=== PATIENT | male | born 1940 | race Caucasian/White ===

== ENCOUNTER 2021-06-03 12:07 | Outpatient (CLI) | payer OTHER, SELFPAY ==
--- NOTE | ~2021-06-03 | XR_ITS ---
XR chest 2V 06/03/2021 12:38 Indication: Cough with chest pain Procedure: 2 view chest Comparison: Comparison to multiple prior studies sequentially, with oldest reviewed study dated 11/28. Findings: There is left lower lobe airspace disease, compatible with pneumonia. There is atherosclero sis and ectasia of the aorta. Right lung clear. Heart size normal. Impression: 1: Left lower lobe pneumonia. Reviewed, dictated and finalized at location A. Impression: 1: Left lower lobe pneumonia.
== END 2021-06-03 12:08 | disposition home or self-care (01) ==
LOC: ANHIMG 12:16
PROVIDERS: PCP Family Medicine; Visit Provider Nurse Practitioner Family
DX: R05 Cough (principal); R06.02 Shortness of breath; J18.9 Pneumonia, unspecified organism
CPT/HCPCS: 71046

== ENCOUNTER 2022-09-21 13:14 | Outpatient (CLI) | payer OTHER, SELFPAY ==
[2022-09-21 14:03] LABS: Anion Gap 10 mmol/L (8-16); Blood Urea Nitrogen 25 mg/dL (9-20); Calcium 9.3 mg/dL (8.4-10.2); Carbon Dioxide 23 mmol/L (22-30); Chloride 107 mmol/L (98-107); Estimated Glomerular Filt Rate 49; Glucose 124 mg/dL (65-110); Potassium 3.8 mmol/L (3.4-5.0); Sodium 140 mmol/L (137-145)
[2022-09-21 14:13] LABS: INR 1.1; Prothrombin Time 14.1 Seconds (11.1-14.7)
[2022-09-21 14:15] LABS: Partial Thromboplastin Time 39.4 SECONDS (22.3-36.8)
== END 2022-09-21 13:15 | disposition home or self-care (01) ==
PROVIDERS: Anesthesiology; PCP Family Medicine; Visit Provider Surgery
DX: E11.9 Type 2 diabetes mellitus without complications (principal); Z01.818 Encounter for other preprocedural examination; N18.30 Chronic kidney disease, stage 3 unspecified
CPT/HCPCS: 36415; 80048; 85610; 85730

== ENCOUNTER 2022-09-24 17:56 | Observation (INO) | payer OTHER, SELFPAY ==
[2022-09-18 09:33] VITALS: BMI 28.8
--- NOTE | 2022-09-18 10:00 | PC.NURSE ---
Report to the Outpatient Waiting Room, entrance under the green pavilion located off [facility], at time _1100_ on date _09/24/22_. Planned Procedure Time: _1 PM_. Time changes happen often and if your time is changed the preop area will call you the afternoon before. - You and your visitor will be asked to self-screen and do not enter if you have any COVID symptoms. - Only one visitor is requested with a max of two and NO children visitors are allowed at this time. - The patient visitor may be requested to leave or wait in car when not with patient due to distancing restrictions. - A mask is optional within the hospital. Patients may have clear liquids (water, carbonated beverages, clear teas, apple juice) until 3 hours prior to surgery (1000 AM) with a maximum of 20 ounces. - No food from midnight until time of surgery Take the following medications with a SIP of water the morning of surgery: _AMLODIPINE, METOPROLOL_ Medications to discontinue _ELIQUIS PER DR. PEARSON'S INSTRUCTIONS_ Please no make-up, nail frisian, hairspray, perfume, deodorant, or body powder the day of surgery. No jewelry (including any body piercings) or valuables the day of surgery, leave them at home. Please take a shower or bath the night before, or the morning of, surgery with an antibacterial soap. Wear comfortable, loose fitting clothing. Children are encouraged to wear pajamas. - Jewelry must be removed prior to entering the operating room. Rings and piercings that are not removed may be cut off. - The hospital will not accept responsibility for valuables. - Please leave all valuables, including medications, at home the day of surgery. If you are going home after surgery, a licensed professional driver must drive you home. - NO public transportation without another adult if you receive anesthesia. - We recommend that an adult stay with you for 24 hours following discharge. - We also recommend that you do not drive, make important decision, drink alcoholic beverages, or take any drugs that were not prescribed by your health care provider for at least 24 hours after your discharge time. Follow any additional instructions given to you from your surgeon. HIBICLENS SHOWER AM OF SURGERY If you or anyone in your household have experienced Covid symptoms in the past week, please notify your surgeon or the nurse liaison at the phone number below for possible testing. Telephone instructions given to ___PT and asked if any additional questions and then verbalized understanding. Patient advised to call surgeon office or pre surgery nurse liaison [phone] if any additional questions.
--- NOTE | 2022-09-23 10:57 | WPDANESEPPF ---
Anes - Initial Pre Proc Eval Procedure: Operation Date: 09/24/22 13:00 Proposed Procedures p Open Periumbilical Incisional Hernia Repair with Mesh - David Bedoya MD Date/Time: 09/23/22 10:57 Surgeon: David Bedoya MD Pre Op Diagnosis: incisional hernia Patient Data Age: 82 Gender: M Height: 1.8 m Weight: 93.63 kg Allergies Allergy/AdvReac Type Severity Reaction Status Date / Time No Known Allergies Allergy Unknown Verified 09/18/22 09:31 Home Medications Medication Instructions Recorded Confirmed Type metformin 500 mg tablet,extended See Rx Instructions .Route 02/23/22 09/19/22 Rx release 24 hr .COMPLEX #360 tabs valsartan 320 1 tablet PO DAILY #90 tabs 04/24/22 09/19/22 Rx mg-hydrochlorothiazide 25 mg tablet (Diovan HCT) apixaban 5 mg tablet (Eliquis) See Rx Instructions .Route 04/30/22 09/19/22 Rx .COMPLEX #60 tabs amlodipine 10 mg tablet 10 mg PO DAILY #90 tabs 05/11/22 09/19/22 Rx clotrimazole-betamethasone 1 1 applic topical BID #45 grams 06/02/22 09/19/22 Rx %-0.05 % topical cream metoprolol succinate 25 mg See Rx Instructions .Route 08/07/22 09/19/22 Rx tablet,extended release 24 hr .COMPLEX #45 tabs dulaglutide 1.5 mg/0.5 mL 1.5 mg (0.5 mL) subcut WEEKLY #2 mL 09/08/22 09/19/22 Rx subcutaneous pen injector (Trulicity) Patient hx anesthesia problems: none Family hx anesthesia problems: none Results Review: All pre-operative results and documents have been reviewed as part of the pre-operative evaluation. [facility] Past Medical History Medical History (Updated 09/17/22 @ 09:33 by Maeve Mohr [facility]) CAD (coronary artery disease) Chronic a-fib Chronic kidney disease, stage 3 unspecified CKD (chronic kidney disease) stage 3, GFR 30-59 ml/min DM renal manif type II HLD (hyperlipidemia) Hy ht/kd NOS I-IV w/o hf Type 2 diabetes mellitus without complications Surgical History Surgical History (Updated 12/07/22 @ 10:58 by Warren Coffey DO) History of prostatectomy History of PTCA stent 2006 Family History Family History Mother Family history of coronary artery disease Social History Social History (Updated 09/18/22 @ 10:28 by Maya Chaney RN) Social History: Single Smoking status: Never smoker Tobacco type: cigarettes Second hand tobacco smoke exposure: No Alcohol intake: current Alcohol use details: STATES MAYBE 12-15 DRINKS A YEAR Substance use: never Substance use type: does not use Living arrangements: with family Gender identity (if verbalized by the patient): Male Sexual Orientation (if Verbalized by the Patient): Straight or Heterosexual Spiritual care concerns: No Anes - Eval Final PreProcedure Day of Procedure 09/23/22 10:57 Patient weight: overweight Heart: regular rate and rhythm Lungs: clear to auscultation Airway: Mallampati scale class II Neurological: alert and oriented Last oral intake: >/= 8 hours ASA classification: III Emergent: no Anesthetic plan: proceed Anesthesia type and monitoring: general GIVS and standard monitoring Results Review: All pre-operative results and documents have been reviewed as part of the pre-operative evaluation. Informed Consent: The patient's anesthetic plan and its attendant risks and benefits were discussed with the patient/family/POA. Questions were solicited and answers provided to the satisfaction of the patient/family/POA.
[2022-09-24] VITALS (15 sets, daily range): BP systolic 110–170; BP diastolic 55–73; PULSE 34–50; RESP 16–18; TEMP 36.4–36.6; O2SAT 91–98; BMI 31.4
[2022-09-24] MEDS: ACETAMINOPHEN 500 MG TABLET 1000 MG PO (11:00)
[2022-09-24] MEDS: KETOROLAC 15 MG/ML VIAL (*BKC) IV PUSH (11:00)
[2022-09-24] MEDS: LACTATED RINGERS 1,000 ML 30 ML IV CONT (11:00)
[2022-09-24 11:38] LABS: Partial Thromboplastin Time 36.6 SECONDS (22.3-36.8)
--- NOTE | 2022-09-24 11:46 | WPDHPUPDATE1 ---
History and Physical Update Update Date/Time: 09/24/22 11:46 History and Physical has been reviewed, including an updated exam of the patient. There are NO changes in the patient's condition. Risks, benefits, and alternatives have been discussed and questions answered. Patient agrees to proceed with procedure.
[2022-09-24 11:48] LABS: Glucose Point of Care 151 mg/dl (65-105)
[2022-09-24] MEDS: ceFAZolin 2 GM/D5W 50 ML 2 GM/50 ML BAG IVPB (11:57)
--- NOTE | 2022-09-24 13:30 | ECG_ITS ---
Measurements Intervals [place] Rate: 41 P: ID: 0 QRS: -16 QRSD: 91 T: 25 QT: 449 QTc: 374 Interpretive Statements ATRIAL FLUTTER/TACHYCARDIA WITH SLOW VENTRICULAR RESPONSE INFERIOR MYOCARDIAL INFARCTION , PROBABLY OLD [40+ ms Q WAVE AND/OR ST/T ABNORMALITY IN II/aVF] NO PREVIOUS ECG AVAILABLE FOR COMPARISON Electronically Signed On 09-25-2022 7:38:20 DICER OPERATOR by Shon Prieto M.D.
[2022-09-24 13:39] LABS: Glucose Point of Care 137 mg/dl (65-105)
--- NOTE | 2022-09-24 13:40 | P.OP_ITS ---
Procedure Note - Detailed Date of Procedure 09/24/22 Pre-op Diagnosis incisional hernia Post-op Diagnosis Same Procedure Performed Repair periumbilical incisional hernia with 6.[address] underlay mesh Surgeon David Bedoya MD Business Asst Ilda DELACRUZ Anesthesia General (G IV S) and Local (1% lidocaine with epinephrine) Indications Patient had laparoscopic prostatectomy over 10 years ago. One of his trocars was placed in the upper umbilicus. He noticed a knot there after the surgery. Recently this has gotten bigger and more painful. He was seen in the office and found to have a periumbilical incisional hernia. He is taken to surgery now for repair Findings Showed a 1-1/2 x 0.7 cm defect. Description of Procedure Patient was taken to surgery and anesthesia was administered. The abdomen is prepped and draped. The proposed incision along the upper margin of the umbilicus was marked on the skin. Local was infiltrated into the skin and the deeper subcutaneous tissues. Incision was made dissection was carried down through the subcutaneous. We encountered the hernia sac which was sizable. I dissected the umbilical skin off the hernia sac and then dissected around the hernia sac circumferentially. I opened the sac at its neck and then excised it. There was omentum in the hernia defect. A small amount of omentum was removed. The rest was reduced. I put a finger inside the hernia defect found no adhesions or other defects in the area. A 6.[address] patch was chosen. It was placed in the defect in position symmetrically. Cranial and caudal transfascial sutures were then placed. When each of these sutures was tied, it had the effect of drawing the edges of the hernia defect closer to 1 another. I then cut the straps to the Ventralex patch. Right and left lateral transfascial sutures were then placed also with 0 Ethibond. The defect was then closed with [id number] mattress suture of 0 Ethibond. This suture also in cord perforated bit of mesh. More local was infiltrated all around the area of the repair. I then sutured the umbilical skin to the fascia with 3-0 Vicryl. Some subcutaneous 3-0 Vicryl were placed. The skin was loosely approximated with subcuticular interrupted 3-0 and 4-0 Vicryl suture. The skin was finally closed with a running 4-0 Monocryl skin suture. The wound was dressed with Exofin rosalind gical adhesive. The patient was awakened and taken to outpatient surgery in good condition. Sponge and needle counts were correct x2. Estimated Blood Loss -5 Drains No Packing No Pathology None sent Complications No immediate complications Condition Stable Disposition Same day [facility] Billing Surgery - Charge Forward: Surgery Billing (Repair incisional hernia with mesh)
--- NOTE | 2022-09-24 13:53 | SUR.PHASEII ---
1325 per UROLOGY PHYSICIAN Babita need EKG prior to discharge order placed by Dr Coffey 1335 Dr Reynolds bedside talking to patient patient awake alert no complaints of any type 1350 tech bedside to obtain EKG 1400 Dr Coffey informed EKG complete and Dr Bedoya given update of needed EKG
--- NOTE | 2022-09-24 14:13 | SUR.PHASEII ---
1410 Dr Coffey bedside
--- NOTE | 2022-09-24 14:23 | SUR.PHASEII ---
[address] Coffey bedside talking to patient states he and Dr Bedoya spoke and would like hospitalist to consult and admit for observation
--- NOTE | 2022-09-24 15:11 | PM.IMHP ---
H&P: HPI History of Present Illness Date/Time: 09/24/22 15:11 Chief Complaint: Bradycardia with atrial flutter Narrative: Patient is an 82-year-old man with diabetes, coronary artery disease with previous stenting, hypertension who came to the hospital today for outpatient surgery regarding an enlarging periumbilical incisional hernia. At the time of surgery he was noted to have asymptomatic bradycardia. His surgery was performed under sedation and local anesthesia. Following surgery was noted to have persistent bradycardia with atrial flutter. He has placed in observation in intermediate care unit. Consultation with the hospitalist as well as Cardiology is requested. 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 Review of Systems Review of Systems: All systems reviewed & are unremarkable except as noted in HPI and below (HPI and those items noted below) Constitutional: Constitutional: Denies chills and Denies fever(s) Cardiovascular: Cardiovascular: Denies chest pain, Denies diaphoresis, Denies dyspnea and Denies paroxysmal nocturnal dyspnea Respiratory: Respiratory: Denies chest congestion, Denies cough and Denies dyspnea Integumentary/Breasts: Skin/Breast: Denies lesions and Denies rash [facility] Past Medical History Medical History CAD (coronary artery disease) Chronic a-fib Chronic kidney disease, stage 3 unspecified CKD (chronic kidney disease) stage 3, GFR 30-59 ml/min DM renal manif type II HLD (hyperlipidemia) Hy ht/kd NOS I-IV w/o hf Type 2 diabetes mellitus without complications Surgical History Surgical History History of prostatectomy History of PTCA stent 2006 Family History Family History Mother Family history of coronary artery disease Social History Social History Social History: Single Smoking status: Never smoker Tobacco type: cigarettes Second hand tobacco smoke exposure: No Alcohol intake: current Alcohol use details: STATES MAYBE 12-15 DRINKS A YEAR Substance use: never Substance use type: does not use Living arrangements: with family Gender identity (if verbalized by the patient): Male Sexual Orientation (if Verbalized by the Patient): Straight or Heterosexual Spiritual care concerns: No Meds Home Medications and Allergies Home Medications Medication Instructions Recorded Confirmed Type metformin 500 mg tablet,extended See Rx Instructions .Route 02/23/22 09/24/22 Rx release 24 hr .COMPLEX #360 tabs valsartan 320 1 tablet PO DAILY #90 tabs 04/24/22 09/24/22 Rx mg-hydrochlorothiazide 25 mg tablet (Diovan HCT) apixaban 5 mg tablet (Eliquis) See Rx Instructions .Route 04/30/22 09/24/22 Rx .COMPLEX #60 tabs amlodipine 10 mg tablet 10 mg PO DAILY #90 tabs 05/11/22 09/24/22 Rx clotrimazole-betamethasone 1 1 applic topical BID #45 grams 06/02/22 09/24/22 Rx %-0.05 % topical cream metoprolol succinate 25 mg See Rx Instructions .Route 08/07/22 09/24/22 Rx tablet,extended release 24 hr .COMPLEX #45 tabs dulaglutide 1.5 mg/0.5 mL 1.5 mg (0.5 mL) subcut WEEKLY #2 mL 09/08/22 09/24/22 Rx subcutaneous pen injector (TrLife is Tech) hydrocodone 5 mg-acetaminophen 325 1 - 2 tablet PO Q6H PRN pain #15 09/24/22 Rx mg tablet tabs Allergies Allergy/AdvReac Type Severity Reaction Status Date / Time No Known Allergies Allergy Unknown Verified 09/24/22 12:14 Vital Signs Vital Signs - 24 hr 09/24/22 11:30 09/24/22 13:25 09/24/22 13:30 Temperature 36.4 C Pulse Rate 41 L 50 L 42 L Respiratory Rate 18 16 16 Blood Pressure 146/68 H 114/55 L 116/57 L Pulse Oximetry 98 91 92 Oxygen Delivery Room Air Room Air Room Air 09/24/22 13:50 09/24/22 14:00 09/24/22 14:15 Temperature Pulse Rate 40 L 42 L 34 L Respiratory Rat
--- NOTE | 2022-09-24 15:17 | SUR.PHASEII ---
1515 This RN spoke to Sherri Page about entering consult order, Patient states no happy has to stay is talking to him about how it is needed, patient and informed awaiting a bed, offered a menu at this time.
--- NOTE | 2022-09-24 15:56 | SUR.PHASEII ---
Dr. Bedoya at bedside talking to patient and spouse now.
--- NOTE | 2022-09-24 16:18 | SUR.PHASEII ---
Patient met criteria for the floor at 1545. No beds available at this time so patient is being boarded in outpatient until a bed becomes available. Spouse is in the room with the patient at this time.
[2022-09-24 16:36] LABS: Glucose Point of Care 127 mg/dl (65-105)
[2022-09-24] MEDS: IBUPROFEN IV 800 MG/200 ML 800 MG/200 ML BAG 400 MG IVPB (17:12)
--- NOTE | 2022-09-24 17:51 | SUR.PHASEII ---
Nata left the hospital for the evening. RN called and told her room 213. This RN let CRYSTAL Mcfarlane know that Nata would be notified of room number and that she had the number to the nurse's station from [place] before she left the hospital.
--- NOTE | 2022-09-24 18:30 | ADMGEN ---
This patient, Shon German, was admitted to IMU Room 213-01. Patient/family oriented to hospital policies and general routines including ID bracelet, bed and alarms, visiting hours, pain management, procedures, bathroom and other care routines, personal items, smoking policy, room service/diet, and visiting hours. Information on how to activate the Rapid Response Team has been discussed. Patient/Family are encouraged to report perceived risks to care and to ask questions if they do not understand what they are told or what they should do.
[2022-09-24] MEDS: LACTATED RINGERS 1,000 ML 80 ML IV CONT (18:46)
[2022-09-24] MEDS: FAMOTIDINE 20 MG TABLET PO (21:00)
[2022-09-24] MEDS: HYDROcodone/acetaminophen (*CRX) 7.5-325 MG TABLET 1 TAB PO (22:42)
[2022-09-25] VITALS (8 sets, daily range): BP systolic 147–159; BP diastolic 60–69; PULSE 39–48; RESP 15–20; TEMP 36.1–36.5; O2SAT 91–96; BMI 30.7
[2022-09-25 01:10] LABS: Glucose Point of Care 128 mg/dl (65-105)
[2022-09-25 05:11] LABS: Hematocrit 40.4 % (42.0-52.0); Hemoglobin 13.1 g/dL (14.0-18.0); Mean Corpuscular HGB Conc 32.4 g/dl (32-36); Mean Corpuscular Hemoglobin 32.4 pg (26-34); Mean Platelet Volume 10.1 fl (7.4-10.4); Platelet Count Result 255 k/mm3 (150-375); Red Blood Count 4.04 M/mm3 (4.6-6.20); Red Cell Distribution Width 14.4 % (11.5-14.5); White Blood Count 9.9 K/mm3 (4.5-10.0)
[2022-09-25 05:26] LABS: Anion Gap 4 mmol/L (8-16); Blood Urea Nitrogen 21 mg/dL (9-20); Calcium 8.7 mg/dL (8.4-10.2); Carbon Dioxide 27 mmol/L (22-30); Chloride 107 mmol/L (98-107); Estimated CRCL calculation 44 ml/min; Estimated Glomerular Filt Rate 49; Glucose 132 mg/dL (65-110); Potassium 3.8 mmol/L (3.4-5.0); Sodium 138 mmol/L (137-145)
--- NOTE | 2022-09-25 06:28 | PM.IMCN ---
Assessment and Plan Assessment and plan (1) Atrial flutter by electrocardiogram: Code(s): I48.92 - Unspecified atrial flutter Status: Acute (2) Bradycardia: Code(s): R00.1 - Bradycardia, unspecified Status: Acute (3) Chronic a-fib: Code(s): I48.20 - Chronic atrial fibrillation, unspecified Status: Chronic (4) Type 2 diabetes mellitus: Code(s): E11.9 - Type 2 diabetes mellitus without complications Status: Acute Plan The patient's metoprolol is already on hold for the patient's asymptomatic bradycardia with a flutter. Cardiology was consulted by the primary service. Will defer further management of this issue to Cardiology Service. The patient's glucoses are stable with his diabetic regimen. Will change the patient's sliding scale insulin a.c. HS Accu-Cheks as the patient is on a consistent carbohydrate diet. Otherwise the patient's glucoses are stable Accu-Cheks and hypoglycemia protocol are in place. The patient's diabetes is stable. Will hold the patient's Trulicity as this is non formulary medication and is only given weekly. If okay with surgical service medical service is okay with patient being discharged. Medicine service will sign off. HPI Data of Consult Consult date: 09/25/22 Requesting Physician: David Bedoya MD Primary Care Provider: Fantasma Jett MD Consult Narrative Narrative: Shon German is a 82 year old maleWith past medical history of coronary artery disease,chronic atrial fibrillation, type 2 diabetes mellitus and hypertension who presented to the hospital for elective repair periumbilical incisional hernia. On presentation to the hospital patient had bradycardia. He was asymptomatic from bradycardia. EKG demonstrated AFib with slowed ventricular response. On review the patient's chart from prior hospitalizations the patient does seem to have an intermittent history of bradycardia in the past. He reports that when he was initially on Toprol-XL many years ago at a higher dose his heart rate were down in the 40s. His doctor cut his metoprolol back by half a dose and he has been on the his current dose for several years. Patient is asymptomatic with his bradycardia. He is on Toprol-XL at home which he took on the morning of the procedure. He also has type 2 diabetes but his glucoses have been well controlled since admission. Patient's heart rate is ranging in the 40s and 50s but is otherwise asymptomatic. He is doing well postop and denies shortness of breath. His heart rate is been as low as 39 but this morning his heart rate is up to 51. On telemetry heart rate now appear to be consistent with sinus bradycardia. His blood pressures have been stable. He reports a moderate to significant amount of abdominal pain and is incision site. He is passing gas. Review of Systems Review of Systems: 12 systems were reviewed with pertinent positives and negatives per HPI. Except as documented in the HPI, all other systems were reviewed and are negative. [facility] Past Medical History Medical History (Updated 09/25/22 @ 06:39 by Zehra Cuevas DO) CAD (coronary artery disease) Chronic a-fib CKD (chronic kidney disease) stage 3, GFR 30-59 ml/min DM renal manif type II HLD (hyperlipidemia) Hy ht/kd NOS I-IV w/o hf Surgical History Surgical History History of prostatectomy History of PTCA stent 2005 Family History Family History Mother Family history of coronary artery disease Grandparent Congestive heart failure Hypertension Social History Social History Social History: Single Smoking status: Never smoker Tobacco type: cigarettes Second hand tobacco smoke exposure: No Alcohol intake: former Alcohol use details: STATES MAYBE 12-15 DRINKS A YEAR Substance
[2022-09-25] MEDS: ENOXAPARIN 40 MG/0.4 ML SYRINGE SUB-Q (08:32)
[2022-09-25] MEDS: metFORMIN HCL XR 500 MG TAB.SR.24H 2000 MG BY MOUTH (08:32)
[2022-09-25] MEDS: VALSARTAN 160 MG TABLET 320 MG PO (08:32)
[2022-09-25] MEDS: amLODIPine BESYLATE 5 MG TABLET 10 MG PO (08:33)
[2022-09-25] MEDS: FAMOTIDINE 20 MG TABLET PO (08:33)
[2022-09-25] MEDS: hydroCHLOROthiazide 25 MG TABLET PO (08:33)
[2022-09-25] MEDS: BETAMETHASONE/CLOTRIMAZOLE CR 15 GM TUBE 1 APPLIC TOPICAL (08:33)
[2022-09-25] MEDS: HYDROcodone/acetaminophen (*CRX) 7.5-325 MG TABLET 1 TAB PO (08:38)
[2022-09-25 08:55] LABS: Glucose Point of Care 156 mg/dl (65-105)
--- NOTE | 2022-09-25 09:17 | PM.CNCAR ---
Assessment and Plan Assessment and plan (1) Bradycardia: Code(s): R00.1 - Bradycardia, unspecified Status: Acute (2) Atrial flutter by electrocardiogram: Code(s): I48.92 - Unspecified atrial flutter Status: Acute Plan This is an 82-year-old man with chronic stable coronary artery disease remote history of PCI done elsewhere. He also has chronic AFib/flutter and a slow ventricular response. He these are not new findings or concerns. He is on a very small dose metoprolol which should be stopped. He has no cardiac symptoms that require ongoing hospitalization here at [place] [facility]. Otherwise he would be ready to go home after his hernia operation yesterday. He show should follow-up with his established fur trimmer at [facility]. Out of courtesy I will give them a call and let them know about this today. Shon Prieto MD [facility] History of Present Illness History of Present Illness Consult date/time: 09/25/22 09:17 Reason For Visit: incisional hernia Narrative: This is a very pleasant 82-year-old man I am seeing at the request of the hospitalist and Surgical team because of bradycardia. He is unknown to me prior to this consultation. He is feeling well this morning and does not have any cardiovascular complaints. He is admitted [facility] yesterday as an outpatient for repair of a umbilical hernia. He underwent herniorrhaphy uneventfully and was noted to be bradycardic prompting a consultation. The patient does have a history of coronary artery disease as well as chronic atrial fib/flutter with slow ventricular response. He is managed by our cardiology colleague over at [facility] for many years. He states that he underwent a percutaneous angioplasty procedure with the remote past and has done well without any recurrent stenosis or ischemic problems in many years. He also is known to have chronic atrial fibrillation with a slow ventricular response. His fur trimmer has been reducing the dose of his metoprolol because of this a gradually over the last couple of years. He is currently on a very small dose of metoprolol at 12.5 mg daily. He does not have any history of any syncopal episodes or near syncopal events. 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 His electrocardiogram demonstrates atrial flutter with slow ventricular response a narrow QRS and nonspecific T-wave changes. Review of Systems Constitutional: Constitutional: Reports no additional constitutional complaints Eyes: Eyes: Reports no additional eye complaints ENT: Reports system reviewed and no additional complaints, except as documented Cardiovascular: Cardiovascular: Reports no additional cardiovascular complaints Respiratory: Respiratory: Reports no additional respiratory complaints Gastrointestinal: Gastrointestinal: Reports no additional gastrointestinal complaints Musculoskeletal: Musculoskeletal: Reports no additional musculoskeletal complaints Integumentary/Breasts: Skin/Breast: Reports system reviewed and no additional complaints, except as docu Neurologic: Reports system reviewed and no additional complaints, except as documented Hematologic/Lymphatic: Hematologic/Lymphatic: Reports no additional hematologic/lymphatic complaints Allergic/Immunologic: Allergic/Immunologic: Reports no additional allergic/immunologic complaints [facility] Past Medical History Medical History (Updated 09/25/22 @ 06:39 by Zehra Cuevas DO) CAD (coronary artery disease) Chronic a-fib CKD (chronic kidney disease) stage 3, GFR 30-59 ml/min DM renal manif type II HLD (hyperlipidemia) Hy ht/kd NOS I-IV w/o hf Surgical History Surgical History History of prostatectomy His
--- NOTE | 2022-09-25 10:47 | P.PNAN_ITS ---
Anes - Prog Note Post-Op Date/Time: 09/25/22 09:30 Cardiovascular status: other (pt seen by institutional nutrition consultant, pacer discussed. scheduled to follow up with primary institutional nutrition consultant next week. ) Respiratory status: normal Airway patency: baseline Mental status: baseline Post-Op hydration status: normal Vital Signs: Last Vital Signs Temp 97.3 F L 09/25/22 08:00 Pulse 48 L 09/25/22 08:00 Resp 20 09/25/22 08:00 BP 147/60 H 09/25/22 08:00 Pulse Ox 91 09/25/22 08:00 O2 Del Method Room Air 09/25/22 04:00 Pain Score (VAS): 2 I/O: Intake & Output 09/24/22 09/25/22 09/25/22 23:59 07:59 15:59 Intake Total 1200 Balance 1200 Laboratory Tests 09/25/22 04:56 09/25/22 04:56 09/24/22 09/24/22 09/24/22 11:09 11:19 13:35 WBC RBC Hgb Hct MCV MCH MCHC RDW Plt Count MPV APTT 36.6 Sodium Potassium Chloride Carbon Dioxide Anion Gap BUN Creatinine Estim Creat Clear Calc Estimated GFR Glucose POC Capillary Glucose 151 H 137 H Calcium 09/24/22 09/25/22 09/25/22 16:31 01:04 04:56 WBC 9.9 RBC 4.04 L Hgb 13.1 L Hct 40.4 L MCV 100.0 MCH 32.4 MCHC 32.4 RDW 14.4 Plt Count 255 MPV 10.1 APTT Sodium Potassium Chloride Carbon Dioxide Anion Gap BUN Creatinine Estim Creat Clear Calc Estimated GFR Glucose POC Capillary Glucose 127 H 128 H Calcium 09/25/22 09/25/22 04:56 08:32 WBC RBC Hgb Hct MCV MCH MCHC RDW Plt Count MPV APTT Sodium 138 Potassium 3.8 Chloride 107 Carbon Dioxide 27 Anion Gap 4 L BUN 21 H Creatinine 1.40 H Estim Creat Clear Calc 44 Estimated GFR 49 L Glucose 132 H POC Capillary Glucose 156 H Calcium 8.7 Post-procedural complaints: none Patient Feedback: Patient satisfied with anesthetic care.
[2022-09-25 12:11] LABS: Glucose Point of Care 160 mg/dl (65-105)
--- NOTE | 2022-09-25 14:34 | PM.DS ---
DS: Admitting Diagnosis Discharge Date 09/25/2022 Admitting Diagnosis Incisional hernia Bradycardia with atrial flutter-asymptomatic DS: Discharge Diagnosis Discharge Diagnosis (1) Atrial flutter by electrocardiogram: Code(s): I48.92 - Unspecified atrial flutter Status: Acute (2) Bradycardia: Code(s): R00.1 - Bradycardia, unspecified Status: Acute Assessment and Plan: Patient noted to have bradycardia with heart rates in the 30s at the time of surgery. This was asymptomatic. It appeared to be atrial flutter in an EKG after surgery. Patient was admitted to the IMU for observation. Hospitalist saw the patient in consultation as did Dr. Prieto from cardiology. 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 (3) Incisional hernia: Qualifiers: Obstruction and gangrene presence: without obstruction or gangrene Qualified Code(s): K43.2 - Incisional hernia without obstruction or gangrene Code(s): K43.2 - Incisional hernia without obstruction or gangrene Status: Chronic Assessment and Plan: Patient underwent repair of periumbilical incisional hernia with underlay mesh on 09/24/2022. (4) Chronic anticoagulation: Code(s): Z79.01 - USP (current) use of anticoagulants Status: Chronic Assessment and Plan: Apixaban on hold until Wednesday DS: Summary Hospital Course Hospital Course: Patient underwent periumbilical incisional hernia repair with Ventralex ST underlay mesh as scheduled as an outpatient. He did however have asymptomatic bradycardia which was noted after surgery to be atrial flutter. His heart rates were in the 30s. He was observed in the intermediate care unit. He was seen by hospitalist service as well as Cardiology. His heart rates were more in the 40s on 09/25. Both the hospitalist service and Dr. Prieto from cardiology felt the patient was satisfactory for discharge on 09/25/2022 to follow up with his regular locomotive firer/fireman as an outpatient. Status at Discharge Functional status at discharge: independent ambulation Overall status at discharge: patient is progressing back to baseline Time Spent with Patient Time attestation: Total time spent providing and/or coordinating discharge services: DS: Data Data Completed and Pending Labs on day of discharge: Labs from last 24 hours 09/25/22 09/25/22 09/25/22 11:31 08:32 04:56 WBC RBC Hgb Hct MCV MCH MCHC RDW Plt Count MPV Sodium 138 Potassium 3.8 Chloride 107 Carbon Dioxide 27 Anion Gap 4 L BUN 21 H Creatinine 1.40 H Estim Creat Clear Calc 44 Estimated GFR 49 L Glucose 132 H POC Capillary Glucose 160 H 156 H Calcium 8.7 09/25/22 09/25/22 09/24/22 04:56 01:04 16:31 WBC 9.9 RBC 4.04 L Hgb 13.1 L Hct 40.4 L MCV 100.0 MCH 32.4 MCHC 32.4 RDW 14.4 Plt Count 255 MPV 10.1 Sodium Potassium Chloride Carbon Dioxide Anion Gap BUN Creatinine Estim Creat Clear Calc Estimated GFR Glucose POC Capillary Glucose 128 H 127 H Calcium Discharge Plan Discharge Attending physician on discharge: David Bedoya Consulting providers: Davon Johns ; Sherri Page ; Cecilio Alvarez Discharging Clinician: David Bedoya Anticipated Discharge Date/Time: 09/25/22 14:32 Patient Disposition: Home, Self-Care Activity: may shower, no straining and as tolerated Diet: as tolerated and diabetic Wound Care Instructions: incision open to air Discharge Instructions: 1. May shower the day after surgery over incision. 2. Call office for: -Wound increasingly painful or bleeding -Vomiting -Fever of greater than 101 degrees 3. Expect some blood on dressing or on skin. 4. If no bowel movement for th
== END 2022-09-25 15:19 | disposition home or self-care (01) ==
LOC: ANHSURGERY 17:57 → ANHIMU 18:03
PROVIDERS: Anesthesiology; Admitting Provider Surgery; PCP Family Medicine; Visit Provider Surgery
PROC: 0WQF0ZZ Repair Abdominal Wall, Open Approach (ICD-10-PCS; CPT 49560; principal; 2022-09-24 13:00)
DX: K43.2 Incisional hernia without obstruction or gangrene (principal); I48.92 Unspecified atrial flutter; R00.1 Bradycardia, unspecified; R94.31 Abnormal electrocardiogram [ECG] [EKG]; R00.0 Tachycardia, unspecified; E11.22 Type 2 diabetes mellitus with diabetic chronic kidney disease; I12.9 Hypertensive chronic kidney disease with stage 1 through stage 4 chronic kidney disease, or unspecified chronic kidney disease; N18.30 Chronic kidney disease, stage 3 unspecified; I25.10 Atherosclerotic heart disease of native coronary artery without angina pectoris; Z95.5 Presence of coronary angioplasty implant and graft; E78.5 Hyperlipidemia, unspecified; F10.90 Alcohol use, unspecified, uncomplicated; E66.3 Overweight; Z68.30 Body mass index [BMI] 30.0-30.9, adult; Z79.01 Long term (current) use of anticoagulants; Z79.84 Long term (current) use of oral hypoglycemic drugs; Z79.891 Long term (current) use of opiate analgesic; Z79.899 Other long term (current) drug therapy; Z82.49 Family history of ischemic heart disease and other diseases of the circulatory system
CPT/HCPCS: 49560; 49568; 36415; 80048; 82948; 85027; 85610; 85730; 93005; 99215; A9270; C1781; G0378; G0463; J0690; J1650; J1741; J1885; J2704; J3010; J7120

== ENCOUNTER 2022-12-22 11:14 | Outpatient (CLI) | payer OTHER, SELFPAY ==
--- NOTE | ~2022-12-22 | XR_ITS ---
XR chest 2V DATE: 12/22/2022 11:27 INDICATION: Cough for 4 days. Low-grade fever. TECHNIQUE: PA and lateral views COMPARISON: 06/03/2021 2 view chest FINDINGS: Electronic monitor device overlies the lower left anterior chest cavity. Normal heart size. Aortic calcification and unfolding. No hilar or mediastinal enlargement. No pulmonary infiltrate or consolidation, pleural effusion or pulmonary vascular congestion or pneumo thorax. Degenerative spurring of the thoracic spine. IMPRESSION: No active cardiopulmonary disease Reviewed, dictated and finalized at location L. [facility]
== END 2022-12-22 11:15 | disposition home or self-care (01) ==
PROVIDERS: PCP Family Medicine; Visit Provider Family Medicine
DX: R05.9 Cough, unspecified (principal)
CPT/HCPCS: 71046

== ENCOUNTER 2024-03-08 07:41 | Outpatient (CLI) | payer OTHER, SELFPAY ==
--- NOTE | ~2024-03-08 | CT_ITS ---
EXAMINATION: CT soft tissue neck wo con DATE: 03/08/2024 08:00 INDICATION: Localized swelling, mass and lump, neck. TECHNIQUE: Computed tomography (CT) of the neck was performed with 75 mL Omnipaque-350 intravenous co ntrast. Automated exposure control and iterative reconstruction technique were employed. The dose-june gth product was 577.02 mGy-cm. COMPARISON: None FINDINGS: There is an enlarged high right internal jugular chain lymph node measuring 2.0 x 1.5 cm. T here is an enlarged right mid internal jugular chain node measuring 10 x 10 mm. In the supraglottic l arynx on the right, there is a 2.1 x 1.0 cm mucosal mass. There is mucosal thickening in the paranasa l sinuses. There is a trace left mastoid effusion. There is severe cervical spondylosis. IMPRESSION: 1. 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 2. Right internal jugular chain lymphadenopathy, consistent with metastatic disease. Ultrasound-guide d core needle biopsy is recommended. Reviewed, dictated and finalized at location A. IMPRESSION: 1. Mass in the supraglottic larynx on the right suspicious for squamous cell ca rcinoma. 2. Right internal jugular chain lymphadenopathy, consistent with metastatic dis ease. Ultrasound-guided core needle biopsy is recommended.
== END 2024-03-08 07:42 | disposition home or self-care (01) ==
PROVIDERS: PCP Family Medicine; Visit Provider Family Medicine
DX: R22.1 Localized swelling, mass and lump, neck (principal); I12.9 Hypertensive chronic kidney disease with stage 1 through stage 4 chronic kidney disease, or unspecified chronic kidney disease; N18.30 Chronic kidney disease, stage 3 unspecified
CPT/HCPCS: 70490

== ENCOUNTER 2024-09-19 14:31 | Inpatient (IN) | payer OTHER, SELFPAY ==
[2024-09-19] VITALS (8 sets, daily range): BP systolic 112–131; BP diastolic 50–69; PULSE 62–70; RESP 13–22; TEMP 36.2–36.7; O2SAT 94–98
--- NOTE | ~2024-09-19 | XR_ITS ---
EXAMINATION: XR chest 1V portable DATE: 09/26/2024 14:46 INDICATION: Cough and shortness of breath TECHNIQUE: frontal view of the chest was obtained. COMPARISON: Chest radiograph dated 09/24/2024 FINDINGS: Gradient of basilar predominant hazy airspace opacities in the bilateral mid to lower lung zones with blunting at costophrenic angles consistent with small lateral posterior layering pleural effusions. More dense opacities on the right lung base and in the retrocardiac left lower lung zone which could represent associated atelectasis or pneumonia. No pulmonary edema or pneumothorax. Cardiomegaly. Left pectoral implantable site monitor. IMPRESSION: 1. Small bilateral pleural effusions and associated bibasilar atelectasis and/or pneumonia. 2. Cardiomegaly. Reviewed, dictated and finalized at location A. T CLEANING MACHINE OPERATOR IMPRESSION: 1. Small bilateral pleural effusions and associated bibasilar atelectasis and/o r pneumonia. 2. Cardiomegaly.
--- NOTE | ~2024-09-19 | XR_ITS ---
XR chest 1V portable DATE: 09/24/2024 22:00 INDICATION: Shortness of breath and wheezing TECHNIQUE: Portable upright AP chest on 09/24/2024 at 2155 hours COMPARISON: 09/24/2024 portable AP chest at 0823 hours FINDINGS: Cardiomegaly. Aortic calcification. There is mild patchy infiltrate in the right mid and both lower lung zones, left greater than right. Pulmonary vascularity is within normal range. No pleural effusion or pneumothorax is noted. IMPRESSION: Right mid and bilateral lower lung infiltrate and/or atelectasis, most prominent in the l eft lower lobe Cardiomegaly, aortic calcification Reviewed, dictated and finalized at location A. NCE SEAL DELIVERY SYSTEM MAINTAINER IMPRESSION: Right mid and bilateral lower lung infiltrate and/or atelectasis, m ost prominent in the left lower lobe Cardiomegaly, aortic calcification
--- NOTE | ~2024-09-19 | XR_ITS ---
Portable chest x-ray Comparison: 09/26/2024 Clinical History: Shortness of breath Findings: Small bilateral pleural effusions are present. There is mild pulmonary edema pattern. Car diomediastinal silhouette is stable, with loop recorder. Bones and soft tissues are unremarkable. Impression: Small bilateral pleural effusions with mild pulmonary edema. Reviewed, dictated and finalized at [facility]. TED CIRCUIT LAYOUT TAPER Impression: Small bilateral pleural effusions with mild pulmonary edema.
--- NOTE | ~2024-09-19 | XR_ITS ---
EXAMINATION: [id number]_[id number]_CR DATE: 09/28/2024 15:02 INDICATION: Thoracentesis TECHNIQUE: frontal view of the chest was obtained. COMPARISON: Chest radiograph and CT dated 09/27/2024 FINDINGS: Changed basilar predominant hazy opacities in the right mid to lower lung zone consistent with small posterior layering pleural effusion. The hazy opacities throughout the left lung have resolved consis tent with interval thoracentesis with no appreciable residual left pleural effusion. Opacities at the bilateral lung bases which could represent atelectasis or pneumonia. No pneumothorax. Cardiomegaly. Left pectoral implant couple shelter monitor. IMPRESSION: 1. No pneumothorax or evident residual left pleural effusion post left thoracentesis. 2. Unchanged small right pleural effusion. 3. Persistent bibasilar opacities which could represent atelectasis or pneumonia. Reviewed, dictated and finalized at location A. DEVELOPMENT SPECIALIST IMPRESSION: 1. No pneumothorax or evident residual left pleural effusion post left thoracen tesis. 2. Unchanged small right pleural effusion. 3. Persistent bibasilar opacities which could represent atelectasis or pneumoni a.
--- NOTE | ~2024-09-19 | XR_ITS ---
EXAMINATION: XR chest 1V portable DATE: 09/24/2024 08:32 INDICATION: Fever. Altered mental status. TECHNIQUE: A single frontal view of the chest was obtained. COMPARISON: Chest 2 views 09/19/2024 FINDINGS: The lung volumes are small. There are airspace opacities in the lower lung zones. No pleura l effusion or pneumothorax. The heart size is normal. There is an electronic implant in the heart. IMPRESSION: 1. Small lung volumes with worsened airspace opacities in the lower lung zones, consistent with atele ctasis versus pneumonia. Reviewed, dictated and finalized at location A. PROFIT JOB TITLES IMPRESSION: 1. Small lung volumes with worsened airspace opacities in the lower lung zones, consistent with atelectasis versus pneumonia.
--- NOTE | ~2024-09-19 | US_ITS ---
EXAMINATION: US thoracentesis DATE: 09/28/2024 15:10 INDICATION: Moderate-sized bilateral pleural effusions TECHNIQUE: The procedure and its risks and benefits were discussed with the patient. Potential risks discussed included bleeding, infection, and pneumothorax. The patient understood the risks and agreed to proceed. The skin was prepped and draped in sterile fashion. 1% lidocaine was used for local anes thesia. Under ultrasound guidance, a 5 Fr catheter with trochar was advanced into the left pleural ef fusion. Fluid was aspirated. The catheter was removed, and a dressing was applied. There were no imme diate complications. FINDINGS: Ultrasound images demonstrate a small left pleural effusion and the catheter within the fluid. IMPRESSION: 1. Successful ultrasound-guided thoracentesis yielding 650 mL of dark reddish colored fluid. Reviewed, dictated and finalized at location A. ER OPERATOR
--- NOTE | ~2024-09-19 | XR_ITS ---
MODIFIED ESOPHAGRAM HISTORY: Dysphagia with coughing during bedside swallow exam TECHNIQUE: Modified barium esophagram was performed on 09/25/2024. I administered fluoroscopy and perf ormed the exam with speech pathologist. Patient was seated for lateral fluoroscopic imaging for jerry stion of thin liquids, pudding, solids and quantified amounts, followed by thin liquids in uncontroll ed amounts. This was recorded on tape. A single fluoroscopic spot image was also recorded. The DAP fo r this procedure was 3.298 Gycm2. The amount of fluoroscopy time used during this procedure was 5.1 m inutes. FINDINGS: Oral stage: Adequate function. Pharyngeal stage: Reduced laryngeal and adduction and tongue base retraction. Reduced pharyngeal sque elias and absent epiglottic inversion. There is moderate to large amount of vallecular residue and smal l to moderate amount of residue in the piriform sinus. Trace pharyngeal wall residue. There was laryn geal penetration both during and after the swallow. There is subsequent silent aspiration of a small amount of contrast following the swallow. There is irregular mucosal contour projecting over the phar ynx which raises concern for malignancy. Cervical/esophageal stage: Adequate function. IMPRESSION: 1. Pharyngeal dysphagia with laryngeal penetration both during and after the swallow and small amount of silent aspiration following the swallow. Please correlate with speech pathologist findings and s pecific feeding recommendations. 2. Irregular mucosal contour at the pharynx raises concern for malignancy. Reviewed, dictated and finalized at location A. CTOR OF EXHIBIT DEVELOPMENT IMPRESSION: 1. Pharyngeal dysphagia with laryngeal penetration both during and after the sw allow and small amount of silent aspiration following the swallow. Please nathanael elate with speech pathologist findings and specific feeding recommendations. 2. Irregular mucosal contour at the pharynx raises concern for malignancy.
--- NOTE | ~2024-09-19 | CT_ITS ---
CTA chest PE protocol Ordering provider: Gillian Palomino PA-C History: 84 years Male with . SOB; new O2 requirement . Comparison: None. Technique: CT angiogram chest was performed following timed intravenous injection of contrast. Thin s lice axial images and reformatted coronal images were obtained. Three dimensional reformatted images of the chest were also obtained using a [employer] workstation. . Automated exposure control and iterati ve reconstruction technique were employed. The dose-length product was 844.21 mGy-cm. 100 mL Omnipaqu e 350 was given IV. Findings: PULMONARY ARTERIES: No pulmonary embolus. VISUALIZED THORACIC INLET: Possibility of soft tissue density in the area of the right false vocal co rd is not excluded. Clinical evaluation advised. MEDIASTINUM: Aorta/coronary arteries: Mild atheromatous disease. Ascending aorta measures 3.3 cm. Heart/other: The heart is slightly enlarged. Lymph nodes: No mediastinal or hilar adenopathy. LUNGS: No pulmonary nodules or masses. Bilateral moderate pleural effusion with adjacent atelectasis versus pneumonia. Clinical correlation advised. No pneumothorax. VISUALIZED UPPER ABDOMEN: Soft tissue density in the left kidney medially most likely cyst. Ultrasoun d evaluation advised. Otherwise, , the visualized upper abdomen is normal. MUSCULOSKELETAL: Soft tissues: The superficial soft tissues are normal. Bones: Age appropriate degenerative changes of the spine. IMPRESSION: 1. No pulmonary embolism. 2. Bilateral moderate pleural effusion with adjacent atelectasis versus pneumonia. 3. Possible soft tissue density in the right false vocal cord area. Clinical evaluation advised. Reviewed, dictated and finalized at location A. PSYCHOLOGIST IMPRESSION: 1. No pulmonary embolism. 2. Bilateral moderate pleural effusion with adjacent atelectasis versus pneumo griselda. 3. Possible soft tissue density in the right false vocal cord area. Clinical e valuation advised.
--- NOTE | ~2024-09-19 | XR_ITS ---
EXAMINATION: XR chest 2V DATE: 09/19/2024 15:49 INDICATION: Pneumonia. TECHNIQUE: Frontal and lateral views of the chest were obtained. COMPARISON: Chest 2 views 12/22/2022 FINDINGS: There is mild atelectasis at left lung base. No pleural effusion or pneumothorax. The heart size is normal. An electronic implant overlies the heart. IMPRESSION: 1. Mild atelectasis at left lung base. Reviewed, dictated and finalized at location A. W MACHINE OPERATOR SINGLE SPINDLE
--- NOTE | ~2024-09-19 | CT_ITS ---
EXAMINATION: CT brain wo con DATE: 09/24/2024 14:26 INDICATION: Altered mental status TECHNIQUE: Computed tomography (CT) of the head was performed without intravenous contrast. The mA wa s adjusted according to patient size. Iterative reconstruction technique was employed. Exam dose: 60 5.33 mGy-cm total exam DLP. COMPARISON: 04/14/2016 CT brain FINDINGS: Stable chronic left cerebellar hemispheric infarct. Moderate cerebellar and cerebral volume loss. Prominent bilateral vertebral artery and carotid siphon internal carotid artery calcifications. There is nonspecific diminished attenuation of the cerebral white matter, likely due to chronic small vess el ischemic changes. No intracranial mass lesion or hemorrhage or cerebrovascular accident is evident. No subdural or epidural hematoma is detected. No fracture or bone destruction of the cranial vault. There is [id number] patchy soft tissue thickening of the ethmoid air cells, mild mucoperiosteal thickening of the sphenoid sinuses. The mastoid air cells are well-developed and aerated. No fracture or bone destruction of the cranial vault. 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 Reviewed, dictated and finalized at location A. 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
--- NOTE | 2024-09-19 08:57 | ECG_ITS ---
Test Date: 2024-09-21 09:19:38 Measurements Intervals [place] Rate: 60 P: 0 UT: 0 QRS: -72 QRSD: 201 T: 109 QT: 518 QTc: 518 Interpretive Statements ELECTRONIC VENTRICULAR PACEMAKER ABNORMAL RHYTHM ECG No previous ECG available for comparison Electronically Signed On 09-21-2024 09:57:07 CLINICAL LABORATORY SCIENTIST by Yaya Lu M.D.
[2024-09-19 15:02] LABS: Basophils Absolute Auto 0.1 K/mm3 (0.0-0.1); Basophils Percent Auto 0.9 % (0.2-1.2); Eosinophils Absolute Auto 1.8 K/mm3 (0-0.3); Eosinophils Percent Auto 18.6 % (0-4.4); Hematocrit 36.1 % (42.0-52.0); Hemoglobin 12.9 g/dL (14.0-18.0); Immature Granulocyte Absolute 0.06 K/mm3 (0.00-0.031); Immature Granulocyte Percent A 0.6 % (0-0.5); Lymphocytes Absolute Auto 0.94 K/mm3 (0.9-3.2); Lymphocytes Percent Auto 9.5 % (18.3-44.2); Mean Corpuscular HGB Conc 35.7 g/dl (32-36); Mean Corpuscular Hemoglobin 31.3 pg (26-34); Mean Corpuscular Volume 87.6 fl (80-100); Mean Platelet Volume 9.8 fl (7.4-10.4); Monocytes Absolute Auto 1.2 K/mm3 (0.1-0.6); Monocytes Percent Auto 11.7 % (2.6-8.5); Neutrophils Absolute Auto 5.8 K/mm3 (1.3-6.7); Neutrophils Percent Auto 58.7 % (45.5-73.1); Platelet Count Result 258 k/mm3 (150-375); Red Blood Count 4.12 M/mm3 (4.6-6.20); Red Cell Distribution Width 12.2 % (11.5-14.5); White Blood Count 9.9 K/mm3 (4.5-10.0)
[2024-09-19 15:24] LABS: INR 1.2; Prothrombin Time 15.8 Seconds (11.1-14.7); Troponin I < 0.012 ng/mL (0.000-0.034)
[2024-09-19 15:25] LABS: Partial Thromboplastin Time 46.7 Seconds (22.3-36.8)
[2024-09-19 15:39] LABS: Influenza A QL RT-PCR Negative (Negative); Influenza B QL RT-PCR Negative (Negative); RSV RNA, RT-PCR Negative (Negative); SARS-CoV-2 RNA PCR Negative (Negative)
[2024-09-19 16:13] LABS: Anion Gap 7 mmol/L (4-12); Blood Urea Nitrogen 11 mg/dL (9-20); Carbon Dioxide 25 mmol/L (22-30); Chloride 83 mmol/L (98-107); Estimated CRCL calculation 37 ml/min; Estimated Glomerular Filt Rate 48; Glucose 170 mg/dL (65-110); Potassium 3.4 mmol/L (3.4-5.0); Sodium 115 mmol/L (137-145)
[2024-09-19 16:14] LABS: Alanine Aminotransferase 20 U/L (6-50); Albumin Level 3.8 g/dL (3.5-5.1); Alkaline Phosphatase 74 U/L (38-126); Aspartate Amino Transferase 35 U/L (17-59); Bilirubin,Total 0.6 mg/dL (0.2-1.3); Calcium 8.7 mg/dL (8.4-10.2); Total Protein 6.9 g/dL (6.3-8.2)
[2024-09-19 16:27] LABS: Magnesium 1.4 mg/dL (1.6-2.3)
[2024-09-19] MEDS: SODIUM CHLORIDE 0.9% IV 1,000 ML 999 ML IV CONT (16:34)
[2024-09-19 16:47] LABS: Sodium 115 mmol/L (137-145)
--- NOTE | 2024-09-19 16:51 | ED.GENADULT ---
HPI - General Adult General Chief complaint: Dizziness Stated complaint: lightheaded x1w Time Seen by Provider: 09/19/24 16:17 History of Present Illness HPI narrative: 84-year-old male currently being treated for throat cancer had to [facility] presented emergency department for evaluation for worsening generalized weakness. Patient states he had his last chemotherapy treatment approximately 2 weeks ago and has since been feeling increasingly weak. Patient states he has been drinking water but does report decreased food intake. Related Data Home Medications Medication Instructions Recorded Confirmed amlodipine 10 mg tablet 10 mg PO DAILY 09/19/24 09/19/24 apixaban 5 mg tablet (Eliquis) 5 mg PO BID 09/19/24 09/19/24 valsartan 320 1 tablet PO DAILY 09/19/24 09/19/24 mg-hydrochlorothiazide 25 mg tablet Allergies Allergy/AdvReac Type Severity Reaction Status Date / Time No Known Allergies Allergy Unknown Verified 09/19/24 16:27 Review of Systems Review of Systems: All systems reviewed & are unremarkable except as noted in HPI and below PMFSH Past Medical History Medical History (Updated 09/19/24 @ 22:28 by Keturah Kerr APRN) CAD (coronary artery disease) Chronic a-fib CKD (chronic kidney disease) stage 3, GFR 30-59 ml/min DM renal manif type II History of prostate cancer HLD (hyperlipidemia) HTN (hypertension) Hy ht/kd NOS I-IV w/o hf Incisional hernia Throat cancer Surgical History Surgical History History of incisional hernia repair 09/24/22 Repair periumbilical incisional hernia with 6.[address] underlay mesh History of prostatectomy History of PTCA stent 2005 Family History Family History Mother Family history of coronary artery disease Grandparent Congestive heart failure Hypertension Social History Social History Social History: Single Smoking status: Never smoker Second hand tobacco smoke exposure: No Alcohol intake: former Alcohol use details: STATES MAYBE 12-15 DRINKS A YEAR Substance use: never Substance use type: does not use Do You Feel Safe in your Home?: Yes Lack of Transportation: No Lack of Food: Never True Current Housing: I Have Housing Concerned About Future Housing: No Difficulty Paying Gas/Electric Bills: No Difficulty Paying for Meds: No Currently Unemployed: No Education: Bachelor's Degree Difficulty w/ Childcare or Family Care: No Living arrangements: with family Occupation/Education: retired Gender identity (if verbalized by the patient): Male Sexual Orientation (if Verbalized by the Patient): Straight or Heterosexual Spiritual care concerns: No Exam Narrative: APPEARANCE: Ill-appearing HEAD: normocephalic, atraumatic. EYES: PERRLA/EOMI, conjunctivae clear. NOSE: Normal no drainage EARS:TMS clear with good light reflex. THROAT: Pharynx clear, no exudate. NECK: Supple. No adenopathy, no masses. RESPIRATORY: Airway patent, respirations nonlabored. Clear to auscultation bilaterally, no rales, rhonchi, wheezing. CARDIOVASCULAR: Regular rate and rhythm without murmurs rubs or gallops. ABDOMINAL: Soft, nontender, nondistended, normal bowel sounds MUSCULOSKELETAL: Moves all extremities. Strength/ROM intact, No edema, No calf tenderness. NEURO: Alert. Cranial nerves II through XII intact. Grossly intact SKIN: Warm, dry. Normal Color Course Vital Signs Vital signs: Vital Signs Temperature 97.2 F L 09/19/24 14:36 Pulse Rate 65 09/19/24 14:36 Respiratory Rate 16 09/19/24 14:36 Blood Pressure 129/54 L 09/19/24 14:36 Pulse Oximetry 98 09/19/24 14:36 Oxygen Delivery Room Air 09/19/24 14:36 Temperature 97.5 F L 09/20/24 11:23 Pulse Rate 65 09/20/24 12:32 Respiratory Rate 16 09/20/24 11:34 Blood Pressure 134/67 09/20/24 11:23 Pulse Oximetry 94 09/20/24 11:34 Oxygen Delivery Room Air 09/20/24 11:34 Fraction of Inspired Oxygen 21 09/20/24 11:34 Medical Decision Making MDM Narrative Medical decision making narrative: 84-year-old male presenting to the emergency department for evaluation for increased dizziness and lightheadedness. Patient is afebrile with no leukocytosis and hemoglobin of 12.9 patient does have a low sodium of 115 and a low magnesium of 1.4 patient's troponin was negative patient was negative for influenza RSV and for COVID. Due to patient's excessive weakness he will be admitted for his hyponatremia and hypomagnesemia. Patient was treated with a L of IV fluid emergency department and patient magnesium replacement was also started emergency department. Differential Diagnosis Differential Diagnosis: Dehydration, hyponatremia high bowel magnesemia, orthostatic hypotension, COVID, RSV, influenza, pneumonia Vital Signs Vital Signs: Vital Signs Temperature 97.2 F L 09/19/24 14:36 Pulse Rate 65 09/19/24 14:36 Respiratory Rate 16 09/19/24 14:36 Blood Pressure 129/54 L 09/19/24 14:36 Pulse Oximetry 98 09/19/24 14:36 Oxygen Delivery Room Air 09/19/24 14:36 Temperature 97.5 F L 09/20/24 11:23 Pulse Rate 65 09/20/24 12:32 Respiratory Rate 16 09/20/24 11:34 Blood Pressure 134/67 09/20/24 11:23 Pulse Oximetry 94 09/20/24 11:34 Oxygen Delivery Room Air 09/20/24 11:34 Fraction of Inspired Oxygen 21 09/20/24 11:34 Lab Data Lab results reviewed: Yes I reviewed the patient's lab results. 09/20/24 03:23 09/20/24 11:01 Labs: Lab Results 09/19/24 09/19/24 09/19/24 Range/Units 14:46 16:24 19:09 WBC 9.9 (4.5-10.0) K/mm3 RBC 4.12 L (4.6-6.20) M/mm3 Hgb 12.9 L (14.0-18.0) g/dL Hct 36.1 L (42.0-52.0) % MCV 87.6 (80-100) fl MCH 31.3 (26-34) pg MCHC 35.7 (32-36) g/dl RDW 12.2 (11.5-14.5) % Plt Count 258 (150-375) k/mm3 MPV 9.8 (7.4-10.4) fl Immature Gran % (Auto) 0.6 H (0-0.5) % Neut % (Auto) 58.7 (45.5-73.1) % Lymph % (Auto) 9.5 L (18.3-44.2) % [place] % (Auto) 11.7 H (2.6-8.5) % Eos % (Auto) 18.6 H (0-4.4) % Baso % (Auto) 0.9 (0.2-1.2) % Lymph # (Auto) 0.94 (0.9-3.2) K/mm3 [place] # (Auto) 1.2 H (0.1-0.6) K/mm3 Eos # (Auto) 1.8 H (0-0.3) K/mm3 Baso # (Auto) 0.1 (0.0-0.1) K/mm3 Abs Immat Gran (auto) 0.06 H (0.00-0.031) K/mm3 Absolute Neuts (auto) 5.8 (1.3-6.7) K/mm3 Absolute Nucleated RBC 0.000 (0.0-0.012) K/mm3 Nucleated RBC % 0.0 (0.0-0.2) % PT 15.8 H (11.1-14.7) Seconds INR 1.2 APTT 46.7 H (22.3-36.8) Seconds Sodium 115 L* 115 L* (137-145) mmol/L Potassium 3.4 (3.4-5.0) mmol/L Chloride 83 L (98-107) mmol/L Carbon Dioxide 25 (22-30) mmol/L Anion Gap 7 (4-12) mmol/L BUN 11 D (9-20) mg/dL Creatinine 1.40 H (0.7-1.3) mg/dL Estim Creat Clear Calc 37 ml/min Estimated GFR 48 L (59 - ) Glucose 170 H (65-110) mg/dL POC Capillary Glucose (65-105) mg/dl Serum Osmolality Calcium 8.7 (8.4-10.2) mg/dL Magnesium 1.4 L (1.6-2.3) mg/dL Total Bilirubin 0.6 (0.2-1.3) mg/dL AST 35 (17-59) U/L ALT 20 (6-50) U/L Alkaline Phosphatase 74 (38-126) U/L Troponin I < 0.012 (0.000-0.034) ng/mL Total Protein 6.9 (6.3-8.2) g/dL Albumin 3.8 (3.5-5.1) g/dL Urine Color (Yellow) Urine Appearance (Clear) Urine pH (5.0-9.0) Ur Specific [place] (1.001-1.035) Urine Protein (Negative) mg/dL Urine Glucose (UA) (Negative) mg/dL Urine Ketones (Negative) mg/dL Ur Blood (Man) (Negative) Urine Nitrate (Negative) Urine Bilirubin (Negative) Urine Urobilinogen (<2.0) mg/dL Leukocyte Esterase Rfl (Negative) GOLDY/UL Urine Osmolality Pending U Random Total Protein mg/dL Ur Random Sodium meq/L Urine Creatinine mg/dL Protein/Creat Ratio 2 (0-0.20) mg/mg Influenza A (RT-PCR) Negative (Negative) Influenza B (RT-PCR) Negative (Negative) RSV (RT-PCR) Negative (Negative) SARS-CoV-2 RNA (RT-PCR) Negative (Negative) 09/19/24 09/19/24 09/19/24 Range/Units 19:10 19:11 19:11 WBC (4.5-10.0) K/mm3 RBC (4.6-6.20) M/mm3 Hgb (14.0-18.0) g/dL Hct (42.0-52.0) % MCV (80-100) fl MCH (26-34) pg MCHC (32-36) g/dl RDW (11.5-14.5) % Plt Count (150-375) k/mm3 MPV (7.4-10.4) fl Immature Gran % (Auto) (0-0.5) % Neut % (Auto) (45.5-73.1) % Lymph % (Auto) (18.3-44.2) % Ma[place] % (Auto) (2.6-8.5) % Eos % (Auto) (0-4.4) % Baso % (Auto) (0.2-1.2) % Lymph # (Auto) (0.9-3.2) K/mm3 [place] # (Auto) (0.1-0.6) K/mm3 Eos # (Auto) (0-0.3) K/mm3 Baso # (Auto) (0.0-0.1) K/mm3 Abs Immat Gran (auto) (0.00-0.031) K/mm3 Absolute Neuts (auto) (1.3-6.7) K/mm3 Absolute Nucleated RBC (0.0-0.012) K/mm3 Nucleated RBC % (0.0-0.2) % PT (11.1-14.7) Seconds INR APTT (22.3-36.8) Seconds Sodium (137-145) mmol/L Potassium (3.4-5.0) mmol/L Chloride (98-107) mmol/L Carbon Dioxide (22-30) mmol/L Anion Gap (4-12) mmol/L BUN (9-20) mg/dL Creatinine (0.7-1.3) mg/dL Estim Creat Clear Calc ml/min Estimated GFR (59 - ) Glucose (65-110) mg/dL POC Capillary Glucose (65-105) mg/dl Serum Osmolality Pending Calcium (8.4-10.2) mg/dL Magnesium (1.6-2.3) mg/dL Total Bilirubin (0.2-1.3) mg/dL AST (17-59) U/L ALT (6-50) U/L Alkaline Phosphatase (38-126) U/L Troponin I (0.000-0.034) ng/mL Total Protein (6.3-8.2) g/dL Albumin (3.5-5.1) g/dL Urine Color Yellow (Yellow) Urine Appearance Clear (Clear) Urine pH 5.5 (5.0-9.0) Ur Specific [place] 1.009 (1.001-1.035) Urine Protein Negative (Negative) mg/dL Urine Glucose (UA) Negative (Negative) mg/dL Urine Ketones Negative (Negative) mg/dL Ur Blood (Man) Negative (Negative) Urine Nitrate Negative (Negative) Urine Bilirubin Negative (Negative) Urine Urobilinogen 0.2 (<2.0) mg/dL Leukocyte Esterase Rfl Negative (Negative) GOLDY/UL Urine Osmolality U Random Total Protein 10 mg/dL Ur Random Sodium 85 meq/L Urine Creatinine 70.6 72.1 mg/dL Protein/Creat Ratio 2 0.14 (0-0.20) mg/mg Influenza A (RT-PCR) (Negative) Influenza B (RT-PCR) (Negative) RSV (RT-PCR) (Negative) SARS-CoV-2 RNA (RT-PCR) (Negative) 09/19/24 09/19/24 09/19/24 Range/Units 20:07 22:35 23:47 WBC (4.5-10.0) K/mm3 RBC (4.6-6.20) M/mm3 Hgb (14.0-18.0) g/dL Hct (42.0-52.0) % MCV (80-100) fl MCH (26-34) pg MCHC (32-36) g/dl RDW (11.5-14.5) % Plt Count (150-375) k/mm3 MPV (7.4-10.4) fl Immature Gran % (Auto) (0-0.5) % Neut % (Auto) (45.5-73.1) % Lymph % (Auto) (18.3-44.2) % [place] % (Auto) (2.6-8.5) % Eos % (Auto) (0-4.4) % Baso % (Auto) (0.2-1.2) % Lymph # (Auto) (0.9-3.2) K/mm3 [place] # (Auto) (0.1-0.6) K/mm3 Eos # (Auto) (0-0.3) K/mm3 Baso # (Auto) (0.0-0.1) K/mm3 Abs Immat Gran (auto) (0.00-0.031) K/mm3 Absolute Neuts (auto) (1.3-6.7) K/mm3 Absolute Nucleated RBC (0.0-0.012) K/mm3 Nucleated RBC % (0.0-0.2) % PT (11.1-14.7) Seconds INR APTT (22.3-36.8) Seconds Sodium 116 L* 115 L* (137-145) mmol/L Potassium 3.0 L 3.2 L (3.4-5.0) mmol/L Chloride 84 L 85 L (98-107) mmol/L Carbon Dioxide 27 28 (22-30) mmol/L Anion Gap 5 2 L (4-12) mmol/L BUN 12 10 (9-20) mg/dL Creatinine 1.30 1.30 (0.7-1.3) mg/dL Estim Creat Clear Calc 40 45 ml/min Estimated GFR 53 L 53 L (59 - ) Glucose 104 108 (65-110) mg/dL POC Capillary Glucose 121 H (65-105) mg/dl Serum Osmolality Calcium 8.3 L 8.2 L (8.4-10.2) mg/dL Magnesium (1.6-2.3) mg/dL Total Bilirubin (0.2-1.3) mg/dL AST (17-59) U/L ALT (6-50) U/L Alkaline Phosphatase (38-126) U/L Troponin I (0.000-0.034) ng/mL Total Protein (6.3-8.2) g/dL Albumin (3.5-5.1) g/dL Urine Color (Yellow) Urine Appearance (Clear) Urine pH (5.0-9.0) Ur Specific [place] (1.001-1.035) Urine Protein (Negative) mg/dL Urine Glucose (UA) (Negative) mg/dL Urine Ketones (Negative) mg/dL Ur Blood (Man) (Negative) Urine Nitrate (Negative) Urine Bilirubin (Negative) Urine Urobilinogen (<2.0) mg/dL Leukocyte Esterase Rfl (Negative) GOLDY/UL Urine Osmolality U Random Total Protein mg/dL Ur Random Sodium meq/L Urine Creatinine mg/dL Protein/Creat Ratio 2 (0-0.20) mg/mg Influenza A (RT-PCR) (Negative) Influenza B (RT-PCR) (Negative) RSV (RT-PCR) (Negative) SARS-CoV-2 RNA (RT-PCR) (Negative) 09/20/24 Range/Units 03:23 WBC 8.0 (4.5-10.0) K/mm3 RBC 3.78 L (4.6-6.20) M/mm3 Hgb 12.0 L (14.0-18.0) g/dL Hct 33.1 L (42.0-52.0) % MCV 87.6 (80-100) fl MCH 31.7 (26-34) pg MCHC 36.3 H (32-36) g/dl RDW 12.5 (11.5-14.5) % Plt Count 225 (150-375) k/mm3 MPV 9.5 (7.4-10.4) fl Immature Gran % (Auto) 0.6 H (0-0.5) % Neut % (Auto) 53.1 (45.5-73.1) % Lymph % (Auto) 8.9 L (18.3-44.2) % [place] % (Auto) 13.4 H (2.6-8.5) % Eos % (Auto) 23.0 H (0-4.4) % Baso % (Auto) 1.0 (0.2-1.2) % Lymph # (Auto) 0.71 L (0.9-3.2) K/mm3 [place] # (Auto) 1.1 H (0.1-0.6) K/mm3 Eos # (Auto) 1.8 H (0-0.3) K/mm3 Baso # (Auto) 0.1 (0.0-0.1) K/mm3 Abs Immat Gran (auto) 0.05 H (0.00-0.031) K/mm3 Absolute Neuts (auto) 4.2 (1.3-6.7) K/mm3 Absolute Nucleated RBC 0.000 (0.0-0.012) K/mm3 Nucleated RBC % 0.0 (0.0-0.2) % PT (11.1-14.7) Seconds INR APTT (22.3-36.8) Seconds Sodium 117 L* (137-145) mmol/L Potassium 3.4 (3.4-5.0) mmol/L Chloride 86 L (98-107) mmol/L Carbon Dioxide 27 (22-30) mmol/L Anion Gap 4 (4-12) mmol/L BUN 9 (9-20) mg/dL Creatinine 1.30 (0.7-1.3) mg/dL Estim Creat Clear Calc 45 ml/min Estimated GFR 53 L (59 - ) Glucose 106 (65-110) mg/dL POC Capillary Glucose (65-105) mg/dl Serum Osmolality Calcium 8.3 L (8.4-10.2) mg/dL Magnesium 1.7 (1.6-2.3) mg/dL Total Bilirubin (0.2-1.3) mg/dL AST (17-59) U/L ALT (6-50) U/L Alkaline Phosphatase (38-126) U/L Troponin I (0.000-0.034) ng/mL Total Protein (6.3-8.2) g/dL Albumin (3.5-5.1) g/dL Urine Color (Yellow) Urine Appearance (Clear) Urine pH (5.0-9.0) Ur Specific [place] (1.001-1.035) Urine Protein (Negative) mg/dL Urine Glucose (UA) (Negative) mg/dL Urine Ketones (Negative) mg/dL Ur Blood (Man) (Negative) Urine Nitrate (Negative) Urine Bilirubin (Negative) Urine Urobilinogen (<2.0) mg/dL Leukocyte Esterase Rfl (Negative) GOLDY/UL Urine Osmolality U Random Total Protein mg/dL Ur Random Sodium meq/L Urine Creatinine mg/dL Protein/Creat Ratio 2 (0-0.20) mg/mg Influenza A (RT-PCR) (Negative) Influenza B (RT-PCR) (Negative) RSV (RT-PCR) (Negative) SARS-CoV-2 RNA (RT-PCR) (Negative) Imaging Data Radiologist's impression: Impressions Chest X-Ray 09/19/24 15:50 IMPRESSION: 1. Mild atelectasis at left lung base. Discharge Plan Discharge Clinical Impression: Acute hyponatremia, Hypomagnesemia, Throat cancer Patient Disposition: Still a Patient Condition: Serious
[2024-09-19] MEDS: MAGNESIUM SULF 1 GM/D5W 100 ML 1 GM/100 ML BAG IVPB (17:38)
--- NOTE | 2024-09-19 18:04 | P.HP_ITS ---
H&P: HPI History of Present Illness Date/Time: 09/19/24 18:04 Chief Complaint: Dizziness and Generalized Weakness Narrative: 84 y/o M presents here with with dizziness and generalized weakness with PMH of CAD, chronic AFib, CKD, diabetes, hyperlipidemia, and throat cancer. The patient presents here from home for further evaluation of generalized weakness and dizziness. Symptoms have been ongoing for the past 2 weeks and have been progressively worsening. The patient is currently undergoing treatment for throat cancer at [facility]. Has not underwent radiation or surgery. Last chemotherapy treatment was approximately 2 weeks ago which precipitated patient's symptoms. Patient's appetite has been reduced resulting in decreased food intake, has been able to drink (plain) water. Has been drinking 3 16 oz bottles of water. Patient also reports reduced urine output. Patient denies hx of low sodium levels. Denies fever, chills, body aches, or diarrhea. Initial VS at presentation: 97.2? F, HR 65, RR 16, 129/54, and 98% on RA. ED workup showed: No leukocytosis, hemoglobin 12.9 (previously 14.0 in 2022), INR 1.2, sodium 115 (repeat 115), creatinine 1.4 and GFR 48 (previously 1.73 and 39 on 01/17/2024), magnesium 1.4, and initial troponin negative. Viral PCR negative. CXR showed mild atelectasis at the left lung base. Review of Systems Review of Systems: All systems reviewed & are unremarkable except as noted in HPI and below PMFSH Past Medical History Medical History (Updated 09/19/24 @ 22:28 by Keturah Kerr APRN) CAD (coronary artery disease) Chronic a-fib CKD (chronic kidney disease) stage 3, GFR 30-59 ml/min DM renal manif type II History of prostate cancer HLD (hyperlipidemia) HTN (hypertension) Hy ht/kd NOS I-IV w/o hf Incisional hernia Throat cancer Surgical History Surgical History History of incisional hernia repair 09/24/22 Repair periumbilical incisional hernia with 6.[address] underlay mesh History of prostatectomy History of PTCA stent 2005 Family History Family History Mother Family history of coronary artery disease Grandparent Congestive heart failure Hypertension Social History Social History Social History: Single Smoking status: Never smoker Second hand tobacco smoke exposure: No Alcohol intake: former Alcohol use details: STATES MAYBE 12-15 DRINKS A YEAR Substance use: never Substance use type: does not use Do You Feel Safe in your Home?: Yes Lack of Transportation: No Lack of Food: Never True Current Housing: I Have Housing Concerned About Future Housing: No Difficulty Paying Gas/Electric Bills: No Difficulty Paying for Meds: No Currently Unemployed: No Education: Bachelor's Degree Difficulty w/ Childcare or Family Care: No Living arrangements: with family Occupation/Education: retired Gender identity (if verbalized by the patient): Male Sexual Orientation (if Verbalized by the Patient): Straight or Heterosexual Spiritual care concerns: No Meds Home Medications and Allergies Home Medications Medication Instructions Recorded Confirmed Type blood sugar diagnostic (Contour #100 ea 11/23/22 09/19/24 Rx Next Test Strips) metformin 500 mg tablet,extended See Rx Instructions .Route 08/04/23 09/19/24 Rx release 24 hr .COMPLEX #360 tabs dulaglutide 1.5 mg/0.5 mL 1.5 mg (0.5 mL) subcut WEEKLY #2 mL 05/09/24 09/19/24 Rx subcutaneous pen injector (Trulicity) levothyroxine 75 mcg tablet 75 mcg PO DAILY #30 tabs 06/27/24 09/19/24 Rx clotrimazole-betamethasone 1 1 applic topical BID #45 grams 08/23/24 09/19/24 Rx %-0.05 % topical cream amlodipine 10 mg tablet 10 mg PO DAILY 09/19/24 09/19/24 History apixaban 5 mg tablet (Eliquis) 5 mg PO BID 09/19/24 09/19/24 History valsartan 320 1 tablet PO DAILY 09/19/24 09/19/24 History mg-hydrochlorothiazide 25 mg tablet Allergies Allergy/AdvReac Type Severity Reaction Status Date / Time No Known Allergies Allergy Unknown Verified 09/19/24 16:27 Vital Signs Vital Signs - 24 hr 09/19/24 14:36 09/19/24 16:28 09/19/24 17:43 Temperature 97.2 F L 97.5 F L Pulse Rate 65 66 62 Respiratory Rate 16 15 22 H Blood Pressure 129/54 L 131/69 123/66 Pulse Oximetry 98 98 97 Oxygen Delivery Room Air Exam Const: General: comfortable and no acute distress Other: , male, nontoxic appearance HENMT: Face/Nose/Sinus: Normal nares present Mouth: Yes moist mucous membranes Eyes: General: appearance normal, both eyes and all related structures Sclera: sclerae normal Pupils: Equal, round and reactive pupils present EOM: EOMs intact bilaterally Resp: Effort & Inspection: normal respiratory effort Auscultation: clear to auscultation bilaterally Cardio: Rate: regular rate Rhythm: regular rhythm Other: S1-S2 present without murmur, rub, ectopy GI: Other: Abdomen soft, nondistended, nontender. Normoactive bowel sounds all quadrants. Skin: General skin exam: normal color and no rashes or lesions noted Wounds: no wounds Neuro: Speech: normal speech Motor exam (neuro): 5/5 motor strength present throughout Sensory Exam: normal sensation Other: A&O x4 Extrem: General: normal to inspection Psych: Mental Status: mental status grossly normal Affect: normal affect Other: Good insight and judgment, pleasant H&P: Results Labs Labs: Short CBC 09/19/24 Range/Units 14:46 WBC 9.9 (4.5-10.0) K/mm3 Hgb 12.9 L (14.0-18.0) g/dL Hct 36.1 L (42.0-52.0) % Plt Count 258 (150-375) k/mm3 [facility] 09/19/24 09/19/24 14:46 16:24 Sodium 115 L* 115 L* Potassium 3.4 Chloride 83 L Carbon Dioxide 25 BUN 11 D Creatinine 1.40 H Glucose 170 H Calcium 8.7 Cardiac Enzymes 09/19/24 Range/Units 14:46 Troponin I < 0.012 (0.000-0.034) ng/mL Liver Function 09/19/24 Range/Units 14:46 Total Bilirubin 0.6 (0.2-1.3) mg/dL AST 35 (17-59) U/L ALT 20 (6-50) U/L Alkaline Phosphatase 74 (38-126) U/L Albumin 3.8 (3.5-5.1) g/dL Assessment and Plan Assessment and plan (1) Acute hyponatremia: Code(s): E87.1 - Hypo-osmolality and hyponatremia Status: Acute Assessment and Plan: - Na 115 (repeat 115) -> 116 - add serum osmolality, urine osmolality, urine sodium, protein to creatinine r atio, urine creatinine - nephrology consulted - started on IV fluids: 1L bolus, 100 mL/hr x1L - trend sodium - neurological checks Q6H (2) Hypokalemia: Code(s): E87.6 - Hypokalemia Status: Acute Assessment and Plan: - K 3.4 -> 3.0 - replete with 40 p.o., recheck with next sodium - monitor (3) Hypomagnesemia: Code(s): E83.42 - Hypomagnesemia Status: Acute Assessment and Plan: - Mag 1.4 - initial repletion with 1G IVPB - trend (4) Generalized weakness: Code(s): R53.1 - Weakness Status: Acute Assessment and Plan: - viral PCR and UA pending - suspect generalized weakness is multifactorial including dehydration, hypomagnesemia and hyponatremia. Plan for electrolyte correction and IV fluids. (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, unspecified Status: Acute Assessment and Plan: - currently undergoing chemo at [facility] - poor PO intake secondary to chemotherapy - antiemetics p.r.n. - field radio technician consulted (6) Type 2 diabetes mellitus: Qualifiers: Diabetes mellitus watcher automat long goods insulin use: without watcher automat long goods use Diabetes mellitus complication status: without complication Qualified Code(s): E11.9 - Type 2 diabetes mellitus without complications Code(s): E11.9 - Type 2 diabetes mellitus without complications Status: Acute Assessment and Plan: - hypoglycemia protocol - POC blood glucose q.6 hour until p.o. intake improved - home medication: Hold Trulicity (NF), continue metformin XR 2g daily - correct regimen ordered - low dose TIDWM - A1C 6.7% on 01/17/2024 (7) CKD (chronic kidney disease) stage 3, GFR 30-59 ml/min: Qualifiers: Chronic kidney disease stage 3 subtype: unspecified whether 3a or 3b Qualified Code(s): N18.30 - Chronic kidney disease, stage 3 unspecified Code(s): N18.3 - Chronic kidney disease, stage 3 (moderate) Status: Acute Assessment and Plan: - creatinine 1.4 and GFR 48, previously 1.73 and GFR 39 on 01/17/2024 - trend renal function - trend electrolytes, correct as needed (8) HTN (hypertension): Qualifiers: Hypertension type: primary hypertension Qualified Code(s): I10 - Essential (primary) hypertension Code(s): I10 - Essential (primary) hypertension Status: Acute Assessment and Plan: - chronic, currently 112/62 - continue home medications: Amlodipine 10 mg daily, valsartan- hydrochlorothiazide 320-25 mg daily - monitor Plan Diet: Regular GI Prophylaxis: Not currently indicated DVT Prophylaxis: Continue home apixaban Lines: Peripheral Code Status: Full code Quality VTE Prophylaxis VTE prophylaxis: pharmacologic ordered Hospitalist MIPS Advance Care Plan I have confirmed that the patient's Advanced Care Plan is present, code status is documented, or surrogate decision maker is listed in patient medical record.: Yes Medication Reconciliation I have utilized all available resources to obtain, update and review the patients current medications (includes all prescriptions, OTC, herbals, c annabis, and nutritional supplements).: Yes
[2024-09-19] MEDS: SODIUM CHLORIDE 0.9% IV 1,000 ML 100 ML IV CONT (19:07)
--- NOTE | 2024-09-19 19:12 | PC.NURSE ---
assumed care of pt from nidia mcdonnell at this time.
--- NOTE | 2024-09-19 19:19 | PC.NURSE ---
Report given to Yuri ROJAS, all questions answered
[2024-09-19 19:25] LABS: Creatinine Urine 72.1 mg/dL; Sodium Urine Random 85 meq/L
[2024-09-19 19:34] LABS: Creatinine Urine 70.6 mg/dL; Total Protein Urine Random 10 mg/dL; Ur Ttl Prot Creatinine Ratio 0.14 mg/mg (0-0.20)
[2024-09-19 19:42] LABS: Add Urine Microscopic? NO; Appearance Urine Clear (Clear); Bilirubin Urine Negative (Negative); Blood Urine Negative (Negative); Color Urine Yellow (Yellow); Glucose Urine UA Negative (Negative); Ketones Urine Negative (Negative); Leukocyte Esterase Ur Negative LEU/UL (Negative); Nitrate Urine Negative (Negative); Protein Urine Negative (Negative); Specific Grav Ur 1.009 (1.001-1.035); Urobilinogen Urine 0.2 mg/dL (<2.0); pH Urine 5.5 (5.0-9.0)
[2024-09-19 20:26] LABS: Anion Gap 5 mmol/L (4-12); Blood Urea Nitrogen 12 mg/dL (9-20); Calcium 8.3 mg/dL (8.4-10.2); Carbon Dioxide 27 mmol/L (22-30); Chloride 84 mmol/L (98-107); Estimated CRCL calculation 40 ml/min; Estimated Glomerular Filt Rate 53; Glucose 104 mg/dL (65-110); Sodium 116 mmol/L (137-145)
--- NOTE | 2024-09-19 21:15 | ADMGEN ---
This patient, Shon German, was admitted to IMU Room 206-01. Patient/family oriented to hospital policies and general routines including ID bracelet, bed and alarms, visiting hours, pain management, procedures, bathroom and other care routines, personal items, smoking policy, room service/diet, and visiting hours. Information on how to activate the Rapid Response Team has been discussed. Patient/Family are encouraged to report perceived risks to care and to ask questions if they do not understand what they are told or what they should do.
[2024-09-19 23:02] LABS: Anion Gap 2 mmol/L (4-12); Blood Urea Nitrogen 10 mg/dL (9-20); Calcium 8.2 mg/dL (8.4-10.2); Carbon Dioxide 28 mmol/L (22-30); Chloride 85 mmol/L (98-107); Estimated CRCL calculation 45 ml/min; Estimated Glomerular Filt Rate 53; Glucose 108 mg/dL (65-110); Potassium 3.2 mmol/L (3.4-5.0); Sodium 115 mmol/L (137-145)
[2024-09-19] MEDS: APIXABAN 5 MG TABLET PO (23:03)
[2024-09-19] MEDS: POTASSIUM CHLORIDE 20 MEQ PACKET (FOR LIQUID) 40 MEQ PO (23:03)
[2024-09-19 23:51] LABS: Glucose Point of Care 121 mg/dl (65-105)
[2024-09-20] VITALS (19 sets, daily range): BP systolic 129–148; BP diastolic 53–67; PULSE 60–101; RESP 16–18; TEMP 36.3–37.1; O2SAT 94–99
[2024-09-20 03:39] LABS: Basophils Absolute Auto 0.1 K/mm3 (0.0-0.1); Eosinophils Absolute Auto 1.8 K/mm3 (0-0.3); Hematocrit 33.1 % (42.0-52.0); Immature Granulocyte Absolute 0.05 K/mm3 (0.00-0.031); Immature Granulocyte Percent A 0.6 % (0-0.5); Lymphocytes Absolute Auto 0.71 K/mm3 (0.9-3.2); Lymphocytes Percent Auto 8.9 % (18.3-44.2); Mean Corpuscular HGB Conc 36.3 g/dl (32-36); Mean Corpuscular Hemoglobin 31.7 pg (26-34); Mean Corpuscular Volume 87.6 fl (80-100); Mean Platelet Volume 9.5 fl (7.4-10.4); Monocytes Absolute Auto 1.1 K/mm3 (0.1-0.6); Monocytes Percent Auto 13.4 % (2.6-8.5); Neutrophils Absolute Auto 4.2 K/mm3 (1.3-6.7); Neutrophils Percent Auto 53.1 % (45.5-73.1); Platelet Count Result 225 k/mm3 (150-375); Red Blood Count 3.78 M/mm3 (4.6-6.20); Red Cell Distribution Width 12.5 % (11.5-14.5)
[2024-09-20 04:07] LABS: Anion Gap 4 mmol/L (4-12); Blood Urea Nitrogen 9 mg/dL (9-20); Calcium 8.3 mg/dL (8.4-10.2); Carbon Dioxide 27 mmol/L (22-30); Chloride 86 mmol/L (98-107); Estimated CRCL calculation 45 ml/min; Estimated Glomerular Filt Rate 53; Glucose 106 mg/dL (65-110); Magnesium 1.7 mg/dL (1.6-2.3); Potassium 3.4 mmol/L (3.4-5.0); Sodium 117 mmol/L (137-145)
[2024-09-20] MEDS: LEVOTHYROXINE SODIUM 75 MCG TABLET PO (05:57)
[2024-09-20] MEDS: VALSARTAN 160 MG TABLET 320 MG PO (08:11)
[2024-09-20] MEDS: BETAMETHASONE/CLOTRIMAZOLE CREAM 15 GM TUBE 1 APPLIC TOPICAL (08:12)
[2024-09-20] MEDS: hydroCHLOROthiazide 25 MG TABLET PO (08:12)
[2024-09-20] MEDS: APIXABAN 5 MG TABLET PO ×2 (08:12→21:25)
[2024-09-20] MEDS: amLODIPine BESYLATE 10 MG TABLET PO (08:12)
[2024-09-20] MEDS: metFORMIN HCL XR 500 MG TAB.SR.24H 2000 MG PO (08:15)
--- NOTE | 2024-09-20 09:52 | P.PNIM_ITS ---
Progress Note: A&P Assessment and Plan (1) Acute hyponatremia: Code(s): E87.1 - Hypo-osmolality and hyponatremia Status: Acute Assessment and Plan: - Na 115 (repeat 115) -> 116 - add serum osmolality, urine osmolality, urine sodium, protein to creatinine ratio, urine creatinine - nephrology consulted - started on IV fluids: 1L bolus, 100 mL/hr x1L - trend sodium - neurological checks Q6H -monitor-stable (2) Hypokalemia: Code(s): E87.6 - Hypokalemia Status: Acute Assessment and Plan: - K 3.4 -> 3.0 - replete with 40 p.o., recheck with next sodium - monitor (3) Hypomagnesemia: Code(s): E83.42 - Hypomagnesemia Status: Acute Assessment and Plan: - Mag 1.4 - initial repletion with 1G IVPB - trend with daily labs (4) Generalized weakness: Code(s): R53.1 - Weakness Status: Acute Assessment and Plan: - viral PCR and UA pending - suspect generalized weakness is multifactorial including dehydration, hypomagnesemia and hyponatremia. Plan for electrolyte correction and IV fluids. 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 - quencher operator consulted (6) Type 2 diabetes mellitus: Qualifiers: Diabetes mellitus complication status: without complication Diabetes mellitus chcf insulin use: without marine oil terminal superintendent use Qualified Code(s): E11.9 - Type 2 diabetes mellitus without complications Code(s): E11.9 - Type 2 diabetes mellitus without complications Status: Acute Assessment and Plan: - hypoglycemia protocol - POC blood glucose q.6 hour until p.o. intake improved - home medication: Hold Trulicity (NF), hold metformin - correct regimen ordered - low dose TIDWM - A1C 6.7% on 01/17/2024 (7) CKD (chronic kidney disease) stage 3, GFR 30-59 ml/min: Qualifiers: Chronic kidney disease stage 3 subtype: unspecified whether 3a or 3b Qualified Code(s): N18.30 - Chronic kidney disease, stage 3 unspecified Code(s): N18.3 - Chronic kidney disease, stage 3 (moderate) Status: Acute Assessment and Plan: - creatinine 1.4 and GFR 48, previously 1.73 and GFR 39 on 01/17/2024 - trend renal function - trend electrolytes, correct as needed (8) HTN (hypertension): Qualifiers: Hypertension type: primary hypertension Qualified Code(s): I10 - Essential (primary) hypertension Code(s): I10 - Essential (primary) hypertension Status: Acute Assessment and Plan: - chronic, currently 112/62 - continue home medications: Amlodipine 10 mg daily, valsartan-hydrochloroth iazide 320-25 mg daily - monitor Plan Diet: Regular GI Prophylaxis: Not currently indicated DVT Prophylaxis: Continue home apixaban Lines: Peripheral Code Status: Full code Time Spent With Patient Time with patient: Greater than 35 minutes Subjective Date/time seen: 09/20/24 09:52 Interval history: 4 y/o M presents here with with dizziness and generalized weakness with PMH of CAD, chronic AFib, CKD, diabetes, hyperlipidemia, and throat cancer. admitted for gen weakness and dizziness. He is currently undergoing treatment for throat cancer at [facility]. Last chemotherapy treatment was approximately 2 weeks ago which precipitated patient's symptoms. ED workup showed: No leukocytosis, hemoglobin 12.9 (previously 14.0 in 2022), INR 1.2, sodium 115 (repeat 115), creatinine 1.4 and GFR 48 (previously 1.73 and 39 on 01/17/2024), magnesium 1.4, and initial troponin negative. Viral PCR negative. CXR showed mild atelectasis at the left lung base. 09/20- Na is 117. nephrology consulted. pt is [place], alert, denies any acute issues Review of Systems Review of Systems: All systems reviewed & are unremarkable except as noted in HPI and below Exam Const: General: comfortable and no acute distress Other: , male, nontoxic appearance HENMT: Face/Nose/Sinus: Normal nares present Mouth: Yes moist mucous membranes Eyes: General: appearance normal, both eyes and all related structures Sclera: sclerae normal Pupils: Equal, round and reactive pupils present EOM: EOMs intact bilaterally Resp: Effort & Inspection: normal respiratory effort Auscultation: clear to auscultation bilaterally Cardio: Rate: regular rate Rhythm: regular rhythm Other: S1-S2 present without murmur, rub, ectopy GI: Other: Abdomen soft, nondistended, nontender. Normoactive bowel sounds all quadrants. Skin: General skin exam: normal color and no rashes or lesions noted Wounds: no wounds Neuro: Cranial nerves: Yes Equal, round and reactive pupils present Speech: normal speech Motor exam (neuro): 5/5 motor strength present throughout Sensory Exam: normal sensation Other: A&O x4 Extrem: General: normal to inspection Psych: Mental Status: mental status grossly normal Affect: normal affect Other: Good insight and judgment, pleasant Objective Data Vital Signs Vital Signs: Vital Signs - 24 hr 09/19/24 14:36 09/19/24 16:28 09/19/24 17:43 Temperature 97.2 F L 97.5 F L Pulse Rate 65 66 62 Respiratory Rate 16 15 22 H Blood Pressure 129/54 L 131/69 123/66 Pulse Oximetry 98 98 97 Oxygen Delivery Room Air Fraction of Inspired Oxygen 09/19/24 19:09 09/19/24 20:43 09/19/24 21:00 Temperature 98.0 F Pulse Rate 70 64 62 Respiratory Rate 17 13 18 Blood Pressure 130/59 L 129/57 L 112/62 Pulse Oximetry 97 97 97 Oxygen Delivery Fraction of Inspired Oxygen 09/19/24 22:48 09/19/24 23:29 09/20/24 00:00 Temperature 97.6 F Pulse Rate 69 65 65 Respiratory Rate 16 16 Blood Pressure 119/50 L Pulse Oximetry 94 94 Oxygen Delivery Room Air Fraction of Inspired Oxygen 09/20/24 00:00 09/20/24 02:00 09/20/24 04:00 Temperature Pulse Rate 65 69 69 Respiratory Rate 16 Blood Pressure Pulse Oximetry 94 Oxygen Delivery Room Air Fraction of Inspired Oxygen 09/20/24 04:00 09/20/24 04:00 09/20/24 06:00 Temperature 97.4 F L Pulse Rate 64 62 63 Respiratory Rate 16 Blood Pressure 129/62 Pulse Oximetry 98 Oxygen Delivery Fraction of Inspired Oxygen 09/20/24 07:40 09/20/24 08:18 09/20/24 08:00 Temperature 97.3 F L Pulse Rate 73 73 Respiratory Rate 18 18 Blood Pressure 144/62 H Pulse Oximetry 99 98 98 Oxygen Delivery Room Air Room Air Fraction of Inspired Oxygen 21 21 09/20/24 08:00 09/20/24 08:52 Temperature Pulse Rate 71 71 Respiratory Rate Blood Pressure Pulse Oximetry Oxygen Delivery Fraction of Inspired Oxygen Intake/Output Intake/Output: Intake & Output 09/17/24 09/18/24 09/19/24 09/20/24 23:59 23:59 23:59 23:59 Intake Total 1100 1590 Output Total 300 Balance 1100 1290 Meds/Results Medications: Active Medications Generic Name Dose Route Start Last Admin Trade Name Freq PRN Reason Stop Dose Admin Amlodipine Besylate 10 mg 09/20/24 09:00 09/20/24 08:12 Amlodipine Besylate 10 Mg Tablet PO 10 mg DAILY RINA Administration Apixaban 5 mg 09/19/24 22:35 09/20/24 08:12 Apixaban 5 Mg Tablet PO 5 mg Q12HR RINA Administration Clotrimazole 1 applic 09/20/24 09:00 09/20/24 08:12 Betamethasone/Clotrimazole Cream 15 Gm Tube TOPICAL 1 applic BID RINA Administration Dextrose 12.5 gm 09/19/24 18:30 Dextrose 50% 25 Gm/50 Ml Syringe IV PUSH PRN PRN Hypoglycemia Protocol Glucagon 1 mg 09/19/24 18:30 Glucagon For Inj 1 Mg Vial IM PRN PRN Hypoglycemia Protocol Glucose 15 gm 09/19/24 18:30 Glucose Oral Gel 15 Gm Of Glucse In 37.5 Gm Tube PO PRN PRN Hypoglycemia Protocol Hydrochlorothiazide 25 mg 09/20/24 09:00 09/20/24 08:12 Hydrochlorothiazide 25 Mg Tablet PO 25 mg DAILY RINA Administration Dextrose 1,000 mls @ 100 mls/hr 09/19/24 18:30 Dextrose 5% 1,000 Ml IVPB PRN PRN Hypoglycemia Protocol Insulin Aspart 2 - 5 units 09/20/24 08:00 09/20/24 08:07 Insulin Aspart (*Bkc) 100 Units/Ml SUB-Q Not Given TIDWM [facility] Protocol Levothyroxine Sodium 75 mcg 09/20/24 06:30 09/20/24 05:57 Levothyroxine Sodium 75 Mcg Tablet PO 75 mcg DAILY@0630 RINA Administration Metformin HCl 2,000 mg 09/20/24 08:00 09/20/24 08:15 Metformin Hcl Xr 500 Mg Tab.Sr.24h PO 2,000 mg DAILY@0800 RINA Administration Ondansetron HCl 4 mg 09/19/24 18:30 Ondansetron Inj 4 Mg/2 Ml Vial IV PUSH Q4H PRN Nausea And Vomiting Valsartan 320 mg 09/20/24 09:00 09/20/24 08:11 Valsartan 160 Mg Tablet PO 320 mg DAILY RINA Administration Radiology Results: ITS Impressions Chest X-Ray 09/19/24 15:50 IMPRESSION: 1. Mild atelectasis at left lung base. Labs Labs: Laboratory Results - last 24 hr 09/19/24 09/19/24 09/19/24 14:46 16:24 19:10 WBC 9.9 RBC 4.12 L Hgb 12.9 L Hct 36.1 L MCV 87.6 MCH 31.3 MCHC 35.7 RDW 12.2 Plt Count 258 MPV 9.8 Immature Gran % (Auto) 0.6 H Neut % (Auto) 58.7 Lymph % (Auto) 9.5 L [place] % (Auto) 11.7 H Eos % (Auto) 18.6 H Baso % (Auto) 0.9 Lymph # (Auto) 0.94 [place] # (Auto) 1.2 H Eos # (Auto) 1.8 H Baso # (Auto) 0.1 Abs Immat Gran (auto) 0.06 H Absolute Neuts (auto) 5.8 Absolute Nucleated RBC 0.000 Nucleated RBC % 0.0 PT 15.8 H INR 1.2 APTT 46.7 H Sodium 115 L* 115 L* Potassium 3.4 Chloride 83 L Carbon Dioxide 25 Anion Gap 7 BUN 11 D Creatinine 1.40 H Estim Creat Clear Calc 37 Estimated GFR 48 L Glucose 170 H POC Capillary Glucose Calcium 8.7 Magnesium 1.4 L Total Bilirubin 0.6 AST 35 ALT 20 Alkaline Phosphatase 74 Troponin I < 0.012 Total Protein 6.9 Albumin 3.8 Urine Color Yellow Urine Appearance Clear Urine pH 5.5 Ur Specific [place] 1.009 Urine Protein Negative Urine Glucose (UA) Negative Urine Ketones Negative Ur Blood (Man) Negative Urine Nitrate Negative Urine Bilirubin Negative Urine Urobilinogen 0.2 Leukocyte Esterase Rfl Negative U Random Total Protein Ur Random Sodium Urine Creatinine Protein/Creat Ratio 2 Influenza A (RT-PCR) Negative Influenza B (RT-PCR) Negative RSV (RT-PCR) Negative SARS-CoV-2 RNA (RT-PCR) Negative 09/19/24 09/19/24 09/19/24 19:11 19:11 20:07 WBC RBC Hgb Hct MCV MCH MCHC RDW Plt Count MPV Immature Gran % (Auto) Neut % (Auto) Lymph % (Auto) [place] % (Auto) Eos % (Auto) Baso % (Auto) Lymph # (Auto) [place] # (Auto) Eos # (Auto) Baso # (Auto) Abs Immat Gran (auto) Absolute Neuts (auto) Absolute Nucleated RBC Nucleated RBC % PT INR APTT Sodium 116 L* Potassium 3.0 L Chloride 84 L Carbon Dioxide 27 Anion Gap 5 BUN 12 Creatinine 1.30 Estim Creat Clear Calc 40 Estimated GFR 53 L Glucose 104 POC Capillary Glucose Calcium 8.3 L Magnesium Total Bilirubin AST ALT Alkaline Phosphatase Troponin I Total Protein Albumin Urine Color Urine Appearance Urine pH Ur Specific [place] Urine Protein Urine Glucose (UA) Urine Ketones Ur Blood (Man) Urine Nitrate Urine Bilirubin Urine Urobilinogen Leukocyte Esterase Rfl U Random Total Protein 10 Ur Random Sodium 85 Urine Creatinine 70.6 72.1 Protein/Creat Ratio 2 0.14 Influenza A (RT-PCR) Influenza B (RT-PCR) RSV (RT-PCR) SARS-CoV-2 RNA (RT-PCR) 09/19/24 09/19/24 09/20/24 22:35 23:47 03:23 WBC 8.0 RBC 3.78 L Hgb 12.0 L Hct 33.1 L MCV 87.6 MCH 31.7 MCHC 36.3 H RDW 12.5 Plt Count 225 MPV 9.5 Immature Gran % (Auto) 0.6 H Neut % (Auto) 53.1 Lymph % (Auto) 8.9 L [place] % (Auto) 13.4 H Eos % (Auto) 23.0 H Baso % (Auto) 1.0 Lymph # (Auto) 0.71 L [place] # (Auto) 1.1 H Eos # (Auto) 1.8 H Baso # (Auto) 0.1 Abs Immat Gran (auto) 0.05 H Absolute Neuts (auto) 4.2 Absolute Nucleated RBC 0.000 Nucleated RBC % 0.0 PT INR APTT Sodium 115 L* 117 L* Potassium 3.2 L 3.4 Chloride 85 L 86 L Carbon Dioxide 28 27 Anion Gap 2 L 4 BUN 10 9 Creatinine 1.30 1.30 Estim Creat Clear Calc 45 45 Estimated GFR 53 L 53 L Glucose 108 106 POC Capillary Glucose 121 H Calcium 8.2 L 8.3 L Magnesium 1.7 Total Bilirubin AST ALT Alkaline Phosphatase Troponin I Total Protein Albumin Urine Color Urine Appearance Urine pH Ur Specific [place] Urine Protein Urine Glucose (UA) Urine Ketones Ur Blood (Man) Urine Nitrate Urine Bilirubin Urine Urobilinogen Leukocyte Esterase Rfl U Random Total Protein Ur Random Sodium Urine Creatinine Protein/Creat Ratio 2 Influenza A (RT-PCR) Influenza B (RT-PCR) RSV (RT-PCR) SARS-CoV-2 RNA (RT-PCR) Quality VTE Prophylaxis VTE prophylaxis: pharmacologic ordered
[2024-09-20 11:23] LABS: Anion Gap 3 mmol/L (4-12); Blood Urea Nitrogen 8 mg/dL (9-20); Calcium 8.5 mg/dL (8.4-10.2); Carbon Dioxide 29 mmol/L (22-30); Chloride 85 mmol/L (98-107); Estimated CRCL calculation 45 ml/min; Estimated Glomerular Filt Rate 53; Glucose 107 mg/dL (65-110); Potassium 3.5 mmol/L (3.4-5.0); Sodium 117 mmol/L (137-145)
[2024-09-20 11:47] LABS: Glucose Point of Care 112 mg/dl (65-105)
--- NOTE | 2024-09-20 12:45 | P.CONNP_ITS ---
Assessment and Plan Assessment and plan (1) Hyponatremia: Code(s): E87.1 - Hypo-osmolality and hyponatremia Status: Acute Assessment and Plan: * acute * sodium normal ~ 8 months * risk factors for low sodium: * prerenal factors/diminished oral intake * malignancy (throat cancer) * HCTZ use * history of thyroid disease * excessive free water intake * only mild improvement in sodium since admission * s/p trial of normal saline IVFs * check TSH, cortisol, SPEP and UPEP * urine electrolytes indeterminate for prenal azotemia * follow-up on serum/urine osmolality * follow trend of repeat sodium levels (2) Chronic kidney disease, stage 3: Code(s): N18.30 - Chronic kidney disease, stage 3 unspecified Status: Chronic Assessment and Plan: * baseline creatinine seems to run ~ 1.4 - 1.8mg/dl for the last several years * this causes him to fluctuate between CKD stage 3A and stage 3B * presumably due to HTN, DM, vascular disease, and age-related change (3) Hypokalemia: Code(s): E87.6 - Hypokalemia Status: Acute Assessment and Plan: * noted on admission * likely exacerbated by low magnesium and poor oral intake * replacement as needed * follow trend (4) Generalized weakness: Code(s): R53.1 - Weakness Status: Acute Assessment and Plan: * presumably due to volume depletion and possibly electrolyte abnormalities along with underlying malgnancy * follow clinical symptoms * PT/OT as tolerated (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, unspecified Status: Acute Assessment and Plan: * currently undergoing chemo at [facility] * suspect poor PO intake secondary to chemotherapy * antiemetics as needed (6) HTN (hypertension): Qualifiers: Hypertension type: primary hypertension Qualified Code(s): I10 - Essential (primary) hypertension Code(s): I10 - Essential (primary) hypertension Status: Acute Assessment and Plan: * reasonable control * hold HCTZ due to #1 * follow trend of hemodynamics (7) Type 2 diabetes mellitus: Qualifiers: Diabetes mellitus ferry terminal supervisor insulin use: without ferry terminal supervisor use Diabetes mellitus complication status: without complication Qualified Code(s): E11.9 - Type 2 diabetes mellitus without complications Code(s): E11.9 - Type 2 diabetes mellitus without complications Status: Acute Assessment and Plan: * follow accu-cheks * glycemic control per hospitalists I will continue to follow the patient with you while he remains hospitalized and make further recommendations as deemed necessary. Thank you for allowing me to participate in the care of this patient. History of Present Illness Reason for Consult Consult date: 09/20/24 Reason for consult: hyponatremia Chief Complaint Chief complaint: Hypomagnesemia, Hyponatremia History of Present Illness Narrative: The patient is an 84-year-old male with a past medical history as outlined below who presented to [facility] Emergency Room for further evaluation of generalized weakness and fatigue. The patient reported the symptoms have been going on for the past 2 weeks and progressively getting worse. It should be noted that he currently is undergoing chemotherapy for his known diagnosis of throat cancer at [facility]. His last chemotherapy was approximately 2 weeks ago which seems to correlate with when his symptoms started. Further complicating matters is the fact that his appetite has been quite poor with decreased food intake. However, in attempt to compensate for his poor food intake, he has been drinking a significant amount of free water of almost 48 oz a day if not more. He denies any symptoms of fever, chills, body aches, diarrhea, hematuria, hematochezia, or melena. Given the constellation of symptoms and progressive nature of his complaints, he presented to the emergency room for further evaluation. Workup and evaluation emergency room demonstrated the patient be hemodynamically stable and in no acute distress. Routine blood test demonstrated no significant leukocytosis, hemoglobin 12.9, and a chemistry that was significant for a sodium level of 115 in association with a creatinine of 1.4 mg/dL, as well as hypokalemia, and hypomagnesemia. His initial troponin was negative and viral swabs for COVID, RSV, and influenza were negative. His chest x-ray showed mild atelectasis at the left lung base. His low sodium level was thought to be secondary to volume depletion and he received a L of normal saline in the emergency room was subsequently admitted to the hospital for further evaluation therapy. Since his admission, his sodium level has improved up to 117 millimoles per L with IV fluid resuscitation both in the form of a normal saline bolus as well as maintenance IV fluids with normal saline as well. Renal consultation was requested due to his acute hyponatremia. From review his records, his sodium level was well within normal limits approximately 8 months ago. His risk factors for low sodium level include his recent diagnosis of throat cancer/ malignancy, known history of thyroid disease, hydrochlorothiazide use, possible prerenal factors, and his excessive free water fluid intake to compensate for the fact that he has not been eating solid food. He is not any other culprit medications with regard to narcotics, proton pump inhibitors, carbamazepine, or SSRI therapy. There is a concern that his high low sodium level may be a contributing factor to his symptoms of generalized weakness and fatigue but is difficult to know for sure. Currently, at the time my evaluation, he does not appear to be any acute distress. Review of Systems Review of Systems: As per HPI. [facility] Past Medical History Medical History (Updated 09/20/24 @ 18:48 by Roberto Boyd MD) CAD (coronary artery disease) Chronic a-fib CKD (chronic kidney disease) stage 3, GFR 30-59 ml/min DM renal manif type II History of prostate cancer HLD (hyperlipidemia) HTN (hypertension) Hy ht/kd NOS I-IV w/o hf Incisional hernia Throat cancer Surgical History Surgical History History of incisional hernia repair 09/24/22 Repair periumbilical incisional hernia with 6.[address] underlay mesh History of prostatectomy History of PTCA stent 2005 Family History Family History Mother Family history of coronary artery disease Grandparent Congestive heart failure Hypertension Social History Social History Social History: Single Smoking status: Never smoker Second hand tobacco smoke exposure: No Alcohol intake: former Alcohol use details: STATES MAYBE 12-15 DRINKS A YEAR Substance use: never Substance use type: does not use Do You Feel Safe in your Home?: Yes Lack of Transportation: No Lack of Food: Never True Current Housing: I Have Housing Concerned About Future Housing: No Difficulty Paying Gas/Electric Bills: No Difficulty Paying for Meds: No Currently Unemployed: No Education: Bachelor's Degree Difficulty w/ Childcare or Family Care: No Living arrangements: with family Occupation/Education: retired Gender identity (if verbalized by the patient): Male Sexual Orientation (if Verbalized by the Patient): Straight or Heterosexual Spiritual care concerns: No Meds Home Medications and Allergies Home Medications Medication Instructions Recorded Confirmed Type blood sugar diagnostic (Contour #100 ea 11/23/22 09/19/24 Rx Next Test Strips) metformin 500 mg tablet,extended See Rx Instructions .Route 08/04/23 09/19/24 Rx release 24 hr .COMPLEX #360 tabs dulaglutide 1.5 mg/0.5 mL 1.5 mg (0.5 mL) subcut WEEKLY #2 mL 05/09/24 09/19/24 Rx subcutaneous pen injector (Trulicity) levothyroxine 75 mcg tablet 75 mcg PO DAILY #30 tabs 06/27/24 09/19/24 Rx clotrimazole-betamethasone 1 1 applic topical BID #45 grams 08/23/24 09/19/24 Rx %-0.05 % topical cream amlodipine 10 mg tablet 10 mg PO DAILY 09/19/24 09/19/24 History apixaban 5 mg tablet (Eliquis) 5 mg PO BID 09/19/24 09/19/24 History valsartan 320 1 tablet PO DAILY 09/19/24 09/19/24 History mg-hydrochlorothiazide 25 mg tablet Allergies Allergy/AdvReac Type Severity Reaction Status Date / Time No Known Allergies Allergy Unknown Verified 09/19/24 16:27 Vital Signs Vital Signs Temp Pulse Resp BP Pulse Ox O2 Del Method FiO2 09/20/24 12:32 65 09/20/24 11:34 68 09/20/24 11:34 68 16 94 Room Air 21 09/20/24 11:23 97.5 F L 68 16 134/67 94 09/20/24 10:00 64 09/20/24 08:52 71 09/20/24 08:00 71 09/20/24 08:00 73 18 98 Room Air 21 09/20/24 08:18 98 Room Air 21 09/20/24 07:40 97.3 F L 73 18 144/62 H 99 09/20/24 06:00 63 09/20/24 04:00 62 09/20/24 04:00 97.4 F L 64 16 129/62 98 09/20/24 04:00 69 16 94 Room Air 09/20/24 02:00 69 09/20/24 00:00 65 09/20/24 00:00 65 16 94 Room Air 09/19/24 23:29 97.6 F 65 16 119/50 L 94 09/19/24 22:48 69 09/19/24 21:00 98.0 F 62 18 112/62 97 09/19/24 20:43 64 13 129/57 L 97 09/19/24 19:09 70 17 130/59 L 97 Exam Narrative: GENERAL APPEARANCE: elderly but well developed well nourished male in no acute distress HEENT: normocephalic, atraumatic, normal conjunctiva and sclera, nares patient NECK: no lymphadenopathy, thyromegaly, or JVD MOUTH: normal lips, teeth, and gums CARDIOVASCULAR: RRR, normal S1 and S2, no rub RESPIRATORY: clear to auscultation bilaterally ABDOMEN: soft, nontender, nondistended, positive bowel sounds present EXTREMITIES: no evidence of cyanosis, clubbing, or edema NEUROLOGICAL: alert and oriented x 3; CN II - XII intact bilaterally; no focal deficits noted Results Lab Results 09/20/24 03:23 09/20/24 11:01 Lab results: Most recent lab results Calcium 8.5 mg/dL (8.4-10.2) 09/20/24 11:01 Magnesium 1.7 mg/dL (1.6-2.3) 09/20/24 03:23 Urine Creatinine 70.6 mg/dL 09/19/24 19:11 Urine Creatinine 72.1 mg/dL 09/19/24 19:11
[2024-09-20 16:11] LABS: Glucose Point of Care 135 mg/dl (65-105)
[2024-09-20 19:48] LABS: Sodium 116 mmol/L (137-145)
[2024-09-20 20:33] LABS: Glucose Point of Care 125 mg/dl (65-105)
[2024-09-20] MEDS: SODIUM CHLORIDE 3% 270 ML 90 ML IV CONT (21:25)
[2024-09-21] VITALS (17 sets, daily range): BP systolic 103–148; BP diastolic 49–80; PULSE 61–75; RESP 16–24; TEMP 36.4–37.2; O2SAT 93–98
[2024-09-21 05:28] LABS: Anion Gap 4 mmol/L (4-12); Blood Urea Nitrogen 7 mg/dL (9-20); Calcium 8.6 mg/dL (8.4-10.2); Carbon Dioxide 29 mmol/L (22-30); Chloride 87 mmol/L (98-107); Estimated CRCL calculation 40 ml/min; Estimated Glomerular Filt Rate 53; Glucose 110 mg/dL (65-110); Potassium 3.6 mmol/L (3.4-5.0); Sodium 120 mmol/L (137-145)
[2024-09-21] MEDS: LEVOTHYROXINE SODIUM 75 MCG TABLET PO (05:31)
--- NOTE | 2024-09-21 07:36 | P.PNIM_ITS ---
Progress Note: A&P Assessment and Plan (1) Acute hyponatremia: Code(s): E87.1 - Hypo-osmolality and hyponatremia Status: Acute Assessment and Plan: - Na 115 (repeat 115) -> 116 - add serum osmolality, urine osmolality, urine sodium, protein to creatinine ratio, urine creatinine - nephrology consulted - started on IV fluids: 1L bolus, 100 mL/hr x1L - trend sodium - neurological checks Q6H -monitor-stable (2) Hypokalemia: Code(s): E87.6 - Hypokalemia Status: Acute Assessment and Plan: - K 3.4 -> 3.0 - replete with 40 p.o., recheck with next sodium - monitor (3) Hypomagnesemia: Code(s): E83.42 - Hypomagnesemia Status: Acute Assessment and Plan: - Mag 1.4 - initial repletion with 1G IVPB - trend with daily labs (4) Generalized weakness: Code(s): R53.1 - Weakness Status: Acute Assessment and Plan: - viral PCR and UA pending - suspect generalized weakness is multifactorial including dehydration, hypomagnesemia and hyponatremia. Plan for electrolyte correction and IV fluids. 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 intake improved - home medication: Hold Trulicity (NF), hold metformin - correct regimen ordered - low dose TIDWM - A1C 6.7% on 01/17/2024 (7) CKD (chronic kidney disease) stage 3, GFR 30-59 ml/min: Qualifiers: Chronic kidney disease stage 3 subtype: unspecified whether 3a or 3b Qualified Code(s): N18.30 - Chronic kidney disease, stage 3 unspecified Code(s): N18.3 - Chronic kidney disease, stage 3 (moderate) Status: Acute Assessment and Plan: - creatinine 1.4 and GFR 48, previously 1.73 and GFR 39 on 01/17/2024 - trend renal function - trend electrolytes, correct as needed (8) HTN (hypertension): Qualifiers: Hypertension type: primary hypertension Qualified Code(s): I10 - Essential (primary) hypertension Code(s): I10 - Essential (primary) hypertension Status: Acute Assessment and Plan: - chronic, currently 112/62 - continue home medications: Amlodipine 10 mg daily, valsartan-hydrochloroth iazide 320-25 mg daily - monitor Plan Diet: Regular GI Prophylaxis: Not currently indicated DVT Prophylaxis: Continue home apixaban Lines: Peripheral Code Status: Full code Subjective Date/time seen: 09/21/24 07:36 Interval history: 4 y/o M presents here with with dizziness and generalized weakness with PMH of CAD, chronic AFib, CKD, diabetes, hyperlipidemia, and throat cancer. admitted for gen weakness and dizziness. He is currently undergoing treatment for throat cancer at [facility]. Last chemotherapy treatment was approximately 2 weeks ago which precipitated patient's symptoms. ED workup showed: No leukocytosis, hemoglobin 12.9 (previously 14.0 in 2022), INR 1.2, sodium 115 (repeat 115), creatinine 1.4 and GFR 48 (previously 1.73 and 39 on 01/17/2024), magnesium 1.4, and initial troponin negative. Viral PCR negative. CXR showed mild atelectasis at the left lung base. 12/- Na is 117. nephrology consulted. pt is [place], alert, denies any acute issues /- NA improved to 120 but then dropped to 117. nephrology is following. Review of Systems Review of Systems: All systems reviewed & are unremarkable except as noted in HPI and below Exam Const: General: comfortable and no acute distress Other: , male, nontoxic appearance HENMT: Face/Nose/Sinus: Normal nares present Mouth: Yes moist mucous membranes Eyes: General: appearance normal, both eyes and all related structures Sclera: sclerae normal Pupils: Equal, round and reactive pupils present EOM: EOMs intact bilaterally Resp: Effort & Inspection: normal respiratory effort Auscultation: clear to auscultation bilaterally Cardio: Rate: regular rate Rhythm: regular rhythm Other: S1-S2 present without murmur, rub, ectopy GI: Other: Abdomen soft, nondistended, nontender. Normoactive bowel sounds all quadrants. Skin: General skin exam: normal color and no rashes or lesions noted Wounds: no wounds Neuro: Cranial nerves: Yes Equal, round and reactive pupils present Speech: normal speech Motor exam (neuro): 5/5 motor strength present throughout Sensory Exam: normal sensation Other: A&O x4 Extrem: General: normal to inspection Psych: Mental Status: mental status grossly normal Affect: normal affect Other: Good insight and judgment, pleasant Objective Data Vital Signs Vital Signs: Vital Signs - 24 hr 09/20/24 07:40 09/20/24 08:18 09/20/24 08:00 Temperature 97.3 F L Pulse Rate 73 73 Respiratory Rate 18 18 Blood Pressure 144/62 H Pulse Oximetry 99 98 98 Oxygen Delivery Room Air Room Air Fraction of Inspired Oxygen 21 21 09/20/24 08:00 09/20/24 08:52 09/20/24 10:00 Temperature Pulse Rate 71 71 64 Respiratory Rate Blood Pressure Pulse Oximetry Oxygen Delivery Fraction of Inspired Oxygen 09/20/24 11:23 09/20/24 11:34 09/20/24 11:34 Temperature 97.5 F L Pulse Rate 68 68 68 Respiratory Rate 16 16 Blood Pressure 134/67 Pulse Oximetry 94 94 Oxygen Delivery Room Air Fraction of Inspired Oxygen 21 09/20/24 12:32 09/20/24 14:00 09/20/24 16:00 Temperature 97.6 F Pulse Rate 65 61 101 H Respiratory Rate 18 Blood Pressure 148/53 H Pulse Oximetry 94 Oxygen Delivery Fraction of Inspired Oxygen 09/20/24 16:00 09/20/24 16:00 09/20/24 18:00 Temperature Pulse Rate 69 69 60 Respiratory Rate 18 Blood Pressure Pulse Oximetry 94 Oxygen Delivery Room Air Fraction of Inspired Oxygen 21 09/20/24 20:26 09/20/24 20:00 09/20/24 20:00 Temperature 98.7 F Pulse Rate 67 67 67 Respiratory Rate 18 18 Blood Pressure 135/58 L Pulse Oximetry 94 94 Oxygen Delivery Room Air Fraction of Inspired Oxygen 21 09/20/24 22:00 09/20/24 23:52 09/21/24 00:00 Temperature 97.7 F Pulse Rate 62 67 65 Respiratory Rate 18 18 Blood Pressure 138/60 Pulse Oximetry 95 95 Oxygen Delivery Room Air Fraction of Inspired Oxygen 21 09/21/24 00:00 09/21/24 02:00 09/21/24 04:00 Temperature Pulse Rate 65 64 62 Respiratory Rate 18 Blood Pressure Pulse Oximetry 95 Oxygen Delivery Room Air Fraction of Inspired Oxygen 21 09/21/24 04:00 09/21/24 04:23 Temperature 98.1 F Pulse Rate 62 61 Respiratory Rate 18 Blood Pressure 142/58 H Pulse Oximetry 96 Oxygen Delivery Fraction of Inspired Oxygen Intake/Output Intake/Output: Intake & Output 09/18/24 09/19/24 09/20/24 09/21/24 23:59 23:59 23:59 23:59 Intake Total 1100 1890 820 Output Total 1450 700 Balance 1100 440 120 Meds/Results Medications: Active Medications Generic Name Dose Route Start Last Admin Trade Name Freq PRN Reason Stop Dose Admin Amlodipine Besylate 10 mg 09/20/24 09:00 09/20/24 08:12 Amlodipine Besylate 10 Mg Tablet PO 10 mg DAILY RINA Administration Apixaban 5 mg 09/19/24 22:35 09/20/24 21:25 Apixaban 5 Mg Tablet PO 5 mg Q12HR RINA Administration Clotrimazole 1 applic 09/20/24 09:00 09/20/24 17:48 Betamethasone/Clotrimazole Cream 15 Gm Tube TOPICAL Not Given BID RINA Dextrose 12.5 gm 09/19/24 18:30 Dextrose 50% 25 Gm/50 Ml Syringe IV PUSH PRN PRN Hypoglycemia Protocol Glucagon 1 mg 09/19/24 18:30 Glucagon For Inj 1 Mg Vial IM PRN PRN Hypoglycemia Protocol Glucose 15 gm 09/19/24 18:30 Glucose Oral Gel 15 Gm Of Glucse In 37.5 Gm Tube PO PRN PRN Hypoglycemia Protocol Hydrochlorothiazide 25 mg 09/20/24 09:00 09/20/24 08:12 Hydrochlorothiazide 25 Mg Tablet PO 25 mg DAILY RINA Administration Dextrose 1,000 mls @ 100 mls/hr 09/19/24 18:30 Dextrose 5% 1,000 Ml IVPB PRN PRN Hypoglycemia Protocol Insulin Aspart 2 - 5 units 09/20/24 08:00 09/20/24 17:48 Insulin Aspart (*Bkc) 100 Units/Ml SUB-Q Not Given TIDWM [facility] Protocol Levothyroxine Sodium 75 mcg 09/20/24 06:30 09/21/24 05:31 Levothyroxine Sodium 75 Mcg Tablet PO 75 mcg DAILY@0630 RINA Administration Ondansetron HCl 4 mg 09/19/24 18:30 Ondansetron Inj 4 Mg/2 Ml Vial IV PUSH Q4H PRN Nausea And Vomiting Valsartan 320 mg 09/20/24 09:00 09/20/24 08:11 Valsartan 160 Mg Tablet PO 320 mg DAILY RINA Administration Radiology Results: ITS Impressions Chest X-Ray 09/19/24 15:50 IMPRESSION: 1. Mild atelectasis at left lung base. Labs Labs: Laboratory Results - last 24 hr 09/20/24 09/20/24 09/20/24 11:01 11:32 16:07 Sodium 117 L* Potassium 3.5 Chloride 85 L Carbon Dioxide 29 Anion Gap 3 L BUN 8 L Creatinine 1.30 Estim Creat Clear Calc 45 Estimated GFR 53 L Glucose 107 POC Capillary Glucose 112 H 135 H Calcium 8.5 TSH (Reflex) Random Cortisol 09/20/24 09/20/24 09/21/24 18:18 20:29 04:50 Sodium 116 L* 120 L Potassium 3.6 Chloride 87 L Carbon Dioxide 29 Anion Gap 4 BUN 7 L Creatinine 1.30 Estim Creat Clear Calc 40 Estimated GFR 53 L Glucose 110 POC Capillary Glucose 125 H Calcium 8.6 TSH (Reflex) 3.620 Random Cortisol 0.50 Quality VTE Prophylaxis VTE prophylaxis: pharmacologic ordered
[2024-09-21 07:37] LABS: Glucose Point of Care 121 mg/dl (65-105)
[2024-09-21 09:10] LABS: Sodium 117 mmol/L (137-145)
[2024-09-21] MEDS: VALSARTAN 160 MG TABLET 320 MG PO (09:12)
[2024-09-21] MEDS: APIXABAN 5 MG TABLET PO ×2 (09:12→21:20)
[2024-09-21] MEDS: amLODIPine BESYLATE 10 MG TABLET PO (09:12)
[2024-09-21] MEDS: BETAMETHASONE/CLOTRIMAZOLE CREAM 15 GM TUBE 1 APPLIC TOPICAL ×2 (09:13→17:14)
[2024-09-21] MEDS: SODIUM CHLORIDE 1 GM TABLET PO ×2 (10:06→17:13)
[2024-09-21 11:37] LABS: Glucose Point of Care 114 mg/dl (65-105)
--- NOTE | 2024-09-21 13:05 | P.PNNP_ITS ---
Progress Note: A&P Assessment and Plan (1) Hyponatremia: Code(s): E87.1 - Hypo-osmolality and hyponatremia Status: Acute Assessment and Plan: * acute * sodium normal ~ 8 months * risk factors for low sodium: * prerenal factors/diminished oral intake * malignancy (throat cancer) * HCTZ use * history of thyroid disease * excessive free water intake * only mild improvement in sodium since admission * s/p trial of normal saline IVFs - only mild improvement * evaluation to date: * TSH okay * cortisol low - will recheck (may need to check stim test) * SPEP/UPEP and serum/urine osmolality pending * urine electrolytes indeterminate for prenal azotemia * on fluid restriction and salt tabs * hesitant to add diuretics given #3 * follow trend of repeat sodium levels (2) Chronic kidney disease, stage 3: Code(s): N18.30 - Chronic kidney disease, stage 3 unspecified Status: Chronic Assessment and Plan: * baseline creatinine seems to run ~ 1.4 - 1.8mg/dl for the last several years * this causes him to fluctuate between CKD stage 3A and stage 3B * presumably due to HTN, DM, vascular disease, and age-related change (3) Hypokalemia: Code(s): E87.6 - Hypokalemia Status: Acute Assessment and Plan: * better * noted on admission * likely exacerbated by low magnesium and poor oral intake * replacement as needed * follow trend (4) Generalized weakness: Code(s): R53.1 - Weakness Status: Acute Assessment and Plan: * presumably due to volume depletion and possibly electrolyte abnormalities along with underlying malgnancy * follow clinical symptoms * PT/OT as tolerated (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, unspecified Status: Acute Assessment and Plan: * currently undergoing chemo at [facility] * suspect poor PO intake secondary to chemotherapy * antiemetics as needed (6) HTN (hypertension): Qualifiers: Hypertension type: primary hypertension Qualified Code(s): I10 - Essential (primary) hypertension Code(s): I10 - Essential (primary) hypertension Status: Acute Assessment and Plan: * reasonable control * hold HCTZ due to #1 * follow trend of hemodynamics (7) Type 2 diabetes mellitus: Qualifiers: Diabetes mellitus watermaster insulin use: without watermaster use Diabetes mellitus complication status: without complication Qualified Code(s): E11.9 - Type 2 diabetes mellitus without complications Code(s): E11.9 - Type 2 diabetes mellitus without complications Status: Acute Assessment and Plan: * follow accu-cheks * glycemic control per hospitalists Will continue to follow. Subjective Date/time seen: 09/21/24 13:05 Interval history: Follow-up for acute hyponatremia. Given 3% saline when sodium dropped to 116mmol/L with improvement in sodium up to 120mmol/L; however, dropped again back to 117mmol/L by 9AM labs; started on salt tabs and fluid restriction earlier today; no othe issues/events overnight or earlier this morning. Exam Narrative: General: elderly but WD/WN male in NAD Heart: normal S1 and S2; no rub Lungs: clear to auscultation Abdomen: soft, nontender, nondistended, positive bowel sounds Extremities: no cyanosis or clubbing; no edema Skin: warm and dry Objective Data Vital Signs Vital Signs: Vital Signs Temp Pulse Resp BP Pulse Ox O2 Del Method FiO2 09/21/24 11:43 97.9 F 65 16 143/63 H 97 09/21/24 10:00 63 09/21/24 08:00 70 09/21/24 08:00 98.0 F 67 20 137/53 L 98 09/21/24 04:23 98.1 F 61 18 142/58 H 96 09/21/24 04:00 62 09/21/24 04:00 62 18 95 Room Air 21 09/21/24 02:00 64 09/21/24 00:00 65 09/21/24 00:00 65 18 95 Room Air 21 09/20/24 23:52 97.7 F 67 18 138/60 95 09/20/24 22:00 62 09/20/24 20:00 67 09/20/24 20:00 67 18 94 Room Air 21 09/20/24 20:26 98.7 F 67 18 135/58 L 94 09/20/24 18:00 60 09/20/24 16:00 69 09/20/24 16:00 69 18 94 Room Air 21 09/20/24 16:00 97.6 F 101 H 18 148/53 H 94 09/20/24 14:00 61 Intake/Output Intake/Output: Intake & Output 09/18/24 09/19/24 09/20/24 09/21/24 23:59 23:59 23:59 23:59 Intake Total 1100 1890 920 Output Total 1450 700 Balance 1100 440 220 Meds/Results Medications: Active Medications Generic Name Dose Route Start Last Admin Trade Name Freq PRN Reason Stop Dose Admin Amlodipine Besylate 10 mg 09/20/24 09:00 09/21/24 09:12 Amlodipine Besylate 10 Mg Tablet PO 10 mg DAILY RINA Administration Apixaban 5 mg 09/19/24 22:35 09/21/24 09:12 Apixaban 5 Mg Tablet PO 5 mg Q12HR RINA Administration Clotrimazole 1 applic 09/20/24 09:00 09/21/24 09:13 Betamethasone/Clotrimazole Cream 15 Gm Tube TOPICAL 1 applic BID RINA Administration Dextrose 12.5 gm 09/19/24 18:30 Dextrose 50% 25 Gm/50 Ml Syringe IV PUSH PRN PRN Hypoglycemia Protocol Glucagon 1 mg 09/19/24 18:30 Glucagon For Inj 1 Mg Vial IM PRN PRN Hypoglycemia Protocol Glucose 15 gm 09/19/24 18:30 Glucose Oral Gel 15 Gm Of Glucse In 37.5 Gm Tube PO PRN PRN Hypoglycemia Protocol Hydrochlorothiazide 25 mg 09/20/24 09:00 09/20/24 08:12 Hydrochlorothiazide 25 Mg Tablet PO 25 mg DAILY RINA Administration Dextrose 1,000 mls @ 100 mls/hr 09/19/24 18:30 Dextrose 5% 1,000 Ml IVPB PRN PRN Hypoglycemia Protocol Insulin Aspart 2 - 5 units 09/20/24 08:00 09/21/24 11:42 Insulin Aspart (*Bkc) 100 Units/Ml SUB-Q Not Given TIDWM [facility] Protocol Levothyroxine Sodium 75 mcg 09/20/24 06:30 09/21/24 05:31 Levothyroxine Sodium 75 Mcg Tablet PO 75 mcg DAILY@0630 RINA Administration Ondansetron HCl 4 mg 09/19/24 18:30 Ondansetron Inj 4 Mg/2 Ml Vial IV PUSH Q4H PRN Nausea And Vomiting Sodium Chloride 1 gm 09/21/24 09:28 09/21/24 10:06 Sodium Chloride 1 Gm Tablet PO 1 gm BID RINA Administration Valsartan 320 mg 09/20/24 09:00 09/21/24 09:12 Valsartan 160 Mg Tablet PO 320 mg DAILY RINA Administration Radiology Results: ITS Impressions Chest X-Ray 09/19/24 15:50 IMPRESSION: 1. Mild atelectasis at left lung base. Labs Labs: Laboratory Tests 09/20/24 03:23 09/21/24 09/21/24 04:50 08:53 Sodium 120 L 117 L* Potassium 3.6 Chloride 87 L Carbon Dioxide 29 Anion Gap 4 BUN 7 L Creatinine 1.30 Estim Creat Clear Calc 40 Estimated GFR 53 L Glucose 110 Calcium 8.6 PEP Interpretation Pending TSH (Reflex) 3.620 Random Cortisol 0.50
[2024-09-21 13:36] LABS: Sodium 117 mmol/L (137-145)
[2024-09-21] MEDS: ACETAMINOPHEN 325 MG TABLET 650 MG PO (14:34)
--- NOTE | 2024-09-21 15:11 | PCPTNOTE ---
attempted PT eval ,pt currently shivering and curled up in side lying position, when asked to participate in therapy today pt declined and asked PT to come back tomorrow, will follow
[2024-09-21 16:43] LABS: Glucose Point of Care 175 mg/dl (65-105)
[2024-09-21 19:51] LABS: Glucose Point of Care 163 mg/dl (65-105)
[2024-09-22] VITALS (13 sets, daily range): BP systolic 109–133; BP diastolic 36–59; PULSE 63–71; RESP 18–22; TEMP 36.5–37.6; O2SAT 91–100
[2024-09-22] MEDS: LEVOTHYROXINE SODIUM 75 MCG TABLET PO (05:36)
[2024-09-22 07:05] LABS: Basophils Absolute Auto 0.1 K/mm3 (0.0-0.1); Basophils Percent Auto 1.1 % (0.2-1.2); Eosinophils Absolute Auto 1.6 K/mm3 (0-0.3); Eosinophils Percent Auto 14.7 % (0-4.4); Immature Granulocyte Absolute 0.09 K/mm3 (0.00-0.031); Immature Granulocyte Percent A 0.8 % (0-0.5); Lymphocytes Absolute Auto 1.18 K/mm3 (0.9-3.2); Lymphocytes Percent Auto 10.9 % (18.3-44.2); Mean Corpuscular HGB Conc 33.3 g/dl (32-36); Mean Corpuscular Hemoglobin 31.4 pg (26-34); Mean Corpuscular Volume 94.2 fl (80-100); Mean Platelet Volume 9.4 fl (7.4-10.4); Monocytes Absolute Auto 1.5 K/mm3 (0.1-0.6); Monocytes Percent Auto 13.6 % (2.6-8.5); Neutrophils Absolute Auto 6.4 K/mm3 (1.3-6.7); Neutrophils Percent Auto 58.9 % (45.5-73.1); Platelet Count Result 224 k/mm3 (150-375); Red Blood Count 4.14 M/mm3 (4.6-6.20); Red Cell Distribution Width 12.4 % (11.5-14.5); White Blood Count 10.8 K/mm3 (4.5-10.0)
[2024-09-22 07:24] LABS: Alanine Aminotransferase 14 U/L (6-50); Albumin Level 3.3 g/dL (3.5-5.1); Alkaline Phosphatase 65 U/L (38-126); Anion Gap 5 mmol/L (4-12); Aspartate Amino Transferase 25 U/L (17-59); Bilirubin,Total 1.2 mg/dL (0.2-1.3); Blood Urea Nitrogen 15 mg/dL (9-20); Calcium 8.6 mg/dL (8.4-10.2); Carbon Dioxide 24 mmol/L (22-30); Chloride 88 mmol/L (98-107); Estimated CRCL calculation 35 ml/min; Estimated Glomerular Filt Rate 45; Glucose 132 mg/dL (65-110); Sodium 117 mmol/L (137-145)
--- NOTE | 2024-09-22 07:30 | PM.IMPN ---
Progress Note: A&P Assessment and Plan (1) Acute hyponatremia: Code(s): E87.1 - Hypo-osmolality and hyponatremia Status: Acute Assessment and Plan: - Na 115 (repeat 115) -> 116 - add serum osmolality, urine osmolality, urine sodium, protein to creatinine ratio, urine creatinine - nephrology consulted - started on IV fluids: 1L bolus, 100 mL/hr x1L - trend sodium - neurological checks Q6H -monitor-stable sodium chloride 3% ordered per nephrology 09/22 na improved to 120- on po salt tabs as well. (2) Hypokalemia: Code(s): E87.6 - Hypokalemia Status: Acute Assessment and Plan: - K 3.4 -> 3.0 - replete with 40 p.o., recheck with next sodium - monitor (3) Hypomagnesemia: Code(s): E83.42 - Hypomagnesemia Status: Acute Assessment and Plan: - Mag 1.4 - initial repletion with 1G IVPB - trend with daily labs (4) Generalized weakness: Code(s): R53.1 - Weakness Status: Acute Assessment and Plan: - viral PCR and UA pending - suspect generalized weakness is multifactorial including dehydration, hypomagnesemia and hyponatremia. Plan for electrolyte correction and IV fluids. 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 - news internship consulted (6) Type 2 diabetes mellitus: Qualifiers: Diabetes mellitus complication status: without complication Diabetes mellitus integrated pest management technician insulin use: without integrated pest management technician use Qualified Code(s): E11.9 - Type 2 diabetes mellitus without complications Code(s): E11.9 - Type 2 diabetes mellitus without complications Status: Acute Assessment and Plan: - hypoglycemia protocol - POC blood glucose q.6 hour until p.o. intake improved - home medication: Hold Trulicity (NF), hold metformin - correct regimen ordered - low dose TIDWM - A1C 6.7% on 01/17/2024 (7) CKD (chronic kidney disease) stage 3, GFR 30-59 ml/min: Qualifiers: Chronic kidney disease stage 3 subtype: unspecified whether 3a or 3b Qualified Code(s): N18.30 - Chronic kidney disease, stage 3 unspecified Code(s): N18.3 - Chronic kidney disease, stage 3 (moderate) Status: Acute Assessment and Plan: - creatinine 1.4 and GFR 48, previously 1.73 and GFR 39 on 01/17/2024 - trend renal function - trend electrolytes, correct as needed (8) HTN (hypertension): Qualifiers: Hypertension type: primary hypertension Qualified Code(s): I10 - Essential (primary) hypertension Code(s): I10 - Essential (primary) hypertension Status: Acute Assessment and Plan: - chronic, currently 112/62 - continue home medications: Amlodipine 10 mg daily, valsartan-hydrochlorothiazide 320-25 mg daily - monitor Plan Diet: Regular GI Prophylaxis: Not currently indicated DVT Prophylaxis: Continue home apixaban Lines: Peripheral Code Status: Full code Time Spent With Patient Time with patient: Greater than 35 minutes Subjective Date/time seen: 09/22/24 07:30 Interval history: 4 y/o M presents here with with dizziness and generalized weakness with PMH of CAD, chronic AFib, CKD, diabetes, hyperlipidemia, and throat cancer. admitted for gen weakness and dizziness. He is currently undergoing treatment for throat cancer at [facility]. Last chemotherapy treatment was approximately 2 weeks ago which precipitated patient's symptoms. ED workup showed: No leukocytosis, hemoglobin 12.9 (previously 14.0 in 2022), INR 1.2, sodium 115 (repeat 115), creatinine 1.4 and GFR 48 (previously 1.73 and 39 on 01/17/2024), magnesium 1.4, and initial troponin negative. Viral PCR negative. CXR showed mild atelectasis at the left lung base. 09/20- Na is 117. nephrology consulted. pt is [place], alert, denies any acute issues 09/21- NA improved to 120 but then dropped to 117. nephrology is following. 09/22 na replaced iv today- improved to 120. pt is more comfortable today. Review of Systems Review of Systems: All systems reviewed & are unremarkable except as noted in HPI and below Exam Narrative: calm, alert, feeling better today Const: General: comfortable and no acute distress Other: , male, nontoxic appearance HENMT: Face/Nose/Sinus: Normal nares present Mouth: Yes moist mucous membranes Eyes: General: appearance normal, both eyes and all related structures Sclera: sclerae normal Pupils: Equal, round and reactive pupils present EOM: EOMs intact bilaterally Resp: Effort & Inspection: normal respiratory effort Auscultation: clear to auscultation bilaterally Cardio: Rate: regular rate Rhythm: regular rhythm Other: S1-S2 present without murmur, rub, ectopy GI: Other: Abdomen soft, nondistended, nontender. Normoactive bowel sounds all quadrants. Skin: General skin exam: normal color and no rashes or lesions noted Wounds: no wounds Neuro: Cranial nerves: Yes Equal, round and reactive pupils present Speech: normal speech Motor exam (neuro): 5/5 motor strength present throughout Sensory Exam: normal sensation Other: A&O x4 Extrem: General: normal to inspection Psych: Mental Status: mental status grossly normal Affect: normal affect Other: Good insight and judgment, pleasant Objective Data Vital Signs Vital Signs: Vital Signs - 24 hr 09/21/24 08:00 09/21/24 08:00 09/21/24 10:00 Temperature 98.0 F Pulse Rate 67 70 63 Respiratory Rate 20 Blood Pressure 137/53 L Pulse Oximetry 98 Oxygen Delivery Fraction of Inspired Oxygen 09/21/24 11:43 09/21/24 12:00 09/21/24 16:00 Temperature 97.9 F Pulse Rate 65 63 Respiratory Rate 16 Blood Pressure 143/63 H Pulse Oximetry 97 Oxygen Delivery Room Air Fraction of Inspired Oxygen 09/21/24 16:00 09/21/24 14:00 09/21/24 16:00 Temperature 97.6 F Pulse Rate 65 74 67 Respiratory Rate 16 Blood Pressure 116/49 L Pulse Oximetry 95 Oxygen Delivery Fraction of Inspired Oxygen 09/21/24 18:00 09/21/24 17:51 09/21/24 19:54 Temperature 97.5 F L Pulse Rate 69 64 Respiratory Rate 24 H Blood Pressure 103/80 Pulse Oximetry 95 94 Oxygen Delivery Room Air Fraction of Inspired Oxygen 09/21/24 20:00 09/21/24 20:00 09/21/24 22:00 Temperature Pulse Rate 64 64 68 Respiratory Rate 24 H Blood Pressure Pulse Oximetry 94 Oxygen Delivery Room Air Fraction of Inspired Oxygen 21 09/21/24 23:33 09/21/24 23:33 09/21/24 23:50 Temperature 99 F Pulse Rate 64 64 75 Respiratory Rate 24 H 18 Blood Pressure 148/65 H Pulse Oximetry 94 93 Oxygen Delivery Room Air Fraction of Inspired Oxygen 21 09/22/24 02:00 09/22/24 03:44 09/22/24 03:44 Temperature Pulse Rate 68 66 66 Respiratory Rate 18 Blood Pressure Pulse Oximetry 93 Oxygen Delivery Room Air Fraction of Inspired Oxygen 21 09/22/24 03:44 09/22/24 05:17 Temperature 97.7 F Pulse Rate 66 64 Respiratory Rate 22 H Blood Pressure 109/49 L Pulse Oximetry 94 Oxygen Delivery Fraction of Inspired Oxygen Intake/Output Intake/Output: Intake & Output 09/19/24 09/20/24 09/21/24 09/22/24 23:59 23:59 23:59 23:59 Intake Total 1100 1890 1577 120 Output Total 1450 1200 400 Balance 1100 440 377 -280 Meds/Results Medications: Active Medications Generic Name Dose Route Start Last Admin Trade Name Freq PRN Reason Stop Dose Admin Acetaminophen 650 mg 09/21/24 14:23 09/21/24 14:34 Acetaminophen 325 Mg Tablet PO 650 mg Q4H PRN Administration Headache Amlodipine Besylate 10 mg 09/20/24 09:00 09/21/24 09:12 Amlodipine Besylate 10 Mg Tablet PO 10 mg DAILY RINA Administration Apixaban 5 mg 09/19/24 22:35 09/21/24 21:20 Apixaban 5 Mg Tablet PO 5 mg Q12HR RINA Administration Clotrimazole 1 applic 09/20/24 09:00 09/21/24 17:14 Betamethasone/Clotrimazole Cream 15 Gm Tube TOPICAL 1 applic BID RINA Administration Dextrose 12.5 gm 09/19/24 18:30 Dextrose 50% 25 Gm/50 Ml Syringe IV PUSH PRN PRN Hypoglycemia Protocol Glucagon 1 mg 09/19/24 18:30 Glucagon For Inj 1 Mg Vial IM PRN PRN Hypoglycemia Protocol Glucose 15 gm 09/19/24 18:30 Glucose Oral Gel 15 Gm Of Glucse In 37.5 Gm Tube PO PRN PRN Hypoglycemia Protocol Hydrochlorothiazide 25 mg 09/20/24 09:00 09/20/24 08:12 Hydrochlorothiazide 25 Mg Tablet PO 25 mg DAILY RINA Administration Dextrose 1,000 mls @ 100 mls/hr 09/19/24 18:30 Dextrose 5% 1,000 Ml IVPB PRN PRN Hypoglycemia Protocol Insulin Aspart 2 - 5 units 09/20/24 08:00 09/21/24 17:03 Insulin Aspart (*Bkc) 100 Units/Ml SUB-Q Not Given TIDWM RINA Protocol Levothyroxine Sodium 75 mcg 09/20/24 06:30 09/22/24 05:36 Levothyroxine Sodium 75 Mcg Tablet PO 75 mcg DAILY@0630 RINA Administration Ondansetron HCl 4 mg 09/19/24 18:30 Ondansetron Inj 4 Mg/2 Ml Vial IV PUSH Q4H PRN Nausea And Vomiting Sodium Chloride 1 gm 09/21/24 09:28 09/21/24 17:13 Sodium Chloride 1 Gm Tablet PO 1 gm BID RINA Administration Valsartan 320 mg 09/20/24 09:00 09/21/24 09:12 Valsartan 160 Mg Tablet PO 320 mg DAILY RINA Administration Radiology Results: ITS Impressions Chest X-Ray 09/19/24 15:50 IMPRESSION: 1. Mild atelectasis at left lung base. Labs Labs: Laboratory Results - last 24 hr 09/19/24 09/21/24 09/21/24 19:10 04:50 07:34 WBC RBC Hgb Hct MCV MCH MCHC RDW Plt Count MPV Immature Gran % (Auto) Neut % (Auto) Lymph % (Auto) [place] % (Auto) Eos % (Auto) Baso % (Auto) Lymph # (Auto) [place] # (Auto) Eos # (Auto) Baso # (Auto) Abs Immat Gran (auto) Absolute Neuts (auto) Absolute Nucleated RBC Nucleated RBC % Sodium Potassium Chloride Carbon Dioxide Anion Gap BUN Creatinine Estim Creat Clear Calc Estimated GFR Glucose POC Capillary Glucose 121 H Serum Osmolality 247 L Calcium Total Bilirubin AST ALT Alkaline Phosphatase Total Protein Albumin TSH (Reflex) 3.620 09/21/24 09/21/24 09/21/24 08:53 11:29 13:00 WBC RBC Hgb Hct MCV MCH MCHC RDW Plt Count MPV Immature Gran % (Auto) Neut % (Auto) Lymph % (Auto) [place] % (Auto) Eos % (Auto) Baso % (Auto) Lymph # (Auto) [place] # (Auto) Eos # (Auto) Baso # (Auto) Abs Immat Gran (auto) Absolute Neuts (auto) Absolute Nucleated RBC Nucleated RBC % Sodium 117 L* 117 L* Potassium Chloride Carbon Dioxide Anion Gap BUN Creatinine Estim Creat Clear Calc Estimated GFR Glucose POC Capillary Glucose 114 H Serum Osmolality Calcium Total Bilirubin AST ALT Alkaline Phosphatase Total Protein Albumin TSH (Reflex) 09/21/24 09/21/24 09/22/24 16:40 19:46 06:49 WBC 10.8 H RBC 4.14 L Hgb 13.0 L Hct 39.0 L MCV 94.2 D MCH 31.4 MCHC 33.3 RDW 12.4 Plt Count 224 MPV 9.4 Immature Gran % (Auto) 0.8 H Neut % (Auto) 58.9 Lymph % (Auto) 10.9 L [place] % (Auto) 13.6 H Eos % (Auto) 14.7 H Baso % (Auto) 1.1 Lymph # (Auto) 1.18 [place] # (Auto) 1.5 H Eos # (Auto) 1.6 H Baso # (Auto) 0.1 Abs Immat Gran (auto) 0.09 H Absolute Neuts (auto) 6.4 Absolute Nucleated RBC 0.000 Nucleated RBC % 0.0 Sodium 117 L* Potassium 4.0 Chloride 88 L Carbon Dioxide 24 Anion Gap 5 BUN 15 D Creatinine 1.50 H Estim Creat Clear Calc 35 Estimated GFR 45 L Glucose 132 H POC Capillary Glucose 175 H 163 H Serum Osmolality Calcium 8.6 Total Bilirubin 1.2 AST 25 ALT 14 Alkaline Phosphatase 65 Total Protein 7.0 Albumin 3.3 L TSH (Reflex) Quality VTE Prophylaxis VTE prophylaxis: pharmacologic ordered
[2024-09-22] MEDS: SODIUM CHLORIDE 3% 90 ML IV CONT (08:29)
[2024-09-22 08:30] LABS: Glucose Point of Care 180 mg/dl (65-105)
[2024-09-22] MEDS: VALSARTAN 160 MG TABLET 320 MG PO (08:30)
[2024-09-22] MEDS: BETAMETHASONE/CLOTRIMAZOLE CREAM 15 GM TUBE 1 APPLIC TOPICAL ×2 (08:30→16:12)
[2024-09-22] MEDS: amLODIPine BESYLATE 10 MG TABLET PO (08:30)
[2024-09-22] MEDS: SODIUM CHLORIDE 1 GM TABLET PO ×2 (08:30→16:12)
[2024-09-22] MEDS: APIXABAN 5 MG TABLET PO ×2 (08:30→20:35)
--- NOTE | 2024-09-22 09:02 | P.PNNP_ITS ---
Progress Note: A&P Assessment and Plan (1) Hyponatremia: Code(s): E87.1 - Hypo-osmolality and hyponatremia Status: Acute Assessment and Plan: * acute * sodium normal ~ 8 months * risk factors for low sodium: * prerenal factors/diminished oral intake * malignancy (throat cancer) * HCTZ use * history of thyroid disease * excessive free water intake * only mild improvement in sodium since admission * s/p trial of normal saline IVFs - only mild improvement * evaluation to date: * TSH okay * cortisol low - will recheck (may need to check stim test) * SPEP/UPEP pending * serum osmo 247; urine osmo 355; urine sodium 85 -- suggestive of SIADH * urine electrolytes indeterminate for prerenal azotemia * on fluid restriction and salt tabs * hesitant to add diuretics given #3 * follow trend of repeat sodium levels (2) Chronic kidney disease, stage 3: Code(s): N18.30 - Chronic kidney disease, stage 3 unspecified Status: Chronic Assessment and Plan: * baseline creatinine seems to run ~ 1.4 - 1.8mg/dl for the last several years * this causes him to fluctuate between CKD stage 3A and stage 3B * presumably due to HTN, DM, vascular disease, and age-related change (3) Hypokalemia: Code(s): E87.6 - Hypokalemia Status: Acute Assessment and Plan: * better * noted on admission * likely exacerbated by low magnesium and poor oral intake * replacement as needed * follow trend (4) Generalized weakness: Code(s): R53.1 - Weakness Status: Acute Assessment and Plan: * presumably due to volume depletion and possibly electrolyte abnormalities along with underlying malgnancy * follow clinical symptoms * PT/OT as tolerated (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, unspecified Status: Acute Assessment and Plan: * currently undergoing chemo at [facility] * suspect poor PO intake secondary to chemotherapy * antiemetics as needed (6) HTN (hypertension): Qualifiers: Hypertension type: primary hypertension Qualified Code(s): I10 - Essential (primary) hypertension Code(s): I10 - Essential (primary) hypertension Status: Acute Assessment and Plan: * reasonable control * hold HCTZ due to #1 * follow trend of hemodynamics (7) Type 2 diabetes mellitus: Qualifiers: Diabetes mellitus assisted insulin use: without learning and development analyst use Diabetes mellitus complication status: without complication Qualified Code(s): E11.9 - Type 2 diabetes mellitus without complications Code(s): E11.9 - Type 2 diabetes mellitus without complications Status: Acute Assessment and Plan: * follow accu-cheks * glycemic control per hospitalists Will continue to follow. Subjective Date/time seen: 09/22/24 09:02 Interval history: Follow-up for acute hyponatremia. Sodium dropped again this AM down to 117mmol/L so another run of 3% saline started this AM in an effort to improve sodum level; no apparent distress noted at the time of my visit; no issues/events overnight or earlier this AM; apparently eating and drinking okay as well. Exam Narrative: General: elderly but WD/WN male in NAD Heart: normal S1 and S2; no rub Lungs: clear to auscultation Abdomen: soft, nontender, nondistended, positive bowel sounds Extremities: no cyanosis or clubbing; no edema Skin: warm and intact Objective Data Vital Signs Vital Signs: Vital Signs Temp Pulse Resp BP Pulse Ox O2 Del Method FiO2 09/22/24 08:45 Room Air 09/22/24 08:00 98.1 F 63 18 124/48 L 91 09/22/24 05:17 64 09/22/24 03:44 97.7 F 66 22 H 109/49 L 94 09/22/24 03:44 66 09/22/24 03:44 66 18 93 Room Air 09/22/24 02:00 68 09/21/24 23:50 99 F 75 18 148/65 H 93 09/21/24 23:33 64 09/21/24 23:33 64 24 H 94 Room Air 21 09/21/24 22:00 68 09/21/24 20:00 64 09/21/24 20:00 64 24 H 94 Room Air 21 09/21/24 19:54 97.5 F L 64 24 H 103/80 94 09/21/24 17:51 95 Room Air 21 09/21/24 18:00 69 09/21/24 16:00 67 09/21/24 14:00 74 09/21/24 16:00 97.6 F 65 16 116/49 L 95 09/21/24 16:00 Room Air Intake/Output Intake/Output: Intake & Output 09/19/24 09/20/24 09/21/24 09/22/24 23:59 23:59 23:59 23:59 Intake Total 1100 1890 1577 240 Output Total 1450 1200 400 Balance 1100 440 377 -160 Meds/Results Medications: Active Medications Generic Name Dose Route Start Last Admin Trade Name Freq PRN Reason Stop Dose Admin Acetaminophen 650 mg 09/21/24 14:23 09/21/24 14:34 Acetaminophen 325 Mg Tablet PO 650 mg Q4H PRN Administration Headache Amlodipine Besylate 10 mg 09/20/24 09:00 09/22/24 08:30 Amlodipine Besylate 10 Mg Tablet PO 10 mg DAILY IRNA Administration Apixaban 5 mg 09/19/24 22:35 09/22/24 08:30 Apixaban 5 Mg Tablet PO 5 mg Q12HR RINA Administration Clotrimazole 1 applic 09/20/24 09:00 09/22/24 08:30 Betamethasone/Clotrimazole Cream 15 Gm Tube TOPICAL 1 applic BID RINA Administration Dextrose 12.5 gm 09/19/24 18:30 Dextrose 50% 25 Gm/50 Ml Syringe IV PUSH PRN PRN Hypoglycemia Protocol Glucagon 1 mg 09/19/24 18:30 Glucagon For Inj 1 Mg Vial IM PRN PRN Hypoglycemia Protocol Glucose 15 gm 09/19/24 18:30 Glucose Oral Gel 15 Gm Of Glucse In 37.5 Gm Tube PO PRN PRN Hypoglycemia Protocol Hydrochlorothiazide 25 mg 09/20/24 09:00 09/20/24 08:12 Hydrochlorothiazide 25 Mg Tablet PO 25 mg DAILY RINA Administration Dextrose 1,000 mls @ 100 mls/hr 09/19/24 18:30 Dextrose 5% 1,000 Ml IVPB PRN PRN Hypoglycemia Protocol Insulin Aspart 2 - 5 units 09/20/24 08:00 09/22/24 11:39 Insulin Aspart (*Bkc) 100 Units/Ml SUB-Q Not Given TIDWM [facility] Protocol Levothyroxine Sodium 75 mcg 09/20/24 06:30 09/22/24 05:36 Levothyroxine Sodium 75 Mcg Tablet PO 75 mcg DAILY@0630 RINA Administration Ondansetron HCl 4 mg 09/19/24 18:30 Ondansetron Inj 4 Mg/2 Ml Vial IV PUSH Q4H PRN Nausea And Vomiting Sodium Chloride 1 gm 09/21/24 09:28 09/22/24 08:30 Sodium Chloride 1 Gm Tablet PO 1 gm BID RINA Administration Valsartan 320 mg 09/20/24 09:00 09/22/24 08:30 Valsartan 160 Mg Tablet PO 320 mg DAILY RINA Administration Radiology Results: ITS Impressions Chest X-Ray 09/19/24 15:50 IMPRESSION: 1. Mild atelectasis at left lung base. Labs Labs: Laboratory Tests 09/22/24 06:49 WBC 10.8 H Hgb 13.0 L Hct 39.0 L Plt Count 224 Sodium 117 L* Potassium 4.0 Chloride 88 L Carbon Dioxide 24 Anion Gap 5 BUN 15 D Creatinine 1.50 H Estim Creat Clear Calc 35 Estimated GFR 45 L Glucose 132 H Calcium 8.6 Total Bilirubin 1.2 AST 25 ALT 14 Alkaline Phosphatase 65 Total Protein 7.0 Albumin 3.3 L
[2024-09-22 11:28] LABS: Creatinine, Random Urine 67 mg/dL (20-320); Total Prot/Creat ratio mg/mg 0.119 (0.025-0.148); Total Protein/Creatinine Ratio 119 mg/g creat (25-148)
[2024-09-22 11:37] LABS: Glucose Point of Care 171 mg/dl (65-105)
[2024-09-22 13:44] LABS: Sodium 120 mmol/L (137-145)
[2024-09-22 14:29] LABS: Osmolality, Urine 355 mOsm/kg (50-1200)
[2024-09-22 16:04] LABS: Glucose Point of Care 173 mg/dl (65-105)
[2024-09-22 18:32] LABS: Sodium 120 mmol/L (137-145)
[2024-09-22 19:54] LABS: Glucose Point of Care 155 mg/dl (65-105)
[2024-09-22 22:13] LABS: Sodium 121 mmol/L (137-145)
[2024-09-23] VITALS (12 sets, daily range): BP systolic 120–145; BP diastolic 47–63; PULSE 64–76; RESP 12–20; TEMP 37.1–38.1; O2SAT 90–95
[2024-09-23 05:27] LABS: Anion Gap 7 mmol/L (4-12); Blood Urea Nitrogen 18 mg/dL (9-20); Calcium 9.2 mg/dL (8.4-10.2); Carbon Dioxide 26 mmol/L (22-30); Chloride 90 mmol/L (98-107); Estimated CRCL calculation 29 ml/min; Estimated Glomerular Filt Rate 36; Glucose 149 mg/dL (65-110); Potassium 4.3 mmol/L (3.4-5.0); Sodium 123 mmol/L (137-145)
[2024-09-23 05:28] LABS: Albumin Level 3.6 g/dL (3.5-5.1); Anion Gap 7 mmol/L (4-12); Blood Urea Nitrogen 18 mg/dL (9-20); Calcium 9.3 mg/dL (8.4-10.2); Carbon Dioxide 26 mmol/L (22-30); Chloride 90 mmol/L (98-107); Estimated CRCL calculation 29 ml/min; Estimated Glomerular Filt Rate 36; Glucose 150 mg/dL (65-110); Magnesium 1.8 mg/dL (1.6-2.3); Phosphorus 2.8 mg/dL (2.5-4.5); Potassium 4.3 mmol/L (3.4-5.0); Sodium 123 mmol/L (137-145)
[2024-09-23] MEDS: LEVOTHYROXINE SODIUM 75 MCG TABLET PO (05:48)
--- NOTE | 2024-09-23 07:46 | P.PNIM_ITS ---
Progress Note: A&P Assessment and Plan (1) Acute hyponatremia: Code(s): E87.1 - Hypo-osmolality and hyponatremia Status: Acute Assessment and Plan: - Na 115 (repeat 115) -> 116 - add serum osmolality, urine osmolality, urine sodium, protein to creatinine ratio, urine creatinine - nephrology consulted - started on IV fluids: 1L bolus, 100 mL/hr x1L - trend sodium - neurological checks Q6H -monitor-stable sodium chloride 3% ordered per nephrology 09/22 na improved to 120- on po salt tabs as well. 09/23 stable- will be monitoring for now- ok to move out of IMU (2) Hypokalemia: Code(s): E87.6 - Hypokalemia Status: Acute Assessment and Plan: - K 3.4 -> 3.0 - replete with 40 p.o., recheck with next sodium - monitor (3) Hypomagnesemia: Code(s): E83.42 - Hypomagnesemia Status: Acute Assessment and Plan: - Mag 1.4 - initial repletion with 1G IVPB - trend with daily labs (4) Generalized weakness: Code(s): R53.1 - Weakness Status: Acute Assessment and Plan: - viral PCR and UA pending - suspect generalized weakness is multifactorial including dehydration, hypomagnesemia and hyponatremia. Plan for electrolyte correction and IV fluids. 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 - corporate learning consultant consulted (6) Type 2 diabetes mellitus: Qualifiers: Diabetes mellitus complication status: without complication Diabetes mellitus manager long term care insulin use: without manager long term care use Qualified Code(s): E11.9 - Type 2 diabetes mellitus without complications Code(s): E11.9 - Type 2 diabetes mellitus without complications Status: Acute Assessment and Plan: - hypoglycemia protocol - POC blood glucose q.6 hour until p.o. intake improved - home medication: Hold Trulicity (NF), hold metformin - correct regimen ordered - low dose TIDWM - A1C 6.7% on 01/17/2024 (7) CKD (chronic kidney disease) stage 3, GFR 30-59 ml/min: Qualifiers: Chronic kidney disease stage 3 subtype: unspecified whether 3a or 3b Qualified Code(s): N18.30 - Chronic kidney disease, stage 3 unspecified Code(s): N18.3 - Chronic kidney disease, stage 3 (moderate) Status: Acute Assessment and Plan: - creatinine 1.4 and GFR 48, previously 1.73 and GFR 39 on 01/17/2024 - trend renal function - trend electrolytes, correct as needed (8) HTN (hypertension): Qualifiers: Hypertension type: primary hypertension Qualified Code(s): I10 - Essential (primary) hypertension Code(s): I10 - Essential (primary) hypertension Status: Acute Assessment and Plan: - chronic, currently 112/62 - continue home medications: Amlodipine 10 mg daily, valsartan- hydrochlorothiazide 320-25 mg daily - monitor Plan Diet: Regular GI Prophylaxis: Not currently indicated DVT Prophylaxis: Continue home apixaban Lines: Peripheral Code Status: Full code Time Spent With Patient Time with patient: Greater than 35 minutes Subjective Date/time seen: 09/23/24 07:46 Interval history: 4 y/o M presents here with with dizziness and generalized weakness with PMH of CAD, chronic AFib, CKD, diabetes, hyperlipidemia, and throat cancer. admitted for gen weakness and dizziness. He is currently undergoing treatment for throat cancer at [facility]. Last chemotherapy treatment was approximately 2 weeks ago which precipitated patient's symptoms. ED workup showed: No leukocytosis, hemoglobin 12.9 (previously 14.0 in 2022), INR 1.2, sodium 115 (repeat 115), creatinine 1.4 and GFR 48 (previously 1.73 and 39 on 01/17/2024), magnesium 1.4, and initial troponin negative. Viral PCR negative. CXR showed mild atelectasis at the left lung base. 09/20- Na is 117. nephrology consulted. pt is [place], alert, denies any acute issues 09/21- NA improved to 120 but then dropped to 117. nephrology is following. 09/22 na replaced iv today- improved to 120. pt is more comfortable today. 09/23- seen and examined. na improved he is still weak but overall feels better. Review of Systems Review of Systems: All systems reviewed & are unremarkable except as noted in HPI and below Exam Narrative: calm, alert, feeling better today Const: General: comfortable and no acute distress Other: , male, nontoxic appearance HENMT: Face/Nose/Sinus: Normal nares present Mouth: Yes moist mucous membranes Eyes: General: appearance normal, both eyes and all related structures Sclera: sclerae normal Pupils: Equal, round and reactive pupils present EOM: EOMs intact bilaterally Resp: Effort & Inspection: normal respiratory effort Auscultation: clear to auscultation bilaterally Cardio: Rate: regular rate Rhythm: regular rhythm Other: S1-S2 present without murmur, rub, ectopy GI: Other: Abdomen soft, nondistended, nontender. Normoactive bowel sounds all quadrants. Skin: General skin exam: normal color and no rashes or lesions noted Wounds: no wounds Neuro: Cranial nerves: Yes Equal, round and reactive pupils present Speech: normal speech Motor exam (neuro): 5/5 motor strength present throughout Sensory Exam: normal sensation Other: A&O x4 Extrem: General: normal to inspection Psych: Mental Status: mental status grossly normal Affect: normal affect Other: Good insight and judgment, pleasant Objective Data Vital Signs Vital Signs: Vital Signs - 24 hr 09/22/24 08:00 09/22/24 08:45 09/22/24 08:00 Temperature 98.1 F Pulse Rate 63 Respiratory Rate 18 Blood Pressure 124/48 L Pulse Oximetry 91 Oxygen Delivery Room Air Room Air Fraction of Inspired Oxygen 09/22/24 08:00 09/22/24 10:00 09/22/24 12:00 Temperature Pulse Rate 63 63 Respiratory Rate Blood Pressure Pulse Oximetry Oxygen Delivery Room Air Fraction of Inspired Oxygen 09/22/24 12:00 09/22/24 12:00 09/22/24 15:05 Temperature 99.4 F Pulse Rate 70 68 Respiratory Rate 20 Blood Pressure 132/59 L Pulse Oximetry 92 Oxygen Delivery Room Air Fraction of Inspired Oxygen 09/22/24 16:00 09/22/24 14:00 09/22/24 16:00 Temperature 98.5 F Pulse Rate 65 68 Respiratory Rate 18 Blood Pressure 118/52 L Pulse Oximetry 98 Oxygen Delivery Room Air Fraction of Inspired Oxygen 09/22/24 16:00 09/22/24 18:00 09/22/24 20:13 Temperature 99.6 F Pulse Rate 71 65 69 Respiratory Rate 18 Blood Pressure 133/36 L Pulse Oximetry 100 Oxygen Delivery Fraction of Inspired Oxygen 09/22/24 20:00 09/22/24 20:00 09/22/24 23:29 Temperature 98.9 F Pulse Rate 70 70 68 Respiratory Rate 18 18 Blood Pressure 122/46 L Pulse Oximetry 100 95 Oxygen Delivery Room Air Fraction of Inspired Oxygen 21 09/22/24 22:00 09/23/24 00:00 09/23/24 00:00 Temperature Pulse Rate 68 65 65 Respiratory Rate 18 Blood Pressure Pulse Oximetry 95 Oxygen Delivery Room Air Fraction of Inspired Oxygen 21 09/23/24 02:00 09/23/24 03:49 09/23/24 03:52 Temperature 98.7 F Pulse Rate 76 65 68 Respiratory Rate 18 18 Blood Pressure 145/49 H Pulse Oximetry 93 93 Oxygen Delivery Room Air Fraction of Inspired Oxygen 21 09/23/24 03:52 09/23/24 06:00 09/23/24 07:40 Temperature 98.7 F Pulse Rate 68 64 65 Respiratory Rate 20 Blood Pressure 140/47 L Pulse Oximetry 94 Oxygen Delivery Fraction of Inspired Oxygen Intake/Output Intake/Output: Intake & Output 09/20/24 09/21/24 09/22/24 09/23/24 23:59 23:59 23:59 23:59 Intake Total 1890 1577 550 Output Total 1450 1200 650 Balance 440 377 -100 Meds/Results Medications: Active Medications Generic Name Dose Route Start Last Admin Trade Name Freq PRN Reason Stop Dose Admin Acetaminophen 650 mg 09/21/24 14:23 09/21/24 14:34 Acetaminophen 325 Mg Tablet PO 650 mg Q4H PRN Administration Headache Amlodipine Besylate 10 mg 09/20/24 09:00 09/22/24 08:30 Amlodipine Besylate 10 Mg Tablet PO 10 mg DAILY RINA Administration Apixaban 5 mg 09/19/24 22:35 09/22/24 20:35 Apixaban 5 Mg Tablet PO 5 mg Q12HR RINA Administration Clotrimazole 1 applic 09/20/24 09:00 09/22/24 16:12 Betamethasone/Clotrimazole Cream 15 Gm Tube TOPICAL 1 applic BID RINA Administration Dextrose 12.5 gm 09/19/24 18:30 Dextrose 50% 25 Gm/50 Ml Syringe IV PUSH PRN PRN Hypoglycemia Protocol Glucagon 1 mg 09/19/24 18:30 Glucagon For Inj 1 Mg Vial IM PRN PRN Hypoglycemia Protocol Glucose 15 gm 09/19/24 18:30 Glucose Oral Gel 15 Gm Of Glucse In 37.5 Gm Tube PO PRN PRN Hypoglycemia Protocol Hydrochlorothiazide 25 mg 09/20/24 09:00 09/20/24 08:12 Hydrochlorothiazide 25 Mg Tablet PO 25 mg DAILY RINA Administration Dextrose 1,000 mls @ 100 mls/hr 09/19/24 18:30 Dextrose 5% 1,000 Ml IVPB PRN PRN Hypoglycemia Protocol Insulin Aspart 2 - 5 units 09/20/24 08:00 09/22/24 16:13 Insulin Aspart (*Bkc) 100 Units/Ml SUB-Q Not Given TIDWM [facility] Protocol Levothyroxine Sodium 75 mcg 09/20/24 06:30 09/23/24 05:48 Levothyroxine Sodium 75 Mcg Tablet PO 75 mcg DAILY@0630 RINA Administration Ondansetron HCl 4 mg 09/19/24 18:30 Ondansetron Inj 4 Mg/2 Ml Vial IV PUSH Q4H PRN Nausea And Vomiting Sodium Chloride 1 gm 09/21/24 09:28 09/22/24 16:12 Sodium Chloride 1 Gm Tablet PO 1 gm BID RINA Administration Valsartan 160 mg 09/24/24 09:00 Valsartan 160 Mg Tablet PO DAILY [facility] Radiology Results: ITS Impressions Chest X-Ray 09/19/24 15:50 IMPRESSION: 1. Mild atelectasis at left lung base. Labs Labs: Laboratory Results - last 24 hr 09/19/24 09/20/24 09/21/24 19:09 12:33 04:50 Sodium Potassium Chloride Carbon Dioxide Anion Gap BUN Creatinine Estim Creat Clear Calc Estimated GFR Glucose POC Capillary Glucose Calcium Phosphorus Magnesium Total Protein 6.0 L Albumin Urine Osmolality 355 Ur Random Creatinine 67 U Random Total Protein 8 Protein/Creatinin Ratio 119 09/22/24 09/22/24 09/22/24 08:27 11:35 13:15 Sodium 120 L Potassium Chloride Carbon Dioxide Anion Gap BUN Creatinine Estim Creat Clear Calc Estimated GFR Glucose POC Capillary Glucose 180 H 171 H Calcium Phosphorus Magnesium Total Protein Albumin Urine Osmolality Ur Random Creatinine U Random Total Protein Protein/Creatinin Ratio 09/22/24 09/22/24 09/22/24 16:00 18:04 19:49 Sodium 120 L Potassium Chloride Carbon Dioxide Anion Gap BUN Creatinine Estim Creat Clear Calc Estimated GFR Glucose POC Capillary Glucose 173 H 155 H Calcium Phosphorus Magnesium Total Protein Albumin Urine Osmolality Ur Random Creatinine U Random Total Protein Protein/Creatinin Ratio 09/22/24 09/23/24 09/23/24 22:03 04:53 04:53 Sodium 121 L 123 L 123 L Potassium 4.3 Chloride Carbon Dioxide Anion Gap BUN Creatinine Estim Creat Clear Calc Estimated GFR Glucose POC Capillary Glucose Calcium Phosphorus Magnesium Total Protein Albumin Urine Osmolality Ur Random Creatinine U Random Total Protein Protein/Creatinin Ratio 09/23/24 09/23/24 09/23/24 04:53 04:53 04:53 Sodium Potassium 4.3 Chloride 90 L 90 L Carbon Dioxide 26 26 Anion Gap 7 BUN Creatinine Estim Creat Clear Calc Estimated GFR Glucose POC Capillary Glucose Calcium Phosphorus Magnesium Total Protein Albumin Urine Osmolality Ur Random Creatinine U Random Total Protein Protein/Creatinin Ratio 09/23/24 09/23/24 09/23/24 04:53 04:53 04:53 Sodium Potassium Chloride Carbon Dioxide Anion Gap 7 BUN 18 18 Creatinine 1.80 H 1.80 H Estim Creat Clear Calc 29 Estimated GFR Glucose POC Capillary Glucose Calcium Phosphorus Magnesium Total Protein Albumin Urine Osmolality Ur Random Creatinine U Random Total Protein Protein/Creatinin Ratio 09/23/24 09/23/24 09/23/24 04:53 04:53 04:53 Sodium Potassium Chloride Carbon Dioxide Anion Gap BUN Creatinine Estim Creat Clear Calc 29 Estimated GFR 36 L 36 L Glucose 150 H 149 H POC Capillary Glucose Calcium 9.3 Phosphorus Magnesium Total Protein Albumin Urine Osmolality Ur Random Creatinine U Random Total Protein Protein/Creatinin Ratio 09/23/24 04:53 Sodium Potassium Chloride Carbon Dioxide Anion Gap BUN Creatinine Estim Creat Clear Calc Estimated GFR Glucose POC Capillary Glucose Calcium 9.2 Phosphorus 2.8 Magnesium 1.8 Total Protein Albumin 3.6 Urine Osmolality Ur Random Creatinine U Random Total Protein Protein/Creatinin Ratio Quality VTE Prophylaxis VTE prophylaxis: pharmacologic ordered
[2024-09-23 08:17] LABS: Glucose Point of Care 167 mg/dl (65-105)
[2024-09-23] MEDS: BETAMETHASONE/CLOTRIMAZOLE CREAM 15 GM TUBE 1 APPLIC TOPICAL (08:42)
[2024-09-23] MEDS: amLODIPine BESYLATE 10 MG TABLET PO (08:42)
[2024-09-23] MEDS: APIXABAN 5 MG TABLET PO ×2 (08:42→20:33)
[2024-09-23] MEDS: SODIUM CHLORIDE 1 GM TABLET PO ×3 (08:42→20:33)
--- NOTE | 2024-09-23 09:30 | P.PNNP_ITS ---
Progress Note: A&P Assessment and Plan (1) Hyponatremia: Code(s): E87.1 - Hypo-osmolality and hyponatremia Status: Acute Assessment and Plan: * slow improvement * acute * sodium normal ~ 8 months * risk factors for low sodium: * prerenal factors/diminished oral intake * malignancy (throat cancer) * HCTZ use * history of thyroid disease * excessive free water intake * chemotherapy(?) * only mild improvement in sodium since admission * s/p trial of normal saline IVFs - only mild improvement * evaluation to date: * TSH okay * cortisol low - will recheck (may need to check stim test) * SPEP/UPEP pending * serum osmo 247; urine osmo 355; urine sodium 85 -- suggestive of SIADH * urine electrolytes indeterminate for prerenal azotemia * intermittent 3% saline infusions PRN * on fluid restriction and salt tabs * hesitant to add diuretics given #2 * follow trend of repeat sodium levels (2) Chronic kidney disease, stage 3: Code(s): N18.30 - Chronic kidney disease, stage 3 unspecified Status: Chronic Assessment and Plan: * baseline creatinine seems to run ~ 1.4 - 1.8mg/dl for the last several years * this causes him to fluctuate between CKD stage 3A and stage 3B * presumably due to HTN, DM, vascular disease, and age-related change (3) Hypokalemia: Code(s): E87.6 - Hypokalemia Status: Acute Assessment and Plan: * better * noted on admission * likely exacerbated by low magnesium and poor oral intake * replacement as needed * follow trend (4) Generalized weakness: Code(s): R53.1 - Weakness Status: Acute Assessment and Plan: * presumably due to volume depletion and possibly electrolyte abnormalities along with underlying malgnancy * follow clinical symptoms * PT/OT as tolerated (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, unspecified Status: Acute Assessment and Plan: * currently undergoing chemo at [facility] * suspect poor PO intake secondary to chemotherapy * antiemetics as needed (6) HTN (hypertension): Qualifiers: Hypertension type: primary hypertension Qualified Code(s): I10 - Essential (primary) hypertension Code(s): I10 - Essential (primary) hypertension Status: Acute Assessment and Plan: * reasonable control * hold HCTZ due to #1 * follow trend of hemodynamics (7) Type 2 diabetes mellitus: Qualifiers: Diabetes mellitus complication status: without complication Diabetes mellitus mcc insulin use: without mcc use Qualified Code(s): E11.9 - Type 2 diabetes mellitus without complications Code(s): E11.9 - Type 2 diabetes mellitus without complications Status: Acute Assessment and Plan: * follow accu-cheks * glycemic control per hospitalists Will continue to follow. Subjective Date/time seen: 09/23/24 09:30 Interval history: Follow-up for acute hyponatremia. Following another run of 3% saline yesterday, sodium improved to 123mmol/L this AM; otherwise, no other acute issues/complaints voiced at this time; no apparent distress noted either; creatinine/renal function up a bit (but in the range of his baseline); Exam Narrative: General: elderly but WD/WN male in NAD Heart: normal S1 and S2; no rub Lungs: clear to auscultation Abdomen: soft, nontender, nondistended, positive bowel sounds Extremities: no cyanosis or clubbing; no edema Skin: no rash Objective Data Vital Signs Vital Signs: Vital Signs Temp Pulse Resp BP Pulse Ox O2 Del Method FiO2 09/23/24 08:00 Room Air 09/23/24 07:40 98.7 F 65 20 140/47 L 94 09/23/24 06:00 64 09/23/24 03:52 68 09/23/24 03:52 68 18 93 Room Air 21 09/23/24 03:49 98.7 F 65 18 145/49 H 93 09/23/24 02:00 76 09/23/24 00:00 65 09/23/24 00:00 65 18 95 Room Air 21 09/22/24 22:00 68 09/22/24 23:29 98.9 F 68 18 122/46 L 95 09/22/24 20:00 70 09/22/24 20:00 70 18 100 Room Air 21 09/22/24 20:13 99.6 F 69 18 133/36 L 100 09/22/24 18:00 65 09/22/24 16:00 71 09/22/24 16:00 Room Air 09/22/24 14:00 68 09/22/24 16:00 98.5 F 65 18 118/52 L 98 09/22/24 15:05 Room Air 09/22/24 12:00 68 09/22/24 12:00 99.4 F 70 20 132/59 L 92 09/22/24 12:00 Room Air Intake/Output Intake/Output: Intake & Output 09/20/24 09/21/24 09/22/24 09/23/24 23:59 23:59 23:59 23:59 Intake Total 1890 1577 550 120 Output Total 1450 1200 650 Balance 440 377 -100 120 Meds/Results Medications: Active Medications Generic Name Dose Route Start Last Admin Trade Name Freq PRN Reason Stop Dose Admin Acetaminophen 650 mg 09/21/24 14:23 09/21/24 14:34 Acetaminophen 325 Mg Tablet PO 650 mg Q4H PRN Administration Headache Amlodipine Besylate 10 mg 09/20/24 09:00 09/23/24 08:42 Amlodipine Besylate 10 Mg Tablet PO 10 mg DAILY RINA Administration Apixaban 5 mg 09/19/24 22:35 09/23/24 08:42 Apixaban 5 Mg Tablet PO 5 mg Q12HR RINA Administration Clotrimazole 1 applic 09/20/24 09:00 09/23/24 08:42 Betamethasone/Clotrimazole Cream 15 Gm Tube TOPICAL 1 applic BID RINA Administration Dextrose 12.5 gm 09/19/24 18:30 Dextrose 50% 25 Gm/50 Ml Syringe IV PUSH PRN PRN Hypoglycemia Protocol Glucagon 1 mg 09/19/24 18:30 Glucagon For Inj 1 Mg Vial IM PRN PRN Hypoglycemia Protocol Glucose 15 gm 09/19/24 18:30 Glucose Oral Gel 15 Gm Of Glucse In 37.5 Gm Tube PO PRN PRN Hypoglycemia Protocol Hydrochlorothiazide 25 mg 09/20/24 09:00 09/20/24 08:12 Hydrochlorothiazide 25 Mg Tablet PO 25 mg DAILY RINA Administration Dextrose 1,000 mls @ 100 mls/hr 09/19/24 18:30 Dextrose 5% 1,000 Ml IVPB PRN PRN Hypoglycemia Protocol Insulin Aspart 2 - 5 units 09/20/24 08:00 09/23/24 07:56 Insulin Aspart (*Bkc) 100 Units/Ml SUB-Q Not Given TIDWM RINA Protocol Levothyroxine Sodium 75 mcg 09/20/24 06:30 09/23/24 05:48 Levothyroxine Sodium 75 Mcg Tablet PO 75 mcg DAILY@0630 RINA Administration Ondansetron HCl 4 mg 09/19/24 18:30 Ondansetron Inj 4 Mg/2 Ml Vial IV PUSH Q4H PRN Nausea And Vomiting Sodium Chloride 1 gm 09/21/24 09:28 09/23/24 08:42 Sodium Chloride 1 Gm Tablet PO 1 gm BID RINA Administration Valsartan 160 mg 09/24/24 09:00 Valsartan 160 Mg Tablet PO DAILY [facility] Radiology Results: ITS Impressions Chest X-Ray 09/19/24 15:50 IMPRESSION: 1. Mild atelectasis at left lung base. Labs Labs: Laboratory Tests 09/22/24 06:49 09/23/24 04:53 Calcium 9.2 Phosphorus 2.8 Magnesium 1.8 Albumin 3.6
[2024-09-23 11:41] LABS: Sodium 122 mmol/L (137-145)
[2024-09-23 11:50] LABS: Glucose Point of Care 204 mg/dl (65-105)
[2024-09-23] MEDS: INSULIN ASPART (*BKC) 100 UNITS/ML SUB-Q (12:19)
[2024-09-23] MEDS: ONDANSETRON INJ 4 MG/2 ML VIAL IV PUSH (12:28)
--- NOTE | 2024-09-23 14:55 | PC.NURSE ---
This patient, Shon German, was transferred to [facility] on 09/23/24 at 1452. Personal belongings sent with patient. Report given to Andres ROJAS. Appropriate documentation sent with patient.
[2024-09-23 17:01] LABS: Glucose Point of Care 197 mg/dl (65-105)
[2024-09-23 17:13] LABS: Sodium 123 mmol/L (137-145)
[2024-09-23 21:06] LABS: Glucose Point of Care 199 mg/dl (65-105)
[2024-09-23 23:21] LABS: Sodium 121 mmol/L (137-145)
[2024-09-24] VITALS (17 sets, daily range): BP systolic 80–149; BP diastolic 39–64; PULSE 61–75; RESP 20–46; TEMP 36.4–38.6; O2SAT 87–96
[2024-09-24] MEDS: SODIUM CHLORIDE 3% 90 ML IV CONT (00:43)
[2024-09-24] MEDS: ACETAMINOPHEN 325 MG TABLET 650 MG PO ×2 (05:19→20:34)
[2024-09-24] MEDS: LEVOTHYROXINE SODIUM 75 MCG TABLET PO (05:20)
[2024-09-24 07:49] LABS: Alanine Aminotransferase 14 U/L (6-50); Albumin Level 3.1 g/dL (3.5-5.1); Alkaline Phosphatase 57 U/L (38-126); Anion Gap 6 mmol/L (4-12); Aspartate Amino Transferase 22 U/L (17-59); Blood Urea Nitrogen 26 mg/dL (9-20); Carbon Dioxide 24 mmol/L (22-30); Chloride 96 mmol/L (98-107); Estimated CRCL calculation 29 ml/min; Estimated Glomerular Filt Rate 30; Glucose 209 mg/dL (65-110); Magnesium 1.9 mg/dL (1.6-2.3); Phosphorus 3.3 mg/dL (2.5-4.5); Potassium 4.4 mmol/L (3.4-5.0); Sodium 126 mmol/L (137-145)
[2024-09-24 08:01] LABS: Glucose Point of Care 245 mg/dl (65-105)
[2024-09-24] MEDS: amLODIPine BESYLATE 10 MG TABLET PO (08:12)
[2024-09-24] MEDS: APIXABAN 5 MG TABLET PO ×2 (08:12→20:34)
--- NOTE | 2024-09-24 09:13 | PCOTNOTE ---
Attempted to see pt for OT treatment. Pt was verbally awaked when therapist called out pt's name. Pt's MARKETING PROJECT COORDINATOR present and started administering vitals. Pt states pressure on chest. Pt's bp was 86/39 and 95 o2 while on 2L o2. RN was made aware of pt's issues and request that therapist not see pt at this time.
[2024-09-24 09:22] LABS: Glucose Point of Care 228 mg/dl (65-105)
--- NOTE | 2024-09-24 09:24 | ECG_ITS ---
Test Date: 2024-09-24 09:54:49 Measurements Intervals [place] Rate: 64 P: 0 AK: 0 QRS: -66 QRSD: 191 T: 77 QT: 517 QTc: 537 Interpretive Statements ELECTRONIC VENTRICULAR PACEMAKER ABNORMAL RHYTHM ECG Compared to ECG 09/21/2024 09:19:38 No significant changes Electronically Signed On 09-24-2024 15:04:05 [employer]OL [employer]AT [employer] by Ezio Cody M.D.
--- NOTE | 2024-09-24 09:34 | PM.IMPN ---
Progress Note: A&P Assessment and Plan (1) Acute hyponatremia: Code(s): E87.1 - Hypo-osmolality and hyponatremia Status: Acute Assessment and Plan: - Na 115 (repeat 115) -> 116 - add serum osmolality, urine osmolality, urine sodium, protein to creatinine ratio, urine creatinine - nephrology consulted - started on IV fluids: 1L bolus, 100 mL/hr x1L - trend sodium - neurological checks Q6H -monitor-stable sodium chloride 3% ordered per nephrology 09/22 na improved to 120- on po salt tabs as well. 09/23 stable- will be monitoring for now- ok to move out of IMU 09/24- na 123-126 this am (2) Hypokalemia: Code(s): E87.6 - Hypokalemia Status: Acute Assessment and Plan: - monitor-stable (3) Hypomagnesemia: Code(s): E83.42 - Hypomagnesemia Status: Acute Assessment and Plan: - Mag 1.4 - initial repletion with 1G IVPB - trend with daily labs (4) Generalized weakness: Code(s): R53.1 - Weakness Status: Acute Assessment and Plan: - viral PCR and UA pending - suspect generalized weakness is multifactorial including dehydration, hypomagnesemia and hyponatremia. Plan for electrolyte correction and IV fluids. 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 intake improved - home medication: Hold Trulicity (NF), hold metformin - correct regimen ordered - low dose TIDWM - A1C 6.7% on 01/17/2024 (7) CKD (chronic kidney disease) stage 3, GFR 30-59 ml/min: Qualifiers: Chronic kidney disease stage 3 subtype: unspecified whether 3a or 3b Qualified Code(s): N18.30 - Chronic kidney disease, stage 3 unspecified Code(s): N18.3 - Chronic kidney disease, stage 3 (moderate) Status: Acute Assessment and Plan: - creatinine 1.4 and GFR 48, previously 1.73 and GFR 39 on 01/17/2024 - trend renal function - trend electrolytes, correct as needed (8) HTN (hypertension): Qualifiers: Hypertension type: primary hypertension Qualified Code(s): I10 - Essential (primary) hypertension Code(s): I10 - Essential (primary) hypertension Status: Acute Assessment and Plan: - chronic, currently 112/62 - monitor as hypotensive this am hold bm meds if appropriate (9) Altered mental state: Code(s): R41.82 - Altered mental status, unspecified Status: Acute Assessment and Plan: 09/24 rapid response was called this am- as pt was diaphoretic, confused, low BP. He was drowsy and lethargic and c/o chest pain. EKG, trop, chest xray, abg, ct head, labs-ordered. BP improved to 120'70's and pt was able to answer all the questions for me- a bit slower with response but still able to. if improved and stable- will keep on medsurg tele continue tele monitoring chest xray- Small lung volumes with worsened airspace opacities in the lower lung zones, consistent with atelectasis versus pneumonia will treat for pneumonia see pneumonia plan (10) Pneumonia: Code(s): J18.9 - Pneumonia, unspecified organism Status: Acute Assessment and Plan: 09/24 diaphoretic, lethargic this am, low grade fever-99 coarse lung sounds, o2 decreased- required o2 supplement -chest xray ordered: Small lung volumes with worsened airspace opacities in the lower lung zones, consistent with atelectasis versus pneumonia will start antibiotics. unable to use zithromax ( QTC prolonged_ will order rocephin-renally dosed IV and doxy PO bs ordered-follow Plan Diet: Regular GI Prophylaxis: Not currently indicated DVT Prophylaxis: Continue home apixaban Lines: Peripheral Code Status: Full code Time Spent With Patient Time with patient: Greater than 35 minutes Subjective Date/time seen: 09/24/24 09:34 Interval history: seen and examined this am. 3% saline yesterday, sodium improved to 123mmol/L -moved ouot of IMU. rapid response was called this am- as pt was diaphoretic and low BP. He was drowsy and lethargic and c/o chest pain. EKG, trop, chest xray, abg, ct head, labs-ordered. BP improved to 120'70's and pt was able to answer all the questions for me- a bit slower with response but still able to. call family with updates-no answer. will try again later re examined- resting with eyes closed. wakes up when spoken to. denies chest pain now-feeling somewhat better, just weak. Review of Systems Review of Systems: weak, drowsy All systems reviewed & are unremarkable except as noted in HPI and below Exam Narrative: drowsy but wakes up when spoken to, alert, appropriate Const: General: comfortable and no acute distress Other: , male, nontoxic appearance HENMT: Face/Nose/Sinus: Normal nares present Mouth: Yes moist mucous membranes Eyes: General: appearance normal, both eyes and all related structures Sclera: sclerae normal Pupils: Equal, round and reactive pupils present EOM: EOMs intact bilaterally Resp: Effort & Inspection: normal respiratory effort Auscultation: clear to auscultation bilaterally Cardio: Rate: regular rate Rhythm: regular rhythm Other: S1-S2 present without murmur, rub, ectopy GI: Other: Abdomen soft, nondistended, nontender. Normoactive bowel sounds all quadrants. Skin: General skin exam: normal color and no rashes or lesions noted Wounds: no wounds Neuro: Cranial nerves: Yes Equal, round and reactive pupils present Speech: normal speech Motor exam (neuro): 5/5 motor strength present throughout Sensory Exam: normal sensation Other: A&O x4 Extrem: General: normal to inspection Psych: Mental Status: mental status grossly normal Affect: normal affect Other: Good insight and judgment, pleasant Objective Data Vital Signs Vital Signs: Vital Signs - 24 hr 09/23/24 10:00 09/23/24 11:22 09/23/24 12:00 Temperature 98.7 F Pulse Rate 64 64 65 Respiratory Rate 20 Blood Pressure 136/52 L Pulse Oximetry 94 Oxygen Delivery Oxygen Flow Rate Fraction of Inspired Oxygen 09/23/24 15:10 09/23/24 21:26 09/23/24 20:00 Temperature 99.3 F 100.6 F H Pulse Rate 67 66 Respiratory Rate 18 12 Blood Pressure 120/47 L 130/63 Pulse Oximetry 92 90 Oxygen Delivery Room Air Oxygen Flow Rate Fraction of Inspired Oxygen 09/24/24 05:19 09/24/24 06:00 09/24/24 06:14 Temperature 99.3 F 99.5 F 98.9 F Pulse Rate 67 Respiratory Rate 20 Blood Pressure 140/53 L Pulse Oximetry 89 L Oxygen Delivery Oxygen Flow Rate Fraction of Inspired Oxygen 09/24/24 08:00 09/24/24 08:05 09/24/24 08:43 Temperature Pulse Rate Respiratory Rate 32 H 28 H Blood Pressure Pulse Oximetry 87 L 95 94 Oxygen Delivery Room Air Nasal Cannula Nasal Cannula Oxygen Flow Rate 2 2 Fraction of Inspired Oxygen 28 Intake/Output Intake/Output: Intake & Output 09/21/24 09/22/24 09/23/24 09/24/24 23:59 23:59 23:59 23:59 Intake Total 1577 550 420 565 Output Total 1200 650 Balance 377 -100 420 565 Meds/Results Medications: Active Medications Generic Name Dose Route Start Last Admin Trade Name Freq PRN Reason Stop Dose Admin Acetaminophen 650 mg 09/21/24 14:23 09/24/24 05:19 Acetaminophen 325 Mg Tablet PO 650 mg Q4H PRN Administration Headache Amlodipine Besylate 10 mg 09/20/24 09:00 09/24/24 08:12 Amlodipine Besylate 10 Mg Tablet PO 10 mg DAILY RINA Administration Apixaban 5 mg 09/19/24 22:35 09/24/24 08:12 Apixaban 5 Mg Tablet PO 5 mg Q12HR RINA Administration Clotrimazole 1 applic 09/20/24 09:00 09/23/24 17:33 Betamethasone/Clotrimazole Cream 15 Gm Tube TOPICAL Not Given BID RINA Dextrose 12.5 gm 09/19/24 18:30 Dextrose 50% 25 Gm/50 Ml Syringe IV PUSH PRN PRN Hypoglycemia Protocol Glucagon 1 mg 09/19/24 18:30 Glucagon For Inj 1 Mg Vial IM PRN PRN Hypoglycemia Protocol Glucose 15 gm 09/19/24 18:30 Glucose Oral Gel 15 Gm Of Glucse In 37.5 Gm Tube PO PRN PRN Hypoglycemia Protocol Dextrose 1,000 mls @ 100 mls/hr 09/19/24 18:30 Dextrose 5% 1,000 Ml IVPB PRN PRN Hypoglycemia Protocol Insulin Aspart 2 - 5 units 09/20/24 08:00 09/23/24 17:33 Insulin Aspart (*Bkc) 100 Units/Ml SUB-Q Not Given TIDWM [facility] Protocol Levothyroxine Sodium 75 mcg 09/20/24 06:30 09/24/24 05:20 Levothyroxine Sodium 75 Mcg Tablet PO 75 mcg DAILY@0630 [facility] Administration Ondansetron HCl 4 mg 09/19/24 18:30 09/23/24 12:28 Ondansetron Inj 4 Mg/2 Ml Vial IV PUSH 4 mg Q4H PRN Administration Nausea And Vomiting Sodium Chloride 1,500 mg 09/24/24 09:00 Sodium Chloride 500 Mg Tablet PO BID [facility] Radiology Results: ITS Impressions Chest X-Ray 09/24/24 08:34 IMPRESSION: 1. Small lung volumes with worsened airspace opacities in the lower lung zones, consistent with atelectasis versus pneumonia. Labs Labs: Laboratory Results - last 24 hr 09/23/24 09/23/24 09/23/24 11:10 11:12 16:40 Sodium 122 L Potassium Chloride Carbon Dioxide Anion Gap BUN Creatinine Estim Creat Clear Calc Estimated GFR Glucose POC Capillary Glucose 204 H 197 H Calcium Phosphorus Magnesium Total Bilirubin AST ALT Alkaline Phosphatase Total Protein Albumin Random Cortisol 09/23/24 09/23/24 09/23/24 17:03 20:16 23:06 Sodium 123 L 121 L Potassium Chloride Carbon Dioxide Anion Gap BUN Creatinine Estim Creat Clear Calc Estimated GFR Glucose POC Capillary Glucose 199 H Calcium Phosphorus Magnesium Total Bilirubin AST ALT Alkaline Phosphatase Total Protein Albumin Random Cortisol 09/24/24 09/24/24 09/24/24 06:53 07:53 09:19 Sodium 126 L Potassium 4.4 Chloride 96 L Carbon Dioxide 24 Anion Gap 6 BUN 26 H Creatinine 2.10 H Estim Creat Clear Calc 29 Estimated GFR 30 L Glucose 209 H POC Capillary Glucose 245 H 228 H Calcium 9.0 Phosphorus 3.3 Magnesium 1.9 Total Bilirubin 1.0 AST 22 ALT 14 Alkaline Phosphatase 57 Total Protein 7.0 Albumin 3.1 L Random Cortisol 17.40 Quality VTE Prophylaxis VTE prophylaxis: pharmacologic ordered
[2024-09-24 09:41] LABS: Alveolar/Arterial O2 Gradient 86.8 mmHg; Base Excess ABG -0.3 mEq/l (+/-2.0); Device NASAL CANNULA; Fractional Inspired Oxygen 28 %; HCO3 ABG 24.1 mEq/l (22.0-26.0); Modified Allen's Test Pass; Oxygen Content ABG 16.1 %vol (16.0-22.0); Oxygen Saturation ABG 93.7 % (95.0-100.0); Oxyhemoglobin 93.1 % THb (90.0-100.0); PCO2 ABG 38.6 mmHg (35.0-45.0); PO2 ABG 67.3 mmHg (80.0-100.0); Site Drawn RIGHT RADIAL; Total Hemoglobin 12.3 g/dL (12.0-18.0); pH ABG 7.414 (7.350-7.450)
--- NOTE | 2024-09-24 09:44 | PCPTNOTE ---
Pt is on hold for physical therapy today 09/24/24, rapid response called.
[2024-09-24] MEDS: DOXYCYCLINE HYCLATE 100 MG TABLET PO ×2 (10:20→20:34)
[2024-09-24] MEDS: SODIUM CHLORIDE 500 MG TABLET 1500 MG PO ×2 (10:20→20:34)
[2024-09-24 10:21] LABS: Hematocrit 34.5 % (42.0-52.0); Hemoglobin 11.7 g/dL (14.0-18.0); Mean Corpuscular HGB Conc 33.9 g/dl (32-36); Mean Corpuscular Hemoglobin 31.6 pg (26-34); Mean Corpuscular Volume 93.2 fl (80-100); Mean Platelet Volume 9.7 fl (7.4-10.4); Platelet Count Result 291 k/mm3 (150-375); White Blood Count 13.3 K/mm3 (4.5-10.0)
[2024-09-24 10:29] LABS: Magnesium 2.1 mg/dL (1.6-2.3)
--- NOTE | 2024-09-24 10:38 | P.PNNP_ITS ---
Progress Note: A&P Assessment and Plan (1) Hyponatremia: Code(s): E87.1 - Hypo-osmolality and hyponatremia Status: Acute Assessment and Plan: * slow improvement with current interventions * acute * sodium normal ~ 8 months * risk factors for low sodium: * prerenal factors/diminished oral intake * malignancy (throat cancer) * HCTZ use * history of thyroid disease * excessive free water intake * chemotherapy(?) * s/p trial of normal saline IVFs - only mild improvement * evaluation to date: * TSH okay * cortisol low - will recheck (may need to check stim test) * SPEP/UPEP pending * serum osmo 247; urine osmo 355; urine sodium 85 -- suggestive of SIADH * urine electrolytes indeterminate for prerenal azotemia * intermittent 3% saline infusions PRN * on fluid restriction and salt tabs * hesitant to add diuretics given #2 * given poor oral intake and events earlier this AM, hold salt tabs today and give another trial of IVFs * follow trend of repeat sodium levels (2) Chronic kidney disease, stage 3: Code(s): N18.30 - Chronic kidney disease, stage 3 unspecified Status: Chronic Assessment and Plan: * baseline creatinine seems to run ~ 1.4 - 1.8mg/dl for the last several years * this causes him to fluctuate between CKD stage 3A and stage 3B * presumably due to HTN, DM, vascular disease, and age-related change (3) Hypokalemia: Code(s): E87.6 - Hypokalemia Status: Acute Assessment and Plan: * better * noted on admission * likely exacerbated by low magnesium and poor oral intake * replacement as needed * follow trend (4) Generalized weakness: Code(s): R53.1 - Weakness Status: Acute Assessment and Plan: * presumably due to volume depletion and possibly electrolyte abnormalities along with underlying malgnancy * follow clinical symptoms * PT/OT as tolerated (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, unspecified Status: Acute Assessment and Plan: * currently undergoing chemo at [facility] * suspect poor PO intake secondary to chemotherapy * antiemetics as needed (6) HTN (hypertension): Qualifiers: Hypertension type: primary hypertension Qualified Code(s): I10 - Essential (primary) hypertension Code(s): I10 - Essential (primary) hypertension Status: Acute Assessment and Plan: * reasonable control * hold HCTZ due to #1 * hold ARB due to fluctuating creatinine and previous hypotension * follow trend of hemodynamics (7) Type 2 diabetes mellitus: Qualifiers: Diabetes mellitus intermediate insulin use: without termite exterminator use Diabetes mellitus complication status: without complication Qualified Code(s): E11.9 - Type 2 diabetes mellitus without complications Code(s): E11.9 - Type 2 diabetes mellitus without complications Status: Acute Assessment and Plan: * follow accu-cheks * glycemic control per hospitalists Will continue to follow. Subjective Date/time seen: 09/24/24 10:38 Interval history: Follow-up for acute hyponatremia. Transferred out of IMU yesterday afternoon; received another run of 3% saline overnight/early this morning due to sodium dropping down to 121mmol/L; rapid response earlier today due to hypotension, diaphoresis, and altered mental status along with chest discomfort -- STAT labs/imaging ordered but clinically improved with supportive interventions and feeling better currently other than generalized weakness; sodium has improved by recent testing but renal function/creatinine a tad worse. Exam Narrative: General: elderly but WD/WN male in NAD Heart: normal S1 and S2; no rub Lungs: clear to auscultation Abdomen: soft, nontender, nondistended, positive bowel sounds Extremities: no cyanosis or clubbing; no edema Skin: no nodules Objective Data Vital Signs Vital Signs: Vital Signs Temp Pulse Resp BP Pulse Ox O2 Del Method O2 Flow Rate 09/24/24 10:00 97.9 F 61 32 H 117/44 L 94 09/24/24 09:35 116/50 L 09/24/24 09:30 97.5 F L 67 27 H 80/39 L 95 09/24/24 09:32 67 20 116/50 L 95 Nasal Cannula 2 09/24/24 08:43 94 Nasal Cannula 2 09/24/24 08:05 28 H 95 Nasal Cannula 2 09/24/24 08:00 32 H 87 L Room Air 09/24/24 06:14 98.9 F 09/24/24 06:00 99.5 F 67 20 140/53 L 89 L 09/24/24 05:19 99.3 F 09/23/24 20:00 Room Air 09/23/24 21:26 100.6 F H 66 12 130/63 90 Intake/Output Intake/Output: Intake & Output 09/21/24 09/22/24 09/23/24 09/24/24 23:59 23:59 23:59 23:59 Intake Total 1577 550 420 565 Output Total 1200 650 Balance 377 -100 420 565 Meds/Results Medications: Active Medications Generic Name Dose Route Start Last Admin Trade Name Freq PRN Reason Stop Dose Admin Acetaminophen 650 mg 09/21/24 14:23 09/24/24 05:19 Acetaminophen 325 Mg Tablet PO 650 mg Q4H PRN Administration Headache Amlodipine Besylate 10 mg 09/20/24 09:00 09/24/24 08:12 Amlodipine Besylate 10 Mg Tablet PO 10 mg DAILY RINA Administration Apixaban 5 mg 09/19/24 22:35 09/24/24 08:12 Apixaban 5 Mg Tablet PO 5 mg Q12HR RINA Administration Clotrimazole 1 applic 09/20/24 09:00 09/23/24 17:33 Betamethasone/Clotrimazole Cream 15 Gm Tube TOPICAL Not Given BID RINA Dextrose 12.5 gm 09/19/24 18:30 Dextrose 50% 25 Gm/50 Ml Syringe IV PUSH PRN PRN Hypoglycemia Protocol Doxycycline Hyclate 100 mg 09/24/24 10:05 09/24/24 10:20 Doxycycline Hyclate 100 Mg Tablet PO 100 mg Q12HR RINA Administration Glucagon 1 mg 09/19/24 18:30 Glucagon For Inj 1 Mg Vial IM PRN PRN Hypoglycemia Protocol Glucose 15 gm 09/19/24 18:30 Glucose Oral Gel 15 Gm Of Glucse In 37.5 Gm Tube PO PRN PRN Hypoglycemia Protocol Dextrose 1,000 mls @ 100 mls/hr 09/19/24 18:30 Dextrose 5% 1,000 Ml IVPB PRN PRN Hypoglycemia Protocol Ceftriaxone Sodium 1 gm in 50 mls @ 100 mls/hr 09/24/24 09:45 09/24/24 10:20 Rocephin 1 Gm/Ns 50 Ml IVPB 100 mls/hr DAILY RINA Administration Insulin Aspart 2 - 5 units 09/20/24 08:00 09/23/24 17:33 Insulin Aspart (*Bkc) 100 Units/Ml SUB-Q Not Given TIDWM RINA Protocol Levothyroxine Sodium 75 mcg 09/20/24 06:30 09/24/24 05:20 Levothyroxine Sodium 75 Mcg Tablet PO 75 mcg DAILY@0630 RINA Administration Ondansetron HCl 4 mg 09/19/24 18:30 09/23/24 12:28 Ondansetron Inj 4 Mg/2 Ml Vial IV PUSH 4 mg Q4H PRN Administration Nausea And Vomiting Sodium Chloride 1,500 mg 09/24/24 09:00 09/24/24 10:20 Sodium Chloride 500 Mg Tablet PO 1,500 mg BID RINA Administration Radiology Results: ITS Impressions Chest X-Ray 09/24/24 08:34 IMPRESSION: 1. Small lung volumes with worsened airspace opacities in the lower lung zones, consistent with atelectasis versus pneumonia. Labs Labs: Laboratory Tests 09/24/24 09:56 09/24/24 09:56 09/23/24 09/23/24 09/23/24 09/23/24 09/24/24 04:53 11:10 17:03 23:06 06:53 Sodium 123 L 122 L 123 L 121 L 126 L
[2024-09-24 10:39] LABS: Anion Gap 5 mmol/L (4-12); Blood Urea Nitrogen 29 mg/dL (9-20); Calcium 8.9 mg/dL (8.4-10.2); Carbon Dioxide 28 mmol/L (22-30); Chloride 94 mmol/L (98-107); Estimated CRCL calculation 27 ml/min; Estimated Glomerular Filt Rate 29; Glucose 231 mg/dL (65-110); Potassium 4.5 mmol/L (3.4-5.0); Sodium 127 mmol/L (137-145)
[2024-09-24 11:53] LABS: Glucose Point of Care 187 mg/dl (65-105)
[2024-09-24] MEDS: SODIUM CHLORIDE 0.9% IV 500 ML 75 ML IV CONT (14:58)
[2024-09-24 17:21] LABS: Glucose Point of Care 247 mg/dl (65-105)
[2024-09-24 17:29] LABS: Anion Gap 5 mmol/L (4-12); Blood Urea Nitrogen 33 mg/dL (9-20); Calcium 8.9 mg/dL (8.4-10.2); Carbon Dioxide 25 mmol/L (22-30); Chloride 96 mmol/L (98-107); Estimated CRCL calculation 32 ml/min; Estimated Glomerular Filt Rate 34; Glucose 247 mg/dL (65-110); Potassium 4.9 mmol/L (3.4-5.0); Sodium 126 mmol/L (137-145)
[2024-09-24] MEDS: INSULIN ASPART (*BKC) 100 UNITS/ML SUB-Q (17:34)
--- NOTE | 2024-09-24 19:36 | PC.NURSE ---
Pt had a rapid 09/24/24 due to hypotension 86/39 manual BP. Pt quickly resolved BP and was 111/49. Pt CXR showed poss pna. PO and IV abx started. 500 ml bolus ordered by Deb. At 1830, pt found shivering. Glucose 249; manual BP 146/68. Temp 99.8F. 02 88% on 2L, bumped to 3L with 02 at 02. Pt soaked in urine; pt cleaned and bedding changed with warm blankets placed on pt. Requested night RN give acetaminophen. Pt exp wheezing and crackles bilat bases; wheezing new from this AM. Req respiratory to give pt neb tx. Bolus on standby until after neb to see if wheezing resolves.
[2024-09-24 19:44] LABS: Glucose Point of Care 249 mg/dl (65-105)
[2024-09-24 21:46] LABS: Glucose Point of Care 257 mg/dl (65-105)
[2024-09-24] MEDS: SODIUM CHLORIDE 0.9% IV 1,000 ML 500 ML IV CONT (21:51)
[2024-09-24 22:00] LABS: Alveolar/Arterial O2 Gradient 121.8 mmHg; Base Excess ABG 0.3 mEq/l (+/-2.0); Fractional Inspired Oxygen 32 %; HCO3 ABG 23.4 mEq/l (22.0-26.0); Oxygen Content ABG 16.5 %vol (16.0-22.0); Oxygen Saturation ABG 94.8 % (95.0-100.0); Oxyhemoglobin 94.5 % THb (90.0-100.0); PCO2 ABG 32.8 mmHg (35.0-45.0); PO2 FiO2 Ratio Arterial Blood 2.13 %; Total Hemoglobin 12.4 g/dL (12.0-18.0); pH ABG 7.471 (7.350-7.450)
[2024-09-24 22:01] LABS: Device NASAL CANNULA; Modified Allen's Test Pass; Site Drawn RIGHT RADIAL
[2024-09-24 22:06] LABS: Lactic Acid Reflex 1.3 mmol/L (0.7-2.0)
[2024-09-24 22:32] LABS: Procalcitonin 2.1 ng/mL
[2024-09-24] MEDS: PIPERACILLIN/TAZ 2.25G/NS 50ML 2.25 GM/50 ML BAG IVPB (22:35)
--- NOTE | 2024-09-24 22:58 | PM.CCN ---
Critical Care Event Note Summary Code activated: No Narrative: Nursing staff called rapid response because the patient was tachypneic with a rate in the 40s. The patient was taking shallow respirations. Patient had just spiked a temperature and was will 101.4 at the time my evaluation to the bedside. Patient is not able to provide much history due to his difficulty understanding providers with his hearing loss. He states that he is not having any pain he just feels worn out. Patient was not tachycardic. He did not have a new murmur. He is reportedly on immunotherapy with Keytruda for throat cancer. The patient was unable to tell me if he has been having any coughing or other symptoms of aspiration after eating. He does have a hoarse voice. He has generally decreased breath sounds throughout. Nursing staff reported that earlier in the evening he did have some crackles at the bases and some wheezing. He does not specifically have a history of COPD listed and is not on any nebulizers at home. Exact source of infection is not known. Stat chest x-ray was performed and was unchanged from prior from this morning. UA with reflux was ordered at 08:00 that is not yet been collected because the patient was incontinent of urine. Nursing staff had just place the patient on a pure wick catheter. Nursing reports that the patient has only had 1 small void with his depends only being slightly damp this shift. The patient has been on a fluid restriction due to hyponatremia. The patient has not had much in the way of oral intake and is not requesting to drink. Patient had been started on Rocephin and azithromycin earlier in the day. His white count at 9 a.m. was up slightly at 13.3. His creatinine has increased slightly since admission his creatinine on admission on the 3rd was normal at 0.9 and is currently 1.9. The patient remains hyperglycemic but in the range similar to prior in the mid 200s. Stat ABG was performed which demonstrated respiratory alkalosis. The patient did develop an oxygen requirement and the patient PO2 was 68 on 3 L. Sepsis with likely source of infection being pneumonia. Patient had negative viral panel on admission on the 3rd. He is [place] suppressed on Keytruda. He does have history of throat cancer so aspiration pneumonia versus healthcare associated pneumonia is on the differential. Will change patient's antibiotic therapy to Zosyn and will add vancomycin. Blood cultures have been obtained earlier in the morning. Repeat chest x-ray was reviewed as discussed above. Radiologic interpretation is pending. Awaiting UA results to rule out possible urinary source of infection as well. Pure wick catheter has been placed. Acute hypoxic respiratory failure with Respiratory alkalosis--the patient has new hypoxia again likely underlying pneumonia. Patient does not have a smoking history so COPD or emphysema is less likely will try a DuoNeb in see if patient has improvement in air movement. I suspect patient would be benefited more by incentive spirometry and good pulmonary toilet. Will make the patient NPO and her request speech therapy evaluation for possible aspiration. Acute kidney injury--? Some underlying chronic kidney disease. Creatinine and BUN elevated above admission values. Patient is on fluid restriction due to hyponatremia. However given the patient's fever and sepsis he is likely having increased secondary losses. The patient's mucous membranes are dry and has cap refill of 3-4 seconds so I suspect some component of intravascular volume depletion. Will give 1 L fluid bolus over 2 hours. Patient already has serial electrolyte panels ordered per Nephrology. I suspect patient's hyponatremia is at least in some part due to his underlying cancer. The patient is tachypneic and has new oxygen requirement but blood pressure and pulse are maintained mentation is stable I believe the patient's respiratory alkalosis is in part due to fever and sepsis with low lung volumes. Incentive spirometry has been ordered. The patient is stable to remain on med surge on telemetry. Will monitor for changes in patient condition 45 minute spent in critical care activities. This case had a high probability of a clinically significant, sudden, or life threatening deterioration of this patient's condition which required my full and direct attention, intervention and personal management. Critical care time: 30 - 74 mins
[2024-09-25] VITALS (16 sets, daily range): BP systolic 117–144; BP diastolic 51–57; PULSE 61–74; RESP 20–38; TEMP 36.3–37.3; O2SAT 92–97
[2024-09-25] MEDS: VANCOMYCIN 1,250 MG/NS 250 ML 1,250 MG/250 ML BAG 166 MG IVPB ×2 (00:11→00:12)
[2024-09-25 01:18] LABS: MRSA (PCR) NOT DETECTED (NOT DETECTE)
[2024-09-25] MEDS: SODIUM CHLORIDE 0.9% IV 1,000 ML 75 ML IV CONT ×2 (03:17→17:22)
[2024-09-25 03:53] LABS: Add Urine Microscopic? YES; Appearance Urine Turbid (Clear); Bacteria Urine None Seen /hpf; Bilirubin Urine 1+ (Negative); Blood Urine Negative (Negative); Color Urine Dark Yellow (Yellow); Glucose Urine UA Negative (Negative); Ketones Urine Trace mg/dL (Negative); Leukocyte Esterase Ur Negative LEU/UL (Negative); Need Manual Microscopic Reviewed; Nitrate Urine Positive (Negative); Non Pathogenic Casts 0-2; Protein Urine 2+ mg/dL (Negative); RBC Urine 0-2 /hpf (0-2); Specific Grav Ur > 1.045 (1.001-1.035); Squamous Epithelial Cell Urine Occasional /hpf (Few); Uric Acid Crystals Urine Present /hpf; WBC Urine 0-5 /hpf (0-3)
[2024-09-25] MEDS: LEVOTHYROXINE SODIUM 75 MCG TABLET PO (05:45)
[2024-09-25] MEDS: PIPERACILLIN/TAZ 2.25G/NS 50ML 2.25 GM/50 ML BAG IVPB ×3 (05:46→17:23)
[2024-09-25 07:09] LABS: Basophils Absolute Auto 0.1 K/mm3 (0.0-0.1); Basophils Percent Auto 0.4 % (0.2-1.2); Eosinophils Percent Auto 6.9 % (0-4.4); Hematocrit 32.9 % (42.0-52.0); Hemoglobin 10.8 g/dL (14.0-18.0); Immature Granulocyte Percent A 0.7 % (0-0.5); Lymphocytes Absolute Auto 0.55 K/mm3 (0.9-3.2); Lymphocytes Percent Auto 3.9 % (18.3-44.2); Mean Corpuscular HGB Conc 32.8 g/dl (32-36); Mean Corpuscular Hemoglobin 30.9 pg (26-34); Mean Corpuscular Volume 94.3 fl (80-100); Mean Platelet Volume 9.7 fl (7.4-10.4); Monocytes Absolute Auto 1.7 K/mm3 (0.1-0.6); Monocytes Percent Auto 11.9 % (2.6-8.5); Neutrophils Absolute Auto 10.7 K/mm3 (1.3-6.7); Neutrophils Percent Auto 76.2 % (45.5-73.1); Platelet Count Result 272 k/mm3 (150-375); Red Blood Count 3.49 M/mm3 (4.6-6.20); Red Cell Distribution Width 13.2 % (11.5-14.5)
[2024-09-25 07:18] LABS: Alanine Aminotransferase 14 U/L (6-50); Alkaline Phosphatase 55 U/L (38-126); Anion Gap 4 mmol/L (4-12); Aspartate Amino Transferase 22 U/L (17-59); Bilirubin,Total 0.8 mg/dL (0.2-1.3); Blood Urea Nitrogen 34 mg/dL (9-20); Calcium 8.9 mg/dL (8.4-10.2); Carbon Dioxide 27 mmol/L (22-30); Chloride 99 mmol/L (98-107); Estimated CRCL calculation 29 ml/min; Estimated Glomerular Filt Rate 30; Glucose 174 mg/dL (65-110); Potassium 4.6 mmol/L (3.4-5.0); Sodium 130 mmol/L (137-145)
--- NOTE | 2024-09-25 07:24 | P.PNIM_ITS ---
Progress Note: A&P Assessment and Plan (1) Acute hyponatremia: Code(s): E87.1 - Hypo-osmolality and hyponatremia Status: Acute Assessment and Plan: - add serum osmolality, urine osmolality, urine sodium, protein to creatinine ratio, urine creatinine - nephrology consulted - started on IV fluids: 1L bolus, 100 mL/hr x1L - trend sodium - neurological checks Q6H -monitor-stable sodium chloride 3% ordered per nephrology 09/22 na improved to 120- on po salt tabs as well. 09/23 stable- will be monitoring for now- ok to move out of IMU 09/24- na 123-126 this am 09/25- received iv fluids, will continue that as diminished oral intake na stable- improved to 130 (2) Hypokalemia: Code(s): E87.6 - Hypokalemia Status: Acute Assessment and Plan: - monitor-stable (3) Hypomagnesemia: Code(s): E83.42 - Hypomagnesemia Status: Acute Assessment and Plan: - Mag 1.4 - initial repletion with 1G IVPB - trend with daily labs (4) Generalized weakness: Code(s): R53.1 - Weakness Status: Acute Assessment and Plan: - viral PCR and UA pending - suspect generalized weakness is multifactorial including dehydration, hypomagnesemia and hyponatremia. Plan for electrolyte correction and IV fluids. 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 intake improved - home medication: Hold Trulicity (NF), hold metformin - correct regimen ordered - low dose TIDWM - A1C 6.7% on 01/17/2024 (7) CKD (chronic kidney disease) stage 3, GFR 30-59 ml/min: Qualifiers: Chronic kidney disease stage 3 subtype: unspecified whether 3a or 3b Qualified Code(s): N18.30 - Chronic kidney disease, stage 3 unspecified Code(s): N18.3 - Chronic kidney disease, stage 3 (moderate) Status: Acute Assessment and Plan: - creatinine 1.4 and GFR 48, previously 1.73 and GFR 39 on 01/17/2024 - trend renal function - trend electrolytes, correct as needed (8) HTN (hypertension): Qualifiers: Hypertension type: primary hypertension Qualified Code(s): I10 - Essential (primary) hypertension Code(s): I10 - Essential (primary) hypertension Status: Acute Assessment and Plan: - chronic, currently 112/62 - monitor as hypotensive this am hold bm meds if appropriate (9) Altered mental state: Code(s): R41.82 - Altered mental status, unspecified Status: Acute Assessment and Plan: 09/24 rapid response was called this am- as pt was diaphoretic, confused, low BP. He was drowsy and lethargic and c/o chest pain. EKG, trop, chest xray, abg, ct head, labs-ordered. BP improved to 120'70's and pt was able to answer all the questions for me- a bit slower with response but still able to. if improved and stable- will keep on medsurg tele continue tele monitoring chest xray- Small lung volumes with worsened airspace opacities in the lower mildred ng zones, consistent with atelectasis versus pneumonia will treat for pneumonia see pneumonia plan (10) Pneumonia: Code(s): J18.9 - Pneumonia, unspecified organism Status: Acute Assessment and Plan: 09/24 diaphoretic, lethargic this am, low grade fever-99 coarse lung sounds, o2 decreased- required o2 supplement -chest xray ordered: Small lung volumes with worsened airspace opacities in the lower lung zones, consistent with atelectasis versus pneumonia will start antibiotics. unable to use zithromax ( QTC prolonged_ will order rocephin-renally dosed IV and doxy PO bs ordered-follow 09/25 zosyn and vanc IV now duoneds, continue oxygen, IS (11) Sepsis: Code(s): A41.9 - Sepsis, unspecified organism Status: Acute Assessment and Plan: very likely due to pneumonia ua still needs to be collected BC collected 09/24- no growth so far- will monitor fever, tachypnea, (12) Acute respiratory failure: Code(s): J96.00 - Acute respiratory failure, unspecified whether with hypoxia or hypercapnia Status: Acute Assessment and Plan: new oxygen requirement aspiration pneumonia vs HAP very likely due to pneumonia-undergoing immunotherapy with keytruda last round of keytruda caused him to be very weak and he was unable to eat/drink for over 2 weeks Antibiotics changed to zosyn and vanc yesterday pulm toilet, arlette, IS. swallow eval. chest xray last evening was unchanged from am-monitor will moniotr for improvement on medsurg floor pt is at high risk for condition deterioration and might be needing intubation to secure airway will do swallow and MBS for evaluation for aspiration Plan Diet: Regular GI Prophylaxis: Not currently indicated DVT Prophylaxis: Continue home apixaban Lines: Peripheral Code Status: Full code Time Spent With Patient Time with patient: Greater than 35 minutes Subjective Date/time seen: 09/25/24 07:24 Interval history: 09/25 pt is seen and examined. he is awake and alert. [place]- his baseline. Denies pain. Instructions provided for IS- will encouraged to do hourly if able. Arlette, On zosyn and vanc now. Na stable. IV fluids. low appetite but able to take ensure/supplements Nata was called at [phone]. left a brief message. Review of Systems Review of Systems: weak, drowsy but alert this am- feeling somewhat better. All systems reviewed & are unremarkable except as noted in HPI and below Exam Narrative: rr improved, alert. Const: General: comfortable Other: , male, nontoxic appearance HENMT: Face/Nose/Sinus: Normal nares present Mouth: Yes moist mucous membranes Eyes: General: appearance normal, both eyes and all related structures Sclera: sclerae normal Pupils: Equal, round and reactive pupils present EOM: EOMs intact bilaterally Resp: Auscultation: crackles Cardio: Rate: regular rate Rhythm: regular rhythm Other: S1-S2 present without murmur, rub, ectopy GI: Other: Abdomen soft, nondistended, nontender. Normoactive bowel sounds all quadrants. Skin: General skin exam: normal color and no rashes or lesions noted Wounds: no wounds Neuro: Cranial nerves: Yes Equal, round and reactive pupils present Speech: normal speech Motor exam (neuro): Abnormal motor strength present (weak) Sensory Exam: normal sensation Other: A&O x4 Extrem: General: normal to inspection Psych: Mental Status: mental status grossly normal Affect: normal affect Other: Good insight and judgment, pleasant Objective Data Vital Signs Vital Signs: Vital Signs - 24 hr 09/24/24 08:00 09/24/24 08:05 09/24/24 08:43 Temperature Pulse Rate Respiratory Rate 32 H 28 H Blood Pressure Pulse Oximetry 87 L 95 94 Oxygen Delivery Room Air Nasal Cannula Nasal Cannula Oxygen Flow Rate 2 2 Fraction of Inspired Oxygen 28 09/24/24 09:32 09/24/24 09:30 09/24/24 10:00 Temperature 97.5 F L 97.9 F Pulse Rate 67 67 61 Respiratory Rate 20 27 H 32 H Blood Pressure 116/50 L 80/39 L 117/44 L Pulse Oximetry 95 95 94 Oxygen Delivery Nasal Cannula Oxygen Flow Rate 2 Fraction of Inspired Oxygen 09/24/24 09:35 09/24/24 14:00 09/24/24 18:30 Temperature 98.5 F 99.6 F Pulse Rate 71 75 Respiratory Rate 28 H 30 H Blood Pressure 116/50 L 117/39 L 144/64 H Pulse Oximetry 94 88 L Oxygen Delivery Oxygen Flow Rate Fraction of Inspired Oxygen 09/24/24 20:34 09/24/24 21:46 09/24/24 22:00 Temperature 99.8 F H 101.3 F H 101.4 F H Pulse Rate 75 Respiratory Rate 46 H Blood Pressure 149/52 H Pulse Oximetry 96 Oxygen Delivery Oxygen Flow Rate Fraction of Inspired Oxygen 09/24/24 20:00 09/24/24 20:00 09/25/24 00:11 Temperature Pulse Rate 72 Respiratory Rate 26 H Blood Pressure Pulse Oximetry 93 Oxygen Delivery Nasal Cannula Oxygen Flow Rate 3 Fraction of Inspired Oxygen 09/25/24 00:00 09/25/24 00:00 09/25/24 04:00 Temperature 99.1 F Pulse Rate 65 70 68 Respiratory Rate 30 H Blood Pressure 117/53 L Pulse Oximetry 96 Oxygen Delivery Oxygen Flow Rate Fraction of Inspired Oxygen 09/25/24 06:00 09/24/24 21:30 Temperature 98.3 F 101.4 F H Pulse Rate 68 75 Respiratory Rate 38 H 40 H Blood Pressure 130/54 L 145/52 H Pulse Oximetry 95 96 Oxygen Delivery Nasal Cannula Oxygen Flow Rate 3 Fraction of Inspired Oxygen Intake/Output Intake/Output: Intake & Output 09/22/24 09/23/24 09/24/24 09/25/24 23:59 23:59 23:59 23:59 Intake Total 268 460 0266.3 1304.2 Output Total 650 30 Balance -517 492 3215.3 1274.2 Meds/Results Medications: Active Medications Generic Name Dose Route Start Last Admin Trade Name Freq PRN Reason Stop Dose Admin Acetaminophen 650 mg 09/21/24 14:23 09/24/24 20:34 Acetaminophen 325 Mg Tablet PO 650 mg Q4H PRN Administration Headache Albuterol/Ipratropium 3 ml 09/25/24 08:00 Ipratropium 0.5 Mg/Albuterol Sulfate 2.5 Mg Ampul.Neb 3 Ml INHALATION Q6HRT RINA Amlodipine Besylate 10 mg 09/20/24 09:00 09/24/24 08:12 Amlodipine Besylate 10 Mg Tablet PO 10 mg DAILY RINA Administration Apixaban 5 mg 09/19/24 22:35 09/24/24 20:34 Apixaban 5 Mg Tablet PO 5 mg Q12HR RINA Administration Clotrimazole 1 applic 09/20/24 09:00 09/24/24 16:35 Betamethasone/Clotrimazole Cream 15 Gm Tube TOPICAL Not Given BID RINA Dextrose 12.5 gm 09/19/24 18:30 Dextrose 50% 25 Gm/50 Ml Syringe IV PUSH PRN PRN Hypoglycemia Protocol Glucagon 1 mg 09/19/24 18:30 Glucagon For Inj 1 Mg Vial IM PRN PRN Hypoglycemia Protocol Glucose 15 gm 09/19/24 18:30 Glucose Oral Gel 15 Gm Of Glucse In 37.5 Gm Tube PO PRN PRN Hypoglycemia Protocol Dextrose 1,000 mls @ 100 mls/hr 09/19/24 18:30 Dextrose 5% 1,000 Ml IVPB PRN PRN Hypoglycemia Protocol Piperacillin Sod/Tazobactam Sod 2.25 gm in 50 mls @ 100 mls/hr 09/24/24 23:00 09/25/24 05:46 Zosyn 2.25 Gm/Ns 50 Ml IVPB 100 mls/hr Q6HR RINA Administration Vancomycin HCl 1,500 mg in 500 mls @ 250 mls/hr 09/26/24 12:00 Vancomycin 1,500 Mg/Ns 500 Ml IVPB Q36H RINA Sodium Chloride 1,000 mls @ 75 mls/hr 09/25/24 01:10 09/25/24 05:47 Normal Saline Iv IV CONT 0 mls/hr .[id number] RINA Infusion Insulin Aspart 2 - 5 units 09/20/24 08:00 09/24/24 17:34 Insulin Aspart (*Bkc) 100 Units/Ml SUB-Q 2 units TIDWM RINA Administration Protocol Levothyroxine Sodium 75 mcg 09/20/24 06:30 09/25/24 05:45 Levothyroxine Sodium 75 Mcg Tablet PO 75 mcg DAILY@0630 RINA Administration Ondansetron HCl 4 mg 09/19/24 18:30 09/23/24 12:28 Ondansetron Inj 4 Mg/2 Ml Vial IV PUSH 4 mg Q4H PRN Administration Nausea And Vomiting Sodium Chloride 1,500 mg 09/24/24 09:00 09/24/24 10:20 Sodium Chloride 500 Mg Tablet PO 1,500 mg BID RINA Administration Radiology Results: ITS Impressions Head CT 09/24/24 14:42 IMPRESSION: 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 Cerebral atherosclerosis and chronic small vessel ischemic changes of the cerebral white matter No acute intracranial finding Chest X-Ray 09/24/24 22:01 IMPRESSION: Right mid and bilateral lower lung infiltrate and/or atelectasis, most prominent in the left lower lobe Cardiomegaly, aortic calcification Labs Labs: Laboratory Results - last 24 hr 09/24/24 09/24/24 09/24/24 06:53 07:53 09:19 WBC RBC Hgb Hct MCV MCH MCHC RDW Plt Count MPV Puncture Site ABG pH ABG pCO2 ABG pO2 ABG PO2/FiO2 Ratio ABG HCO3 ABG O2 Saturation ABG O2 Content ABG Base Excess A-a Gradient Oxyhemoglobin Total Hemoglobin O2 Delivery Device O2 Liters/Min FiO2 Sodium 126 L Potassium 4.4 Chloride 96 L Carbon Dioxide 24 Anion Gap 6 BUN 26 H Creatinine 2.10 H Estim Creat Clear Calc 29 Estimated GFR 30 L Glucose 209 H POC Capillary Glucose 245 H 228 H Lactic Acid Calcium 9.0 Phosphorus 3.3 Magnesium 1.9 Total Bilirubin 1.0 AST 22 ALT 14 Alkaline Phosphatase 57 Troponin I Total Protein 7.0 Albumin 3.1 L Procalcitonin Random Cortisol 17.40 Urine Color Urine Appearance Urine pH Ur Specific [place] Urine Protein Urine Glucose (UA) Urine Ketones Ur Blood (Man) Urine Nitrate Urine Bilirubin Urine Urobilinogen Add Ur Microanalysis Leukocyte Esterase Rfl Urine RBC Urine WBC Ur Squamous Epith Cells Uric Acid Crystals Urine Bacteria Urine Casts Nasal MRSA (PCR) 09/24/24 09/24/24 09/24/24 09:33 09:56 11:46 WBC 13.3 H RBC 3.70 L Hgb 11.7 L Hct 34.5 L MCV 93.2 MCH 31.6 MCHC 33.9 RDW 13.0 Plt Count 291 MPV 9.7 Puncture Site Right radial ABG pH 7.414 ABG pCO2 38.6 ABG pO2 67.3 L ABG PO2/FiO2 Ratio 2.40 ABG HCO3 24.1 ABG O2 Saturation 93.7 L ABG O2 Content 16.1 ABG Base Excess -0.3 A-a Gradient 86.8 Oxyhemoglobin 93.1 Total Hemoglobin 12.3 O2 Delivery Device Nasal cannula O2 Liters/Min 2.0 FiO2 28 Sodium 127 L Potassium 4.5 Chloride 94 L Carbon Dioxide 28 Anion Gap 5 BUN 29 H Creatinine 2.20 H Estim Creat Clear Calc 27 Estimated GFR 29 L Glucose 231 H POC Capillary Glucose 187 H Lactic Acid Calcium 8.9 Phosphorus Magnesium 2.1 Total Bilirubin AST ALT Alkaline Phosphatase Troponin I 0.020 Total Protein Albumin Procalcitonin Random Cortisol Urine Color Urine Appearance Urine pH Ur Specific [place] Urine Protein Urine Glucose (UA) Urine Ketones Ur Blood (Man) Urine Nitrate Urine Bilirubin Urine Urobilinogen Add Ur Microanalysis Leukocyte Esterase Rfl Urine RBC Urine WBC Ur Squamous Epith Cells Uric Acid Crystals Urine Bacteria Urine Casts Nasal MRSA (PCR) 09/24/24 09/24/24 09/24/24 17:05 17:11 18:53 WBC RBC Hgb Hct MCV MCH MCHC RDW Plt Count MPV Puncture Site ABG pH ABG pCO2 ABG pO2 ABG PO2/FiO2 Ratio ABG HCO3 ABG O2 Saturation ABG O2 Content ABG Base Excess A-a Gradient Oxyhemoglobin Total Hemoglobin O2 Delivery Device O2 Liters/Min FiO2 Sodium 126 L Potassium 4.9 Chloride 96 L Carbon Dioxide 25 Anion Gap 5 BUN 33 H Creatinine 1.90 H Estim Creat Clear Calc 32 Estimated GFR 34 L Glucose 247 H POC Capillary Glucose 247 H 249 H Lactic Acid Calcium 8.9 Phosphorus Magnesium Total Bilirubin AST ALT Alkaline Phosphatase Troponin I Total Protein Albumin Procalcitonin Random Cortisol Urine Color Urine Appearance Urine pH Ur Specific [place] Urine Protein Urine Glucose (UA) Urine Ketones Ur Blood (Man) Urine Nitrate Urine Bilirubin Urine Urobilinogen Add Ur Microanalysis Leukocyte Esterase Rfl Urine RBC Urine WBC Ur Squamous Epith Cells Uric Acid Crystals Urine Bacteria Urine Casts Nasal MRSA (PCR) 09/24/24 09/24/24 09/24/24 21:21 21:41 21:50 WBC RBC Hgb Hct MCV MCH MCHC RDW Plt Count MPV Puncture Site Right radial ABG pH 7.471 H ABG pCO2 32.8 L ABG pO2 68.0 L ABG PO2/FiO2 Ratio 2.13 ABG HCO3 23.4 ABG O2 Saturation 94.8 L ABG O2 Content 16.5 ABG Base Excess 0.3 A-a Gradient 121.8 Oxyhemoglobin 94.5 Total Hemoglobin 12.4 O2 Delivery Device Nasal cannula O2 Liters/Min 3.0 FiO2 32 Sodium Potassium Chloride Carbon Dioxide Anion Gap BUN Creatinine Estim Creat Clear Calc Estimated GFR Glucose POC Capillary Glucose 257 H Lactic Acid 1.3 Calcium Phosphorus Magnesium Total Bilirubin AST ALT Alkaline Phosphatase Troponin I Total Protein Albumin Procalcitonin 2.1 Random Cortisol Urine Color Urine Appearance Urine pH Ur Specific [place] Urine Protein Urine Glucose (UA) Urine Ketones Ur Blood (Man) Urine Nitrate Urine Bilirubin Urine Urobilinogen Add Ur Microanalysis Leukocyte Esterase Rfl Urine RBC Urine WBC Ur Squamous Epith Cells Uric Acid Crystals Urine Bacteria Urine Casts Nasal MRSA (PCR) 09/25/24 09/25/24 09/25/24 00:00 03:25 06:40 WBC RBC Hgb Hct MCV MCH MCHC RDW Plt Count MPV Puncture Site ABG pH ABG pCO2 ABG pO2 ABG PO2/FiO2 Ratio ABG HCO3 ABG O2 Saturation ABG O2 Content ABG Base Excess A-a Gradient Oxyhemoglobin Total Hemoglobin O2 Delivery Device O2 Liters/Min FiO2 Sodium Cancelled Potassium Cancelled Chloride Cancelled Carbon Dioxide Cancelled Anion Gap Cancelled BUN Cancelled Creatinine Cancelled Estim Creat Clear Calc Cancelled Estimated GFR Cancelled Glucose Cancelled POC Capillary Glucose Lactic Acid Calcium Cancelled Phosphorus Magnesium Cancelled Total Bilirubin Cancelled AST Cancelled ALT Cancelled Alkaline Phosphatase Cancelled Troponin I Total Protein Cancelled Albumin Cancelled Procalcitonin Random Cortisol Urine Color Dark yellow Urine Appearance Turbid H Urine pH 5.0 Ur Specific [place] > 1.045 H Urine Protein 2+ H Urine Glucose (UA) Negative Urine Ketones Trace H Ur Blood (Man) Negative Urine Nitrate Positive H Urine Bilirubin 1+ H Urine Urobilinogen 1.0 Add Ur Microanalysis Reviewed Leukocyte Esterase Rfl Negative Urine RBC 0-2 Urine WBC 0-5 Ur Squamous Epith Cells Occasional Uric Acid Crystals Present H Urine Bacteria None seen Urine Casts 0-2 Nasal MRSA (PCR) Not detected Quality VTE Prophylaxis VTE prophylaxis: pharmacologic ordered
[2024-09-25 07:28] LABS: Glucose Point of Care 168 mg/dl (65-105)
[2024-09-25] MEDS: IPRATROPIUM 0.5 MG/ALBUTEROL SULFATE 2.5 MG AMPUL.NEB 3 ML INHALATION ×3 (08:40→19:30)
[2024-09-25] MEDS: APIXABAN 5 MG TABLET PO (08:48)
[2024-09-25] MEDS: amLODIPine BESYLATE 10 MG TABLET PO (08:48)
[2024-09-25] MEDS: BETAMETHASONE/CLOTRIMAZOLE CREAM 15 GM TUBE 1 APPLIC TOPICAL (08:49)
--- NOTE | 2024-09-25 09:02 | PCSTNOTE ---
Please refer to the Bedside Swallow Evaluation in the EMR. Please note, silent aspiration cannot be ruled out at bedside.
[2024-09-25 09:46] LABS: Phosphorus 3.5 mg/dL (2.5-4.5)
--- NOTE | 2024-09-25 10:35 | PCOTNOTE ---
Patient unavailable for therapy session at this time. Patient going down for a MBS, will check back.
--- NOTE | 2024-09-25 10:53 | P.PNNP_ITS ---
Progress Note: A&P Assessment and Plan (1) Hyponatremia: Code(s): E87.1 - Hypo-osmolality and hyponatremia Status: Acute Assessment and Plan: * ongoing improvement with current interventions * acute * sodium normal ~ 8 months * risk factors for low sodium: * prerenal factors/diminished oral intake * malignancy (throat cancer) * HCTZ use * history of thyroid disease * excessive free water intake * chemotherapy (pembrolizumab) * s/p trial of normal saline IVFs - only mild improvement * evaluation to date: * TSH okay * cortisol low - will recheck (may need to check stim test) * SPEP/UPEP pending * serum osmo 247; urine osmo 355; urine sodium 85 -- suggestive of SIADH * urine electrolytes indeterminate for prerenal azotemia * intermittent 3% saline infusions PRN * was on fluid restriction and salt tabs -- this is on hold currently * given poor oral intake and events overnight, agree with IVFs * follow trend of repeat sodium levels (2) Chronic kidney disease, stage 3: Code(s): N18.30 - Chronic kidney disease, stage 3 unspecified Status: Chronic Assessment and Plan: * baseline creatinine seems to run ~ 1.4 - 1.8mg/dl for the last several years * this causes him to fluctuate between CKD stage 3A and stage 3B * presumably due to HTN, DM, vascular disease, and age-related change (3) Hypokalemia: Code(s): E87.6 - Hypokalemia Status: Acute Assessment and Plan: * better * noted on admission * likely exacerbated by low magnesium and poor oral intake * replacement as needed * follow trend (4) Generalized weakness: Code(s): R53.1 - Weakness Status: Acute Assessment and Plan: * presumably due to volume depletion and possibly electrolyte abnormalities allyson g with underlying malgnancy * follow clinical symptoms * PT/OT as tolerated (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, unspecified Status: Acute Assessment and Plan: * currently undergoing chemo at [facility] * suspect poor PO intake secondary to chemotherapy * antiemetics as needed (6) HTN (hypertension): Qualifiers: Hypertension type: primary hypertension Qualified Code(s): I10 - Esse ntial (primary) hypertension Code(s): I10 - Essential (primary) hypertension Status: Acute Assessment and Plan: * reasonable control * hold HCTZ due to #1 * hold ARB due to fluctuating creatinine and previous hypotension * follow trend of hemodynamics (7) Type 2 diabetes mellitus: Qualifiers: Diabetes mellitus complication status: without complication Diabetes mellitus terminologist insulin use: without terminologist use Qualified Code(s): E11.9 - Type 2 diabetes mellitus without complications Code(s): E11.9 - Type 2 diabetes mellitus without complications Status: Acute Assessment and Plan: * follow accu-cheks * glycemic control per hospitalists Will continue to follow. Subjective Date/time seen: 09/25/24 10:53 Interval history: Follow-up for acute hyponatremia and chronic kidney disease Events noted overnight -- rapid response due to tachypnea in association with fevers; concern for possible pneumonia so antibiotics initiated; given fevers in association with poor oral intake (coupled with ordered fluid restriction) and the concern of volume depletion, normal saline IVFs initiated as well and salt tabs placed on hold; sodium has improved to 130mmol/L by recent labs; appears to be doing a bit better at the time of my visit. Exam Narrative: General: elderly but WD/WN male in NAD Heart: normal S1 and S2; no rub Lungs: coarse breath sound Abdomen: soft, nontender, nondistended, positive bowel sounds Extremities: no cyanosis or clubbing; no edema Skin: warm and dry Objective Data Vital Signs Vital Signs: Vital Signs Temp Pulse Resp BP Pulse Ox O2 Del Method O2 Flow Rate 09/25/24 08:52 68 24 H 09/25/24 08:40 61 24 H 09/25/24 08:40 92 Nasal Cannula 3 09/24/24 21:30 101.4 F H 75 40 H 145/52 H 96 Nasal Cannula 3 09/25/24 06:00 98.3 F 68 38 H 130/54 L 95 09/25/24 04:00 68 09/25/24 00:00 99.1 F 70 30 H 117/53 L 96 09/25/24 00:00 65 09/25/24 00:11 26 H 09/24/24 20:00 72 09/24/24 20:00 93 Nasal Cannula 3 09/24/24 22:00 101.4 F H 75 46 H 149/52 H 96 09/24/24 21:46 101.3 F H 09/24/24 20:34 99.8 F H 09/24/24 18:30 99.6 F 75 30 H 144/64 H 88 L 09/24/24 14:00 98.5 F 71 28 H 117/39 L 94 Intake/Output Intake/Output: Intake & Output 09/22/24 09/23/24 09/24/24 09/25/24 23:59 23:59 23:59 23:59 Intake Total 945 412 5292.3 1304.2 Output Total 650 30 Balance -791 638 0609.3 1274.2 Meds/Results Medications: Active Medications Generic Name Dose Route Start Last Admin Trade Name Freq PRN Reason Stop Dose Admin Acetaminophen 650 mg 09/21/24 14:23 09/24/24 20:34 Acetaminophen 325 Mg Tablet PO 650 mg Q4H PRN Administration Headache Albuterol/Ipratropium 3 ml 09/25/24 08:00 09/25/24 08:40 Ipratropium 0.5 Mg/Albuterol Sulfate 2.5 Mg Ampul.Neb 3 Ml INHALATION 3 ml Q6HRT RINA Administration Amlodipine Besylate 10 mg 09/20/24 09:00 09/25/24 08:48 Amlodipine Besylate 10 Mg Tablet PO 10 mg DAILY RINA Administration Apixaban 5 mg 09/19/24 22:35 09/25/24 08:48 Apixaban 5 Mg Tablet PO 5 mg Q12HR RINA Administration Clotrimazole 1 applic 09/20/24 09:00 09/25/24 08:49 Betamethasone/Clotrimazole Cream 15 Gm Tube TOPICAL 1 applic BID RINA Administration Dextrose 12.5 gm 09/19/24 18:30 Dextrose 50% 25 Gm/50 Ml Syringe IV PUSH PRN PRN Hypoglycemia Protocol Glucagon 1 mg 09/19/24 18:30 Glucagon For Inj 1 Mg Vial IM PRN PRN Hypoglycemia Protocol Glucose 15 gm 09/19/24 18:30 Glucose Oral Gel 15 Gm Of Glucse In 37.5 Gm Tube PO PRN PRN Hypoglycemia Protocol Dextrose 1,000 mls @ 100 mls/hr 09/19/24 18:30 Dextrose 5% 1,000 Ml IVPB PRN PRN Hypoglycemia Protocol Piperacillin Sod/Tazobactam Sod 2.25 gm in 50 mls @ 100 mls/hr 09/24/24 23:00 09/25/24 05:46 Zosyn 2.25 Gm/Ns 50 Ml IVPB 100 mls/hr Q6HR RINA Administration Vancomycin HCl 1,500 mg in 500 mls @ 250 mls/hr 09/26/24 12:00 Vancomycin 1,500 Mg/Ns 500 Ml IVPB Q36H RINA Sodium Chloride 1,000 mls @ 75 mls/hr 09/25/24 01:10 09/25/24 07:00 Normal Saline Iv IV CONT 75 mls/hr .[id number] RINA Infusion Insulin Aspart 2 - 5 units 09/20/24 08:00 09/25/24 11:34 Insulin Aspart (*Bkc) 100 Units/Ml SUB-Q Not Given [facility] Protocol Levothyroxine Sodium 75 mcg 09/20/24 06:30 09/25/24 05:45 Levothyroxine Sodium 75 Mcg Tablet PO 75 mcg DAILY@0630 RINA Administration Ondansetron HCl 4 mg 09/19/24 18:30 09/23/24 12:28 Ondansetron Inj 4 Mg/2 Ml Vial IV PUSH 4 mg Q4H PRN Administration Nausea And Vomiting Sodium Chloride 1,500 mg 09/24/24 09:00 09/24/24 10:20 Sodium Chloride 500 Mg Tablet PO 1,500 mg BID RINA Administration Radiology Results: ITS Impressions Head CT 09/24/24 14:42 IMPRESSION: 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 Pharyngeal dysphagia with laryngeal penetration both during and after the swallow and small amount of silent aspiration following the swallow. Please correlate with speech pathologist findings and specific feeding recommendations. 2. Irregular mucosal contour at the pharynx raises concern for malignancy. Labs Labs: Laboratory Tests 09/25/24 06:40 09/25/24 06:40 Calcium 8.9 Phosphorus 3.5 Magnesium 2.0 Total Bilirubin 0.8 AST 22 ALT 14 Alkaline Phosphatase 55 Total Protein 6.0 L Albumin 3.0 L TSH (Reflex) 1.790 Microbiology 09/24/24 09:51 Blood Blood Culture - Preliminary 09/24/24 09:51 Blood Blood Culture - Preliminary
[2024-09-25 11:22] LABS: Glucose Point of Care 198 mg/dl (65-105)
--- NOTE | 2024-09-25 13:11 | PCSTNOTE ---
Please refer to the Modified Barium Swallow Evaluation in the EMR. The above pt was seen for a modified barium swallow (MBS) on this date due to concerns for silent aspiration noted during a bedside swallow evaluation. The pt was seated for a lateral view and was presented with thin liquids, mildly thick liquids, pudding, and small pieces of cracker in small and controlled amounts. The oral stages were within functional limits. No leakeage or pocketing was noted. The pharyngeal stage was found to be severely impaired due to the following: absent epiglottic inversion and reduced tongue base retraction as evidence by vallecular residue (varied from min to severe); reduced laryngeal elevation as evidenced by pyriform sinus residue and laryngeal penetration during the swallow. Residual was also noted in the aryepiglottic folds and on the upper backside of the epiglottis which gradually seeped into the laryngeal vestibule and subsequently silently aspirated after the swallow. The pt made no effort to clear the penetrated or aspirated contents. Modifications were not attempted as the pt seemed to have difficulty following directions. Impressions: severe dysphagia Recommendation: non oral feeding; ST to tx dysphagia
--- NOTE | 2024-09-25 13:29 | PCNFU ---
Addendum entered by Evelyn Sterling RD, LDN 09/26/24 11:19: Nursing states pt is not wanting a tube feed at this time, to meet with hospitalist today to further discuss plan of care. Will monitor for diet/nutrition plan orders. Original Note: Nutrition Follow-Up Complete: Suboptimal po intake related to reduced appetite as evidenced by pt report Goal:PO intake 75% of meals - Pt now is NPO following a failed MBS New goal: meet estimated needs Pt current nutrition is NPO. Nutrition recommendation: alternative nutrition support - NGT for feeding, possible PEG placement if continued NPO Last recorded weight is 98.4 kg. Bowel Motility: +BM 09/23 Labs Reviewed: Hgb:10.8, HCT:32.9, Alb:3.0, NA:130, BUN:34, Cr:2.1, Glu:198 Meds Noted: eliquis, novolog, zofran Skin: WNL Additional Notes: Pt was on a regular diet, followed by speech with a bedside evaluation and recommendation for MBS. MBS completed this morning and pt failed. Recommendations for non-oral feeding. Pt will need a tube feed. Recommend Glucerna 1.2 formula due to elevated glucose and history of diabetes. A goal rate of 75ml/hr would provide 1980kcals, 99g protein, 1328ml free water over 22hrs which would meet estimated needs. Recommend to start at 20ml and advance by 10ml q 4 hrs to goal rate, as tolerated. A bolus conversion to provide the equivalent calories would be 320ml 5x/day. Monitor intake, wt, labs. Follow up in 1 day.
--- NOTE | 2024-09-25 14:13 | PCOTNOTE ---
Attempted to see Patient at this time. Patient seems angry, disgruntled. Patient states, I'm not doing anything, leave me alone . RN notified
[2024-09-25 16:31] LABS: Glucose Point of Care 164 mg/dl (65-105)
--- NOTE | 2024-09-25 18:54 | PDONCCN ---
HPI - Date of Consult Date/Time: 09/25/24 18:54 Requesting Physician: Maxwell Loving MD Primary Care Provider: Fantasma Jett MD - Consult Narrative Reason for consult: Throat cancer Narrative: Shon German is a 84 year old male with history of hyperlipidemia diabetes, COPD, chronic atrial fibrillation, coronary artery disease and throat cancer diagnosed in February 2024. He has been getting his treatment at [facility]. Patient is on immunotherapy treatment with Keytruda in the last treatment was about 3 weeks ago. He was due to have another treatment today. Patient is a poor historian. I tried contacting patient family without any success. Patient came into the hospital with generalized weakness going on for last 2 weeks duration. He denies any fevers and chills. His labs revealed hemoglobin of 12.9 with normal WBC of 9.9 and platelet count of [id number]. He denies any other new complaints. Review of Systems - Review of Systems All systems reviewed & are unremarkable except as noted in HPI and [facility] Medical History: Medical History (Last Updated 09/19/24 @ 22:28 by Keturah Kerr APRN) CAD (coronary artery disease) Chronic a-fib CKD (chronic kidney disease) stage 3, GFR 30-59 ml/min DM renal manif type II History of prostate cancer HLD (hyperlipidemia) HTN (hypertension) Hy ht/kd NOS I-IV w/o hf Incisional hernia Throat cancer Surgical History: Surgical History (Last Reviewed 09/19/24 @ 22:24 by Keturah Kerr APRN) History of incisional hernia repair 09/24/22 Repair periumbilical incisional hernia with 6.[address] underlay mesh History of prostatectomy History of PTCA stent 2005 Family History: Family History (Last Reviewed 09/19/24 @ 22:24 by Keturha Kerr APRN) Mother Family history of coronary artery disease Grandparent Congestive heart failure Hypertension - Social History Social History: Social History (Last Reviewed 09/19/24 @ 22:24 by Keturah Kerr APRN) Gender Identity: Gender identity (if verbalized by the patient): Male Sexual Orientation: Sexual Orientation (if Verbalized by the Patient): Straight or Heterosexual Alcohol Use: Alcohol intake: former Alcohol use details: STATES MAYBE 12-15 DRINKS A YEAR Substance Use: Substance use: never Substance use type: does not use Others: Spiritual care concerns: No Living Arrangements: Living arrangements: with family Oppucation/Education: Occupation/Education: retired Smoking Status: Smoking status: Never smoker Second hand tobacco smoke exposure: No Social Determinants of Health: Do You Feel Safe in your Home?: Yes Has the Lack of Transportation Kept You From Medical Appointments or From Getting Medications?: No Within the Past 12 Months, Were You Worried Whether Your Food Would Run Out Before You Got Money to Buy More?: Never True What is Your Housing Situation Today?: I Have Housing Are You Worried That in the Next 2 Months, You May Not Have Your Own Housing to Live In?: No Do You Have Trouble Paying Your Heating Or Electricity Bill?: No Do You Have Trouble Paying For Medicines?: No Are You Currently Unemployed and Looking for Work?: No Highest Level of Education Completed: Bachelor's Degree Do You Have Trouble With Childcare or the Care of a Family Member?: No Exam - Vital Signs Vital Signs - 24 hr 09/24/24 20:34 09/24/24 21:46 09/24/24 22:00 Temperature 37.7 C H 38.5 C H 38.6 C H Pulse Rate 75 Respiratory Rate 46 H Blood Pressure 149/52 H Pulse Oximetry 96 Oxygen Delivery Oxygen Flow Rate Fraction of Inspired Oxygen 09/24/24 20:00 09/24/24 20:00 09/25/24 00:11 Temperature Pulse Rate 72 Respiratory Rate 26 H Blood Pressure Pulse Oximetry 93 Oxygen Delivery Nasal Cannula Oxygen Flow Rate 3 Fraction of Inspired Oxygen 09/25/24 00:00 09/25/24 00:00 09/25/24 04:00 Temperature 37.3 C Pulse Rate 65 70 68 Respiratory Rate 30 H Blood Pressure 117/53 L Pulse Oximetry 96 Oxygen Delivery Oxygen Flow Rate Fraction of Inspired Oxygen 09/25/24 06:00 09/24/24 21:30 09/25/24 08:40 Temperature 36.8 C 38.6 C H Pulse Rate 68 75 Respiratory Rate 38 H 40 H Blood Pressure 130/54 L 145/52 H Pulse Oximetry 95 96 92 Oxygen Delivery Nasal Cannula Nasal Cannula Oxygen Flow Rate 3 3 Fraction of Inspired Oxygen 32 09/25/24 08:40 09/25/24 08:52 09/25/24 08:00 Temperature Pulse Rate 61 68 62 Respiratory Rate 24 H 24 H Blood Pressure Pulse Oximetry Oxygen Delivery Oxygen Flow Rate Fraction of Inspired Oxygen 09/25/24 14:21 09/25/24 14:30 09/25/24 14:00 Temperature 36.3 C L Pulse Rate 72 64 67 Respiratory Rate 20 20 20 Blood Pressure 144/57 H Pulse Oximetry 97 Oxygen Delivery Oxygen Flow Rate Fraction of Inspired Oxygen 09/25/24 12:00 09/25/24 16:00 Temperature Pulse Rate 66 74 Respiratory Rate Blood Pressure Pulse Oximetry Oxygen Delivery Oxygen Flow Rate Fraction of Inspired Oxygen - Exam HEENT: EOMI, PERRLA, mucous membranes moist and pink Neck: supple Lungs: clear to auscultation, normal air movement Heart: no murmurs, gallops, or rubs, regular rhythm, regular rate Abdomen: abdomen soft, non-distended, normal bowel sounds Extremities: normal pulses Integumentary: no abnormalities Neurological: normal speech Psychological: mental status NL, mood NL - Lab Results Laboratory Last Values WBC 14.0 K/mm3 (4.5-10.0) H 09/25/24 06:40 RBC 3.49 M/mm3 (4.6-6.20) L 09/25/24 06:40 Hgb 10.8 g/dL (14.0-18.0) L 09/25/24 06:40 Hct 32.9 % (42.0-52.0) L 09/25/24 06:40 MCV 94.3 fl (80-100) 09/25/24 06:40 MCH 30.9 pg (26-34) 09/25/24 06:40 MCHC 32.8 g/dl (32-36) 09/25/24 06:40 RDW 13.2 % (11.5-14.5) 09/25/24 06:40 Plt Count 272 k/mm3 (150-375) 09/25/24 06:40 MPV 9.7 fl (7.4-10.4) 09/25/24 06:40 Immature Gran % (Auto) 0.7 % (0-0.5) H 09/25/24 06:40 Neut % (Auto) 76.2 % (45.5-73.1) H 09/25/24 06:40 Lymph % (Auto) 3.9 % (18.3-44.2) L 09/25/24 06:40 Mathews % (Auto) 11.9 % (2.6-8.5) H 09/25/24 06:40 Eos % (Auto) 6.9 % (0-4.4) H 09/25/24 06:40 Baso % (Auto) 0.4 % (0.2-1.2) 09/25/24 06:40 Lymph # (Auto) 0.55 K/mm3 (0.9-3.2) L 09/25/24 06:40 Mathews # (Auto) 1.7 K/mm3 (0.1-0.6) H 09/25/24 06:40 Eos # (Auto) 1.0 K/mm3 (0-0.3) H 09/25/24 06:40 Baso # (Auto) 0.1 K/mm3 (0.0-0.1) 09/25/24 06:40 Abs Immat Gran (auto) 0.10 K/mm3 (0.00-0.031) H 09/25/24 06:40 Absolute Neuts (auto) 10.7 K/mm3 (1.3-6.7) H 09/25/24 06:40 Absolute Nucleated RBC 0.000 K/mm3 (0.0-0.012) 09/25/24 06:40 Nucleated RBC % 0.0 % (0.0-0.2) 09/25/24 06:40 PT 15.8 Seconds (11.1-14.7) H 09/19/24 14:46 INR 1.2 09/19/24 14:46 APTT 46.7 Seconds (22.3-36.8) H 09/19/24 14:46 Puncture Site Right radial 09/24/24 21:50 ABG pH 7.471 (7.350-7.450) H 09/24/24 21:50 ABG pCO2 32.8 mmHg (35.0-45.0) L 09/24/24 21:50 ABG pO2 68.0 mmHg (80.0-100.0) L 09/24/24 21:50 ABG PO2/FiO2 Ratio 2.13 % 09/24/24 21:50 ABG HCO3 23.4 mEq/l (22.0-26.0) 09/24/24 21:50 ABG O2 Saturation 94.8 % (95.0-100.0) L 09/24/24 21:50 ABG O2 Content 16.5 %vol (16.0-22.0) 09/24/24 21:50 ABG Base Excess 0.3 mEq/l (+/-2.0) 09/24/24 21:50 A-a Gradient 121.8 mmHg 09/24/24 21:50 Oxyhemoglobin 94.5 % THb (90.0-100.0) 09/24/24 21:50 Total Hemoglobin 12.4 g/dL (12.0-18.0) 09/24/24 21:50 O2 Delivery Device Nasal cannula 09/24/24 21:50 O2 Liters/Min 3.0 LPM 09/24/24 21:50 FiO2 32 % 09/24/24 21:50 Sodium 130 mmol/L (137-145) L 09/25/24 06:40 Potassium 4.6 mmol/L (3.4-5.0) 09/25/24 06:40 Chloride 99 mmol/L (98-107) 09/25/24 06:40 Carbon Dioxide 27 mmol/L (22-30) 09/25/24 06:40 Anion Gap 4 mmol/L (4-12) 09/25/24 06:40 BUN 34 mg/dL (9-20) H 09/25/24 06:40 Creatinine 2.10 mg/dL (0.7-1.3) H 09/25/24 06:40 Estim Creat Clear Calc 29 ml/min 09/25/24 06:40 Estimated GFR 30 (59-) L 09/25/24 06:40 Glucose 174 mg/dL (65-110) H 09/25/24 06:40 POC Capillary Glucose 164 mg/dl (65-105) H 09/25/24 16:27 Serum Osmolality 247 mOsm/kg (278-305) L 09/19/24 19:10 Lactic Acid 1.3 mmol/L (0.7-2.0) 09/24/24 21:41 Calcium 8.9 mg/dL (8.4-10.2) 09/25/24 06:40 Phosphorus 3.5 mg/dL (2.5-4.5) 09/25/24 06:40 Magnesium 2.0 mg/dL (1.6-2.3) 09/25/24 06:40 Total Bilirubin 0.8 mg/dL (0.2-1.3) 09/25/24 06:40 AST 22 U/L (17-59) 09/25/24 06:40 ALT 14 U/L (6-50) 09/25/24 06:40 Alkaline Phosphatase 55 U/L (38-126) 09/25/24 06:40 Troponin I 0.020 ng/mL (0.000-0.034) 09/24/24 09:56 Total Protein 6.0 g/dL (6.3-8.2) L 09/25/24 06:40 Albumin 3.0 g/dL (3.5-5.1) L 09/25/24 06:40 Procalcitonin 2.1 ng/mL 09/24/24 21:41 TSH (Reflex) 1.790 uIU/mL (0.465-4.68) 09/25/24 06:40 Random Cortisol 17.40 ug/dL 09/24/24 06:53 Urine Color Dark yellow (Yellow) 09/25/24 03:25 Urine Appearance Turbid (Clear) H 09/25/24 03:25 Urine pH 5.0 (5.0-9.0) 09/25/24 03:25 Ur Specific [place] > 1.045 (1.001-1.035) H 09/25/24 03:25 Urine Protein 2+ mg/dL (Negative) H 09/25/24 03:25 Urine Glucose (UA) Negative mg/dL (Negative) 09/25/24 03:25 Urine Ketones Trace mg/dL (Negative) H 09/25/24 03:25 Ur Blood (Man) Negative (Negative) 09/25/24 03:25 Urine Nitrate Positive (Negative) H 09/25/24 03:25 Urine Bilirubin 1+ (Negative) H 09/25/24 03:25 Urine Urobilinogen 1.0 mg/dL (<2.0) 09/25/24 03:25 Add Ur Microanalysis Reviewed 09/25/24 03:25 Leukocyte Esterase Rfl Negative GOLDY/UL (Negative) 09/25/24 03:25 Urine RBC 0-2 /hpf (0-2) 09/25/24 03:25 Urine WBC 0-5 /hpf (0-3) 09/25/24 03:25 Ur Squamous Epith Cells Occasional /hpf (Few) 09/25/24 03:25 Uric Acid Crystals Present /hpf (None) H 09/25/24 03:25 Urine Bacteria None seen /hpf 09/25/24 03:25 Urine Casts 0-2 09/25/24 03:25 Urine Osmolality 355 mOsm/kg (50-1200) 09/19/24 19:09 Ur Random Creatinine 67 mg/dL (20-320) 09/20/24 12:33 U Random Total Protein 8 mg/dL (5-25) 09/20/24 12:33 Ur Random Sodium 85 meq/L 09/19/24 19:11 Urine Creatinine 70.6 mg/dL 09/19/24 19:11 Urine Creatinine 72.1 mg/dL 09/19/24 19:11 Protein/Creatinin Ratio 119 mg/g creat (25-148) 09/20/24 12:33 Protein/Creat Ratio 2 0.14 mg/mg (0-0.20) 09/19/24 19:11 Urine Albumin 100 % 09/20/24 12:33 U Rgrab-0-[id number] 0 % 09/20/24 12:33 U Vfezf-7-[id number] 0 % 09/20/24 12:33 U Beta Globulin 0 % 09/20/24 12:33 U Gamma Globulin 0 % 09/20/24 12:33 Urine PEP Interpret See note 09/20/24 12:33 Nasal MRSA (PCR) Not detected (NOT DETECTE) 09/25/24 00:00 Influenza A (RT-PCR) Negative (Negative) 09/19/24 14:46 Influenza B (RT-PCR) Negative (Negative) 09/19/24 14:46 RSV (RT-PCR) Negative (Negative) 09/19/24 14:46 SARS-CoV-2 RNA (RT-PCR) Negative (Negative) 09/19/24 14:46 Meds Home Medications Medication Instructions Recorded Confirmed Type blood sugar diagnostic (Contour #100 ea 11/23/22 09/19/24 Rx Next Test Strips) metformin 500 mg tablet,extended See Rx Instructions .Route 08/04/23 09/19/24 Rx release 24 hr .COMPLEX #360 tabs dulaglutide 1.5 mg/0.5 mL 1.5 mg (0.5 mL) subcut WEEKLY #2 mL 05/09/24 09/19/24 Rx subcutaneous pen injector (Trulicity) levothyroxine 75 mcg tablet 75 mcg PO DAILY #30 tabs 06/27/24 09/19/24 Rx clotrimazole-betamethasone 1 1 applic topical BID #45 grams 08/23/24 09/19/24 Rx %-0.05 % topical cream amlodipine 10 mg tablet 10 mg PO DAILY 09/19/24 09/19/24 History apixaban 5 mg tablet (Eliquis) 5 mg PO BID 09/19/24 09/19/24 History valsartan 320 1 tablet PO DAILY 09/19/24 09/19/24 History mg-hydrochlorothiazide 25 mg tablet Allergies Allergy/AdvReac Type Severity Reaction Status Date / Time No Known Allergies Allergy Unknown Verified 09/19/24 16:27 Results - Labs CBC & Chem 7: 09/25/24 06:40 09/25/24 06:40 Labs: Short CBC 09/25/24 Range/Units 06:40 WBC 14.0 H (4.5-10.0) K/mm3 Hgb 10.8 L (14.0-18.0) g/dL Hct 32.9 L (42.0-52.0) % Plt Count 272 (150-375) k/mm3 BMP 09/25/24 06:40 Sodium 130 L Potassium 4.6 Chloride 99 Carbon Dioxide 27 BUN 34 H Creatinine 2.10 H Glucose 174 H Calcium 8.9 Liver Function 09/25/24 Range/Units 06:40 Total Bilirubin 0.8 (0.2-1.3) mg/dL AST 22 (17-59) U/L ALT 14 (6-50) U/L Alkaline Phosphatase 55 (38-126) U/L Albumin 3.0 L (3.5-5.1) g/dL Urine 09/25/24 Range/Units 03:25 Urine Color Dark yellow (Yellow) Urine Appearance Turbid H (Clear) Urine pH 5.0 (5.0-9.0) Ur Specific [place] > 1.045 H (1.001-1.035) Urine Protein 2+ H (Negative) mg/dL Urine Glucose (UA) Negative (Negative) mg/dL Assessment and Plan - Additional Plan Throat cancer. Patient was diagnosed with throat cancer in February of 2024. He has been getting treatment at [facility]. Patient also has history of chronic atrial fibrillation, coronary artery disease, chronic kidney disease and diabetes. He is a poor historian and was not able to provide me the detail of his diagnosis and treatment. According to patient he received treatment with Keytruda 3 weeks ago and was due for another treatment today. I tried contacting patient family without any success. I have reviewed labs that showed elevated WBC count with mild anemia and normal platelet count. ANC is also elevated at 10,700 thousand seven hundred. Patient came into the hospital with generalized weakness. This could be secondary to his treatment and anemia. His anemia is likely secondary to chronic kidney disease and immunotherapy related. We will also order the workup including iron studies and vitamin B12 level. I have instructed him to follow-up with his oncologist at [facility] after the discharge.
[2024-09-25 19:15] LABS: Glucose Point of Care 156 mg/dl (65-105)
[2024-09-25 20:55] LABS: Iron 16 ug/dL (49-181)
[2024-09-25 21:05] LABS: Percent Iron Saturation 6 % (20-50)
[2024-09-25 22:02] LABS: Folic Acid 10.3 ng/mL (2.76->20)
[2024-09-25 23:59] LABS: Glucose Point of Care 156 mg/dl (65-105)
[2024-09-26] VITALS (18 sets, daily range): BP systolic 130–155; BP diastolic 51–71; PULSE 62–89; RESP 16–44; TEMP 36.5–37.2; O2SAT 92–95
[2024-09-26] MEDS: PIPERACILLIN/TAZ 2.25G/NS 50ML 2.25 GM/50 ML BAG IVPB ×5 (00:12→23:32)
[2024-09-26] MEDS: IPRATROPIUM 0.5 MG/ALBUTEROL SULFATE 2.5 MG AMPUL.NEB 3 ML INHALATION ×4 (02:17→21:53)
[2024-09-26 06:32] LABS: Glucose Point of Care 153 mg/dl (65-105)
[2024-09-26 07:40] LABS: Basophils Absolute Auto 0.1 K/mm3 (0.0-0.1); Basophils Percent Auto 0.6 % (0.2-1.2); Eosinophils Percent Auto 17.5 % (0-4.4); Hematocrit 33.6 % (42.0-52.0); Hemoglobin 10.4 g/dL (14.0-18.0); Immature Granulocyte Percent A 0.9 % (0-0.5); Lymphocytes Absolute Auto 0.57 K/mm3 (0.9-3.2); Lymphocytes Percent Auto 4.9 % (18.3-44.2); Mean Corpuscular Hemoglobin 31.2 pg (26-34); Mean Corpuscular Volume 100.9 fl (80-100); Mean Platelet Volume 9.9 fl (7.4-10.4); Monocytes Absolute Auto 1.2 K/mm3 (0.1-0.6); Monocytes Percent Auto 10.1 % (2.6-8.5); Neutrophils Absolute Auto 7.6 K/mm3 (1.3-6.7); Platelet Count Result 275 k/mm3 (150-375); Red Blood Count 3.33 M/mm3 (4.6-6.20); Red Cell Distribution Width 13.3 % (11.5-14.5); White Blood Count 11.6 K/mm3 (4.5-10.0)
[2024-09-26 08:25] LABS: Alanine Aminotransferase 39 U/L (6-50); Albumin Level 2.9 g/dL (3.5-5.1); Alkaline Phosphatase 55 U/L (38-126); Anion Gap 4 mmol/L (4-12); Aspartate Amino Transferase 85 U/L (17-59); Bilirubin,Total 0.6 mg/dL (0.2-1.3); Blood Urea Nitrogen 32 mg/dL (9-20); Calcium 8.7 mg/dL (8.4-10.2); Carbon Dioxide 23 mmol/L (22-30); Chloride 103 mmol/L (98-107); Estimated CRCL calculation 31 ml/min; Estimated Glomerular Filt Rate 34; Glucose 145 mg/dL (65-110); Magnesium 2.1 mg/dL (1.6-2.3); Phosphorus 3.7 mg/dL (2.5-4.5); Potassium 4.9 mmol/L (3.4-5.0); Sodium 130 mmol/L (137-145)
[2024-09-26] MEDS: APIXABAN 5 MG TABLET PO (08:42)
[2024-09-26] MEDS: amLODIPine BESYLATE 10 MG TABLET PO (08:42)
[2024-09-26] MEDS: guaiFENesin 12 HR 600 MG TABCR PO (08:42)
--- NOTE | 2024-09-26 12:01 | P.PNNP_ITS ---
Progress Note: A&P Assessment and Plan (1) Hyponatremia: Code(s): E87.1 - Hypo-osmolality and hyponatremia Status: Acute Assessment and Plan: * ongoing improvement with current interventions * sodium normal ~ 8 months * risk factors for low sodium: * prerenal factors/diminished oral intake * malignancy (throat cancer) * HCTZ use * history of thyroid disease * excessive free water intake * chemotherapy (pembrolizumab) * s/p trial of normal saline IVFs - only mild improvement * evaluation to date: * TSH okay * cortisol low - will recheck (may need to check stim test) * SPEP/UPEP pending * serum osmo 247; urine osmo 355; urine sodium 85 -- suggestive of SIADH * urine electrolytes indeterminate for prerenal azotemia * s/p intermittent 3% saline infusions PRN * was on fluid restriction and salt tabs -- this is on hold currently * off salt tabs but on fluid restriction (given NPO status) * follow trend of repeat sodium levels (2) Chronic kidney disease, stage 3: Code(s): N18.30 - Chronic kidney disease, stage 3 unspecified Status: Chronic Assessment and Plan: * baseline creatinine seems to run ~ 1.4 - 1.8mg/dl for the last several years * this causes him to fluctuate between CKD stage 3A and stage 3B * presumably due to HTN, DM, vascular disease, and age-related change (3) Hypokalemia: Code(s): E87.6 - Hypokalemia Status: Acute Assessment and Plan: * better * noted on admission * likely exacerbated by low magnesium and poor oral intake * replacement as needed * follow trend (4) Generalized weakness: Code(s): R53.1 - Weakness Status: Acute Assessment and Plan: * presumably due to volume depletion and possibly electrolyte abnormalities along with underlying malgnancy * follow clinical symptoms * PT/OT as tolerated (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, unspecified Status: Acute Assessment and Plan: * currently undergoing chemo at [facility] * suspect poor PO intake secondary to chemotherapy * antiemetics as needed (6) HTN (hypertension): Qualifiers: Hypertension type: primary hypertension Qualified Code(s): I10 - Essential (primary) hypertension Code(s): I10 - Essential (primary) hypertension Status: Acute Assessment and Plan: * reasonable control * hold HCTZ due to #1 * hold ARB due to fluctuating creatinine and previous hypotension * follow trend of hemodynamics (7) Type 2 diabetes mellitus: Qualifiers: Diabetes mellitus complication status: without complication 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 Subjective Date/time seen: 09/26/24 12:01 Interval history: Follow-up for acute hyponatremia and chronic kidney disease. Sodium remains relatively stable at this time; off salt tabs and IVFs and getting PPN; renal function/creatinine appears better as well by recent testing; no further fevers in the last 24 hours; remains hemodynamically stable; no other issues/events overnight or earlier this morning. Exam Narrative: General: elderly but WD/WN male in NAD Heart: normal S1 and S2; no rub Lungs: coarse breath sounds Abdomen: soft, nontender, nondistended, positive bowel sounds Extremities: no cyanosis or clubbing; no edema Skin: warm and intact Objective Data Vital Signs Vital Signs: Vital Signs Temp Pulse Resp BP Pulse Ox O2 Del Method O2 Flow Rate 09/26/24 12:00 97.7 F 75 20 149/62 H 94 09/26/24 08:10 89 20 09/26/24 08:02 88 16 09/26/24 08:02 95 Nasal Cannula 3 09/26/24 08:00 69 09/26/24 06:58 67 09/26/24 06:00 98.6 F 65 20 130/51 L 92 09/26/24 02:19 72 16 09/26/24 02:13 70 16 09/26/24 00:00 65 09/25/24 21:32 98.8 F 69 24 H 119/51 L 93 09/25/24 20:00 72 09/25/24 20:00 93 Nasal Cannula 3 09/25/24 19:38 74 20 09/25/24 19:32 68 20 09/25/24 19:32 95 Nasal Cannula 3 Intake/Output Intake/Output: Intake & Output 09/23/24 09/24/24 09/25/2424 23:59 23:59 23:59 23:59 Intake Total 420 1118.3 2231.7 615.8 Output Total 280 550 Balance 420 1118.3 1951.7 65.8 Meds/Results Medications: Active Medications Generic Name Dose Route Start Last Admin Trade Name Freq PRN Reason Stop Dose Admin Acetaminophen 650 mg 09/21/24 14:23 09/24/24 20:34 Acetaminophen 325 Mg Tablet PO 650 mg Q4H PRN Administration Headache Albuterol/Ipratropium 3 ml 09/25/24 08:00 09/26/24 14:05 Ipratropium 0.5 Mg/Albuterol Sulfate 2.5 Mg Ampul.Neb 3 Ml INHALATION 3 ml Q6HRT RINA Administration Amlodipine Besylate 10 mg 09/20/24 09:00 09/26/24 08:42 Amlodipine Besylate 10 Mg Tablet PO 10 mg DAILY RINA Administration Apixaban 5 mg 09/19/24 22:35 09/26/24 08:42 Apixaban 5 Mg Tablet PO 5 mg Q12HR RINA Administration Benzocaine 1 lozenge 09/25/24 15:00 Benzocaine/Menthol (*Bkc) 18 Ea Lozenge PO PRN PRN Sore Throat Clotrimazole 1 applic 09/20/24 09:00 09/26/24 17:57 Betamethasone/Clotrimazole Cream 15 Gm Tube TOPICAL Not Given BID RINA Dextrose 12.5 gm 09/19/24 18:30 Dextrose 50% 25 Gm/50 Ml Syringe IV PUSH PRN PRN Hypoglycemia Protocol Glucagon 1 mg 09/19/24 18:30 Glucagon For Inj 1 Mg Vial IM PRN PRN Hypoglycemia Protocol Glucose 15 gm 09/19/24 18:30 Glucose Oral Gel 15 Gm Of Glucse In 37.5 Gm Tube PO PRN PRN Hypoglycemia Protocol Guaifenesin 600 mg 09/25/24 21:00 09/26/24 08:42 Guaifenesin 12 Hr 600 Mg Tabcr PO 600 mg Q12HR RINA Administration Dextrose 1,000 mls @ 100 mls/hr 09/19/24 18:30 Dextrose 5% 1,000 Ml IVPB PRN PRN Hypoglycemia Protocol Piperacillin Sod/Tazobactam Sod 2.25 gm in 50 mls @ 100 mls/hr 09/24/24 23:00 09/26/24 17:35 Zosyn 2.25 Gm/Ns 50 Ml IVPB 100 mls/hr Q6HR RINA Administration Dextrose 1,000 mls @ 50 mls/hr 09/26/24 14:00 Dextrose 10% IV CONT .Q20H PRN if PN is interrupted Amino Acids/Electrolytes/Dextrose 2,000 mls @ 80 mls/hr 09/26/24 15:00 09/26/24 16:05 Clinimix E 4.25%/5% Solution IV CONT 80 mls/hr .Q24H RINA Administration Protocol Fat Emulsion Intravenous 250 mls @ 20.833 mls/hr 09/26/24 15:00 09/26/24 16:05 Lipids 20% IVPB 20.83 mls/hr Q24H RINA Administration Insulin Aspart 2 - 5 units 09/25/24 18:00 09/26/24 18:03 Insulin Aspart (*Bkc) 100 Units/Ml SUB-Q Not Given Q6HR [facility] Protocol Levothyroxine Sodium 75 mcg 09/20/24 06:30 09/25/24 19:44 Levothyroxine Sodium 75 Mcg Tablet PO Not Given DAILY@0630 [facility] Ondansetron HCl 4 mg 09/19/24 18:30 09/26/24 16:08 Ondansetron Inj 4 Mg/2 Ml Vial IV PUSH 4 mg Q4H PRN Administration Nausea And Vomiting Sodium Chloride 1,500 mg 09/24/24 09:00 09/24/24 10:20 Sodium Chloride 500 Mg Tablet PO 1,500 mg BID IRNA Administration Radiology Results: ITS Impressions Head CT 09/24/24 14:42 IMPRESSION: 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 Pharyngeal dysphagia with laryngeal penetration both during and after the swallow and small amount of silent aspiration following the swallow. Please correlate with speech pathologist findings and specific feeding recommendations. 2. Irregular mucosal contour at the pharynx raises concern for malignancy. Chest X-Ray 09/26/24 14:49 IMPRESSION: 1. Small bilateral pleural effusions and associated bibasilar atelectasis and/or pneumonia. 2. Cardiomegaly. Labs Labs: Laboratory Tests 09/26/24 06:43 WBC 11.6 H Hgb 10.4 L Hct 33.6 L Plt Count 275 Sodium 130 L Potassium 4.9 Chloride 103 Carbon Dioxide 23 Anion Gap 4 BUN 32 H Creatinine 1.90 H Estim Creat Clear Calc 31 Estimated GFR 34 L Glucose 145 H Calcium 8.7 Phosphorus 3.7 Magnesium 2.1 Total Bilirubin 0.6 AST 85 H ALT 39 Alkaline Phosphatase 55 Total Protein 6.0 L Albumin 2.9 L
[2024-09-26 12:03] LABS: Glucose Point of Care 147 mg/dl (65-105)
--- NOTE | 2024-09-26 12:03 | PCPTNOTE ---
The patient treatment was not able to be completed at this time due to patient fatigue. Patient states he feels very tired after participating in OT this morning and requests PT return later. SPO2:92% on 3L O2; HR:70-84bpm. Will plan to continue treatment per plan of care.
--- NOTE | 2024-09-26 13:46 | PCPTNOTE ---
Patient declined PT this afternoon stating I am too tired and I am done for the day. PT will continue to follow.
--- NOTE | 2024-09-26 14:02 | PM.IMPN ---
Progress Note: A&P Assessment and Plan (1) Acute hyponatremia: Code(s): E87.1 - Hypo-osmolality and hyponatremia Status: Acute Assessment and Plan: - add serum osmolality, urine osmolality, urine sodium, protein to creatinine ratio, urine creatinine - nephrology consulted - started on IV fluids: 1L bolus, 100 mL/hr x1L - trend sodium - neurological checks Q6H -monitor-stable sodium chloride 3% ordered per nephrology 09/22 na improved to 120- on po salt tabs as well. 09/23 stable- will be monitoring for now- ok to move out of IMU 09/24- na 123-126 this am 09/25- received iv fluids, will continue that as diminished oral intake na stable- improved to 130 09/26-stable (2) Hypokalemia: Code(s): E87.6 - Hypokalemia Status: Acute Assessment and Plan: - monitor-stable (3) Hypomagnesemia: Code(s): E83.42 - Hypomagnesemia Status: Acute Assessment and Plan: - Mag 1.4 - initial repletion with 1G IVPB - trend with daily labs (4) Generalized weakness: Code(s): R53.1 - Weakness Status: Acute Assessment and Plan: - viral PCR and UA pending - suspect generalized weakness is multifactorial including dehydration, hypomagnesemia and hyponatremia. Plan for electrolyte correction and IV fluids. 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 intake improved - home medication: Hold Trulicity (NF), hold metformin - correct regimen ordered - low dose TIDWM - A1C 6.7% on 01/17/2024 (7) CKD (chronic kidney disease) stage 3, GFR 30-59 ml/min: Qualifiers: Chronic kidney disease stage 3 subtype: unspecified whether 3a or 3b Qualified Code(s): N18.30 - Chronic kidney disease, stage 3 unspecified Code(s): N18.3 - Chronic kidney disease, stage 3 (moderate) Status: Acute Assessment and Plan: - creatinine 1.4 and GFR 48, previously 1.73 and GFR 39 on 01/17/2024 - trend renal function - trend electrolytes, correct as needed (8) HTN (hypertension): Qualifiers: Hypertension type: primary hypertension Qualified Code(s): I10 - Essential (primary) hypertension Code(s): I10 - Essential (primary) hypertension Status: Acute Assessment and Plan: - chronic, currently 112/62 - monitor as hypotensive this am hold bm meds if appropriate (9) Altered mental state: Code(s): R41.82 - Altered mental status, unspecified Status: Acute Assessment and Plan: 09/24 rapid response was called this am- as pt was diaphoretic, confused, low BP. He was drowsy and lethargic and c/o chest pain. EKG, trop, chest xray, abg, ct head, labs-ordered. BP improved to 120'70's and pt was able to answer all the questions for me- a bit slower with response but still able to. if improved and stable- will keep on medsurg tele continue tele monitoring chest xray- Small lung volumes with worsened airspace opacities in the lower lung zones, consistent with atelectasis versus pneumonia will treat for pneumonia see pneumonia plan (10) Pneumonia: Code(s): J18.9 - Pneumonia, unspecified organism Status: Acute Assessment and Plan: 09/24 diaphoretic, lethargic this am, low grade fever-99 coarse lung sounds, o2 decreased- required o2 supplement -chest xray ordered: Small lung volumes with worsened airspace opacities in the lower lung zones, consistent with atelectasis versus pneumonia will start antibiotics. unable to use zithromax ( QTC prolonged_ will order rocephin-renally dosed IV and doxy PO bs ordered-follow 09/25 zosyn and vanc IV now duoneds, continue oxygen, IS 12.10- failed swallow study- NPO for now. Discussed PEG tube- pt doesnot want it. Attempted multiple times to call to discuss=-always go to voicemail. Discussed with pt-as pt is alert/oriented- he is agreable to do PPN for now and work with speech therapy- repeat swallow studies in 1-2 days and see if improved. He is aware that if he continues to take oral intake- he will continue to aspirate. (11) Sepsis: Code(s): A41.9 - Sepsis, unspecified organism Status: Acute Assessment and Plan: very likely due to pneumonia ua still needs to be collected BC collected 09/24- no growth so far- will monitor fever, tachypnea, (12) Acute respiratory failure: Code(s): J96.00 - Acute respiratory failure, unspecified whether with hypoxia or hypercapnia Status: Acute Assessment and Plan: new oxygen requirement aspiration pneumonia vs HAP very likely due to pneumonia-undergoing immunotherapy with keytruda last round of keytruda caused him to be very weak and he was unable to eat/drink for over 2 weeks Antibiotics changed to zosyn and vanc yesterday pularlette lópez, IS. swallow eval. chest xray last evening was unchanged from am-monitor will moniotr for improvement on medsurg floor pt is at high risk for condition deterioration and might be needing intubation to secure airway will do swallow and MBS for evaluation for aspiration Plan Diet: Regular GI Prophylaxis: Not currently indicated DVT Prophylaxis: Continue home apixaban Lines: Peripheral Code Status: Full code Subjective Date/time seen: 09/26/24 14:02 Interval history: Follow-up for acute hyponatremia and chronic kidney disease Events noted overnight -- rapid response due to tachypnea in association with fevers; concern for possible pneumonia so antibiotics initiated; given fevers in association with poor oral intake (coupled with ordered fluid restriction) and the concern of volume depletion, normal saline IVFs initiated as well and salt tabs placed on hold; sodium has improved to 130mmol/L by recent labs; appears to be doing a bit better at the time of my visit. Review of Systems Review of Systems: weak, drowsy but alert this am- feeling somewhat better. All systems reviewed & are unremarkable except as noted in HPI and below Exam Narrative: rr improved, alert. Const: General: comfortable and no acute distress Other: , male, nontoxic appearance HENMT: Face/Nose/Sinus: Normal nares present Mouth: Yes moist mucous membranes Eyes: General: appearance normal, both eyes and all related structures Sclera: sclerae normal Pupils: Equal, round and reactive pupils present EOM: EOMs intact bilaterally Resp: Effort & Inspection: normal respiratory effort Auscultation: clear to auscultation bilaterally and crackles Cardio: Rate: regular rate Rhythm: regular rhythm Other: S1-S2 present without murmur, rub, ectopy GI: Other: Abdomen soft, nondistended, nontender. Normoactive bowel sounds all quadrants. Skin: General skin exam: normal color and no rashes or lesions noted Wounds: no wounds Neuro: Cranial nerves: Yes Equal, round and reactive pupils present Speech: normal speech Motor exam (neuro): 5/5 motor strength present throughout and Abnormal motor strength present (weak) Sensory Exam: normal sensation Other: A&O x4 Extrem: General: normal to inspection Psych: Mental Status: mental status grossly normal Affect: normal affect Other: Good insight and judgment, pleasant Objective Data Vital Signs Vital Signs: Vital Signs - 24 hr 09/25/24 14:21 09/25/24 14:30 09/25/24 16:00 Temperature Pulse Rate 72 64 74 Respiratory Rate 20 20 Blood Pressure Pulse Oximetry Oxygen Delivery Oxygen Flow Rate 09/25/24 19:32 09/25/24 19:32 09/25/24 19:38 Temperature Pulse Rate 68 74 Respiratory Rate 20 20 Blood Pressure Pulse Oximetry 95 Oxygen Delivery Nasal Cannula Oxygen Flow Rate 3 09/25/24 20:00 09/25/24 20:00 09/25/24 21:32 Temperature 98.8 F Pulse Rate 72 69 Respiratory Rate 24 H Blood Pressure 119/51 L Pulse Oximetry 93 93 Oxygen Delivery Nasal Cannula Oxygen Flow Rate 3 09/26/24 00:00 09/26/24 02:13 09/26/24 02:19 Temperature Pulse Rate 65 70 72 Respiratory Rate 16 16 Blood Pressure Pulse Oximetry Oxygen Delivery Oxygen Flow Rate 09/26/24 06:00 09/26/24 06:58 09/26/24 08:02 Temperature 98.6 F Pulse Rate 65 67 Respiratory Rate 20 Blood Pressure 130/51 L Pulse Oximetry 92 95 Oxygen Delivery Nasal Cannula Oxygen Flow Rate 3 09/26/24 08:02 09/26/24 08:10 Temperature Pulse Rate 88 89 Respiratory Rate 16 20 Blood Pressure Pulse Oximetry Oxygen Delivery Oxygen Flow Rate Intake/Output Intake/Output: Intake & Output 09/23/24 09/24/24 09/25/24 09/26/24 23:59 23:59 23:59 23:59 Intake Total 420 1118.3 2231.7 565.8 Output Total 280 150 Balance 420 1118.3 1951.7 415.8 Meds/Results Medications: Active Medications Generic Name Dose Route Start Last Admin Trade Name Freq PRN Reason Stop Dose Admin Acetaminophen 650 mg 09/21/24 14:23 09/24/24 20:34 Acetaminophen 325 Mg Tablet PO 650 mg Q4H PRN Administration Headache Albuterol/Ipratropium 3 ml 09/25/24 08:00 09/26/24 08:02 Ipratropium 0.5 Mg/Albuterol Sulfate 2.5 Mg Ampul.Neb 3 Ml INHALATION 3 ml Q6HRT RINA Administration Amlodipine Besylate 10 mg 09/20/24 09:00 09/26/24 08:42 Amlodipine Besylate 10 Mg Tablet PO 10 mg DAILY RINA Administration Apixaban 5 mg 09/19/24 22:35 09/26/24 08:42 Apixaban 5 Mg Tablet PO 5 mg Q12HR RINA Administration Benzocaine 1 lozenge 09/25/24 15:00 Benzocaine/Menthol (*Bkc) 18 Ea Lozenge PO PRN PRN Sore Throat Clotrimazole 1 applic 09/20/24 09:00 09/26/24 08:42 Betamethasone/Clotrimazole Cream 15 Gm Tube TOPICAL Not Given BID RINA Dextrose 12.5 gm 09/19/24 18:30 Dextrose 50% 25 Gm/50 Ml Syringe IV PUSH PRN PRN Hypoglycemia Protocol Glucagon 1 mg 09/19/24 18:30 Glucagon For Inj 1 Mg Vial IM PRN PRN Hypoglycemia Protocol Glucose 15 gm 09/19/24 18:30 Glucose Oral Gel 15 Gm Of Glucse In 37.5 Gm Tube PO PRN PRN Hypoglycemia Protocol Guaifenesin 600 mg 09/25/24 21:00 09/26/24 08:42 Guaifenesin 12 Hr 600 Mg Tabcr PO 600 mg Q12HR RINA Administration Dextrose 1,000 mls @ 100 mls/hr 09/19/24 18:30 Dextrose 5% 1,000 Ml IVPB PRN PRN Hypoglycemia Protocol Piperacillin Sod/Tazobactam Sod 2.25 gm in 50 mls @ 100 mls/hr 09/24/24 23:00 09/26/24 12:47 Zosyn 2.25 Gm/Ns 50 Ml IVPB 100 mls/hr Q6HR RINA Administration Sodium Chloride 1,000 mls @ 75 mls/hr 09/25/24 01:10 09/26/24 01:01 Normal Saline Iv IV CONT 75 mls/hr .[id number] RINA Infusion Insulin Aspart 2 - 5 units 09/25/24 18:00 09/26/24 08:08 Insulin Aspart (*Bkc) 100 Units/Ml SUB-Q Not Given Q6HR [facility] Protocol Levothyroxine Sodium 75 mcg 09/20/24 06:30 09/25/24 19:44 Levothyroxine Sodium 75 Mcg Tablet PO Not Given DAILY@0630 [facility] Ondansetron HCl 4 mg 09/19/24 18:30 09/23/24 12:28 Ondansetron Inj 4 Mg/2 Ml Vial IV PUSH 4 mg Q4H PRN Administration Nausea And Vomiting Sodium Chloride 1,500 mg 09/24/24 09:00 09/24/24 10:20 Sodium Chloride 500 Mg Tablet PO 1,500 mg BID RINA Administration Radiology Results: ITS Impressions Head CT 09/24/24 14:42 IMPRESSION: 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 Pharyngeal dysphagia with laryngeal penetration both during and after the swallow and small amount of silent aspiration following the swallow. Please correlate with speech pathologist findings and specific feeding recommendations. 2. Irregular mucosal contour at the pharynx raises concern for malignancy. Labs Labs: Laboratory Results - last 24 hr 09/25/24 09/25/24 09/25/24 06:37 06:40 16:27 WBC RBC Hgb Hct MCV MCH MCHC RDW Plt Count MPV Immature Gran % (Auto) Neut % (Auto) Lymph % (Auto) [place] % (Auto) Eos % (Auto) Baso % (Auto) Lymph # (Auto) [place] # (Auto) Eos # (Auto) Baso # (Auto) Abs Immat Gran (auto) Absolute Neuts (auto) Absolute Nucleated RBC Nucleated RBC % Sodium Potassium Chloride Carbon Dioxide Anion Gap BUN Creatinine Estim Creat Clear Calc Estimated GFR Glucose POC Capillary Glucose 164 H Calcium Phosphorus Magnesium Iron 16 L TIBC 248 L % Saturation 6 L Ferritin 405.00 H Total Bilirubin AST ALT Alkaline Phosphatase Total Protein Albumin Vitamin B12 446.0 Folate 10.3 09/25/24 09/25/24 09/26/24 19:10 23:54 05:13 WBC RBC Hgb Hct MCV MCH MCHC RDW Plt Count MPV Immature Gran % (Auto) Neut % (Auto) Lymph % (Auto) [place] % (Auto) Eos % (Auto) Baso % (Auto) Lymph # (Auto) [place] # (Auto) Eos # (Auto) Baso # (Auto) Abs Immat Gran (auto) Absolute Neuts (auto) Absolute Nucleated RBC Nucleated RBC % Sodium Potassium Chloride Carbon Dioxide Anion Gap BUN Creatinine Estim Creat Clear Calc Estimated GFR Glucose POC Capillary Glucose 156 H 156 H 153 H Calcium Phosphorus Magnesium Iron TIBC % Saturation Ferritin Total Bilirubin AST ALT Alkaline Phosphatase Total Protein Albumin Vitamin B12 Folate 09/26/24 09/26/24 06:43 11:50 WBC 11.6 H RBC 3.33 L Hgb 10.4 L Hct 33.6 L MCV 100.9 H D MCH 31.2 MCHC 31.0 L RDW 13.3 Plt Count 275 MPV 9.9 Immature Gran % (Auto) 0.9 H Neut % (Auto) 66.0 Lymph % (Auto) 4.9 L [place] % (Auto) 10.1 H Eos % (Auto) 17.5 H Baso % (Auto) 0.6 Lymph # (Auto) 0.57 L [place] # (Auto) 1.2 H Eos # (Auto) 2.0 H Baso # (Auto) 0.1 Abs Immat Gran (auto) 0.10 H Absolute Neuts (auto) 7.6 H Absolute Nucleated RBC 0.000 Nucleated RBC % 0.0 Sodium 130 L Potassium 4.9 Chloride 103 Carbon Dioxide 23 Anion Gap 4 BUN 32 H Creatinine 1.90 H Estim Creat Clear Calc 31 Estimated GFR 34 L Glucose 145 H POC Capillary Glucose 147 H Calcium 8.7 Phosphorus 3.7 Magnesium 2.1 Iron TIBC % Saturation Ferritin Total Bilirubin 0.6 AST 85 H ALT 39 Alkaline Phosphatase 55 Total Protein 6.0 L Albumin 2.9 L Vitamin B12 Folate Quality VTE Prophylaxis VTE prophylaxis: pharmacologic ordered
[2024-09-26 14:44] LABS: Basophils Absolute Auto 0.1 K/mm3 (0.0-0.1); Basophils Percent Auto 0.4 % (0.2-1.2); Eosinophils Absolute Auto 1.9 K/mm3 (0-0.3); Eosinophils Percent Auto 15.1 % (0-4.4); Hematocrit 31.8 % (42.0-52.0); Hemoglobin 10.6 g/dL (14.0-18.0); Immature Granulocyte Absolute 0.07 K/mm3 (0.00-0.031); Immature Granulocyte Percent A 0.5 % (0-0.5); Mean Corpuscular HGB Conc 33.3 g/dl (32-36); Mean Platelet Volume 9.6 fl (7.4-10.4); Monocytes Absolute Auto 1.1 K/mm3 (0.1-0.6); Monocytes Percent Auto 8.3 % (2.6-8.5); Neutrophils Absolute Auto 8.8 K/mm3 (1.3-6.7); Neutrophils Percent Auto 68.7 % (45.5-73.1); Platelet Count Result 304 k/mm3 (150-375); Red Blood Count 3.42 M/mm3 (4.6-6.20); Red Cell Distribution Width 13.3 % (11.5-14.5); White Blood Count 12.9 K/mm3 (4.5-10.0)
[2024-09-26 14:56] LABS: Alanine Aminotransferase 54 U/L (6-50); Albumin Level 2.9 g/dL (3.5-5.1); Alkaline Phosphatase 60 U/L (38-126); Anion Gap 3 mmol/L (4-12); Aspartate Amino Transferase 114 U/L (17-59); Bilirubin,Total 0.8 mg/dL (0.2-1.3); Blood Urea Nitrogen 32 mg/dL (9-20); Calcium 8.9 mg/dL (8.4-10.2); Carbon Dioxide 26 mmol/L (22-30); Chloride 103 mmol/L (98-107); Estimated CRCL calculation 31 ml/min; Estimated Glomerular Filt Rate 34; Glucose 143 mg/dL (65-110); Potassium 4.7 mmol/L (3.4-5.0); Sodium 132 mmol/L (137-145)
[2024-09-26 14:58] LABS: Partial Thromboplastin Time 53.7 Seconds (22.3-36.8)
[2024-09-26 15:05] LABS: Transferrin 158 mg/dL (206-381)
[2024-09-26] MEDS: AMINO ACIDS 4.25%/D5W/LYTES/CA 2,000 ML 80 ML IV CONT (16:05)
[2024-09-26] MEDS: FAT EMULSIONS IV 20% 250 ML 20.83 ML IVPB (16:05)
[2024-09-26] MEDS: ONDANSETRON INJ 4 MG/2 ML VIAL IV PUSH (16:08)
[2024-09-26 18:04] LABS: Glucose Point of Care 190 mg/dl (65-105)
[2024-09-27] VITALS (29 sets, daily range): BP systolic 109–136; BP diastolic 43–69; PULSE 65–93; RESP 20–40; TEMP 36.4–39.2; O2SAT 93–100
[2024-09-27] MEDS: IPRATROPIUM 0.5 MG/ALBUTEROL SULFATE 2.5 MG AMPUL.NEB 3 ML INHALATION ×4 (01:48→20:44)
[2024-09-27 02:26] LABS: Alveolar/Arterial O2 Gradient 252.5 mmHg; Base Excess ABG -1.9 mEq/l (+/-2.0); Carboxyhemoglobin 0.4 % THb (0-2.0); Fractional Inspired Oxygen 50 %; HCO3 ABG 21.1 mEq/l (22.0-26.0); Oxygen Content ABG 15.9 %vol (16.0-22.0); Oxygen Saturation ABG 95.1 % (95.0-100.0); Oxyhemoglobin 94.1 % THb (90.0-100.0); PCO2 ABG 30.3 mmHg (35.0-45.0); PO2 ABG 69.9 mmHg (80.0-100.0); Reduced Hemoglobin 5.5 %THb (0-5.0)
[2024-09-27 02:27] LABS: Device NON-INVASIVE VENT; Modified Allen's Test Pass; Site Drawn RIGHT RADIAL
[2024-09-27 02:28] LABS: Non-Invasive Expiratory Pressure 6 CMH2O; Non-Invasive Inspiratory Pressure 16 CMH2O; Non-Invasive Vent Rate 18 /MIN
[2024-09-27] MEDS: FUROSEMIDE INJ 40 MG/4 ML VIAL IV PUSH (02:45)
[2024-09-27] MEDS: INSULIN ASPART (*BKC) 100 UNITS/ML SUB-Q (02:48)
[2024-09-27 02:56] LABS: Glucose Point of Care 215 mg/dl (65-105)
--- NOTE | 2024-09-27 05:22 | PC.NURSE ---
Spoke with Dr. Allison at this time r/t current VS: T 102.5 R 40 HR 82 BP 130/59 Spo2 94% on 4L. New orders received for tylenol suppository 650 mg and morphine 1 mg IVP once.
[2024-09-27 05:31] LABS: Glucose Point of Care 197 mg/dl (65-105)
[2024-09-27] MEDS: MORPHINE SULFATE (*CRX) 2 MG/ML INJ 1 MG IV PUSH (05:36)
[2024-09-27] MEDS: PIPERACILLIN/TAZ 2.25G/NS 50ML 2.25 GM/50 ML BAG IVPB ×3 (05:37→17:52)
[2024-09-27] MEDS: ACETAMINOPHEN 650 MG SUPPOSITORY RECTAL (05:37)
[2024-09-27 07:02] LABS: Basophils Absolute Auto 0.1 K/mm3 (0.0-0.1); Basophils Percent Auto 0.6 % (0.2-1.2); Eosinophils Percent Auto 6.8 % (0-4.4); Hematocrit 31.9 % (42.0-52.0); Hemoglobin 10.8 g/dL (14.0-18.0); Immature Granulocyte Absolute 0.09 K/mm3 (0.00-0.031); Immature Granulocyte Percent A 0.6 % (0-0.5); Lymphocytes Absolute Auto 0.56 K/mm3 (0.9-3.2); Mean Corpuscular HGB Conc 33.9 g/dl (32-36); Mean Corpuscular Hemoglobin 31.8 pg (26-34); Mean Corpuscular Volume 93.8 fl (80-100); Mean Platelet Volume 9.6 fl (7.4-10.4); Monocytes Percent Auto 6.8 % (2.6-8.5); Neutrophils Absolute Auto 11.4 K/mm3 (1.3-6.7); Neutrophils Percent Auto 81.2 % (45.5-73.1); Platelet Count Result 318 k/mm3 (150-375); Red Cell Distribution Width 13.2 % (11.5-14.5); White Blood Count 14.1 K/mm3 (4.5-10.0)
[2024-09-27 07:16] LABS: Alanine Aminotransferase 53 U/L (6-50); Albumin Level 2.9 g/dL (3.5-5.1); Alkaline Phosphatase 68 U/L (38-126); Anion Gap 5 mmol/L (4-12); Aspartate Amino Transferase 81 U/L (17-59); Bilirubin,Total 0.7 mg/dL (0.2-1.3); Blood Urea Nitrogen 31 mg/dL (9-20); Calcium 8.8 mg/dL (8.4-10.2); Carbon Dioxide 24 mmol/L (22-30); Chloride 102 mmol/L (98-107); Estimated CRCL calculation 31 ml/min; Estimated Glomerular Filt Rate 34; Glucose 182 mg/dL (65-110); Phosphorus 3.4 mg/dL (2.5-4.5); Potassium 4.4 mmol/L (3.4-5.0); Sodium 131 mmol/L (137-145)
--- NOTE | 2024-09-27 09:04 | P.PNIM_ITS ---
Progress Note: A&P Assessment and Plan (1) Sepsis: Code(s): A41.9 - Sepsis, unspecified organism Status: Acute Assessment and Plan: Meets SIRS criteria: Febrile 102.5, leukocytosis, tachypnea, Hypotension - lactic acid: 1.3 on 09/24, repeat 1.1 - suspected source: pneumonia - blood cultures drawn on 09/24: NGTD - repeat blood cultures drawn on 09/27: ordered - Urine culture 09/25: negative - Repeat urine culture ordered - CXR 09/26: Small bilateral pleural effusions and associated bibasilar atelectasis and/or pneumonia. Cardiomegaly. - CXR 09/27: Small bilateral pleural effusions with mild pulmonary edema. - Chest CTA: 1. No pulmonary embolism. 2. Bilateral moderate pleural effusion with adjacent atelectasis versus pneumonia. 3. Possible soft tissue density in the right false vocal cord area. Clinical evaluation advised. (2) Acute respiratory failure: Code(s): J96.00 - Acute respiratory failure, unspecified whether with hypoxia or hypercapnia Status: Acute Assessment and Plan: new oxygen requirement of 6L simple face mask aspiration pneumonia vs HAP vs pleural effusion 2/2 infection vs cancer very likely due to pneumonia-undergoing immunotherapy with keytruda last round of keytruda caused him to be very weak and he was unable to eat/drink for over 2 weeks Antibiotics changed to zosyn and vanc, vanc discontinued pulm toilet, duonebs, IS. ABG ph 7.460, pCO2 30.3, pO2 69.9, HCO3 21.1 CXR 09/26: Small bilateral pleural effusions and associated bibasilar atelectasis and/or pneumonia. Cardiomegaly. CXR 09/27: Small bilateral pleural effusions with mild pulmonary edema. Chest CTA 09/27: 1. No pulmonary embolism. 2. Bilateral moderate pleural effusion with adjacent atelectasis versus pneumonia. 3. Possible soft tissue density in the right false vocal cord area. Clinical evaluation advised. Pt is at high risk for condition deterioration and might be needing intubation to secure airway MBS: Pharyngeal dysphagia with laryngeal penetration both during and after the swallow and small amount of silent aspiration following the swallow. Irregular mucosal contour at the pharynx raises concern for malignancy. 09/26- failed swallow study- NPO for now. Prior provider discussed PEG tube- pt does not want it. Attempted multiple times to call to discuss=-always go to voicemail. Discussed with pt-as pt is alert/oriented- he is agreeable to do PPN for now and work with speech therapy- repeat swallow studies in 1-2 days and see if improved. He is aware that if he continues to take oral intake- he will continue to aspirate. (3) Altered mental state: Code(s): R41.82 - Altered mental status, unspecified Status: Acute Assessment and Plan: 09/24 rapid response was called this am- as pt was diaphoretic, confused, low BP. He was drowsy and lethargic and c/o chest pain. EKG, trop, chest xray, abg, ct head, labs-ordered. BP improved to 120'70's and pt was able to answer all the questions for me- a bit slower with response but still able to. continue tele monitoring chest xray- Small lung volumes with worsened airspace opacities in the lower lung zones, consistent with atelectasis versus pneumonia will treat for pneumonia see pneumonia plan (4) Pneumonia: Code(s): J18.9 - Pneumonia, unspecified organism Status: Acute Assessment and Plan: - CXR 09/26: Small bilateral pleural effusions and associated bibasilar atelectasis and/or pneumonia. Cardiomegaly. - CXR 09/27: Small bilateral pleural effusions with mild pulmonary edema. - Chest CTA: 1. No pulmonary embolism. 2. Bilateral moderate pleural effusion with adjacent atelectasis versus pneumonia. 3. Possible soft tissue density in the right false vocal cord area. Clinical evaluation advised. - Risk Factors: immunocompromised, extended hospitalization - started on HAP tx: vanc and zosyn, MRSA negative DC vanc - Viral PCR: negative for Flu/COVID/RSV - New oxygen requirement of 5 L NC, baseline room air - Monitor vital signs, I&Os, neuro status and patient is a fall risk - Follow WBC, serum electrolytes, temperature curves and cultures 09/26- failed swallow study- NPO for now. Prior provider discussed PEG tube- pt does not want it. Attempted multiple times to call to discuss=-always go to voicemail. Discussed with pt-as pt is alert/oriented- he is agreeable to do PPN for now and work with speech therapy- repeat swallow studies in 1-2 days and see if improved. He is aware that if he continues to take oral intake- he will continue to aspirate. 09/27- Patient having increased work of breathing with resp rate 36bpm on assessment. Oxygen increased to 6L NC. Patient speaking full sentences. Lungs are course with bilateral crackles. Chest CTA ordered and results are as above. Thoracentesis ordered, eliquis placed on hold and SCDs started PPN placed on hold as possible source of volume overload (5) Acute hyponatremia: Code(s): E87.1 - Hypo-osmolality and hyponatremia Status: Acute Assessment and Plan: Na 115 on admission - add serum osmolality, urine osmolality, urine sodium, protein to creatinine ratio, urine creatinine - started on IV fluids: 1L bolus, 100 mL/hr x1L - trend sodium - neurological checks Q6H - monitor-stable - nephrology consulted sodium chloride 3% ordered per nephrology 09/22 na improved to 120- on po salt tabs as well. 09/27-stable (6) Hypokalemia: Code(s): E87.6 - Hypokalemia Status: Acute Assessment and Plan: - monitor-stable (7) Hypomagnesemia: Code(s): E83.42 - Hypomagnesemia Status: Acute Assessment and Plan: - Mag 1.4 - initial repletion with 1G IVPB - trend with daily labs (8) CKD (chronic kidney disease) stage 3, GFR 30-59 ml/min: Qualifiers: Chronic kidney disease stage 3 subtype: unspecified whether 3a or 3b Qualified Code(s): N18.30 - Chronic kidney disease, stage 3 unspecified Code(s): N18.3 - Chronic kidney disease, stage 3 (moderate) Status: Acute Assessment and Plan: - creatinine 1.9 and GFR 34, previously 1.73 and GFR 39 on 01/17/2024 - worsening kidney function likely secondary to antibiotic regimen, vanc discontinued given MRSA negative - trend renal function - trend electrolytes, correct as needed (9) HTN (hypertension): Qualifiers: Hypertension type: primary hypertension Qualified Code(s): I10 - Essential (primary) hypertension Code(s): I10 - Essential (primary) hypertension Status: Acute Assessment and Plan: - chronic, currently holding antihypertensives as patients has been hypotensive - monitor (10) Generalized weakness: Code(s): R53.1 - Weakness Status: Acute Assessment and Plan: - viral PCR and UA pending - suspect generalized weakness is multifactorial including dehydration, hypomagnesemia and hyponatremia. Plan for electrolyte correction and IV fluids. continue working with pt/ot (11) Type 2 diabetes mellitus: Qualifiers: Diabetes mellitus complication status: without complication Diabetes mellitus joint terminal attack controller insulin use: without joint terminal attack controller use Qualified Code(s): E11.9 - Type 2 diabetes mellitus without complications Code(s): E11.9 - Type 2 diabetes mellitus without complications Status: Acute Assessment and Plan: - hypoglycemia protocol - POC blood glucose q.6 hour until p.o. 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 - scrap cutter consulted - Consult oncology to help optimizing therapy for immunocompromised pt follow-up with his oncologist at [facility] after the discharge. Plan Diet: Regular GI Prophylaxis: Not currently indicated DVT Prophylaxis: Continue home apixaban Lines: Peripheral Code Status: Full code Time Spent With Patient Time with patient: Greater than 35 minutes Subjective Date/time seen: 09/27/24 09:04 Interval history: 84 y/o M presents here with with dizziness and generalized weakness with PMH of CAD, chronic AFib, CKD, diabetes, hyperlipidemia, and throat cancer. Received phone call from patients RN that he is severely short of breath requiring increased oxygen requirement. Upon arrival to patients room he is AOx3. Breathing approximately 36 bpm. Lungs are coarse with noted crackles bilaterally. He is able to talk full sentences. Patient endorses feeling short of breath but has no other complaints denying chest pain, palpitations, nausea/vomiting, and abdominal pain. Chest CTA ordered to rule out PE and better evaluate the lungs. Patient transferred to IMU for closer monitoring. Returned to patients room. He remains on 6 L but is now breathing a regular rate per minute. Discussed with him that his CT showed effusions and he will require a thoracentesis. He states understanding. Patients eliquis and PPN placed on hold. Review of Systems Review of Systems: All systems reviewed & are unremarkable except as noted in HPI and below Exam Narrative: AF HR 69 RR 22 SPO2 98 6L face mask BP 117/56 General: male who is nontoxic appearing, sitting up in bed HEENT: Normocephalic. Atraumatic. Extraocular movement intact. Sclera clear and anicteric. . No facial asymmetry. Chest: Lungs are coarse with crackles to auscultation bilaterally. No wheezes. CV: Heart was regular rate and rhythm. S1/S2. No murmurs, gallops, or rubs. Abd: Abdomen was soft. Nontender. Nondistended. Positive bowel sounds. No organomegaly or masses. Ext: No clubbing, cyanosis, or edema. 2+ DP pulses bilaterally. Neuro: Patient is alert and oriented x3 but confused with further discussion. Cranial nerves 2-12 are intact. Speech is clear. Objective Data Vital Signs Vital Signs: Vital Signs - 24 hr 09/26/24 12:00 09/26/24 14:00 09/26/24 14:07 Temperature 97.7 F Pulse Rate 75 75 67 Respiratory Rate 20 20 Blood Pressure 149/62 H Pulse Oximetry 94 Oxygen Delivery Oxygen Flow Rate 09/26/24 14:15 09/26/24 16:00 09/26/24 20:00 Temperature Pulse Rate 73 74 Respiratory Rate 20 Blood Pressure Pulse Oximetry 92 Oxygen Delivery Nasal Cannula Oxygen Flow Rate 4 09/26/24 20:00 09/26/24 20:12 09/26/24 21:53 Temperature 98.9 F Pulse Rate 62 68 75 Respiratory Rate 44 H 26 H Blood Pressure 155/71 H Pulse Oximetry 94 Oxygen Delivery Oxygen Flow Rate 09/26/24 21:56 09/26/24 22:06 09/27/24 00:00 Temperature Pulse Rate 71 71 Respiratory Rate 26 H Blood Pressure Pulse Oximetry 92 Oxygen Delivery Nasal Cannula Oxygen Flow Rate 4 09/27/24 01:48 09/27/24 01:58 09/27/24 02:05 Temperature Pulse Rate 79 83 88 Respiratory Rate 35 H 35 H 29 H Blood Pressure Pulse Oximetry 94 Oxygen Delivery BiPAP Oxygen Flow Rate 09/27/24 02:37 09/27/24 04:00 09/27/24 04:00 Temperature 97.9 F 102.5 F H Pulse Rate 80 87 82 Respiratory Rate 32 H 40 H Blood Pressure 124/53 L 130/59 L Pulse Oximetry 100 94 Oxygen Delivery Oxygen Flow Rate 09/27/24 04:11 09/27/24 08:00 Temperature 97.5 F L Pulse Rate 75 Respiratory Rate 29 H Blood Pressure 109/58 L Pulse Oximetry 93 97 Oxygen Delivery Nasal Cannula Oxygen Flow Rate 5 Intake/Output Intake/Output: Intake & Output 09/24/24 09/25/24 09/26/24 09/27/24 23:59 23:59 23:59 23:59 Intake Total 1118.3 2231.7 665.8 100 Output Total 280 550 Balance 1118.3 1951.7 115.8 100 Meds/Results Medications: Active Medications Generic Name Dose Route Start Last Admin Trade Name Freq PRN Reason Stop Dose Admin Acetaminophen 650 mg 09/21/24 14:23 09/24/24 20:34 Acetaminophen 325 Mg Tablet PO 650 mg Q4H PRN Administration Headache Acetaminophen 650 mg 09/27/24 05:21 09/27/24 05:37 Acetaminophen 650 Mg Suppository RECTAL 650 mg Q6H PRN Administration Mild Pain (1-3) or Fever Albuterol/Ipratropium 3 ml 09/25/24 08:00 09/27/24 01:48 Ipratropium 0.5 Mg/Albuterol Sulfate 2.5 Mg Ampul.Neb 3 Ml INHALATION 3 ml Q6HRT RINA Administration Amlodipine Besylate 10 mg 09/20/24 09:00 09/26/24 08:42 Amlodipine Besylate 10 Mg Tablet PO 10 mg DAILY RINA Administration Apixaban 5 mg 09/19/24 22:35 09/26/24 20:56 Apixaban 5 Mg Tablet PO Not Given Q12HR RINA Benzocaine 1 lozenge 09/25/24 15:00 Benzocaine/Menthol (*Bkc) 18 Ea Lozenge PO PRN PRN Sore Throat Clotrimazole 1 applic 09/20/24 09:00 09/26/24 17:57 Betamethasone/Clotrimazole Cream 15 Gm Tube TOPICAL Not Given BID RINA Dextrose 12.5 gm 09/19/24 18:30 Dextrose 50% 25 Gm/50 Ml Syringe IV PUSH PRN PRN Hypoglycemia Protocol Glucagon 1 mg 09/19/24 18:30 Glucagon For Inj 1 Mg Vial IM PRN PRN Hypoglycemia Protocol Glucose 15 gm 09/19/24 18:30 Glucose Oral Gel 15 Gm Of Glucse In 37.5 Gm Tube PO PRN PRN Hypoglycemia Protocol Guaifenesin 600 mg 09/25/24 21:00 09/26/24 20:56 Guaifenesin 12 Hr 600 Mg Tabcr PO Not Given Q12HR RINA Dextrose 1,000 mls @ 100 mls/hr 09/19/24 18:30 Dextrose 5% 1,000 Ml IVPB PRN PRN Hypoglycemia Protocol Piperacillin Sod/Tazobactam Sod 2.25 gm in 50 mls @ 100 mls/hr 09/24/24 23:00 09/27/24 06:07 Zosyn 2.25 Gm/Ns 50 Ml IVPB Infused Q6HR RINA Infusion Dextrose 1,000 mls @ 50 mls/hr 09/26/24 14:00 Dextrose 10% IV CONT .Q20H PRN if PN is interrupted Amino Acids/Electrolytes/Dextrose 2,000 mls @ 80 mls/hr 09/26/24 15:00 09/26/24 16:05 Clinimix E 4.25%/5% Solution IV CONT 80 mls/hr .Q24H RINA Administration Protocol Fat Emulsion Intravenous 250 mls @ 20.833 mls/hr 09/26/24 15:00 09/26/24 16:05 Lipids 20% IVPB 20.83 mls/hr Q24H RINA Administration Insulin Aspart 2 - 5 units 09/25/24 18:00 09/27/24 06:27 Insulin Aspart (*Bkc) 100 Units/Ml SUB-Q Not Given Q6HR [facility] Protocol Levothyroxine Sodium 75 mcg 09/20/24 06:30 09/27/24 06:27 Levothyroxine Sodium 75 Mcg Tablet PO Not Given DAILY@0630 [facility] Ondansetron HCl 4 mg 09/19/24 18:30 09/26/24 16:08 Ondansetron Inj 4 Mg/2 Ml Vial IV PUSH 4 mg Q4H PRN Administration Nausea And Vomiting Sodium Chloride 1,500 mg 09/24/24 09:00 09/24/24 10:20 Sodium Chloride 500 Mg Tablet PO 1,500 mg BID RINA Administration Radiology Results: ITS Impressions Head CT 09/24/24 14:42 IMPRESSION: 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 Pharyngeal dysphagia with laryngeal penetration both during and after the swallow and small amount of silent aspiration following the swallow. Please correlate with speech pathologist findings and specific feeding recommendations. 2. Irregular mucosal contour at the pharynx raises concern for malignancy. Chest X-Ray 09/27/24 06:20 Impression: Small bilateral pleural effusions with mild pulmonary edema. Labs Labs: Laboratory Results - last 24 hr 09/26/24 09/26/24 09/26/24 11:50 14:32 17:59 WBC 12.9 H RBC 3.42 L Hgb 10.6 L Hct 31.8 L MCV 93.0 D MCH 31.0 MCHC 33.3 RDW 13.3 Plt Count 304 MPV 9.6 Immature Gran % (Auto) 0.5 Neut % (Auto) 68.7 Lymph % (Auto) 7.0 L [place] % (Auto) 8.3 Eos % (Auto) 15.1 H Baso % (Auto) 0.4 Lymph # (Auto) 0.90 [place] # (Auto) 1.1 H Eos # (Auto) 1.9 H Baso # (Auto) 0.1 Abs Immat Gran (auto) 0.07 H Absolute Neuts (auto) 8.8 H Absolute Nucleated RBC 0.000 Nucleated RBC % 0.0 APTT 53.7 H Puncture Site ABG pH ABG pCO2 ABG pO2 ABG PO2/FiO2 Ratio ABG HCO3 ABG O2 Saturation ABG O2 Content ABG Base Excess A-a Gradient Oxyhemoglobin Carboxyhemoglobin Methemoglobin Reduced Hemoglobin Total Hemoglobin O2 Delivery Device O2 Liters/Min Vent Rate FiO2 Expiratory Pressure Inspiratory Pressure Sodium 132 L Potassium 4.7 Chloride 103 Carbon Dioxide 26 Anion Gap 3 L BUN 32 H Creatinine 1.90 H Estim Creat Clear Calc 31 Estimated GFR 34 L Glucose 143 H POC Capillary Glucose 147 H 190 H Calcium 8.9 Phosphorus Magnesium 2.0 Transferrin 158 L Total Bilirubin 0.8 AST 114 H ALT 54 H Alkaline Phosphatase 60 Total Protein 7.0 Albumin 2.9 L 09/27/24 09/27/24 09/27/24 02:20 02:44 05:09 WBC RBC Hgb Hct MCV MCH MCHC RDW Plt Count MPV Immature Gran % (Auto) Neut % (Auto) Lymph % (Auto) [place] % (Auto) Eos % (Auto) Baso % (Auto) Lymph # (Auto) [place] # (Auto) Eos # (Auto) Baso # (Auto) Abs Immat Gran (auto) Absolute Neuts (auto) Absolute Nucleated RBC Nucleated RBC % APTT Puncture Site Right radial ABG pH 7.460 H ABG pCO2 30.3 L ABG pO2 69.9 L ABG PO2/FiO2 Ratio 1.40 ABG HCO3 21.1 L ABG O2 Saturation 95.1 ABG O2 Content 15.9 L ABG Base Excess -1.9 A-a Gradient 252.5 Oxyhemoglobin 94.1 Carboxyhemoglobin 0.4 Methemoglobin 0.0 Reduced Hemoglobin 5.5 H Total Hemoglobin 12.0 O2 Delivery Device Non-invasive vent O2 Liters/Min Not Reportable Vent Rate 18 FiO2 50 Expiratory Pressure 6 Inspiratory Pressure 16 Sodium Potassium Chloride Carbon Dioxide Anion Gap BUN Creatinine Estim Creat Clear Calc Estimated GFR Glucose POC Capillary Glucose 215 H 197 H Calcium Phosphorus Magnesium Transferrin Total Bilirubin AST ALT Alkaline Phosphatase Total Protein Albumin 09/27/24 06:36 WBC 14.1 H RBC 3.40 L Hgb 10.8 L Hct 31.9 L MCV 93.8 MCH 31.8 MCHC 33.9 RDW 13.2 Plt Count 318 MPV 9.6 Immature Gran % (Auto) 0.6 H Neut % (Auto) 81.2 H Lymph % (Auto) 4.0 L [place] % (Auto) 6.8 Eos % (Auto) 6.8 H Baso % (Auto) 0.6 Lymph # (Auto) 0.56 L [place] # (Auto) 1.0 H Eos # (Auto) 1.0 H Baso # (Auto) 0.1 Abs Immat Gran (auto) 0.09 H Absolute Neuts (auto) 11.4 H Absolute Nucleated RBC 0.000 Nucleated RBC % 0.0 APTT Puncture Site ABG pH ABG pCO2 ABG pO2 ABG PO2/FiO2 Ratio ABG HCO3 ABG O2 Saturation ABG O2 Content ABG Base Excess A-a Gradient Oxyhemoglobin Carboxyhemoglobin Methemoglobin Reduced Hemoglobin Total Hemoglobin O2 Delivery Device O2 Liters/Min Vent Rate FiO2 Expiratory Pressure Inspiratory Pressure Sodium 131 L Potassium 4.4 Chloride 102 Carbon Dioxide 24 Anion Gap 5 BUN 31 H Creatinine 1.90 H Estim Creat Clear Calc 31 Estimated GFR 34 L Glucose 182 H POC Capillary Glucose Calcium 8.8 Phosphorus 3.4 Magnesium Transferrin Total Bilirubin 0.7 AST 81 H ALT 53 H Alkaline Phosphatase 68 Total Protein 6.0 L Albumin 2.9 L Quality VTE Prophylaxis VTE prophylaxis: mechanical ordered
[2024-09-27 10:27] LABS: Lactic Acid Reflex 1.1 mmol/L (0.7-2.0)
--- NOTE | 2024-09-27 10:59 | PCPTNOTE ---
Patient out of room for testing. RN reports to hold PT due to change in patient's medical status.
[2024-09-27 11:40] LABS: Glucose Point of Care 172 mg/dl (65-105)
--- NOTE | 2024-09-27 12:41 | PCOTNOTE ---
Per RN, Patient is not to be seen. Patient running a fever, has a decline in status and may be transferred down to IMU.
--- NOTE | 2024-09-27 12:53 | P.PNNP_ITS ---
Progress Note: A&P Assessment and Plan (1) Hyponatremia: Code(s): E87.1 - Hypo-osmolality and hyponatremia Status: Acute Assessment and Plan: * improving * sodium normal ~ 8 months * risk factors for low sodium: * prerenal factors/diminished oral intake * malignancy (throat cancer) * HCTZ use * history of thyroid disease * excessive free water intake * chemotherapy (pembrolizumab) * s/p trial of normal saline IVFs - only mild improvement * evaluation to date: * TSH okay * cortisol low - will recheck (may need to check stim test) * SPEP pending; UPEP negative * serum osmo 247; urine osmo 355; urine sodium 85 -- suggestive of SIADH * urine electrolytes indeterminate for prerenal azotemia * s/p intermittent 3% saline infusions PRN * off salt tabs but on fluid restriction (given NPO status) * follow trend of repeat sodium levels (2) Chronic kidney disease, stage 3: Code(s): N18.30 - Chronic kidney disease, stage 3 unspecified Status: Chronic Assessment and Plan: * baseline creatinine seems to run ~ 1.4 - 1.8mg/dl for the last several years * this causes him to fluctuate between CKD stage 3A and stage 3B * presumably due to HTN, DM, vascular disease, and age-related change (3) Sepsis: Code(s): A41.9 - Sepsis, unspecified organism Status: Acute Assessment and Plan: * as noted by fever, elevated WBC, tachypnea, and relative hypotension * pneumonia suspected source * follow culture date * on antibiotics * follow trend of hemodynamics (4) Acute respiratory failure: Code(s): J96.00 - Acute respiratory failure, unspecified whether with hypoxia or hypercapnia Status: Acute Assessment and Plan: * as noted in the last 24 hours * suspect multiple possible etiologies: * aspiration pneumonia * hospital acquired pneumonia * pleural effusions * CHF * cancer-related (immunosuppressed state) * already on antibiotics * imaging to date noted: * CXR (09/26) with dmall bilateral pleural effusions and associated bibasilar atelectasis and/or pneumonia; cardiomegaly * CXR (09/27) with small bilateral pleural effusions with mild pulmonary edema * Chest CTA (09/27) with no pulmonary embolism, bilateral moderate pleural effusion with adjacent atelectasis versus pneumonia, possible soft tissue density in the right false vocal cord area * at risk for intubation/mechanical ventilation * NPO currently due to aspiration risk (5) Hypokalemia: Code(s): E87.6 - Hypokalemia Status: Acute Assessment and Plan: * resolved * noted on admission * likely exacerbated by low magnesium and poor oral intake * replacement as needed * follow trend (6) Generalized weakness: Code(s): R53.1 - Weakness Status: Acute Assessment and Plan: * presumably due to volume depletion and possibly electrolyte abnormalities along with underlying malgnancy * follow clinical symptoms * PT/OT as tolerated (7) 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, unspecified Status: Acute Assessment and Plan: * currently undergoing chemo at [facility] * suspect poor PO intake secondary to chemotherapy * antiemetics as needed (8) HTN (hypertension): Qualifiers: Hypertension type: primary hypertension Qualified Code(s): I10 - Essential (primary) hypertension Code(s): I10 - Essential (primary) hypertension Status: Acute Assessment and Plan: * reasonable control * hold HCTZ due to #1 * hold ARB due to fluctuating creatinine and previous hypotension * follow trend of hemodynamics (9) Type 2 diabetes mellitus: Qualifiers: Diabetes mellitus complication status: without complication Diabetes mellitus usp insulin use: without rat exterminator use Qualified Code(s): E11.9 - Type 2 diabetes mellitus without complications Code(s): E11.9 - Type 2 diabetes mellitus without complications Status: Acute Assessment and Plan: * follow accu-cheks * glycemic control per hospitalists Will continue to follow. Subjective Date/time seen: 09/27/24 12:53 Interval history: Follow-up for acute hyponatremia and chronic kidney disease. Overall, clinical status seems to have deteriorated since I last saw him -- noted ongoing issues with worsening respiratory status associated with tachypnea as well as hypoxia requiring increasing oxygen requirements (on 6L by face mask); fever (102.5?) earlier this morning as well; remains NPO and on PPN due to aspiration risk as noted by recent MBS as well; renal function/creatinine as well as sodium level relatively stable at this time; informed by nursing that he is being moved to IMU for closer monitoring. Exam 2 Narrative: General: elderly but WD/WN male in NAD Heart: normal S1 and S2; no rub Lungs: coarse breath sounds Abdomen: soft, nontender, nondistended, positive bowel sounds Extremities: no cyanosis or clubbing; no edema Skin: no rash Objective Data Vital Signs Vital Signs: Vital Signs Temp Pulse Resp BP Pulse Ox O2 Del Method O2 Flow Rate 09/27/24 12:00 73 09/27/24 09:31 73 22 H 09/27/24 09:23 81 28 H 09/27/24 09:23 96 Simple Face Mask 6 09/27/24 08:00 76 09/27/24 08:00 36 H 97 Simple Face Mask 6 09/27/24 08:00 97.5 F L 75 29 H 109/58 L 97 09/27/24 07:20 97 Simple Face Mask 6 09/27/24 04:11 93 Nasal Cannula 5 09/27/24 04:00 102.5 F H 82 40 H 130/59 L 94 09/27/24 04:00 87 09/27/24 02:37 97.9 F 80 32 H 124/53 L 100 09/27/24 02:05 88 29 H 94 BiPAP 09/27/24 01:58 83 35 H 09/27/24 01:48 79 35 H 09/27/24 00:00 71 09/26/24 22:06 71 26 H 09/26/24 21:56 92 Nasal Cannula 4 09/26/24 21:53 75 26 H 09/26/24 20:12 98.9 F 68 44 H 155/71 H 94 09/26/24 20:00 62 09/26/24 20:00 92 Nasal Cannula 4 09/26/24 16:00 74 Intake/Output Intake/Output: Intake & Output 09/24/24 09/25/24 09/26/24 09/27/24 23:59 23:59 23:59 23:59 Intake Total 1118.3 2231.7 665.8 100 Output Total 280 550 400 Balance 1118.3 1951.7 115.8 -300 Meds/Results Medications: Active Medications Generic Name Dose Route Start Last Admin Trade Name Freq PRN Reason Stop Dose Admin Acetaminophen 650 mg 09/21/24 14:23 09/24/24 20:34 Acetaminophen 325 Mg Tablet PO 650 mg Q4H PRN Administration Headache Acetaminophen 650 mg 09/27/24 05:21 09/27/24 05:37 Acetaminophen 650 Mg Suppository RECTAL 650 mg Q6H PRN Administration Mild Pain (1-3) or Fever Albuterol/Ipratropium 3 ml 09/25/24 08:00 09/27/24 14:08 Ipratropium 0.5 Mg/Albuterol Sulfate 2.5 Mg Ampul.Neb 3 Ml INHALATION 3 ml Q6HRT RINA Administration Amlodipine Besylate 10 mg 09/20/24 09:00 09/27/24 12:36 Amlodipine Besylate 10 Mg Tablet PO Not Given DAILY RINA Apixaban 5 mg 09/19/24 22:35 09/27/24 12:36 Apixaban 5 Mg Tablet PO Not Given Q12HR RINA Benzocaine 1 lozenge 09/25/24 15:00 Benzocaine/Menthol (*Bkc) 18 Ea Lozenge PO PRN PRN Sore Throat Clotrimazole 1 applic 09/20/24 09:00 09/27/24 12:37 Betamethasone/Clotrimazole Cream 15 Gm Tube TOPICAL Not Given BID RINA Dextrose 12.5 gm 09/19/24 18:30 Dextrose 50% 25 Gm/50 Ml Syringe IV PUSH PRN PRN Hypoglycemia Protocol Glucagon 1 mg 09/19/24 18:30 Glucagon For Inj 1 Mg Vial IM PRN PRN Hypoglycemia Protocol Glucose 15 gm 09/19/24 18:30 Glucose Oral Gel 15 Gm Of Glucse In 37.5 Gm Tube PO PRN PRN Hypoglycemia Protocol Guaifenesin 600 mg 09/25/24 21:00 09/27/24 12:37 Guaifenesin 12 Hr 600 Mg Tabcr PO Not Given Q12HR RINA Dextrose 1,000 mls @ 100 mls/hr 09/19/24 18:30 Dextrose 5% 1,000 Ml IVPB PRN PRN Hypoglycemia Protocol Piperacillin Sod/Tazobactam Sod 2.25 gm in 50 mls @ 100 mls/hr 09/24/24 23:00 09/27/24 12:45 Zosyn 2.25 Gm/Ns 50 Ml IVPB 100 mls/hr Q6HR RINA Administration Dextrose 1,000 mls @ 50 mls/hr 09/26/24 14:00 Dextrose 10% IV CONT .Q20H PRN if PN is interrupted Amino Acids/Electrolytes/Dextrose 2,000 mls @ 80 mls/hr 09/26/24 15:00 09/26/24 16:05 Clinimix E 4.25%/5% Solution IV CONT 80 mls/hr .Q24H [facility] Administration Protocol Fat Emulsion Intravenous 250 mls @ 20.833 mls/hr 09/26/24 15:00 09/26/24 16:05 Lipids 20% IVPB 20.83 mls/hr Q24H [facility] Administration Insulin Aspart 2 - 5 units 09/25/24 18:00 09/27/24 12:37 Insulin Aspart (*Bkc) 100 Units/Ml SUB-Q Not Given Q6HR [facility] Protocol Levothyroxine Sodium 75 mcg 09/20/24 06:30 09/27/24 06:27 Levothyroxine Sodium 75 Mcg Tablet PO Not Given DAILY@0630 [facility] Ondansetron HCl 4 mg 09/19/24 18:30 09/26/24 16:08 Ondansetron Inj 4 Mg/2 Ml Vial IV PUSH 4 mg Q4H PRN Administration Nausea And Vomiting Sodium Chloride 1,500 mg 09/24/24 09:00 09/24/24 10:20 Sodium Chloride 500 Mg Tablet PO 1,500 mg BID [facility] Administration Sodium Chloride 6 ml 09/28/24 05:00 Sodium Chlor 3% 15 Ml Neb (Respiratory Therapy) INHALATION 09/30/24 05:01 DAILY@0500 [facility] Radiology Results: ITS Impressions Head CT 09/24/24 14:42 IMPRESSION: 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 Pharyngeal dysphagia with laryngeal penetration both during and after the swallow and small amount of silent aspiration following the swallow. Please correlate with speech pathologist findings and specific feeding recommendations. 2. Irregular mucosal contour at the pharynx raises concern for malignancy. Chest X-Ray 09/27/24 06:20 Impression: Small bilateral pleural effusions with mild pulmonary edema. Chest CTA 09/27/24 11:04 IMPRESSION: 1. No pulmonary embolism. 2. Bilateral moderate pleural effusion with adjacent atelectasis versus pneumonia. 3. Possible soft tissue density in the right false vocal cord area. Clinical evaluation advised. Labs Labs: Laboratory Tests 09/27/24 06:36 09/27/24 06:36 Lactic Acid 1.1 Calcium 8.8 Phosphorus 3.4 Total Bilirubin 0.7 AST 81 H ALT 53 H Alkaline Phosphatase 68 Total Protein 6.0 L Albumin 2.9 L Microbiology 09/25/24 03:25 Clean Catch Midstream Urine Culture - Final
--- NOTE | 2024-09-27 13:02 | PC.NURSE ---
This patient, Shon German, was received from [[phone] ] on 09/27/24 at 1303. Patient/family oriented to unit policies and routines. Report received from CRYSTAL Campos @ [phone]
--- NOTE | 2024-09-27 14:33 | PCSTNOTE ---
Speech treatment not attempted this after; patient had rapid response this morning, RN reports he has had difficulty breathing all day, transferred to IMU and on mask for oxygen and asleep this afternoon. Will attempt a speech treatment tomorrow morning.
[2024-09-27 18:39] LABS: Glucose Point of Care 141 mg/dl (65-105)
[2024-09-27 20:34] LABS: Glucose Point of Care 144 mg/dl (65-105)
[2024-09-27] MEDS: guaiFENesin 12 HR 600 MG TABCR PO (20:41)
[2024-09-27 22:27] LABS: Triglycerides 82 mg/dL (<150)
[2024-09-28] VITALS (24 sets, daily range): BP systolic 92–135; BP diastolic 41–76; PULSE 63–89; RESP 18–22; TEMP 36.6–37.8; O2SAT 93–100
--- NOTE | 2024-09-28 | ECHO_ITS ---
Patient Info Name: Shon German Age: 84 years : 1940 Gender: Male Ht: 70 in Wt: 216 lbs BSA: 2.23 m2 HR: 70 bpm BP: 135 / 55 mmHg Technical Quality: Fair Exam Date: 09/28/2024 11:40 AM Exam Location: Echo Lab Patient Status: Inpatient Admit Date: 09/20/2024 Staff Ordering Physician: Gillian Palomino PA-C Port Engineer: Adriana Robertson RDCS Attending Provider: Gillian Palomino PA-C Referring Physician: Georgette MCKAY; Exam Type: CA echo doppler color flow Study Info Indications J90 - Pleural effusion, not elsewhere classified Complete two-dimensional, color flow and Doppler transthoracic echocardiogram is performed. Summary 1. Complete two-dimensional, color flow and Doppler transthoracic echocardiogram is performed. 2. Left ventricular chamber dimension is normal. 3. Left ventricular systolic function is normal, estimated at 60-65%. 4. There is mild concentric increased left ventricular wall thickness. 5. The left ventricular diastolic function is abnormal. 6. E/e' 10 is mildly elevated. 7. Left atrial chamber dimension is moderately enlarged. 8. There is mild aortic valve sclerosis. 9. The mitral valve has mildly calcified annulus. 10. There is trace mitral valve regurgitation. 11. There is mild tricuspid valve regurgitation. 12. Mild pulmonary hypertension, estimated pulmonary arterial systolic pressure is 46 mmHg. Left Ventricle E/e' 10 is mildly elevated. Left ventricular chamber dimension is normal. Left ventricular systolic function is normal, estimated at 60-65%. There is mild concentric increased left ventricular wall thickness. The left ventricular diastolic function is abnormal. Right Ventricle Right ventricular chamber dimension is normal. Right ventricular systolic function is normal. Left Atria Left atrial chamber dimension is moderately enlarged. Right Atria Right atrial chamber dimension is normal. Aortic Valve The aortic valve is trileaflet. There is mild aortic valve sclerosis. There is no aortic valve stenosis. There is no aortic valve regurgitation. Pulmonic Valve There is no pulmonic regurgitation. Mitral Valve The mitral valve has mildly calcified annulus. There is no mitral valve stenosis. There is trace mitral valve regurgitation. Tricuspid Valve There is mild tricuspid valve regurgitation. Mild pulmonary hypertension, estimated pulmonary arterial systolic pressure is 46 mmHg. Pericardium/Pleural There is no pericardial effusion. Inferior Vena Cava Normal inferior vena cava with >50% collapse upon inspiration consistent with normal right atrial pressure, 5 mmHg. Aorta The aortic root size at the sinus of Valsalva is normal. Left Ventricular Outflow Tract Name Value Normal LVOT 2D LVOT Diameter 2.0 cm LVOT Doppler LVOT Peak Gradient 5 mmHg LVOT Mean Gradient 2 mmHg LVOT VTI 16 cm LVOT VTI/AV VTI Ratio 0.7 LVOT Stroke Volume 52 ml LVOT CO 3.6 l/min LVOT CI 1.6 l/min/m2 Pulmonic Valve Name Value Normal PV Doppler PV Peak Gradient 4 mmHg PV Regurgitation Doppler DC Peak End Diastolic Velocity 69 cm/s Mitral Valve Name Value Normal MV Doppler MV Decel Bradford 648 cm/s2 MV PHT 57 ms MV Area (PHT) 3.9 cm2 4.0-5.0 MV Diastolic Function MV E Peak Velocity 127 cm/s MV A Peak Velocity 1 cm/s MV E/A 140.2 MV Decel Time 195 ms Tricuspid Valve Name Value Normal TV Regurgitation Doppler TR Peak Velocity 319 cm/s TR Peak Gradient 24 mmHg Estimated PAP/RSVP RA Pressure 5 mmHg <=5 PA Systolic Pressure 46 mmHg <36 RV Systolic Pressure 46 mmHg <36 Aorta Name Value Normal Ascending Aorta Ao Root Diameter (MM) 3.2 cm Ao Root Diam Index (MM) 1.4 cm/m2 Aortic Valve Name Value Normal AV Doppler AV Peak Velocity 145 cm/s AV Peak Gradient 8 mmHg AV Mean Gradient 5 mmHg AV VTI 24 cm AV Area (Cont Eq VTI) 2.2 cm2 >=3.0 AV Area (Cont Eq Cristian) 2.3 cm2 AV Regurgitation 2D LVOT Area 3.2 cm2 Ventricles Name Value Normal LV Dimensions 2D/MM IVS Diastolic Thickness (2D) 1.2 cm 0.6-1.0 IVS Diastole Thickness (MM) 1.2 cm 0.6-1.0 LVID Diastole (2D) 4.0 cm 4.2-5.8 LVID Diastole (MM) 3.7 cm 4.2-5.8 LVIW Diastolic Thickness (2D) 1.2 cm 0.6-1.0 LVIW Diastolic Thickness (MM) 1.2 cm 0.6-1.0 LVID Systole (2D) 2.5 cm 2.5-4.0 LVID Systole (MM) 2.1 cm 2.5-4.0 LVOT Diameter 2.0 cm LV Mass (2D Cubed) 164.09 g 88.00-224.00 LV Mass Index (2D Cubed) 74 g/m2 49-115 Relative Wall Thickness (2D) 0.59 LV Mass (MM Cubed) 157.70 g 88.00-224.00 LV Mass Index (MM Cubed) 71 g/m2 49-115 Relative Wall Thickness (MM) 0.66 LV Fractional Shortening/Ejection Fraction 2D/MM LV Fractional Shortening (2D) 37 % 25-43 LV Fractional Shortening (MM) 43 % 25-43 LV EF (MM Teicholz) 75 % 52-72 LV EF (2D Teicholz) 68 % 52-72 LV Diastolic Volume (4C MOD) 68 ml LV EF (4C MOD) 63 % LV Diastolic Volume (2C MOD) 53 ml LV EF (2C MOD) 64 % LV Diastolic Volume (BP MOD) 61 ml 62-150 LV Diastolic Volume Index (BP MOD) 27 ml/m2 34-74 LV Systolic Volume (BP MOD) 23 ml 21-61 LV Systolic Volume Index (BP MOD) 10 ml/m2 11-31 LV EF (BP MOD) 62 % 52-72 LV Diastolic Length (4C) 8.6 cm LV Systolic Length (4C) 7.4 cm LV Stroke Volume (4C MOD) 43 ml Atria Name Value Normal LA Dimensions LA Dimension (MM) 4.3 cm 3.0-4.1 LA Volume (4C A-L) 91 ml LA Volume (BP A-L) 77 ml RA Dimensions RA Area (4C) 14.2 cm2 <=18.0 Report Signatures
[2024-09-28] MEDS: PIPERACILLIN/TAZ 2.25G/NS 50ML 2.25 GM/50 ML BAG IVPB ×4 (01:04→17:21)
[2024-09-28] MEDS: IPRATROPIUM 0.5 MG/ALBUTEROL SULFATE 2.5 MG AMPUL.NEB 3 ML INHALATION ×4 (02:28→20:56)
[2024-09-28 04:54] LABS: Basophils Absolute Auto 0.1 K/mm3 (0.0-0.1); Basophils Percent Auto 0.5 % (0.2-1.2); Eosinophils Absolute Auto 2.8 K/mm3 (0-0.3); Eosinophils Percent Auto 18.5 % (0-4.4); Hematocrit 31.1 % (42.0-52.0); Hemoglobin 10.5 g/dL (14.0-18.0); Immature Granulocyte Percent A 0.7 % (0-0.5); Lymphocytes Absolute Auto 0.64 K/mm3 (0.9-3.2); Lymphocytes Percent Auto 4.2 % (18.3-44.2); Mean Corpuscular HGB Conc 33.8 g/dl (32-36); Mean Corpuscular Hemoglobin 31.4 pg (26-34); Mean Corpuscular Volume 93.1 fl (80-100); Mean Platelet Volume 9.6 fl (7.4-10.4); Monocytes Absolute Auto 0.9 K/mm3 (0.1-0.6); Neutrophils Absolute Auto 10.7 K/mm3 (1.3-6.7); Neutrophils Percent Auto 70.1 % (45.5-73.1); Platelet Count Result 329 k/mm3 (150-375); Red Blood Count 3.34 M/mm3 (4.6-6.20); Red Cell Distribution Width 13.2 % (11.5-14.5); White Blood Count 15.3 K/mm3 (4.5-10.0)
[2024-09-28 05:07] LABS: Alanine Aminotransferase 47 U/L (6-50); Albumin Level 2.9 g/dL (3.5-5.1); Alkaline Phosphatase 59 U/L (38-126); Anion Gap 5 mmol/L (4-12); Aspartate Amino Transferase 67 U/L (17-59); Bilirubin,Total 0.7 mg/dL (0.2-1.3); Blood Urea Nitrogen 33 mg/dL (9-20); Calcium 9.2 mg/dL (8.4-10.2); Carbon Dioxide 27 mmol/L (22-30); Chloride 103 mmol/L (98-107); Estimated CRCL calculation 31 ml/min; Estimated Glomerular Filt Rate 34; Glucose 126 mg/dL (65-110); Magnesium 2.2 mg/dL (1.6-2.3); Phosphorus 4.2 mg/dL (2.5-4.5); Potassium 4.5 mmol/L (3.4-5.0); Sodium 135 mmol/L (137-145)
[2024-09-28 05:19] LABS: Anisocytosis 1+; Burr Cells 1+; Platelet Estimate Adequate (Adequate)
[2024-09-28 05:20] LABS: Ovalocytes 1+
[2024-09-28 05:21] LABS: Schistocytes None Seen
[2024-09-28 05:51] LABS: INR 1.7; Prothrombin Time 20.1 Seconds (11.1-14.7)
[2024-09-28 05:52] LABS: Partial Thromboplastin Time 60.2 Seconds (22.3-36.8)
--- NOTE | 2024-09-28 07:31 | PM.IMPN ---
Progress Note: A&P Assessment and Plan (1) Sepsis: Code(s): A41.9 - Sepsis, unspecified organism Status: Acute Assessment and Plan: Meets SIRS criteria: Febrile 102.5, leukocytosis, tachypnea, Hypotension - lactic acid: 1.3 on 09/24, repeat 1.1 - suspected source: pneumonia - blood cultures drawn on 09/24: NGTD - repeat blood cultures drawn on 09/27: ordered - Urine culture 09/25: negative - Repeat urine culture ordered - CXR 09/26: Small bilateral pleural effusions and associated bibasilar atelectasis and/or pneumonia. Cardiomegaly. - CXR 09/27: Small bilateral pleural effusions with mild pulmonary edema. - Chest CTA: 1. No pulmonary embolism. 2. Bilateral moderate pleural effusion with adjacent atelectasis versus pneumonia. 3. Possible soft tissue density in the right false vocal cord area. Clinical evaluation advised. (2) Altered mental state: Code(s): R41.82 - Altered mental status, unspecified Status: Acute Assessment and Plan: 09/24 rapid response was called this am- as pt was diaphoretic, confused, low BP. He was drowsy and lethargic and c/o chest pain. EKG, trop, chest xray, abg, ct head, labs-ordered. BP improved to 120'70's and pt was able to answer all the questions for me- a bit slower with response but still able to. continue tele monitoring chest xray- Small lung volumes with worsened airspace opacities in the lower lung zones, consistent with atelectasis versus pneumonia will treat for pneumonia see pneumonia plan (3) Acute respiratory failure: Code(s): J96.00 - Acute respiratory failure, unspecified whether with hypoxia or hypercapnia Status: Acute Assessment and Plan: new oxygen requirement of 3L simple face mask aspiration pneumonia vs HAP vs pleural effusion 2/2 infection vs cancer very likely due to pneumonia-undergoing immunotherapy with keytruda last round of keytruda caused him to be very weak and he was unable to eat/drink for over 2 weeks Antibiotics changed to zosyn and vanc, vanc discontinued pulm toilet, duonebs, IS. ABG ph 7.460, pCO2 30.3, pO2 69.9, HCO3 21.1 CXR 09/26: Small bilateral pleural effusions and associated bibasilar atelectasis and/or pneumonia. Cardiomegaly. Pt is at high risk for condition deterioration and might be needing intubation to secure airway MBS: Pharyngeal dysphagia with laryngeal penetration both during and after the swallow and small amount of silent aspiration following the swallow. Irregular mucosal contour at the pharynx raises concern for malignancy. 09/26- failed swallow study- NPO for now. Prior provider discussed PEG tube- pt does not want it. Attempted multiple times to call to discuss=-always go to voicemail. Discussed with pt-as pt is alert/oriented- he is agreeable to do PPN for now and work with speech therapy- repeat swallow studies in 1-2 days and see if improved. He is aware that if he continues to take oral intake- he will continue to aspirate. CXR 09/27: Small bilateral pleural effusions with mild pulmonary edema. Chest CTA 09/27: 1. No pulmonary embolism. 2. Bilateral moderate pleural effusion with adjacent atelectasis versus pneumonia. 3. Possible soft tissue density in the right false vocal cord area. Clinical evaluation advised. 09/28: Patient to undergo a thoracentesis today. (4) Bilateral pleural effusion: Code(s): J90 - Pleural effusion, not elsewhere classified Status: Acute Assessment and Plan: 09/27- Patient having increased work of breathing with resp rate 36bpm on assessment. Oxygen increased to 6L NC. Patient speaking full sentences. Lungs are course with bilateral crackles. CXR 09/27: Small bilateral pleural effusions with mild pulmonary edema. Chest CTA 09/27: 1. No pulmonary embolism. 2. Bilateral moderate pleural effusion with adjacent atelectasis versus pneumonia. 3. Possible soft tissue density in the right false vocal cord area. Clinical evaluation advised. Echo: LVEF 60-65% with abnormal diastolic function and mild pulmonary hypertension Eliquis placed on hold and SCDs started PPN placed on hold as possible source of volume overload Patient to undergo a thoracentesis 09/28 Oxygen supplementation now 3L NC, normal respiration rate (5) Pneumonia: Code(s): J18.9 - Pneumonia, unspecified organism Status: Acute Assessment and Plan: - CXR 09/26: Small bilateral pleural effusions and associated bibasilar atelectasis and/or pneumonia. Cardiomegaly. - CXR 09/27: Small bilateral pleural effusions with mild pulmonary edema. - Chest CTA: 1. No pulmonary embolism. 2. Bilateral moderate pleural effusion with adjacent atelectasis versus pneumonia. 3. Possible soft tissue density in the right false vocal cord area. Clinical evaluation advised. - Risk Factors: immunocompromised, extended hospitalization - started on HAP tx: vanc and zosyn on 09/24, MRSA negative DC vanc on 09/27 - Viral PCR: negative for Flu/COVID/RSV - New oxygen requirement of 5 L NC, baseline room air - Monitor vital signs, I&Os, neuro status and patient is a fall risk - Follow WBC, serum electrolytes, temperature curves and cultures 09/26- failed swallow study- NPO for now. Prior provider discussed PEG tube- pt does not want it. Attempted multiple times to call to discuss=-always go to voicemail. Discussed with pt-as pt is alert/oriented- he is agreeable to do PPN for now and work with speech therapy- repeat swallow studies in 1-2 days and see if improved. He is aware that if he continues to take oral intake- he will continue to aspirate. (6) Acute hyponatremia: Code(s): E87.1 - Hypo-osmolality and hyponatremia Status: Acute Assessment and Plan: Na 115 on admission - add serum osmolality, urine osmolality, urine sodium, protein to creatinine ratio, urine creatinine - started on IV fluids: 1L bolus, 100 mL/hr x1L - trend sodium - neurological checks Q6H - monitor-stable - nephrology consulted sodium chloride 3% ordered per nephrology 09/22 na improved to 120- on po salt tabs as well. 09/28-stable (7) Hypokalemia: Code(s): E87.6 - Hypokalemia Status: Acute Assessment and Plan: - K 4.5 on am labs - stable - trend with daily labs (8) Hypomagnesemia: Code(s): E83.42 - Hypomagnesemia Status: Acute Assessment and Plan: - Mag 2.2 on am labs - trend with daily labs (9) CKD (chronic kidney disease) stage 3, GFR 30-59 ml/min: Qualifiers: Chronic kidney disease stage 3 subtype: unspecified whether 3a or 3b Qualified Code(s): N18.30 - Chronic kidney disease, stage 3 unspecified Code(s): N18.3 - Chronic kidney disease, stage 3 (moderate) Status: Acute Assessment and Plan: BUN/Cr WNL on admission. Baseline appears to be around 1.3-1.7. - creatinine 1.9 and GFR 34 on am labs, previously 1.73 and GFR 39 on 01/17/2024 - worsening kidney function likely secondary to antibiotic regimen, vanc discontinued given MRSA negative - trend renal function - trend electrolytes, correct as needed (10) HTN (hypertension): Qualifiers: Hypertension type: primary hypertension Qualified Code(s): I10 - Essential (primary) hypertension Code(s): I10 - Essential (primary) hypertension Status: Acute Assessment and Plan: - chronic, currently holding antihypertensives as patients has been hypotensive - monitor (11) Generalized weakness: Code(s): R53.1 - Weakness Status: Acute Assessment and Plan: - viral PCR and UA negative - suspect generalized weakness is multifactorial including dehydration, hypomagnesemia and hyponatremia. Plan for electrolyte correction and IV fluids. continue working with pt/ot (12) Type 2 diabetes mellitus: Qualifiers: Diabetes mellitus complication status: without complication Diabetes mellitus manager long term care insulin use: without manager long term care use Qualified Code(s): E11.9 - Type 2 diabetes mellitus without complications Code(s): E11.9 - Type 2 diabetes mellitus without complications Status: Acute Assessment and Plan: - hypoglycemia protocol - POC blood glucose q.6 hour until p.o. 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 - supervisor communications and signals consulted - Consult oncology to help optimizing therapy for immunocompromised pt follow-up with his oncologist at [facility] after the discharge. Plan Diet: Regular GI Prophylaxis: Not currently indicated DVT Prophylaxis: Continue home apixaban Lines: Peripheral Code Status: Full code Time Spent With Patient Time with patient: 25 - 35 minutes Subjective Date/time seen: 09/28/24 07:31 Interval history: 84 y/o M presents here with with dizziness and generalized weakness with PMH of CAD, chronic AFib, CKD, diabetes, hyperlipidemia, and throat cancer. Patient is pleasant sitting up in his bed. He continue to endorse shortness of breath, but notes that it has improved from yesterday morning. He is to undergo a thoracentesis this afternoon. He has no other complaints denying chest pain, palpitations, nausea/vomiting and abdominal pain. Review of Systems Review of Systems: All systems reviewed & are unremarkable except as noted in HPI and below Exam Narrative: AF HR 77 RR 20 SpO2 93 3L NC BP 132/65 General: male who is nontoxic appearing, sitting up in bed HEENT: Normocephalic. Atraumatic. Extraocular movement intact. Sclera clear and anicteric. . No facial asymmetry. Chest: Lungs are diminished in the cuppers and coarse with crackles to auscultation bilaterally. No wheezes. CV: Heart was regular rate and rhythm. S1/S2. No murmurs, gallops, or rubs. Abd: Abdomen was soft. Nontender. Nondistended. Positive bowel sounds. No organomegaly or masses. Ext: No clubbing, cyanosis, or edema. 2+ DP pulses bilaterally. Neuro: Patient is alert and oriented x3 but confused with further discussion. Cranial nerves 2-12 are intact. Speech is clear. Objective Data Vital Signs Vital Signs: Vital Signs - 24 hr 09/27/24 08:00 09/27/24 08:00 09/27/24 08:00 Temperature 97.5 F L Pulse Rate 75 76 Respiratory Rate 29 H 36 H Blood Pressure 109/58 L Pulse Oximetry 97 97 Oxygen Delivery Simple Face Mask Oxygen Flow Rate 6 09/27/24 09:23 09/27/24 09:23 09/27/24 09:31 Temperature Pulse Rate 81 73 Respiratory Rate 28 H 22 H Blood Pressure Pulse Oximetry 96 Oxygen Delivery Simple Face Mask Oxygen Flow Rate 6 09/27/24 12:00 09/27/24 13:05 09/27/24 13:40 Temperature 98.4 F Pulse Rate 73 69 Respiratory Rate 22 H Blood Pressure 117/56 L Pulse Oximetry 98 98 Oxygen Delivery Simple Face Mask Oxygen Flow Rate 6 09/27/24 14:00 09/27/24 14:09 09/27/24 14:19 Temperature Pulse Rate 93 66 68 Respiratory Rate 22 H 20 Blood Pressure Pulse Oximetry Oxygen Delivery Oxygen Flow Rate 09/27/24 14:59 12/11/24 16:00 09/27/24 16:00 Temperature 97.7 F Pulse Rate 67 67 70 Respiratory Rate 22 H 22 H Blood Pressure 126/43 L Pulse Oximetry 100 98 Oxygen Delivery High Flow Nasal Cannula Oxygen Flow Rate 6 09/27/24 17:00 09/27/24 18:00 09/27/24 20:00 Temperature Pulse Rate 80 69 Respiratory Rate Blood Pressure Pulse Oximetry 97 Oxygen Delivery High Flow Nasal Cannula Oxygen Flow Rate 4 09/27/24 20:10 09/27/24 20:35 09/27/24 20:54 Temperature 98.0 F Pulse Rate 80 66 72 Respiratory Rate 22 H 22 H 22 H Blood Pressure 132/53 L Pulse Oximetry 97 96 Oxygen Delivery High Flow Nasal Cannula Oxygen Flow Rate 4 09/27/24 20:58 09/27/24 22:00 09/27/24 23:32 Temperature Pulse Rate 78 65 65 Respiratory Rate 22 H 22 H Blood Pressure Pulse Oximetry 98 Oxygen Delivery High Flow Nasal Cannula Oxygen Flow Rate 4 09/27/24 23:40 09/28/24 00:00 09/28/24 02:00 Temperature 97.8 F Pulse Rate 80 63 65 Respiratory Rate 22 H Blood Pressure 136/69 Pulse Oximetry 97 Oxygen Delivery Oxygen Flow Rate 09/28/24 04:00 09/28/24 04:19 09/28/24 04:30 Temperature 97.8 F Pulse Rate 73 76 76 Respiratory Rate 18 18 Blood Pressure 135/55 L Pulse Oximetry 97 97 Oxygen Delivery High Flow Nasal Cannula Oxygen Flow Rate 4 09/28/24 05:57 Temperature Pulse Rate 70 Respiratory Rate Blood Pressure Pulse Oximetry Oxygen Delivery Oxygen Flow Rate Intake/Output Intake/Output: Intake & Output 09/25/24 09/26/24 09/27/24 09/28/24 23:59 23:59 23:59 23:59 Intake Total 2231.7 665.8 200 50 Output Total 280 550 600 800 Balance 1951.7 115.8 400 750 Meds/Results Medications: Active Medications Generic Name Dose Route Start Last Admin Trade Name Freq PRN Reason Stop Dose Admin Acetaminophen 650 mg 09/27/24 05:21 09/27/24 05:37 Acetaminophen 650 Mg Suppository RECTAL 650 mg Q6H PRN Administration Mild Pain (1-3) or Fever Albuterol/Ipratropium 3 ml 09/25/24 08:00 09/28/24 02:28 Ipratropium 0.5 Mg/Albuterol Sulfate 2.5 Mg Ampul.Neb 3 Ml INHALATION 3 ml Q6HRT RINA Administration Amlodipine Besylate 10 mg 09/20/24 09:00 09/27/24 12:36 Amlodipine Besylate 10 Mg Tablet PO Not Given DAILY RINA Apixaban 5 mg 09/19/24 22:35 09/27/24 12:36 Apixaban 5 Mg Tablet PO Not Given Q12HR RINA Benzocaine 1 lozenge 09/25/24 15:00 Benzocaine/Menthol (*Bkc) 18 Ea Lozenge PO PRN PRN Sore Throat Clotrimazole 1 applic 09/20/24 09:00 09/27/24 17:52 Betamethasone/Clotrimazole Cream 15 Gm Tube TOPICAL 1 applic BID RINA Administration Dextrose 12.5 gm 09/19/24 18:30 Dextrose 50% 25 Gm/50 Ml Syringe IV PUSH PRN PRN Hypoglycemia Protocol Glucagon 1 mg 09/19/24 18:30 Glucagon For Inj 1 Mg Vial IM PRN PRN Hypoglycemia Protocol Glucose 15 gm 09/19/24 18:30 Glucose Oral Gel 15 Gm Of Glucse In 37.5 Gm Tube PO PRN PRN Hypoglycemia Protocol Guaifenesin 600 mg 09/25/24 21:00 09/27/24 20:41 Guaifenesin 12 Hr 600 Mg Tabcr PO 600 mg Q12HR RINA Administration Dextrose 1,000 mls @ 100 mls/hr 09/19/24 18:30 Dextrose 5% 1,000 Ml IVPB PRN PRN Hypoglycemia Protocol Piperacillin Sod/Tazobactam Sod 2.25 gm in 50 mls @ 100 mls/hr 09/24/24 23:00 09/28/24 05:55 Zosyn 2.25 Gm/Ns 50 Ml IVPB 100 mls/hr Q6HR RINA Administration Dextrose 1,000 mls @ 50 mls/hr 09/26/24 14:00 Dextrose 10% IV CONT .Q20H PRN if PN is interrupted Amino Acids/Electrolytes/Dextrose 2,000 mls @ 80 mls/hr 09/26/24 15:00 09/27/24 15:53 Clinimix E 4.25%/5% Solution IV CONT Not Given .Q24H [facility] Protocol Fat Emulsion Intravenous 250 mls @ 20.833 mls/hr 09/26/24 15:00 09/27/24 15:34 Lipids 20% IVPB Not Given Q24H [facility] Insulin Aspart 2 - 5 units 09/25/24 18:00 09/28/24 05:55 Insulin Aspart (*Bkc) 100 Units/Ml SUB-Q Not Given Q6HR [facility] Protocol Levothyroxine Sodium 56 mcg 09/28/24 06:30 09/28/24 05:55 Levothyroxine Sodium Inj 100 Mcg/5 Ml Vial IV PUSH Not Given DAILY@0630 [facility] Ondansetron HCl 4 mg 09/19/24 18:30 09/26/24 16:08 Ondansetron Inj 4 Mg/2 Ml Vial IV PUSH 4 mg Q4H PRN Administration Nausea And Vomiting Perflutren Lipid Microsphere 0 ml 09/27/24 16:17 Perflutren Lipid Microspheres 1.5 Ml Vial Diluted To 10 Ml Total Volume IV PUSH 09/30/24 16:17 ONCE PRN adequate visualization Protocol Sodium Chloride 1,500 mg 09/24/24 09:00 09/24/24 10:20 Sodium Chloride 500 Mg Tablet PO 1,500 mg BID [facility] Administration Sodium Chloride 6 ml 09/28/24 05:00 Sodium Chlor 3% 15 Ml Neb (Respiratory Therapy) INHALATION 09/30/24 05:01 DAILY@0500 [facility] Radiology Results: ITS Impressions Head CT 09/24/24 14:42 IMPRESSION: 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 Pharyngeal dysphagia with laryngeal penetration both during and after the swallow and small amount of silent aspiration following the swallow. Please correlate with speech pathologist findings and specific feeding recommendations. 2. Irregular mucosal contour at the pharynx raises concern for malignancy. Chest X-Ray 09/27/24 06:20 Impression: Small bilateral pleural effusions with mild pulmonary edema. Chest CTA 09/27/24 11:04 IMPRESSION: 1. No pulmonary embolism. 2. Bilateral moderate pleural effusion with adjacent atelectasis versus pneumonia. 3. Possible soft tissue density in the right false vocal cord area. Clinical evaluation advised. Labs Labs: Laboratory Results - last 24 hr 09/20/24 09/27/24 09/27/24 12:33 06:33 06:36 WBC 14.1 H RBC 3.40 L Hgb 10.8 L Hct 31.9 L MCV 93.8 MCH 31.8 MCHC 33.9 RDW 13.2 Plt Count 318 MPV 9.6 Immature Gran % (Auto) 0.6 H Neut % (Auto) 81.2 H Lymph % (Auto) 4.0 L [place] % (Auto) 6.8 Eos % (Auto) 6.8 H Baso % (Auto) 0.6 Lymph # (Auto) 0.56 L [place] # (Auto) 1.0 H Eos # (Auto) 1.0 H Baso # (Auto) 0.1 Abs Immat Gran (auto) 0.09 H Absolute Neuts (auto) 11.4 H Absolute Nucleated RBC 0.000 Nucleated RBC % 0.0 Platelet Estimate Anisocytosis Ovalocytes [place] Cells Schistocytes PT INR APTT Sodium Potassium Chloride Carbon Dioxide Anion Gap BUN Creatinine Estim Creat Clear Calc Estimated GFR Glucose POC Capillary Glucose Lactic Acid Calcium Phosphorus Magnesium Total Bilirubin AST ALT Alkaline Phosphatase Total Protein Albumin Triglycerides 82 U Abnormal Prot Band 1 Not Reportable U Abnormal Prot Band 2 Not Reportable U Abnormal Prot Band 3 Not Reportable 09/27/24 09/27/24 09/27/24 09:58 11:36 17:57 WBC RBC Hgb Hct MCV MCH MCHC RDW Plt Count MPV Immature Gran % (Auto) Neut % (Auto) Lymph % (Auto) [place] % (Auto) Eos % (Auto) Baso % (Auto) Lymph # (Auto) [place] # (Auto) Eos # (Auto) Baso # (Auto) Abs Immat Gran (auto) Absolute Neuts (auto) Absolute Nucleated RBC Nucleated RBC % Platelet Estimate Anisocytosis Ovalocytes [place]rera Cells Schistocytes PT INR APTT Sodium Potassium Chloride Carbon Dioxide Anion Gap BUN Creatinine Estim Creat Clear Calc Estimated GFR Glucose POC Capillary Glucose 172 H 141 H Lactic Acid 1.1 Calcium Phosphorus Magnesium Total Bilirubin AST ALT Alkaline Phosphatase Total Protein Albumin Triglycerides U Abnormal Prot Band 1 U Abnormal Prot Band 2 U Abnormal Prot Band 3 09/27/24 09/28/24 20:21 04:45 WBC 15.3 H RBC 3.34 L Hgb 10.5 L Hct 31.1 L MCV 93.1 MCH 31.4 MCHC 33.8 RDW 13.2 Plt Count 329 MPV 9.6 Immature Gran % (Auto) 0.7 H Neut % (Auto) 70.1 Lymph % (Auto) 4.2 L [place] % (Auto) 6.0 Eos % (Auto) 18.5 H Baso % (Auto) 0.5 Lymph # (Auto) 0.64 L [place] # (Auto) 0.9 H Eos # (Auto) 2.8 H Baso # (Auto) 0.1 Abs Immat Gran (auto) 0.10 H Absolute Neuts (auto) 10.7 H Absolute Nucleated RBC 0.000 Nucleated RBC % 0.0 Platelet Estimate Adequate Anisocytosis 1+ Ovalocytes 1+ [place] Cells 1+ Schistocytes None seen PT 20.1 H INR 1.7 APTT 60.2 H Sodium 135 L Potassium 4.5 Chloride 103 Carbon Dioxide 27 Anion Gap 5 BUN 33 H Creatinine 1.90 H Estim Creat Clear Calc 31 Estimated GFR 34 L Glucose 126 H POC Capillary Glucose 144 H Lactic Acid Calcium 9.2 Phosphorus 4.2 Magnesium 2.2 Total Bilirubin 0.7 AST 67 H ALT 47 Alkaline Phosphatase 59 Total Protein 6.0 L Albumin 2.9 L Triglycerides U Abnormal Prot Band 1 U Abnormal Prot Band 2 U Abnormal Prot Band 3 Quality VTE Prophylaxis VTE prophylaxis: mechanical ordered
--- NOTE | 2024-09-28 11:31 | PCOTNOTE ---
The patient treatment was not able to be completed. RN stated to hold at this time. Will plan to continue treatment per plan of care.
--- NOTE | 2024-09-28 11:59 | PCNFU ---
Nutrition Follow-Up Complete: Suboptimal po intake related to reduced appetite as evidenced by pt report Goal:PO intake 75% of meals Pt not meeting goal. Pt is NPO due to failed MBS. Pt current nutrition is NPO. Nutrition recommendation: consider alternative nutrition support if necessary Last recorded weight is 98 kg. Bowel Motility: +BM 09/27 Labs Reviewed: Hgb:10.5, HCT:31.1, Alb:2.9, NA:135, BUN:33, Cr:1.9, Glu:126 Meds Noted: Eliquis, novolog, zofran Skin: WNL Additional Notes: Pt is NPO due to failed MBS, PPN was started at 80ml/hr yesterday but is not d/c'd due to new plueral effusion. No plans to restart PPN at this time. No discussion of tube feeds at this time either. will continue to monitor plan of care. Monitor intake, wt, labs. Follow up in 3 days.
--- NOTE | 2024-09-28 12:11 | P.PNNP_ITS ---
Progress Note: A&P Assessment and Plan (1) Hyponatremia: Code(s): E87.1 - Hypo-osmolality and hyponatremia Status: Acute Assessment and Plan: * improving/resolving * sodium normal ~ 8 months * risk factors for low sodium: * prerenal factors/diminished oral intake * malignancy (throat cancer) * HCTZ use * history of thyroid disease * excessive free water intake * chemotherapy (pembrolizumab) * s/p trial of normal saline IVFs - only mild improvement * evaluation to date: * TSH okay * cortisol okay on recheck; was on low initially * SPEP pending; UPEP negative * serum osmo 247; urine osmo 355; urine sodium 85 -- suggestive of SIADH * urine electrolytes indeterminate for prerenal azotemia * s/p intermittent 3% saline infusions PRN * off salt tabs but technically on fluid restriction (given NPO status) * follow trend of repeat sodium levels (2) Chronic kidney disease, stage 3: Code(s): N18.30 - Chronic kidney disease, stage 3 unspecified Status: Chronic Assessment and Plan: * baseline creatinine seems to run ~ 1.4 - 1.8mg/dl for the last several years * this causes him to fluctuate between CKD stage 3A and stage 3B * presumably due to HTN, DM, vascular disease, and age-related change (3) Sepsis: Code(s): A41.9 - Sepsis, unspecified organism Status: Acute Assessment and Plan: * as noted by fever, elevated WBC, tachypnea, and relative hypotension * pneumonia suspected source * follow culture date * on antibiotics * follow trend of hemodynamics (4) Acute respiratory failure: Code(s): J96.00 - Acute respiratory failure, unspecified whether with hypoxia or hypercapnia Status: Acute Assessment and Plan: * as noted in the last 24 hours * suspect multiple possible etiologies: * aspiration pneumonia * hospital acquired pneumonia * pleural effusions * CHF * cancer-related (immunosuppressed state) * already on antibiotics * imaging to date noted: * CXR (09/26) with dmall bilateral pleural effusions and associated bibasilar atelectasis and/or pneumonia; cardiomegaly * CXR (09/27) with small bilateral pleural effusions with mild pulmonary edema * Chest CTA (09/27) with no pulmonary embolism, bilateral moderate pleural effusion with adjacent atelectasis versus pneumonia, possible soft tissue density in the right false vocal cord area * at risk for intubation/mechanical ventilation * possible thoracentesis later today * NPO currently due to aspiration risk (5) Hypokalemia: Code(s): E87.6 - Hypokalemia Status: Acute Assessment and Plan: * resolved * noted on admission * likely exacerbated by low magnesium and poor oral intake * replacement as needed * follow trend (6) Generalized weakness: Code(s): R53.1 - Weakness Status: Acute Assessment and Plan: * presumably due to volume depletion and possibly electrolyte abnormalities along with underlying malgnancy * follow clinical symptoms * PT/OT as tolerated (7) 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, unspecified Status: Acute Assessment and Plan: * currently undergoing chemo at [facility] * suspect poor PO intake secondary to chemotherapy * antiemetics as needed (8) HTN (hypertension): Qualifiers: Hypertension type: primary hypertension Qualified Code(s): I10 - Essential (primary) hypertension Code(s): I10 - Essential (primary) hypertension Status: Acute Assessment and Plan: * reasonable control * hold HCTZ due to #1 * holding ARB due to fluctuating creatinine and previous hypotension * follow trend of hemodynamics (9) Type 2 diabetes mellitus: Qualifiers: Diabetes mellitus complication status: without complication Diabetes mellitus termite inspector insulin use: without termite inspector use Qualified Code(s): E11.9 - Type 2 diabetes mellitus without complications Code(s): E11.9 - Type 2 diabetes mellitus without complications Status: Acute Assessment and Plan: * follow accu-cheks * glycemic control per hospitalists Will continue to follow. Subjective Date/time seen: 09/28/24 12:11 Interval history: Follow-up for acute hyponatremia and chronic kidney disease. Moved to IMU yesterday afternoon for closer monitoring; noted results of Chest CTA done yesterday; ongong improvement in sodium noted at this time; renal function/creatinine remains relatively stable as well; appears to be doing a bit better in general -- reports shortness of breath but better in comparison to yesterday; noted plans for thoracentesis this afternoon. Exam 2 Narrative: General: elderly but WD/WN male in NAD Heart: normal S1 and S2; no rub Lungs: coarse breath sounds Abdomen: soft, nontender, nondistended, positive bowel sounds Extremities: no cyanosis or clubbing; no edema Skin: no nodules Objective Data Vital Signs Vital Signs: Vital Signs Temp Pulse Resp BP Pulse Ox O2 Del Method O2 Flow Rate 09/28/24 10:00 70 09/28/24 09:30 70 20 09/28/24 09:17 68 20 09/28/24 09:17 93 Nasal Cannula 3 09/28/24 08:26 97.8 F 77 20 132/65 95 09/28/24 08:00 70 09/28/24 08:00 70 20 93 High Flow Nasal Cannula 3 09/28/24 05:57 70 09/28/24 04:30 76 18 97 High Flow Nasal Cannula 4 09/28/24 04:19 97.8 F 76 18 135/55 L 97 09/28/24 04:00 73 09/28/24 02:00 65 09/28/24 00:00 63 09/27/24 23:40 97.8 F 80 22 H 136/69 97 09/27/24 23:32 65 22 H 98 High Flow Nasal Cannula 4 09/27/24 22:00 65 09/27/24 20:58 78 22 H 09/27/24 20:54 98.0 F 72 22 H 132/53 L 96 09/27/24 20:35 66 22 H 09/27/24 20:10 80 22 H 97 High Flow Nasal Cannula 4 09/27/24 20:00 69 09/27/24 18:00 80 09/27/24 17:00 97 High Flow Nasal Cannula 4 09/27/24 16:00 70 09/27/24 16:00 67 22 H 98 High Flow Nasal Cannula 6 09/27/24 14:59 97.7 F 67 22 H 126/43 L 100 09/27/24 14:19 68 20 09/27/24 14:09 66 22 H 09/27/24 14:00 93 09/27/24 13:40 98.4 F 69 22 H 117/56 L 98 09/27/24 13:05 98 Simple Face Mask 6 Intake/Output Intake/Output: Intake & Output 09/25/24 09/26/24 09/27/24 09/28/24 23:59 23:59 23:59 23:59 Intake Total 2231.7 665.8 200 50 Output Total 280 550 600 800 Balance 1951.7 115.8 -400 -750 Meds/Results Medications: Active Medications Generic Name Dose Route Start Last Admin Trade Name Freq PRN Reason Stop Dose Admin Acetaminophen 650 mg 09/27/24 05:21 09/27/24 05:37 Acetaminophen 650 Mg Suppository RECTAL 650 mg Q6H PRN Administration Mild Pain (1-3) or Fever Albuterol/Ipratropium 3 ml 09/25/24 08:00 09/28/24 09:16 Ipratropium 0.5 Mg/Albuterol Sulfate 2.5 Mg Ampul.Neb 3 Ml INHALATION 3 ml Q6HRT RINA Administration Amlodipine Besylate 10 mg 09/20/24 09:00 09/27/24 12:36 Amlodipine Besylate 10 Mg Tablet PO Not Given DAILY RINA Apixaban 5 mg 09/19/24 22:35 09/27/24 12:36 Apixaban 5 Mg Tablet PO Not Given Q12HR RINA Benzocaine 1 lozenge 09/25/24 15:00 Benzocaine/Menthol (*Bkc) 18 Ea Lozenge PO PRN PRN Sore Throat Clotrimazole 1 applic 09/20/24 09:00 09/28/24 08:17 Betamethasone/Clotrimazole Cream 15 Gm Tube TOPICAL Not Given BID RINA Dextrose 12.5 gm 09/19/24 18:30 Dextrose 50% 25 Gm/50 Ml Syringe IV PUSH PRN PRN Hypoglycemia Protocol Glucagon 1 mg 09/19/24 18:30 Glucagon For Inj 1 Mg Vial IM PRN PRN Hypoglycemia Protocol Glucose 15 gm 09/19/24 18:30 Glucose Oral Gel 15 Gm Of Glucse In 37.5 Gm Tube PO PRN PRN Hypoglycemia Protocol Guaifenesin 600 mg 09/25/24 21:00 09/28/24 08:17 Guaifenesin 12 Hr 600 Mg Tabcr PO Not Given Q12HR RINA Dextrose 1,000 mls @ 100 mls/hr 09/19/24 18:30 Dextrose 5% 1,000 Ml IVPB PRN PRN Hypoglycemia Protocol Piperacillin Sod/Tazobactam Sod 2.25 gm in 50 mls @ 100 mls/hr 09/24/24 23:00 09/28/24 05:55 Zosyn 2.25 Gm/Ns 50 Ml IVPB 100 mls/hr Q6HR RINA Administration Dextrose 1,000 mls @ 50 mls/hr 09/26/24 14:00 Dextrose 10% IV CONT .Q20H PRN if PN is interrupted Amino Acids/Electrolytes/Dextrose 2,000 mls @ 80 mls/hr 09/26/24 15:00 09/27/24 15:53 Clinimix E 4.25%/5% Solution IV CONT Not Given .Q24H [facility] Protocol Fat Emulsion Intravenous 250 mls @ 20.833 mls/hr 09/26/24 15:00 09/27/24 15:34 Lipids 20% IVPB Not Given Q24H [facility] Insulin Aspart 2 - 5 units 09/25/24 18:00 09/28/24 05:55 Insulin Aspart (*Bkc) 100 Units/Ml SUB-Q Not Given Q6HR [facility] Protocol Levothyroxine Sodium 56 mcg 09/28/24 06:30 09/28/24 05:55 Levothyroxine Sodium Inj 100 Mcg/5 Ml Vial IV PUSH Not Given DAILY@0630 [facility] Ondansetron HCl 4 mg 09/19/24 18:30 09/26/24 16:08 Ondansetron Inj 4 Mg/2 Ml Vial IV PUSH 4 mg Q4H PRN Administration Nausea And Vomiting Perflutren Lipid Microsphere 0 ml 09/27/24 16:17 Perflutren Lipid Microspheres 1.5 Ml Vial Diluted To 10 Ml Total Volume IV PUSH 09/30/24 16:17 ONCE PRN adequate visualization Protocol Sodium Chloride 1,500 mg 09/24/24 09:00 09/24/24 10:20 Sodium Chloride 500 Mg Tablet PO 1,500 mg BID RINA Administration Sodium Chloride 6 ml 09/28/24 05:00 Sodium Chlor 3% 15 Ml Neb (Respiratory Therapy) INHALATION 09/30/24 05:01 DAILY@0500 [facility] Radiology Results: ITS Impressions Head CT 09/24/24 14:42 IMPRESSION: 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 Pharyngeal dysphagia with laryngeal penetration both during and after the swallow and small amount of silent aspiration following the swallow. Please correlate with speech pathologist findings and specific feeding recommendations. 2. Irregular mucosal contour at the pharynx raises concern for malignancy. Chest X-Ray 09/27/24 06:20 Impression: Small bilateral pleural effusions with mild pulmonary edema. Chest CTA 09/27/24 11:04 IMPRESSION: 1. No pulmonary embolism. 2. Bilateral moderate pleural effusion with adjacent atelectasis versus pneumonia. 3. Possible soft tissue density in the right false vocal cord area. Clinical evaluation advised. Labs Labs: Laboratory Tests 09/28/24 04:45 09/28/24 04:45 Calcium 9.2 Phosphorus 4.2 Magnesium 2.2 Total Bilirubin 0.7 AST 67 H ALT 47 Alkaline Phosphatase 59 Total Protein 6.0 L Albumin 2.9 L Microbiology 09/27/24 11:40 Blood Blood Culture - Preliminary 09/27/24 09:59 Blood Blood Culture - Preliminary
[2024-09-28 12:39] LABS: INR 1.7; Prothrombin Time 20.1 Seconds (11.1-14.7)
--- NOTE | 2024-09-28 12:54 | PCPTNOTE ---
Per hospitalist, OK to hold pt for today and try again tomorrow. Will follow. Nursing aware.
[2024-09-28 15:17] LABS: pH Pleural Fluid 7.441 (7.210-7.500)
[2024-09-28 16:07] LABS: Appearance Pleural Fluid Bloody (Clear); Color Pleural Fluid Red (Colorless); Nucleated Cell Pleural Fluid 7131 /uL (0-1000); Pleural fluid source Pleural fluid
[2024-09-28 16:08] LABS: Lymphocytes Pleural Fluid 37 %; Macrophages Pleural Fluid 2 %; Mesothelial Cells Pleural Flui 9 %; Neutrophils Pleural Fluid 39 % (0-25); Other Cells Pleural Fluid 13 %; RBC Pleural Fluid 107000 /uL (0-10000)
[2024-09-28 17:49] LABS: Glucose Point of Care 131 mg/dl (65-105)
[2024-09-29 00:12] LABS: Glucose Point of Care 142 mg/dl (65-105)
--- NOTE | 2024-09-29 03:21 | PC.NURSE ---
0000 See assessment documented in flowsheets. Pt on 2Lnc. Vitals stable Pt stated he was going to sleep 0202 HR dropped to 50's and pacing. Went to assess pt. Pt found
[2024-09-29 06:52] LABS: Glucose Point of Care 129 mg/dl (65-105)
--- NOTE | 2024-09-29 07:42 | PM.IMPN ---
Progress Note: A&P Assessment and Plan (1) Sepsis: Code(s): A41.9 - Sepsis, unspecified organism Status: Acute Assessment and Plan: Meets SIRS criteria: Febrile 102.5, leukocytosis, tachypnea, Hypotension - lactic acid: 1.3 on 09/24, repeat 1.1 - suspected source: pneumonia - blood cultures drawn on 09/24: NGTD - repeat blood cultures drawn on 09/27: ordered - Urine culture 09/25: negative - Repeat urine culture ordered - CXR 09/26: Small bilateral pleural effusions and associated bibasilar atelectasis and/or pneumonia. Cardiomegaly. - CXR 09/27: Small bilateral pleural effusions with mild pulmonary edema. - Chest CTA: 1. No pulmonary embolism. 2. Bilateral moderate pleural effusion with adjacent atelectasis versus pneumonia. 3. Possible soft tissue density in the right false vocal cord area. Clinical evaluation advised. (2) Altered mental state: Code(s): R41.82 - Altered mental status, unspecified Status: Acute Assessment and Plan: 09/24 rapid response was called this am- as pt was diaphoretic, confused, low BP. He was drowsy and lethargic and c/o chest pain. EKG, trop, chest xray, abg, ct head, labs-ordered. BP improved to 120'70's and pt was able to answer all the questions for me- a bit slower with response but still able to. 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 (3) Acute respiratory failure: Code(s): J96.00 - Acute respiratory failure, unspecified whether with hypoxia or hypercapnia Status: Acute Assessment and Plan: new oxygen requirement of 3L simple face mask aspiration pneumonia vs HAP vs pleural effusion 2/2 infection vs cancer very likely due to pneumonia-undergoing immunotherapy with keytruda last round of keytruda caused him to be very weak and he was unable to eat/drink for over 2 weeks Antibiotics changed to zosyn and vanc, vanc discontinued pulm toilet, dubillbs, IS. ABG ph 7.460, pCO2 30.3, pO2 69.9, HCO3 21.1 CXR 09/26: Small bilateral pleural effusions and associated bibasilar atelectasis and/or pneumonia. Cardiomegaly. Pt is at high risk for condition deterioration and might be needing intubation to secure airway MBS: Pharyngeal dysphagia with laryngeal penetration both during and after the swallow and small amount of silent aspiration following the swallow. Irregular mucosal contour at the pharynx raises concern for malignancy. 09/26- failed swallow study- NPO for now. Prior provider discussed PEG tube- pt does not want it. Attempted multiple times to call to discuss=-always go to voicemail. Discussed with pt-as pt is alert/oriented- he is agreeable to do PPN for now and work with speech therapy- repeat swallow studies in 1-2 days and see if improved. He is aware that if he continues to take oral intake- he will continue to aspirate. CXR 09/27: Small bilateral pleural effusions with mild pulmonary edema. Chest CTA 09/27: 1. No pulmonary embolism. 2. Bilateral moderate pleural effusion with adjacent atelectasis versus pneumonia. 3. Possible soft tissue density in the right false vocal cord area. Clinical evaluation advised. 09/28: s/p left thoracentesis yielded 650 ml, diagnotics pending 09/29: (4) Bilateral pleural effusion: Code(s): J90 - Pleural effusion, not elsewhere classified Status: Acute Assessment and Plan: 09/27- Patient having increased work of breathing with resp rate 36bpm on assessment. Oxygen increased to 6L NC. Patient speaking full sentences. Lungs are course with bilateral crackles. CXR 09/27: Small bilateral pleural effusions with mild pulmonary edema. Chest CTA 09/27: 1. No pulmonary embolism. 2. Bilateral moderate pleural effusion with adjacent atelectasis versus pneumonia. 3. Possible soft tissue density in the right false vocal cord area. Clinical evaluation advised. Echo: LVEF 60-65% with abnormal diastolic function and mild pulmonary hypertension Eliquis placed on hold and SCDs started PPN placed on hold as possible source of volume overload Oxygen supplementation now 2L NC, normal respiration rate 09/28: s/p left thoracentesis yielded 650 ml, diagnotics pending 09/29: (5) Pneumonia: Code(s): J18.9 - Pneumonia, unspecified organism Status: Acute Assessment and Plan: - CXR 09/26: Small bilateral pleural effusions and associated bibasilar atelectasis and/or pneumonia. Cardiomegaly. - CXR 09/27: Small bilateral pleural effusions with mild pulmonary edema. - Chest CTA: 1. No pulmonary embolism. 2. Bilateral moderate pleural effusion with adjacent atelectasis versus pneumonia. 3. Possible soft tissue density in the right false vocal cord area. Clinical evaluation advised. - Risk Factors: immunocompromised, extended hospitalization - started on HAP tx: vanc and zosyn on 09/24, MRSA negative DC vanc on 09/27 - Viral PCR: negative for Flu/COVID/RSV - New oxygen requirement of 5 L NC, baseline room air - Monitor vital signs, I&Os, neuro status and patient is a fall risk - Follow WBC, serum electrolytes, temperature curves and cultures 09/26- failed swallow study- NPO for now. Prior provider discussed PEG tube- pt does not want it. Attempted multiple times to call to discuss=-always go to voicemail. Discussed with pt-as pt is alert/oriented- he is agreeable to do PPN for now and work with speech therapy- repeat swallow studies in 1-2 days and see if improved. He is aware that if he continues to take oral intake- he will continue to aspirate. (6) Acute hyponatremia: Code(s): E87.1 - Hypo-osmolality and hyponatremia Status: Acute Assessment and Plan: Na 115 on admission - add serum osmolality, urine osmolality, urine sodium, protein to creatinine ratio, urine creatinine - started on IV fluids: 1L bolus, 100 mL/hr x1L - trend sodium - neurological checks Q6H - monitor-stable - nephrology consulted sodium chloride 3% ordered per nephrology 09/22 na improved to 120- on po salt tabs as well. 09/28-stable (7) Hypokalemia: Code(s): E87.6 - Hypokalemia Status: Acute Assessment and Plan: - K 4.5 on am labs - stable - trend with daily labs (8) Hypomagnesemia: Code(s): E83.42 - Hypomagnesemia Status: Acute Assessment and Plan: - Mag 2.2 on am labs - trend with daily labs (9) CKD (chronic kidney disease) stage 3, GFR 30-59 ml/min: Qualifiers: Chronic kidney disease stage 3 subtype: unspecified whether 3a or 3b Qualified Code(s): N18.30 - Chronic kidney disease, stage 3 unspecified Code(s): N18.3 - Chronic kidney disease, stage 3 (moderate) Status: Acute Assessment and Plan: BUN/Cr WNL on admission. Baseline appears to be around 1.3-1.7. - creatinine 1.9 and GFR 34 on am labs, previously 1.73 and GFR 39 on 01/17/2024 - worsening kidney function likely secondary to antibiotic regimen, vanc discontinued given MRSA negative - trend renal function - trend electrolytes, correct as needed (10) HTN (hypertension): Code(s): I10 - Essential (primary) hypertension Status: Acute Assessment and Plan: - chronic, currently holding antihypertensives as patients has been hypotensive - monitor (11) Generalized weakness: Code(s): R53.1 - Weakness Status: Acute Assessment and Plan: - viral PCR and UA negative - suspect generalized weakness is multifactorial including dehydration, hypomagnesemia and hyponatremia. Plan for electrolyte correction and IV fluids. continue working with pt/ot (12) Type 2 diabetes mellitus: Code(s): E11.9 - Type 2 diabetes mellitus without complications Status: Acute Assessment and Plan: - hypoglycemia protocol - POC blood glucose q.6 hour until p.o. 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 - plate glass polisher consulted - Consult oncology to help optimizing therapy for immunocompromised pt follow-up with his oncologist at [facility] after the discharge. Plan Diet: Regular GI Prophylaxis: Not currently indicated DVT Prophylaxis: Continue home apixaban Lines: Peripheral Code Status: Full code Subjective Date/time seen: 09/29/24 07:42 Interval history: 84 y/o M presents here with with dizziness and generalized weakness with PMH of CAD, chronic AFib, CKD, diabetes, hyperlipidemia, and throat cancer. Review of Systems Review of Systems: All systems reviewed & are unremarkable except as noted in HPI and below Exam Narrative: AF HR General: male who is nontoxic appearing, sitting up in bed HEENT: Normocephalic. Atraumatic. Extraocular movement intact. Sclera clear and anicteric. . No facial asymmetry. Chest: Lungs are diminished in the cuppers and coarse with crackles to auscultation bilaterally. No wheezes. CV: Heart was regular rate and rhythm. S1/S2. No murmurs, gallops, or rubs. Abd: Abdomen was soft. Nontender. Nondistended. Positive bowel sounds. No organomegaly or masses. Ext: No clubbing, cyanosis, or edema. 2+ DP pulses bilaterally. Neuro: Patient is alert and oriented x3 but confused with further discussion. Cranial nerves 2-12 are intact. Speech is clear. Objective Data Vital Signs Vital Signs: Vital Signs - 24 hr 09/28/24 08:00 09/28/24 08:00 09/28/24 08:26 Temperature 97.8 F Pulse Rate 70 70 77 Respiratory Rate 20 20 Blood Pressure 132/65 Pulse Oximetry 93 95 Oxygen Delivery High Flow Nasal Cannula Oxygen Flow Rate 3 Fraction of Inspired Oxygen 09/28/24 09:17 09/28/24 09:17 09/28/24 09:30 Temperature Pulse Rate 68 70 Respiratory Rate 20 20 Blood Pressure Pulse Oximetry 93 Oxygen Delivery Nasal Cannula Oxygen Flow Rate 3 Fraction of Inspired Oxygen 09/28/24 10:00 09/28/24 12:00 09/28/24 12:00 Temperature Pulse Rate 70 77 77 Respiratory Rate 20 Blood Pressure Pulse Oximetry 93 Oxygen Delivery Nasal Cannula Oxygen Flow Rate 2 Fraction of Inspired Oxygen 09/28/24 14:00 09/28/24 15:06 09/28/24 15:06 Temperature Pulse Rate 74 82 79 Respiratory Rate 22 H 22 H Blood Pressure Pulse Oximetry Oxygen Delivery Oxygen Flow Rate Fraction of Inspired Oxygen 09/28/24 16:00 09/28/24 16:00 09/28/24 16:25 Temperature 100.0 F H Pulse Rate 78 78 79 Respiratory Rate 22 H 20 Blood Pressure 126/76 Pulse Oximetry 93 97 Oxygen Delivery Nasal Cannula Oxygen Flow Rate 2 Fraction of Inspired Oxygen 09/28/24 18:00 09/28/24 20:00 09/28/24 20:00 Temperature Pulse Rate 75 87 Respiratory Rate Blood Pressure Pulse Oximetry 100 Oxygen Delivery Nasal Cannula Oxygen Flow Rate 2 Fraction of Inspired Oxygen 32 09/28/24 20:16 09/28/24 20:58 09/28/24 20:59 Temperature 97.8 F Pulse Rate 85 87 Respiratory Rate 20 22 H Blood Pressure 125/57 L Pulse Oximetry 96 97 Oxygen Delivery Nasal Cannula Oxygen Flow Rate 3 Fraction of Inspired Oxygen 09/28/24 21:07 09/28/24 23:54 09/28/24 23:58 Temperature 97.9 F Pulse Rate 88 87 Respiratory Rate 22 H 18 Blood Pressure 92/41 L Pulse Oximetry 100 98 Oxygen Delivery Nasal Cannula Oxygen Flow Rate 2 Fraction of Inspired Oxygen 32 09/28/24 23:58 Temperature Pulse Rate 89 Respiratory Rate Blood Pressure Pulse Oximetry Oxygen Delivery Oxygen Flow Rate Fraction of Inspired Oxygen Intake/Output Intake/Output: Intake & Output 09/26/24 09/27/24 09/28/24 09/29/24 23:59 23:59 23:59 23:59 Intake Total 665.8 200 200 Output Total 428 335 8158 Balance 115.8 -400 -2250 Meds/Results Medications: Active Medications Generic Name Dose Route Start Last Admin Trade Name Freq PRN Reason Stop Dose Admin Acetaminophen 650 mg 09/27/24 05:21 09/27/24 05:37 Acetaminophen 650 Mg Suppository RECTAL 650 mg Q6H PRN Administration Mild Pain (1-3) or Fever Albuterol/Ipratropium 3 ml 09/25/24 08:00 09/28/24 20:56 Ipratropium 0.5 Mg/Albuterol Sulfate 2.5 Mg Ampul.Neb 3 Ml INHALATION 3 ml Q6HRT RINA Administration Amlodipine Besylate 10 mg 09/20/24 09:00 09/27/24 12:36 Amlodipine Besylate 10 Mg Tablet PO Not Given DAILY RINA Apixaban 5 mg 09/19/24 22:35 09/27/24 12:36 Apixaban 5 Mg Tablet PO Not Given Q12HR RINA Benzocaine 1 lozenge 09/25/24 15:00 Benzocaine/Menthol (*Bkc) 18 Ea Lozenge PO PRN PRN Sore Throat Clotrimazole 1 applic 09/20/24 09:00 09/28/24 17:21 Betamethasone/Clotrimazole Cream 15 Gm Tube TOPICAL Not Given BID RINA Dextrose 12.5 gm 09/19/24 18:30 Dextrose 50% 25 Gm/50 Ml Syringe IV PUSH PRN PRN Hypoglycemia Protocol Glucagon 1 mg 09/19/24 18:30 Glucagon For Inj 1 Mg Vial IM PRN PRN Hypoglycemia Protocol Glucose 15 gm 09/19/24 18:30 Glucose Oral Gel 15 Gm Of Glucse In 37.5 Gm Tube PO PRN PRN Hypoglycemia Protocol Guaifenesin 600 mg 09/25/24 21:00 09/28/24 22:14 Guaifenesin 12 Hr 600 Mg Tabcr PO Not Given Q12HR RINA Dextrose 1,000 mls @ 100 mls/hr 09/19/24 18:30 Dextrose 5% 1,000 Ml IVPB PRN PRN Hypoglycemia Protocol Piperacillin Sod/Tazobactam Sod 2.25 gm in 50 mls @ 100 mls/hr 09/24/24 23:00 09/28/24 18:42 Zosyn 2.25 Gm/Ns 50 Ml IVPB Infused Q6HR [facility] Infusion Dextrose 1,000 mls @ 50 mls/hr 09/26/24 14:00 Dextrose 10% IV CONT .Q20H PRN if PN is interrupted Amino Acids/Electrolytes/Dextrose 2,000 mls @ 80 mls/hr 09/26/24 15:00 09/27/24 15:53 Clinimix E 4.25%/5% Solution IV CONT Not Given .Q24H [facility] Protocol Fat Emulsion Intravenous 250 mls @ 20.833 mls/hr 09/26/24 15:00 09/27/24 15:34 Lipids 20% IVPB Not Given Q24H [facility] Insulin Aspart 2 - 5 units 09/25/24 18:00 09/28/24 17:43 Insulin Aspart (*Bkc) 100 Units/Ml SUB-Q Not Given Q6HR [facility] Protocol Levothyroxine Sodium 56 mcg 09/28/24 06:30 09/28/24 05:55 Levothyroxine Sodium Inj 100 Mcg/5 Ml Vial IV PUSH Not Given DAILY@0630 [facility] Ondansetron HCl 4 mg 09/19/24 18:30 09/26/24 16:08 Ondansetron Inj 4 Mg/2 Ml Vial IV PUSH 4 mg Q4H PRN Administration Nausea And Vomiting Perflutren Lipid Microsphere 0 ml 09/27/24 16:17 Perflutren Lipid Microspheres 1.5 Ml Vial Diluted To 10 Ml Total Volume IV PUSH 09/30/24 16:17 ONCE PRN adequate visualization Protocol Sodium Chloride 1,500 mg 09/24/24 09:00 09/24/24 10:20 Sodium Chloride 500 Mg Tablet PO 1,500 mg BID RINA Administration Sodium Chloride 6 ml 09/28/24 05:00 Sodium Chlor 3% 15 Ml Neb (Respiratory Therapy) INHALATION 09/30/24 05:01 DAILY@0500 RINA Sodium Chloride 6 ml 09/29/24 05:00 Sodium Chlor 3% 15 Ml Neb (Respiratory Therapy) INHALATION 10/01/24 05:01 DAILY@0500 [facility] Radiology Results: ITS Impressions Head CT 09/24/24 14:42 IMPRESSION: 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 Pharyngeal dysphagia with laryngeal penetration both during and after the swallow and small amount of silent aspiration following the swallow. Please correlate with speech pathologist findings and specific feeding recommendations. 2. Irregular mucosal contour at the pharynx raises concern for malignancy. Chest CTA 09/27/24 11:04 IMPRESSION: 1. No pulmonary embolism. 2. Bilateral moderate pleural effusion with adjacent atelectasis versus pneumonia. 3. Possible soft tissue density in the right false vocal cord area. Clinical evaluation advised. Chest X-Ray 09/28/24 15:44 IMPRESSION: 1. No pneumothorax or evident residual left pleural effusion post left thoracentesis. 2. Unchanged small right pleural effusion. 3. Persistent bibasilar opacities which could represent atelectasis or pneumonia. Thoracentesis Ultrasound 09/28/24 15:46 IMPRESSION: 1. Successful ultrasound-guided thoracentesis yielding 650 mL of dark reddish colored fluid. Labs Labs: Laboratory Results - last 24 hr 09/28/24 09/28/24 09/28/24 11:34 12:19 14:35 PT 20.1 H INR 1.7 APTT 41.0 H POC Capillary Glucose 129 H Pleural Fluid Source Pleural fluid Pleural Color Red Pleural Appearance Bloody Pleural pH 7.441 Pleural RBC 595566 H Pleural Nuc Cells 7131 H Pleural Neutrophils 39 H Pleural Lymphocytes 37 Pleural Macrophages 2 Pleural Mesothelial 9 Pleural Other Cells 13 09/28/24 09/29/24 17:43 00:10 PT INR APTT POC Capillary Glucose 131 H 142 H Pleural Fluid Source Pleural Color Pleural Appearance Pleural pH Pleural RBC Pleural Nuc Cells Pleural Neutrophils Pleural Lymphocytes Pleural Macrophages Pleural Mesothelial Pleural Other Cells Quality VTE Prophylaxis VTE prophylaxis: mechanical ordered
--- NOTE | 2024-09-29 09:27 | P.DN_ITS ---
Discharge Summary Date and Time Date of : 09/29/24 Time of : 02:00 Provider Pronounced By: 2 RNs Name of First RN That Pronounced: Anne Marie Bass RN Name of Second RN That Pronounced: Zay Mota RN Probable Cause of Probable Cause of : sepsis with acute hypoxic respiratory failure likely due to pneumonia/pleural effusions complicated by throat cancer Summary Hospital Course: 84 year old male with past medical history of CAD, chronic AFib, CKD, diabetes, hyperlipidemia, and throat cancer presents to the hospital with with dizziness and generalized weakness. Patients was found to be hyponatremic at 115, hypokalemic, and hypomagnesemic on admission, patient received K and Mg supplementation and was started on IV NS with nephrology consulted. Nephrology ordered 3% NS and started patient on a fluid restriction and salt tabs, patients sodium slowly improved. Prior to expiration patients sodium had returned to 135. Potassium and magnesium were within normal limits. On 09/24 a rapid response was called because the patient was febrile, diaphoretic, confused, hypotensive and complaining of chest pain. Chest XR showed small lung volumes with worsened airspace opacities in the lower lung zones, consistent with atelectasis versus pneumonia. Patient was started on IV anabiotics at that time. Another rapid response was called later that night at which point patient was meeting SIRs criteria with fever 102.5, leukocytosis, tachypnea, and hypotension suspected etiology being pneumonia. Patient also having a new oxygen requirement at that time. Repeat chest XR showed right mid and bilateral lower lung infiltrate and/or atelectasis, most prominent in the left lower lobe with cardiomegaly, aortic calcification. Blood cultures were drawn, showed NGTD. Chest XR on 09/26 showed small bilateral pleural effusions and associated bibasilar atelectasis and/or pneumonia. Cardiomegaly. A swallow study with MBS was performed to evaluate for aspiration concerns and patient did not pass. He was then made NPO and oncology was consulted for his chronic throat cancer who states he is to follow up with his oncologist at [facility] after discharge. Since patient failed his swallow study the provider discussed PEG tube placement, however patient refused and was instead started on PPN with plan to repeat swallow study within 1-2 days. On 09/27 he became severely tachypneic endorsing worsened shortness of breath and requiring increased oxygen supplementation. Chest CTA showed bilateral moderate pleural effusions with adjacent atelectasis vs pneumonia and possible soft tissue density in the right false vocal cord, no PE. Patient transferred to IMU for closer monitoring. PPN placed on hold as possible source for volume overload. Eliquis placed on hold and SCDs ordered for DVT ppx. Thoracentesis performed on 09/28 yielding 650 ml from the left lung. Patients had a decrease in oxygen requirement following the thoracentesis. Echo showed LVEF 60-65% with abnormal diastolic dysfunction and mild pulmonary hypertension. Vital signs were stable throughout the day. Patient became hypotensive at 2354 with a pressure of 92/41, vitals otherwise stable at that time. Rounding was performed at 0200 and patient was found unresponsive, apneic, pulseless, and had no pupillary reflex. Dr. Allison was notified, patient was a DNR. Time of was called at that time. Additional Data Confirmation of as documented by pronouncing clinician: Pupillary Reflex, Palpable Pulses, Response to Stimuli, Heart Tones and Breath Sounds Name of Provider Notified: Dr. Allison Time Provider Notified: 02:16 Provider Requests Autopsy: No [employer] Notified: Yes Date [facility] Notified of : 09/29/24 Time [facility] Notified of : 03:06
[2024-09-29 20:24] LABS: Alpha 1 Globulin 0.3 g/dL (0.2-0.3); Alpha 2 Globulin 0.7 g/dL (0.5-0.9); Beta 1 Globulin 0.4 g/dL (0.4-0.6); Gamma Globulin 1.3 g/dL (0.8-1.7)
[2024-10-05 19:19] LABS: Albumin Pleural Fluid 1.4 g/dL; Amylase, Pleural Fluid 15 U/L; Glucose Pleural Fluid 119 mg/dL; LDH Pleural Fluid 1134 U/L; Total Protein Pleural Fluid 3.5 g/dL
== END 2024-09-29 02:00 | disposition expired | DRG 871 ==
LOC: ANHED 17:22 → ANHIMU 19:54 → ANH3MEDSUR 09-23 14:55 → ANHIMU 09-27 13:12
PROVIDERS: Internal Medicine; Internal Medicine Hematology & Oncology; Internal Medicine Nephrology; Nurse Practitioner; Registered Nurse; Student in an Organized Health Care Education/Training Program; Admitting Provider General Practice; Emergency Provider Emergency Medicine; PCP Family Medicine; Visit Provider Student in an Organized Health Care Education/Training Program
DX: A41.9 Sepsis, unspecified organism (principal); J18.9 Pneumonia, unspecified organism; J96.01 Acute respiratory failure with hypoxia; I48.20 Chronic atrial fibrillation, unspecified; E87.1 Hypo-osmolality and hyponatremia; J90 Pleural effusion, not elsewhere classified; C14.0 Malignant neoplasm of pharynx, unspecified; D63.1 Anemia in chronic kidney disease; E11.22 Type 2 diabetes mellitus with diabetic chronic kidney disease; E11.65 Type 2 diabetes mellitus with hyperglycemia; E78.5 Hyperlipidemia, unspecified; E87.6 Hypokalemia; E83.42 Hypomagnesemia; I12.9 Hypertensive chronic kidney disease with stage 1 through stage 4 chronic kidney disease, or unspecified chronic kidney disease; I25.10 Atherosclerotic heart disease of native coronary artery without angina pectoris; N18.30 Chronic kidney disease, stage 3 unspecified; R32 Unspecified urinary incontinence; Z92.21 Personal history of antineoplastic chemotherapy; Z66 Do not resuscitate; Z79.01 Long term (current) use of anticoagulants; Z85.46 Personal history of malignant neoplasm of prostate; Z95.5 Presence of coronary angioplasty implant and graft; Z90.79 Acquired absence of other genital organ(s); Z28.21 Immunization not carried out because of patient refusal; Z20.822 Contact with and (suspected) exposure to COVID-19; Z79.85 Long-term (current) use of injectable non-insulin antidiabetic drugs; Z79.84 Long term (current) use of oral hypoglycemic drugs
CPT/HCPCS: 32555; 36415; 36600; 70450; 71045; 71046; 71275; 80048; 80053; 80069; 81001; 81003; 82042; 82150; 82375; 82533; 82570; 82607; 82728; 82746; 82805; 82945; 82948; 83050; 83540; 83550; 83605; 83615; 83735; 83930; 83935; 83986; 84100; 84145; 84155; 84156; 84157; 84165; 84166; 84295; 84300; 84311; 84443; 84466; 84478; 84484; 85018; 85025; 85027; 85610; 85730; 87015; 87040; 87070; 87075; 87086; 87102; 87116; 87205; 87206; 87637; 87641; 88108; 88305; 89051; 92610; 92611; 93005; 93306; 94002; 94640; 96361; 96365; 97161; 97165; 97530; 97535; 99285; A9270; G0378; J0696; J1815; J1940; J2270; J2405; J2543; J3370; J3475; J7030; J7040; J7131; Q9967